=== PATIENT | female | born 1950 | race Caucasian/White ===

== ENCOUNTER 2019-11-23 15:03 | Emergency (ER) | payer MEDICARE, OTHER, SELFPAY ==
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
[2019-11-23 16:19] VITALS: BP 154/88; PULSE 92; RESP 20; TEMP 37.3; O2SAT 96
--- NOTE | 2019-11-23 16:27 | ECG_ITS ---
Measurements Intervals [place] Rate: 68 P: 51 [place]: 164 QRS: -8 QRSD: 80 T: 16 QT: 390 QTc: 416 Interpretive Statements SINUS RHYTHM VOLTAGE CRITERIA FOR LVH BORDERLINE R WAVE PROGRESSION, ANTERIOR LEADS BORDERLINE ECG Electronically Signed On 11-23-2019 17:56:42 WRINKLE CHASER by Chris Haque D.O.
[2019-11-23 16:58] LABS: Basophils Percent Auto 0.5 % (0.2-1.2); Eosinophils Absolute Auto 0.1 K/mm3 (0-0.3); Eosinophils Percent Auto 1.7 % (0-4.4); Hematocrit 37.9 % (37.0-47.0); Hemoglobin 11.9 g/dL (12.0-15.0); Immature Granulocyte Absolute 0.02 K/mm3 (0.00-0.031); Immature Granulocyte Percent A 0.3 % (0-0.5); Lymphocytes Absolute Auto 2.77 K/mm3 (0.9-3.2); Lymphocytes Percent Auto 35.5 % (18.3-44.2); Mean Corpuscular HGB Conc 31.4 g/dl (32-36); Mean Corpuscular Hemoglobin 26.6 pg (26-34); Mean Corpuscular Volume 84.6 fl (80-100); Mean Platelet Volume 10.7 fl (7.4-10.4); Monocytes Absolute Auto 0.6 K/mm3 (0.1-0.6); Monocytes Percent Auto 7.1 % (2.6-8.5); Neutrophils Absolute Auto 4.3 K/mm3 (1.3-6.7); Neutrophils Percent Auto 54.9 % (45.5-73.1); Platelet Count Result 331 k/mm3 (150-375); Red Blood Count 4.48 M/mm3 (4.2-5.4); Red Cell Distribution Width 15.1 % (11.5-14.5); White Blood Count 7.8 K/mm3 (4.5-10.0)
[2019-11-23 17:36] LABS: Blood Urea Nitrogen 16 mg/dL (8-26); Estimated Glomerular Filt Rate > 60
[2019-11-23 18:14] LABS: Add Urine Microscopic? YES; Appearance Urine Clear (Clear); Bacteria Urine Trace /hpf; Bilirubin Urine Negative (Negative); Blood Urine Negative (Negative); Color Urine Yellow (Yellow); Glucose Urine UA Negative (Negative); Ketones Urine Negative (Negative); Leukocyte Esterase Ur Negative LEU/UL (Negative); Mucus Urine Few /lpf; Nitrate Urine Negative (Negative); Protein Urine Negative (Negative); Squamous Epithelial Cell Urine Occasional /hpf (Few); Urobilinogen Urine Negative mg/dL (<2.0); WBC Urine 0-3 /hpf
[2019-11-23 18:17] LABS: Specific Grav Ur 1.036 (1.001-1.035)
[2019-11-23 18:22] LABS: Alanine Aminotransferase 20 U/L (4-35); Albumin Level 3.8 g/dL (3.5-5.1); Alkaline Phosphatase 87 U/L (38-126); Aspartate Amino Transferase 29 U/L (14-36); Bilirubin,Total 0.3 mg/dL (0.2-1.3); Blood Urea Nitrogen 13 mg/dL (7-17); Calcium 9.3 mg/dL (8.4-10.2); Carbon Dioxide 25 mmol/L (22-30); Chloride 102 mmol/L (98-107); Estimated Glomerular Filt Rate > 60; Glucose 84 mg/dL (65-105); Lipase 106 U/L (23-300); Potassium 3.6 mmol/L (3.4-5.0); Sodium 135 mmol/L (137-145)
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
--- NOTE | 2019-12-03 19:23 | PC.NURSE ---
LATE ENTRY This note is being entered to document information to the patient's record. The following information was omitted on 11/25/19, by [MATTI Hawthorne]. Pt recieved IV tylenol dose per EDP order and infusion completed 15minutes after initiation.
== END 2019-11-23 19:31 | disposition home or self-care (01) ==
PROVIDERS: Emergency Medicine Emergency Medical Services; Emergency Provider Emergency Medicine; PCP Emergency Medicine
DX: M54.5 Low back pain (principal); S20.219A Contusion of unspecified front wall of thorax, initial encounter; M19.90 Unspecified osteoarthritis, unspecified site; J44.9 Chronic obstructive pulmonary disease, unspecified; M79.7 Fibromyalgia; E78.00 Pure hypercholesterolemia, unspecified; M32.9 Systemic lupus erythematosus, unspecified; Z87.891 Personal history of nicotine dependence; V47.7XXA Person on outside of car injured in collision with fixed or stationary object in traffic accident, initial encounter
CPT/HCPCS: 36415; 71260; 74177; 80053; 81001; 83690; 85025; 93005; 96365; 99284; J0131; Q9967

== ENCOUNTER 2020-04-08 11:25 | Outpatient (CLI) | payer MEDICARE, OTHER, SELFPAY ==
[2020-04-08 13:06] LABS: Basophils Percent Auto 0.3 % (0.2-1.2); Eosinophils Absolute Auto 0.1 K/mm3 (0-0.3); Eosinophils Percent Auto 0.8 % (0-4.4); Hematocrit 40.1 % (37.0-47.0); Hemoglobin 12.5 g/dL (12.0-15.0); Immature Granulocyte Absolute 0.02 K/mm3 (0.00-0.031); Immature Granulocyte Percent A 0.2 % (0-0.5); Lymphocytes Absolute Auto 2.04 K/mm3 (0.9-3.2); Lymphocytes Percent Auto 23.3 % (18.3-44.2); Mean Corpuscular HGB Conc 31.2 g/dl (32-36); Mean Corpuscular Hemoglobin 27.4 pg (26-34); Mean Corpuscular Volume 87.7 fl (80-100); Mean Platelet Volume 10.3 fl (7.4-10.4); Monocytes Absolute Auto 0.6 K/mm3 (0.1-0.6); Monocytes Percent Auto 6.4 % (2.6-8.5); Platelet Count Result 299 k/mm3 (150-375); Red Blood Count 4.57 M/mm3 (4.2-5.4); Red Cell Distribution Width 14.9 % (11.5-14.5); White Blood Count 8.7 K/mm3 (4.5-10.0)
[2020-04-12 00:46] LABS: Immunoglobulin E 20 kU/L (<=114)
== END 2020-04-08 11:26 | disposition home or self-care (01) ==
PROVIDERS: Visit Provider Internal Medicine Critical Care Medicine
DX: J45.909 Unspecified asthma, uncomplicated (principal); R22.0 Localized swelling, mass and lump, head; T78.3XXA Angioneurotic edema, initial encounter
CPT/HCPCS: 36415; 82785; 83520; 85025; 86606

== ENCOUNTER 2020-04-18 08:27 | Outpatient (CLI) | payer MEDICARE, OTHER, SELFPAY ==
--- NOTE | 2020-04-21 11:13 | WPDPFTINT ---
PFT Interpretation PFT Interpretation: This PFT met all criteria for ATS standards and reproducibility FEV/FVC pre bronchodilator 69% of predicted but increased to 76% post bronchodilator FEV1 73% of predicted or 1.78 liters FVC 65% or 2.33 liters TLC 143% of predicted or 7.58 liters RV 232% RV/TLC 68% DLCO 79% when adjusted for alveolar volume but not adjusted for hemoglobin Flow volume loops showed expiratory coving but some flatting at the expiratory curve. Impression: Moderat air flow obstruction. Hyperinflation and severe air trapping are present. Mildly reduced diffusion capacity. Compared to 2015, FEV1 has fallen greater than expected. This may indicated worsening lung function or and exacerbation. Exhaled nitric oxide was 17 ppb which is considered normal. Clinical correlation is advised.
== END 2020-04-18 08:28 | disposition home or self-care (01) ==
LOC: ANHPFT 08:29
PROVIDERS: Visit Provider Internal Medicine Critical Care Medicine
DX: J45.909 Unspecified asthma, uncomplicated (principal); R94.2 Abnormal results of pulmonary function studies
CPT/HCPCS: 94060; 94726; 94729; 95012

== ENCOUNTER 2020-06-06 15:51 | Outpatient (RCR) | payer MEDICARE, OTHER, SELFPAY ==
[2020-06-11 22:45] LABS: Immunoglobulin G, Serum 670 mg/dL (600-1540); Immunoglobulin G1 475 mg/dL (382-929); Immunoglobulin G2 126 mg/dL (241-700); Immunoglobulin G3 23 mg/dL (22-178); Immunoglobulin G4 14.9 mg/dL (4.0-86.0)
== END 2020-09-04 23:59 | disposition home or self-care (01) ==
LOC: ANHLAB 15:51
PROVIDERS: PCP Family Medicine; Visit Provider Internal Medicine Critical Care Medicine
DX: B99.9 Unspecified infectious disease (principal)
CPT/HCPCS: 36415; 82784; 82787

== ENCOUNTER 2020-07-25 13:54 | Inpatient (IN) | payer MEDICARE, OTHER, SELFPAY ==
--- NOTE | ~2020-07-25 | CT_ITS ---
EXAMINATION: CT abdomen pelvis wo con DATE: 07/26/2020 14:27 INDICATION: Nausea and vomiting. Abdominal pain. TECHNIQUE: Computed tomography (CT) of the abdomen and pelvis was performed without intravenous contr ast. Automated exposure control and iterative reconstruction technique were employed. The dose-length product was 432.87 mGy-cm. COMPARISON: CT abdomen and pelvis 11/23/2019 FINDINGS: The visualized portions of the lung bases demonstrate mild atelectasis. There are trace ple ural effusions. The heart size is normal. There are coronary artery calcifications. There are calcifi cations of aortic valve. No pericardial effusion. There is a small sliding hiatal hernia. There is di ffuse hepatic steatosis. The gallbladder, spleen, pancreas, adrenal glands, and kidneys are normal. T here is no urolithiasis. There is diverticulosis of the colon without evidence of diverticulitis. The appendix is normal. There are calcified fibroids in the uterus. There are no pathologically enlarged lymph nodes. There is no free intraperitoneal fluid. There is severe lower lumbar spondylosis. IMPRESSION: 1. Small sliding hiatal hernia. 2. Diffuse hepatic steatosis. Reviewed, dictated and finalized at location A.
[2020-07-25 14:06] VITALS: BP 165/89; PULSE 85; RESP 16; TEMP 36.7; O2SAT 100
[2020-07-25 14:19] LABS: Basophils Percent Auto 0.5 % (0.2-1.2); Eosinophils Percent Auto 0.4 % (0-4.4); Hematocrit 42.5 % (37.0-47.0); Hemoglobin 13.6 g/dL (12.0-15.0); Immature Granulocyte Absolute 0.02 K/mm3 (0.00-0.031); Immature Granulocyte Percent A 0.3 % (0-0.5); Lymphocytes Absolute Auto 1.94 K/mm3 (0.9-3.2); Lymphocytes Percent Auto 26.6 % (18.3-44.2); Mean Corpuscular Hemoglobin 26.8 pg (26-34); Mean Corpuscular Volume 83.7 fl (80-100); Mean Platelet Volume 10.2 fl (7.4-10.4); Monocytes Absolute Auto 0.5 K/mm3 (0.1-0.6); Monocytes Percent Auto 7.3 % (2.6-8.5); Neutrophils Absolute Auto 4.7 K/mm3 (1.3-6.7); Neutrophils Percent Auto 64.9 % (45.5-73.1); Platelet Count Result 418 k/mm3 (150-375); Red Blood Count 5.08 M/mm3 (4.2-5.4); Red Cell Distribution Width 13.6 % (11.5-14.5); White Blood Count 7.3 K/mm3 (4.5-10.0)
[2020-07-25 14:30] LABS: Alanine Aminotransferase 36 U/L (4-35); Albumin Level 4.2 g/dL (3.5-5.1); Alkaline Phosphatase 92 U/L (38-126); Anion Gap 9 mmol/L (8-16); Aspartate Amino Transferase 45 U/L (14-36); Bilirubin,Total 0.7 mg/dL (0.2-1.3); Blood Urea Nitrogen 11 mg/dL (7-17); Calcium 9.5 mg/dL (8.4-10.2); Carbon Dioxide 29 mmol/L (22-30); Chloride 104 mmol/L (98-107); Estimated CRCL calculation 66 ml/min; Estimated Glomerular Filt Rate > 60; Glucose 99 mg/dL (65-105); Lipase 80 U/L (23-300); Potassium 3.4 mmol/L (3.4-5.0); Sodium 142 mmol/L (137-145)
[2020-07-25 16:42] LABS: Add Urine Microscopic? YES; Appearance Urine Cloudy (Clear); Bacteria Urine 4+ /hpf; Bilirubin Urine Negative (Negative); Blood Urine 1+ (Negative); Color Urine Amber (Yellow); Glucose Urine UA Negative (Negative); Ketones Urine 1+ mg/dL (Negative); Leukocyte Esterase Ur Trace LEU/UL (Negative); Mucus Urine Heavy /lpf; Nitrate Urine Positive (Negative); Protein Urine 1+ mg/dL (Negative); Specific Grav Ur 1.024 (1.001-1.035); Squamous Epithelial Cell Urine Few /hpf (Few); Urobilinogen Urine Negative mg/dL (<2.0)
--- NOTE | 2020-07-25 17:36 | ED.GENADULT ---
HPI - General Adult General Chief complaint: Nausea/Vomiting/Diarrhea Stated complaint: vomiting, body aches Time Seen by Provider: 07/25/20 16:29 Source: patient Mode of arrival: ambulatory Limitations: no limitations History of Present Illness HPI narrative: 69 years old white female presents with nausea, and vomiting everything she ate or drank started yesterday noon. Patient also complaining of chills and intermittent diaphoresis. Currently her main complaint is sickness on her stomach. Patient denies any abdominal pain, chest pain, shortness of breath, fever, coughing, back pain. Patient does not smoke or drink, history of hyperlipidemia. Patient denies COVID-19 exposure. sitting at the bedside. Related Data Home Medications Medication Instructions Recorded Confirmed cholecalciferol (vitamin D3) 25 1,000 unit PO DAILY 10/15/19 mcg (1,000 unit) tablet gabapentin 300 mg capsule 300 mg PO HS cap 10/15/19 multivitamin with minerals 1 tablet PO BID 10/15/19 sumatriptan succinate 25 mg tablet See Rx Instructions .ROUTE .COMPLEX 10/15/19 Bifidobacterium infantis [Align] 4 mg PO DAILY 10/23/19 erenumab-aooe [Aimovig 140 mg SUBCUT MONTHLY 10/23/19 Autoinjector] budesonide-formoterol HFA 160 2 puff INHALATION Q12H 05/31/20 mcg-4.5 mcg/actuation aerosol inhaler calcium carbonate 600 mg (1,500 cap PO BID cap 05/31/20 mg)-vitamin D3 500 unit capsule vitamin N-pufevxocolzf-yybaxjo 500 tablet PO 05/31/20 mg-multivitamin with minerals chewable tablet cetirizine [Zyrtec] mg 07/25/20 conj estrog-medroxyprogest philly tablet 07/25/20 [Prempro] erenumab-aooe [Aimovig mg SUBCUT 07/25/20 Autoinjector] ipratropium bromide 0.5 mg INHALATION Q6H 07/25/20 07/25/20 montelukast 10 mg PO DAILY 07/25/20 07/25/20 Allergies Allergy/AdvReac Type Severity Reaction Status Date / Time diphenhydramine Allergy Severe Anaphylaxis Verified 07/25/20 16:02 [From Benadryl] clarithromycin [From Biaxin] Allergy Intermediate Unknown Verified 07/25/20 16:02 erythromycin base Allergy Intermediate Unknown Verified 07/25/20 16:02 ropinirole [From Requip] Allergy Intermediate Unknown Verified 07/25/20 16:02 valdecoxib [From Bextra] Allergy Intermediate Unknown Verified 07/25/20 16:02 perfume AdvReac Intermediate Unknown Verified 07/25/20 16:02 Review of Systems Review of Systems: Narrative: CONSTITUTIONAL: Denies fever, chills, or sweats. EYES: Denies visual changes, redness, or discharge. ENT: Denies rhinorrhea, congestion, sore throat, or otalgia. CARDIOVASCULAR: Denies chest pain, palpitations, or edema. RESPIRATORY: Denies cough or dyspnea. GASTROINTESTINAL: Denies abdominal pain, nausea, vomiting, or diarrhea. GENITOURINARY: Denies dysuria or hematuria. SKIN: Denies rash or itching. MUSCULOSKELETAL: Denies back pain, joint pain, or myalgia. NEUROLOGIC: Denies headache, numbness, or weakness. PSYCHIATRIC: Denies anxiety or depression. [facility] Past Medical History Medical History Anxiety Arthritis Asthma-COPD overlap syndrome COPD (chronic obstructive pulmonary disease) Degenerative disk disease Depression Fibromyalgia History of tobacco abuse Hx of migraines Hypercholesterolemia Recurrent infections Rhinitis Seizures Sleepiness Systemic lupus Surgical History Surgical History H/O section H/O dilation and curettage History of tubal ligation Family History Family History Sibling Patient's sister is in good health Family history of respiratory disorder, Onset Age: 1 Family history of coronary artery disease Diabetes mellitus Patient's brother is Mother Family history of diabetes mellitus in first degree relative Patient's mother is , Onset Age: 78 Father Patient's father is dece
[2020-07-25] MEDS: ONDANSETRON INJ 4 MG/2 ML VIAL IV PUSH ×2 (17:50→21:48)
[2020-07-25] MEDS: SODIUM CHLORIDE 0.9% IV 1,000 ML 999 ML IV CONT (17:50)
[2020-07-25 18:23] VITALS: BP 132/79; PULSE 67; RESP 18; O2SAT 99
[2020-07-25 18:47] VITALS: BP 189/73; PULSE 64; O2SAT 99
--- NOTE | 2020-07-25 20:00 | ADMGEN ---
This patient, Coleen Grullon, was admitted to Medical Room 341-01. Patient/family oriented to hospital policies and general routines including ID bracelet, bed and alarms, visiting hours, pain management, procedures, bathroom and other care routines, personal items, smoking policy, room service/diet, and visiting hours. Valuables list has been completed. Information on how to activate the Rapid Response Team has been discussed. Patient/Family are encouraged to report perceived risks to care and to ask questions if they do not understand what they are told or what they should do.
[2020-07-25 20:15] VITALS: BP 157/86; PULSE 73; RESP 16; TEMP 36.1; O2SAT 99
[2020-07-25 20:17] VITALS: BP 163/83
[2020-07-25 20:20] VITALS: BMI 27.5
[2020-07-25 20:21] VITALS: BP 156/101
[2020-07-25] MEDS: SODIUM CHLORIDE 0.9% IV 1,000 ML 125 ML IV CONT (20:36)
[2020-07-26] VITALS (14 sets, daily range): BP systolic 145–176; BP diastolic 68–88; PULSE 65–87; RESP 16–20; TEMP 36.1–37; O2SAT 98–100
--- NOTE | 2020-07-26 01:28 | PM.IMHP ---
H&P: HPI History of Present Illness Date/Time: 07/26/20 01:28 Chief complaint: Urinary tract infection, vomiting Narrative: This is a 69 year old female with known SLE, Fibromyalgia, COPD, and RLS who presented to the hospital with a complaint of nausea and vomiting that started one day ago. She noticed that she couldn't keep down any food or fluid. Associated symptoms include diffuse pain of her whole body. She denies any fever, chills, cough, shortness of breath, chest discomfort, abdominal pain, diarrhea or rectal bleeding. The patient denies any dysuria although she has had urinary frequency. Routine labs were performed in the ER and were virtually unremarkable. ER provider started the patient on Ceftriaxone for a presumed UTI. CT chest/abd/pelvis was unremarkable. She has no other complaints at this time. Review of Systems Review of Systems: All systems reviewed & are unremarkable except as noted in HPI and below PMFSH Past Medical History Medical History Anxiety Arthritis Asthma-COPD overlap syndrome COPD (chronic obstructive pulmonary disease) Degenerative disk disease Depression Fibromyalgia History of tobacco abuse Hx of migraines Hypercholesterolemia Recurrent infections Rhinitis Seizures Sleepiness Systemic lupus Surgical History Surgical History H/O section H/O dilation and curettage History of tubal ligation Family History Family History Sibling Patient's sister is in good health Family history of respiratory disorder, Onset Age: 1 Family history of coronary artery disease Diabetes mellitus Patient's brother is Mother Family history of diabetes mellitus in first degree relative Patient's mother is , Onset Age: 78 Father Patient's father is , Onset Age: 78 Sibling Multiple sclerosis Social History Social History Smoking packs per day: 1 Smoking cigarettes per day: 20.0 Years smoked: 13 Smoking pack-years: 13.00 Smoking status: Former smoker Tobacco type: cigarettes Smoking end date: 10/28/84 Alcohol intake: never Substance use: never Gender identity (if verbalized by the patient): Female Spiritual care concerns: No Meds Home Medications and Allergies Home Medications Medication Instructions Recorded Confirmed Type cholecalciferol (vitamin D3) 25 1,000 unit PO DAILY 10/15/19 07/25/20 History mcg (1,000 unit) tablet gabapentin 300 mg capsule 300 mg PO HS cap 10/15/19 07/25/20 History multivitamin with minerals 1 tablet PO BID 10/15/19 07/25/20 History sumatriptan succinate 25 mg tablet See Rx Instructions .ROUTE 10/15/19 07/25/20 History .COMPLEX PRN Bifidobacterium infantis [Align] 4 mg PO DAILY 10/23/19 07/25/20 History erenumab-aooe [Aimovig 140 mg SUBCUT MONTHLY 10/23/19 07/25/20 History Autoinjector] guaifenesin 1,200 mg PO BID #8 tablet 10/23/19 07/25/20 Rx cyclobenzaprine 5 mg PO HS PRN #7 tablet 11/23/19 07/25/20 Rx conj estrogen-medroxyprogesterone 1 tablet PO DAILY #90 tablet 11/24/19 07/25/20 Rx 0.625 mg-2.5 mg tablet simvastatin 40 mg tablet 40 mg PO QPM #90 tablet 11/24/19 07/25/20 Rx budesonide-formoterol HFA 160 2 puff INHALATION Q12H 05/31/20 07/25/20 History mcg-4.5 mcg/actuation aerosol inhaler calcium carbonate 600 mg (1,500 600 cap PO BID cap 05/31/20 07/25/20 History mg)-vitamin D3 500 unit capsule vitamin T-kgphimggdcxp-dlzyucg 500 500 tablet PO BID 05/31/20 07/25/20 History mg-multivitamin with minerals chewable tablet umeclidinium 62.5 mcg/actuation 1 inhalation INHALATION Q24H 30 06/16/20 07/25/20 Rx blister powder for inhalation Days #30 each albuterol sulfate [ProAir HFA] 2 puff INHALATION Q4H PRN 07/25/20
[2020-07-26] MEDS: PRAMIPEXOLE 0.125 MG TABLET PO ×2 (02:44→20:31)
[2020-07-26] MEDS: ONDANSETRON INJ 4 MG/2 ML VIAL IV PUSH ×4 (02:44→20:31)
[2020-07-26] MEDS: GABAPENTIN 300 MG CAPSULE PO ×2 (02:44→20:31)
[2020-07-26] MEDS: SODIUM CHLORIDE 0.9% IV 1,000 ML 125 ML IV CONT (04:45)
[2020-07-26] MEDS: hydrALAZINE HCL 20 MG/ML VIAL 10 MG IV PUSH (05:18)
[2020-07-26 05:42] LABS: Basophils Absolute Auto 0.1 K/mm3 (0.0-0.1); Basophils Percent Auto 0.6 % (0.2-1.2); Eosinophils Absolute Auto 0.1 K/mm3 (0-0.3); Eosinophils Percent Auto 0.8 % (0-4.4); Hematocrit 41.4 % (37.0-47.0); Immature Granulocyte Absolute 0.02 K/mm3 (0.00-0.031); Immature Granulocyte Percent A 0.3 % (0-0.5); Lymphocytes Absolute Auto 1.96 K/mm3 (0.9-3.2); Lymphocytes Percent Auto 25.4 % (18.3-44.2); Mean Corpuscular HGB Conc 31.4 g/dl (32-36); Mean Corpuscular Hemoglobin 26.5 pg (26-34); Mean Corpuscular Volume 84.5 fl (80-100); Mean Platelet Volume 10.3 fl (7.4-10.4); Monocytes Absolute Auto 0.6 K/mm3 (0.1-0.6); Monocytes Percent Auto 7.5 % (2.6-8.5); Neutrophils Percent Auto 65.4 % (45.5-73.1); Platelet Count Result 371 k/mm3 (150-375); Red Cell Distribution Width 13.5 % (11.5-14.5); White Blood Count 7.7 K/mm3 (4.5-10.0)
[2020-07-26 05:54] LABS: Alanine Aminotransferase 35 U/L (4-35); Albumin Level 3.7 g/dL (3.5-5.1); Alkaline Phosphatase 80 U/L (38-126); Anion Gap 6 mmol/L (8-16); Aspartate Amino Transferase 53 U/L (14-36); Bilirubin,Total 0.6 mg/dL (0.2-1.3); Blood Urea Nitrogen 8 mg/dL (7-17); Calcium 8.5 mg/dL (8.4-10.2); Carbon Dioxide 29 mmol/L (22-30); Chloride 105 mmol/L (98-107); Estimated CRCL calculation 64 ml/min; Estimated Glomerular Filt Rate > 60; Glucose 107 mg/dL (65-105); Lactate Dehydrogenase 534 U/L (313-618); Potassium 3.6 mmol/L (3.4-5.0); Sodium 140 mmol/L (137-145)
[2020-07-26] MEDS: MONTELUKAST SODIUM 10 MG TABLET PO (08:11)
[2020-07-26] MEDS: SUMAtriptan SUCCINATE 25 MG TABLET PO ×2 (08:16→13:28)
[2020-07-26 09:11] LABS: Lactic Acid Reflex 1.4 mmol/L (0.7-2.1)
[2020-07-26] MEDS: IPRATROPIUM BR 0.02% INH SOLN 0.5 MG/2.5 ML VIAL INHALATION ×3 (09:20→21:13)
[2020-07-26] MEDS: PANTOPRAZOLE 40 MG TABLET PO (15:13)
--- NOTE | 2020-07-26 15:18 | PC.NURSE ---
Pt to bring in nonformulary medications.
--- NOTE | 2020-07-26 17:49 | PM.IMPN ---
Progress Note: A&P Assessment and Plan (1) Intractable migraine: Code(s): G43.919 - Migraine, unspecified, intractable, without status migrainosus Status: Acute Assessment and Plan: -----patient continues to a migraine and has a history of migraines although she thinks this is a little worse. She does feel like it is a little better today. She is sensitive to light, sound and smells. She has not had any vision changes, numbness or tingling, changes in speech, or any stroke-like symptoms. She has had a past history of this and has tried multiple treatments including Botox which does not seem to help. She does not remember her neurologist name but was in [place]. I have not given her any NSAIDs because she said she had a reaction to Bextra which including swelling of her face and she has not had tried any NSAIDs since. I do not see any neurological deficits or any signs of strokes. At this time I am going to consult Neurology to see what they recommend. May consider MRI but again no neurological deficits and this seems to be chronic. Will wait to see what they say. Differential also includes headache from infection (less likely) and high blood pressure. I see no signs of meningitis or other worrisome signs/symptoms (2) Nausea and vomiting: Qualifiers: Vomiting type: unspecified Vomiting Intractability: non-intractable Qualified Code(s): R11.2 - Nausea with vomiting, unspecified Code(s): R11.2 - Nausea with vomiting, unspecified Status: Acute Assessment and Plan: ------could be due to viral illness or migraine. UTI or bacteremia seems less likely. Will start full liquids and increase as tolerated. No one else in her family is sick. CT of the abdomen pelvis negative for acute abnormalities (3) Abnormal urinalysis: Code(s): R82.90 - Unspecified abnormal findings in urine Status: Acute Assessment and Plan: -----urine culture growing gram-negative bacilli although the patient has no symptoms dysuria. Will continue ceftriaxone at this time since she is not feeling well. Blood cultures have been drawn although her white blood cell count is normal and she has not had a temperature. Bacteremia seems less likely. (4) Asthma-COPD overlap syndrome: Code(s): J44.9 - Chronic obstructive pulmonary disease, unspecified Status: Chronic Assessment and Plan: ----Continue bronchodilators. (5) Lupus: Code(s): M32.9 - Systemic lupus erythematosus, unspecified Status: Chronic Assessment and Plan: ------the patient states that her doctor says she no longer has lupus but has had in the past. She should follow-up with them (6) Fibromyalgia: Code(s): M79.7 - Fibromyalgia Status: Chronic Assessment and Plan: ------Continue pain control as needed. (7) RLS (restless legs syndrome): Code(s): G25.81 - Restless legs syndrome Status: Chronic Assessment and Plan: -----continue gabapentin (8) Hypertension: Code(s): I10 - Essential (primary) hypertension Status: Acute Assessment and Plan: -----last blood pressure 156/79 but has been running high. IV fluids have been stopped and Norvasc has been started. Will start Norvasc Additional Plan Date of service was 07/26/2020 at 01:00 hrs. Time Spent With Patient Time with patient: 25 - 35 minutes Subjective Date/time seen: 07/26/20 17:49 Interval history: Pt is a 69 y/o female here for n/v/d. Pt was seen today and has not had diarrhea since saturday. She states her abdominal pain is all over. She has had significant nausea and vomited earlier today. She has not been able to eat anything. She has a splitting headache. She says she has a history migraines but she thinks this is a little worse than her baseline. She denies vision changes, numbness, tingling, weakness or confusion with this. at beds
[2020-07-27] MEDS: SUMAtriptan SUCCINATE 25 MG TABLET PO (01:19)
[2020-07-27 05:55] LABS: Hematocrit 40.3 % (37.0-47.0); Hemoglobin 12.7 g/dL (12.0-15.0); Mean Corpuscular HGB Conc 31.5 g/dl (32-36); Mean Corpuscular Hemoglobin 26.3 pg (26-34); Mean Corpuscular Volume 83.4 fl (80-100); Mean Platelet Volume 11.1 fl (7.4-10.4); Platelet Count Result 308 k/mm3 (150-375); Red Blood Count 4.83 M/mm3 (4.2-5.4); Red Cell Distribution Width 13.4 % (11.5-14.5); White Blood Count 6.7 K/mm3 (4.5-10.0)
[2020-07-27 06:08] LABS: Alanine Aminotransferase 34 U/L (4-35); Albumin Level 3.7 g/dL (3.5-5.1); Alkaline Phosphatase 78 U/L (38-126); Anion Gap 10 mmol/L (8-16); Aspartate Amino Transferase 52 U/L (14-36); Bilirubin,Total 0.5 mg/dL (0.2-1.3); Blood Urea Nitrogen 9 mg/dL (7-17); Carbon Dioxide 24 mmol/L (22-30); Chloride 105 mmol/L (98-107); Estimated CRCL calculation 64 ml/min; Estimated Glomerular Filt Rate > 60; Glucose 89 mg/dL (65-105); Potassium 3.2 mmol/L (3.4-5.0); Sodium 139 mmol/L (137-145)
[2020-07-27 06:45] VITALS: BP 152/56; PULSE 68; RESP 16; TEMP 36.6; O2SAT 98
[2020-07-27] MEDS: IPRATROPIUM BR 0.02% INH SOLN 0.5 MG/2.5 ML VIAL INHALATION (09:36)
[2020-07-27 09:39] VITALS: PULSE 80; RESP 18
[2020-07-27] MEDS: POTASSIUM CHLORIDE 20 MEQ TABLET 40 MEQ PO (09:45)
[2020-07-27] MEDS: MONTELUKAST SODIUM 10 MG TABLET PO (09:46)
[2020-07-27] MEDS: amLODIPine BESYLATE 5 MG TABLET PO (09:46)
[2020-07-27] MEDS: PANTOPRAZOLE 40 MG TABLET PO (09:46)
[2020-07-27 09:51] VITALS: RESP 18; O2SAT 98
[2020-07-27 10:00] VITALS: BP 137/58; PULSE 73; RESP 18; TEMP 36.4; O2SAT 100
--- NOTE | 2020-07-27 10:58 | WPDNEURCNPN ---
Assessment and Plan Assessment and plan (1) RLS (restless legs syndrome): Code(s): G25.81 - Restless legs syndrome Status: Chronic (2) Hx of migraines: Code(s): Z86.69 - Personal history of other diseases of the nervous system and sense organs Status: Acute (3) Intractable migraine: Code(s): G43.919 - Migraine, unspecified, intractable, without status migrainosus Status: Acute Additional Plan nonfocal neurological examination with history of seizures in the past as per the notes taking Krista packs all 0.125 mg at HS for the restless leg syndrome treatment of the continuous such Consult date: 07/27/20 Time Seen: 10:15 HPI: Coleen Grullon is a 69 year old female admitted to the hospital for the urinary tract infection along with vomiting In addition to history of 1. Systemic lupus erythematosus 2. Fibromyalgia 3. COPD 4. Restless leg syndrome initially attributed her symptomatology to the medication for the restless leg syndrome patient has been started on antibiotic by the ER for the UTI. evaluation up until now revealed her to be small sliding hiatal hernia with diffuse hepatic steatosis on CT of the abdomen and pelvis with contrast, negative chest x-ray, BMP with a low potassium, slightly elevated hepatic enzymes, and abnormal UA, cultures are pending Review of Systems Review of Systems: All systems reviewed & are unremarkable except as noted in HPI and below PMFSH Past Medical History Medical History Anxiety Arthritis Asthma-COPD overlap syndrome COPD (chronic obstructive pulmonary disease) Degenerative disk disease Depression Fibromyalgia History of tobacco abuse Hx of migraines Hypercholesterolemia Recurrent infections Rhinitis Seizures Sleepiness Systemic lupus Surgical History Surgical History H/O section H/O dilation and curettage History of tubal ligation Family History Family History Sibling Patient's sister is in good health Family history of respiratory disorder, Onset Age: 1 Family history of coronary artery disease Diabetes mellitus Patient's brother is Mother Family history of diabetes mellitus in first degree relative Patient's mother is , Onset Age: 78 Father Patient's father is , Onset Age: 78 Sibling Multiple sclerosis Social History Social History Smoking packs per day: 1 Smoking cigarettes per day: 20.0 Years smoked: 13 Smoking pack-years: 13.00 Smoking status: Former smoker Tobacco type: cigarettes Smoking end date: 10/28/84 Alcohol intake: never Substance use: never Gender identity (if verbalized by the patient): Female Spiritual care concerns: No Meds Home Medications and Allergies Home Medications Medication Instructions Recorded Confirmed Type cholecalciferol (vitamin D3) 25 1,000 unit PO DAILY 10/15/19 07/25/20 History mcg (1,000 unit) tablet gabapentin 300 mg capsule 300 mg PO HS cap 10/15/19 07/25/20 History multivitamin with minerals 1 tablet PO BID 10/15/19 07/25/20 History sumatriptan succinate 25 mg tablet 25 mg PO Q2H PRN 10/15/19 07/26/20 History Bifidobacterium infantis [Align] 4 mg PO DAILY 10/23/19 07/25/20 History erenumab-aooe [Aimovig 140 mg SUBCUT MONTHLY 10/23/19 07/25/20 History Autoinjector] guaifenesin 1,200 mg PO BID #8 tablet 10/23/19 07/25/20 Rx cyclobenzaprine 5 mg PO HS PRN #7 tablet 11/23/19 07/25/20 Rx conj estrogen-medroxyprogesterone 1 tablet PO DAILY #90 tablet 11/24/19 07/25/20 Rx 0.625 mg-2.5 mg tablet simvastatin 40 mg tablet 40 mg PO QPM #90 tablet 11/24/19 07/25/20 Rx budesonide-formoterol HFA 160 2 puff INHALATION Q12H 05/31/20 07/25/20 History mcg-4.5 mcg/actuation aerosol inha
--- NOTE | 2020-07-27 11:10 | PHAR ---
Ingredients Active-Ingredient: Umeclidinium - 62.5 MCG/Actuation Excipients: Lactose (Monohydrate) 12.5 MG/Actuation Magnesium Stearate 75 MG/Actuation Milk (Proteins) Availability: [place] Cipdjiona-Ktzdjtklw-Qbxxu: Strip of 7; Strip of 30 Contact: Dailysingle Product ID: [id number] - 03/10 [facility] Code: 001312 - Anticholinergic Drugs (Excluding Cough and Cold Preparations, and Plants) Registry Numbers: [id number] More Note: The inhaler is packaged in a moisture-protective foil tray with a desiccant and a peelable lid. NDC [id number] is supplied as a disposable light bowser and light green plastic inhaler containing a double-foil blister strip with 30 blisters. NDC [id number] is supplied as a disposable light bowser and light green plastic inhaler containing a double-foil blister strip with 7 blisters. Form: Inhalation Powder Color: White
--- NOTE | 2020-07-27 11:15 | PHAR ---
Ingredients Active-Ingredients: Conjugated Estrogens - 0.3 MG Medroxyprogesterone Acetate - 1.5 MG Excipients: Calcium Phosphate, Tribasic Cellulose, Microcrystalline Eudagrit NE 30D Ferric Oxide, Black Ferric Oxide, Yellow Hydroxypropyl Cellulose Hypromellose Lactose (Monohydrate) Magnesium Stearate Polyethylene Glycol Povidone Sucrose Titanium Dioxide Availability: [place] Pbfzatruj-Adgsjfjlz-Llihu: Strip of 28; Dispenser Pack of 84; Bottle of 90 Contact: Butlr Product ID: [id number] 05/03 [facility] Code: [id number] - Estrogens Registry Numbers: NDC [id number] More Form: Oral Tablet Color: Cream Shape: Oval Image:
--- NOTE | 2020-07-27 12:13 | PM.DS ---
DS: Admitting Diagnosis Admitting Diagnosis Admitting Diagnosis: Urinary tract infection, vomiting DS: Discharge Diagnosis Discharge Diagnosis (1) Intractable migraine: Code(s): G43.919 - Migraine, unspecified, intractable, without status migrainosus Status: Acute Assessment and Plan: -----improved. Neurology saw the patient and recommended following up with her neurologist in [place]. She had no focal neurological deficits and the migraine improved on its own. (2) Nausea and vomiting: Qualifiers: Vomiting type: unspecified Vomiting Intractability: non-intractable Qualified Code(s): R11.2 - Nausea with vomiting, unspecified Code(s): R11.2 - Nausea with vomiting, unspecified Status: Acute Assessment and Plan: ------resolved and the patient is tolerating a normal diet. Could be due to viral illness or migraine. UTI or bacteremia seems less likely. Will start full liquids and increase as tolerated. No one else in her family is sick. CT of the abdomen pelvis negative for acute abnormalities (3) Asthma-COPD overlap syndrome: Code(s): J44.9 - Chronic obstructive pulmonary disease, unspecified Status: Chronic Assessment and Plan: ----Continue bronchodilators. (4) Lupus: Code(s): M32.9 - Systemic lupus erythematosus, unspecified Status: Chronic Assessment and Plan: ------the patient states that her doctor says she no longer has lupus but has had in the past. She should follow-up with them (5) Fibromyalgia: Code(s): M79.7 - Fibromyalgia Status: Chronic Assessment and Plan: ------Continue pain control as needed. (6) RLS (restless legs syndrome): Code(s): G25.81 - Restless legs syndrome Status: Chronic Assessment and Plan: -----continue gabapentin (7) Hypertension: Code(s): I10 - Essential (primary) hypertension Status: Acute Assessment and Plan: -----last blood pressure 137/58 but has been running high. Continue Norvas, follow-up with PCP (8) UTI (urinary tract infection): Code(s): N39.0 - Urinary tract infection, site not specified Status: Acute Assessment and Plan: -----urine culture growing Klebsiella pnemoniae and the patient was discharged on cefdinir. Blood cultures negative to date, bacteremia not suspected. Will be monitored until finalized DS: Summary Hospital Course Reason for hospitalization: Intractable nausea vomiting Hospital Course: Patient is a 69-year-old female who presented emergency room for intractable nausea vomit starting several days prior. She had a couple episodes of soft stool but no actual diarrhea. Vitals in the ER were stable, blood pressure 165/89. White blood cell count normal. BMP normal. Admitted to the hospitalist service and continue to have significant nausea vomiting overnight. A CT of her abdomen pelvis was done which showed no acute abnormalities, but did also showed diffuse hepatic steatosis and a small sliding hiatal hernia. The patient also developed an acute migraine in which sumatriptan was not helping. Neurology was consulted and recommended her following up with her neurologist in [place]. The day of discharge, the patient's nausea vomiting had resolved as well as her migraine. She plans to follow-up with her neurologist and finish her antibiotics. She was educated about the worrisome signs and symptoms to come back to emergency room for and was discharged in stable condition Status at Discharge Functional status at discharge: independent ambulation Overall status at discharge: patient is back to baseline Time Spent with Patient Time attestation: Total time spent providing and/or coordinating discharge services:36 min Time spent: Greater than 30 minutes Exam Narrative: Exam Narrative: General: Well developed well nourished patient in NAD HEENT:
--- NOTE | 2020-07-31 11:09 | PC.NURSE ---
Pt calls today, notifying us that she had selected her mail-order pharmacy as her preferred pharmacy on discharge 08/26/2020. Pt reports she is feeling worse & her blood pressure is high, she would like the prescriptions to be sent to [facility] to be filled. PA approved this & prescriptions sent to [facility].
--- NOTE | 2020-08-02 15:27 | PC.NURSE ---
Blood cx showing no growth.
== END 2020-07-27 13:35 | disposition home or self-care (01) | DRG 103 ==
LOC: ANHED 18:40 → ANH3MED 18:59
PROVIDERS: Emergency Medicine; Nurse Practitioner; Physician Assistant; Admitting Provider Internal Medicine; Emergency Provider Emergency Medicine; PCP Family Medicine; Visit Provider Family Medicine
DX: G43.919 Migraine, unspecified, intractable, without status migrainosus (principal); N39.0 Urinary tract infection, site not specified; B96.1 Klebsiella pneumoniae [K. pneumoniae] as the cause of diseases classified elsewhere; R11.2 Nausea with vomiting, unspecified; Z23 Encounter for immunization; M79.7 Fibromyalgia; J44.9 Chronic obstructive pulmonary disease, unspecified; G40.909 Epilepsy, unspecified, not intractable, without status epilepticus; M32.9 Systemic lupus erythematosus, unspecified; I10 Essential (primary) hypertension; F41.8 Other specified anxiety disorders; M19.90 Unspecified osteoarthritis, unspecified site; G25.81 Restless legs syndrome; K76.0 Fatty (change of) liver, not elsewhere classified; Z87.891 Personal history of nicotine dependence; K44.9 Diaphragmatic hernia without obstruction or gangrene
CPT/HCPCS: 36415; 74176; 80048; 80053; 80076; 81001; 82728; 83605; 83615; 83690; 83735; 84443; 85025; 85027; 87040; 87077; 87086; 87088; 87186; 90471; 90686; 94640; 96361; 96365; 96375; 96376; 99285; A9270; G0008; G0378; J0131; J0360; J0696; J2405; J7030

== ENCOUNTER 2020-08-11 08:49 | Outpatient (CLI) | payer MEDICARE, OTHER, SELFPAY ==
[2020-08-15 23:06] LABS: Immunoglobulin G, Serum 795 mg/dL (600-1540); Immunoglobulin G1 526 mg/dL (382-929); Immunoglobulin G2 131 mg/dL (241-700); Immunoglobulin G3 24 mg/dL (22-178)
== END 2020-08-11 08:50 | disposition home or self-care (01) ==
LOC: ANHLAB 08:53
PROVIDERS: PCP Family Medicine; Visit Provider Nurse Practitioner Family
DX: B99.9 Unspecified infectious disease (principal)
CPT/HCPCS: 36415; 82784; 82787

== ENCOUNTER 2020-08-24 16:10 | Outpatient (CLI) | payer MEDICARE, OTHER, SELFPAY ==
[2020-08-24 18:09] LABS: Add Urine Microscopic? YES; Appearance Urine Cloudy (Clear); Bacteria Urine 1+ /hpf; Bilirubin Urine Negative (Negative); Blood Urine Negative (Negative); Calcium Oxalate Crystals Urine Many /hpf; Color Urine Yellow (Yellow); Glucose Urine UA Negative (Negative); Ketones Urine Negative (Negative); Leukocyte Esterase Ur Negative LEU/UL (Negative); Mucus Urine Moderate /lpf; Nitrate Urine Negative (Negative); Protein Urine 1+ mg/dL (Negative); Specific Grav Ur 1.028 (1.001-1.035); Squamous Epithelial Cell Urine Few /hpf (Few); Urobilinogen Urine Negative mg/dL (<2.0); WBC Urine 0-3 /hpf
== END 2020-08-24 16:11 | disposition home or self-care (01) ==
PROVIDERS: PCP Family Medicine; Visit Provider Family Medicine
DX: R30.0 Dysuria (principal)
CPT/HCPCS: 81001

== ENCOUNTER 2020-09-07 09:23 | Outpatient (CLI) | payer MEDICARE, OTHER, SELFPAY ==
--- NOTE | ~2020-09-07 | MM_ITS ---
EXAMINATION: MM screening [facility] BI w lois HISTORY: Screening mammogram TECHNIQUE: Craniocaudal and mediolateral oblique 3-D tomosynthesis images were obtained and synthetic 2-D images were generated. CAD analysis was submitted and interpreted. COMPARISON: 05/05/2019, 07/31/2017, 12/28/2014 BREAST PARENCHYMAL COMPOSITION: There are scattered areas of fibroglandular density. FINDINGS: RIGHT BREAST: There is no evidence of suspicious mass, calcification, or architectural distortion to suggest malignancy. There has been no significant interval change. LEFT BREAST: An asymmetry is present in the anterior/middle third of the outer breast 5 cm from the n ipple on the craniocaudal view. IMPRESSION: 1. Left breast asymmetry on the craniocaudal view. 2. Additional mammographic views and possible breast ultrasound are recommended. BI-RADS Category 0: Incomplete: Needs additional imaging evaluation. Reviewed, dictated and finalized at location A. ALL AND REPAIR TECHNICIAN IMPRESSION: 1. Left breast asymmetry on the craniocaudal view. 2. Additional mammographic views and possible breast ultrasound are recommended . BI-RADS Category 0: Incomplete: Needs additional imaging evaluation.
== END 2020-09-07 09:24 | disposition home or self-care (01) ==
LOC: ANHIMG 09:28
PROVIDERS: PCP Family Medicine; Visit Provider Family Medicine
DX: Z12.31 Encounter for screening mammogram for malignant neoplasm of breast (principal); R92.8 Other abnormal and inconclusive findings on diagnostic imaging of breast
CPT/HCPCS: 77063; 77067

== ENCOUNTER 2020-09-15 12:33 | Outpatient (CLI) | payer MEDICARE, OTHER, SELFPAY ==
[2020-09-15 13:08] LABS: Add Urine Microscopic? YES; Appearance Urine Clear (Clear); Bacteria Urine Trace /hpf; Bilirubin Urine Negative (Negative); Blood Urine Negative (Negative); Color Urine Yellow (Yellow); Glucose Urine UA Negative (Negative); Ketones Urine Negative (Negative); Leukocyte Esterase Ur Negative LEU/UL (Negative); Mucus Urine Rare /lpf; Nitrate Urine Negative (Negative); Protein Urine 1+ mg/dL (Negative); Squamous Epithelial Cell Urine Few /hpf (Few); Urobilinogen Urine Negative mg/dL (<2.0); WBC Urine 0-3 /hpf
== END 2020-09-15 12:34 | disposition home or self-care (01) ==
PROVIDERS: PCP Family Medicine; Visit Provider Family Medicine
DX: R30.0 Dysuria (principal)
CPT/HCPCS: 81001

== ENCOUNTER 2020-11-29 13:16 | Outpatient (CLI) | payer MEDICARE, OTHER, SELFPAY ==
--- NOTE | ~2020-11-29 | MMUS_ITS ---
EXAMINATION: MM diagnostic mammo unilat LT, US breast LT limited HISTORY: Left breast asymmetry on screening mammogram TECHNIQUE: Additional 3-D tomosynthesis images of the left breast were performed and synthetic 2-D im ages were generated. CAD analysis was submitted and interpreted. High resolution limited left breast ultrasound was performed. COMPARISON: 09/16/2019, 05/15/2019, 07/31/2017 BREAST PARENCHYMAL COMPOSITION: There are scattered areas of fibroglandular density. FINDINGS: MAMMOGRAPHIC FINDINGS: There is a return to baseline fibroglandular appearance in the area questioned on screening mammogram in the left breast with spot compression. No suspicious mass, calcification, or architectural distor tion are identified. ULTRASOUND: There is no evidence of focal abnormal solid or cystic lesion in the vicinity of the mammographic fin ding in question. IMPRESSION: 1. No mammographic or sonographic evidence of malignancy. 2. Recommend routine screening mammography in one year. BI-RADS Category 1: Negative Reviewed, dictated and finalized at location A. R TUNE UP SPECIALIST IMPRESSION: 1. No mammographic or sonographic evidence of malignancy. 2. Recommend routine screening mammography in one year. BI-RADS Category 1: Negative
[2020-11-29 15:53] LABS: Anion Gap 6 mmol/L (8-16); Blood Urea Nitrogen 19 mg/dL (7-17); Calcium 9.9 mg/dL (8.4-10.2); Carbon Dioxide 32 mmol/L (22-30); Chloride 103 mmol/L (98-107); Estimated Glomerular Filt Rate 55; Glucose 98 mg/dL (65-105); Magnesium 1.9 mg/dL (1.6-2.3); Potassium 4.1 mmol/L (3.4-5.0); Sodium 141 mmol/L (137-145)
== END 2020-11-29 13:17 | disposition home or self-care (01) ==
PROVIDERS: PCP Family Medicine; Referring Provider Internal Medicine Cardiovascular Disease; Visit Provider Family Medicine
DX: R92.8 Other abnormal and inconclusive findings on diagnostic imaging of breast (principal); I10 Essential (primary) hypertension
CPT/HCPCS: 36415; 76642; 77065; 80048; 83735

== ENCOUNTER 2021-06-13 16:06 | Outpatient (CLI) | payer MEDICARE, OTHER, SELFPAY ==
[2021-06-13 18:15] LABS: Add Urine Microscopic? YES; Appearance Urine Clear (Clear); Bacteria Urine Trace /hpf; Bilirubin Urine Negative (Negative); Blood Urine Negative (Negative); Color Urine Yellow (Yellow); Glucose Urine UA Negative (Negative); Ketones Urine Negative (Negative); Leukocyte Esterase Ur 1+ LEU/UL (Negative); Mucus Urine Rare /lpf; Nitrate Urine Negative (Negative); Protein Urine Negative (Negative); Specific Grav Ur 1.023 (1.001-1.035); Squamous Epithelial Cell Urine Few /hpf (Few); Urobilinogen Urine Negative mg/dL (<2.0)
== END 2021-06-13 16:07 | disposition home or self-care (01) ==
PROVIDERS: PCP Family Medicine; Visit Provider Family Medicine
DX: R30.0 Dysuria (principal)
CPT/HCPCS: 81001

== ENCOUNTER 2021-11-02 16:44 | Outpatient (CLI) | payer MEDICARE, OTHER, SELFPAY ==
--- NOTE | ~2021-11-02 | DEXA_ITS ---
Bone Density Report Name: EUGENIE AYALA Age: 71 Sex: Female Ethnicity: White Date of : 1950 Indication: postmenopausal; parental hip fracture; height loss; history of glucocorticoids; Referring Provider: Joy, Ignacio Traore Study: Bone densitometry was performed. Exam Date: November 02, 2021 Accession number: [id number] Bone Density: Region BMD T-score Z-score Classification AP Spine (L1-L4) 1.171 1.1 3.4 Normal Femoral Neck (Left) 0.745 -0.9 1.0 Normal Total Hip (Left) 0.928 -0.1 1.6 Normal Total Hip Bilateral Avg 0.929 -0.1 1.6 Normal Femoral Neck (Right) 0.816 -0.3 1.7 Normal Total Hip (Right) 0.930 -0.1 1.6 Normal World Health Organization criteria for BMD impression classify patients as: Normal (T-score at or above -1.0), Osteopenia (T-score between -1.0 and -2.5), or Osteoporosis (T-score at or below -2.5). 10-year Fracture Risk: FRAX not reported because: All T-scores for Spine Total, Hip Total, Femoral Neck at or above -1.0 Previous Exams: Region Exam Age BMD T-score BMD Change BMD Change Date g/cm2 vs Baseline vs Previous AP Spine(L1-L4) 11/02/2021 71 1.171 1.1 0.082(7.5%)# 0.044(3.9%)* 12/28/2014 64 1.127 0.7 0.038(3.5%)# 0.038(3.5%)# 12/01/2008 58 1.089 0.4 Total Hip(Left) 11/02/2021 71 0.928 -0.1 0.097(11.6%)# 0.020(2.2%) 12/28/2014 64 0.908 -0.3 0.076(9.2%)# 0.076(9.2%)# 12/01/2008 58 0.831 -0.9 Total Hip(Right) 11/02/2021 71 0.930 -0.1 0.070(8.2%)# 0.008(0.9%) 12/28/2014 64 0.922 -0.2 0.062(7.3%)# 0.062(7.3%)# 12/01/2008 58 0.859 -0.7 *Denotes significance at 95% confidence level, LSC for AP Spine = 0.022 g/cm2, LSC for Total Hip = 0.027 g/cm2 Clinical Information Provided by Patient: Parent has had a hip fracture Has taken Glucocorticoids Has used the following medications: HRT (i.e. estrogen/hormone therapy), Vitamin D, Calcium Patient maximum height was 67 Menopause Age: 36 Drinks caffeinated beverages Onset of menses at age 12 Number of children 2 Impression: The patient has normal bone mass. The patient has risk factors, including: parental hip fracture, history of glucocorticoid therapy. No significant bone loss was observed. Discussion: BONE DENSITY IS ABOVE THE MINIMUM DESIRABLE LEVEL AT ALL SKELETAL SITES TESTED. This patient?s bone mineral density is above the minimum desirable level (T-score -1.0 or better) at all sites measured. The
== END 2021-11-02 16:45 | disposition home or self-care (01) ==
LOC: ANHIMG 16:46
PROVIDERS: PCP Family Medicine; Visit Provider Family Medicine
DX: Z78.0 Asymptomatic menopausal state (principal)
CPT/HCPCS: 77080

== ENCOUNTER 2023-06-04 12:55 | Emergency (ER) | payer OTHER, MEDICARE, SELFPAY ==
--- NOTE | ~2023-06-04 | XR_ITS ---
EXAMINATION: XR hip LT min 3V w AP pelvis DATE: 06/04/2023 14:38 INDICATION: Left hip pain. TECHNIQUE: An anteroposterior view of the pelvis and 3 views of left hip were obtained. COMPARISON: None. FINDINGS: Bone alignment is normal. No fracture. There is severe lumbar spondylosis. There is mild os teoarthrosis of the hips. Osteitis pubis is noted. There is a calcified uterine fibroid. IMPRESSION: 1. Mild osteoarthritis of the hips. Reviewed, dictated and finalized at location A.
--- NOTE | ~2023-06-04 | XR_ITS ---
EXAMINATION: XR wrist RT min 3V DATE: 06/04/2023 14:38 INDICATION: Right wrist pain. TECHNIQUE: 4 views of right wrist were obtained. COMPARISON: Right wrist radiographs 11/20/18 FINDINGS: Bone alignment is normal. No fracture. There is mild osteoarthritis of first carpometacarpa l joint. IMPRESSION: 1. Mild osteoarthritis of first carpometacarpal joint. Reviewed, dictated and finalized at location A.
--- NOTE | ~2023-06-04 | XR_ITS ---
EXAMINATION: XR elbow RT min 3V DATE: 06/04/2023 14:38 INDICATION: Right elbow pain. Fall. TECHNIQUE: 4 views of right elbow were obtained. COMPARISON: None. FINDINGS: Bone alignment is normal. No fracture. Joint spaces are normal. No elbow joint effusion. IMPRESSION: 1. No fracture. Reviewed, dictated and finalized at location A. IMPRESSION: 1. No fracture.
[2023-06-04 12:56] VITALS: BP 162/87; PULSE 67; RESP 16; TEMP 36.8; O2SAT 99
--- NOTE | 2023-06-04 13:49 | ED.FALL ---
HPI - Fall General Chief Complaint: Fall Stated Complaint: fall Time Seen by Provider: 06/04/23 13:48 Source: patient Mode of arrival: ambulatory Limitations: no limitations History of Present Illness HPI Narrative: 72 years old white female drove herself to the emergency room because of pain at the right wrist right elbow and left hip after falling in the rain last night. Patient denies other injuries. Related Data Home Medications Medication Instructions Recorded Confirmed cholecalciferol (vitamin D3) 25 1,000 unit PO DAILY 10/15/19 01/22/23 mcg (1,000 unit) tablet gabapentin 300 mg capsule 300 mg PO HS 10/15/19 01/22/23 multivitamin with minerals 1 tablet PO BID 10/15/19 01/22/23 (Hair,Skin and Nails tablet) sumatriptan succinate 25 mg tablet 25 mg PO Q2H PRN Migraine Headache 10/15/19 01/22/23 Bifidobacterium infantis 4 mg 4 mg PO DAILY 10/23/19 01/22/23 capsule (Align) erenumab-aooe 140 mg/mL 140 mg subcut MONTHLY 10/23/19 01/22/23 subcutaneous auto-injector (Aimovig Autoinjector) budesonide-formoterol HFA 160 2 puff inhalation Q12H 05/31/20 01/22/23 mcg-4.5 mcg/actuation aerosol inhaler (Symbicort) calcium carbonate 600 mg-vitamin 600 cap PO BID 05/31/20 01/22/23 D3 12.5 mcg (500 unit) capsule (Calcium 600 with Vitamin D3) vitamin C 500 mg-multivitamin with 500 tablet PO BID 05/31/20 01/22/23 minerals chewable tablet (Emergen-C) albuterol sulfate 90 mcg/actuation 2 puff inhalation Q4H PRN 07/25/20 01/22/23 aerosol inhaler (ProAir HFA) Shortness Of Breath cetirizine 10 mg tablet (Zyrtec) 10 mg PO DAILY 07/25/20 01/22/23 conj estrogen-medroxyprogesterone 0.3 - 1.5 tablet PO HS 07/25/20 01/22/23 0.3 mg-1.5 mg tablet (Prempro) montelukast 10 mg tablet 10 mg PO DAILY 07/25/20 01/22/23 ascorbic acid (vitamin C) 1,000 mg 1,000 mg PO Q12H 09/15/20 01/22/23 tablet,extended release (Vitamin C With Fide Hips) hydrochlorothiazide 25 mg tablet 25 mg PO DAILY 09/15/20 01/22/23 losartan 100 mg tablet 100 mg PO DAILY 09/15/20 01/22/23 multivitamin,tx-minerals 1 cap PO DAILY 09/15/20 01/22/23 (Multi-Vitamin HP/Minerals capsule) omeprazole 20 mg capsule,delayed 20 mg PO DAILY 09/15/20 01/22/23 release epinephrine 0.3 mg/0.3 mL 0.3 mg IM Q4H PRN 01/22/23 01/22/23 injection, auto-injector famotidine 20 mg tablet (Pepcid AC) 20 mg PO BID 01/22/23 01/22/23 ipratropium bromide 42 mcg (0.06 2 spray intranasal TID 01/22/23 01/22/23 %) nasal spray Allergies Allergy/AdvReac Type Severity Reaction Status Date / Time diphenhydramine Allergy Severe Anaphylaxis Verified 06/04/23 13:17 [From Benadryl] clarithromycin [From Biaxin] Allergy Intermediate Unknown Verified 06/04/23 13:17 erythromycin base Allergy Intermediate Unknown Verified 06/04/23 13:17 ropinirole [From Requip] Allergy Intermediate Unknown Verified 06/04/23 13:17 valdecoxib [From Bextra] Allergy Intermediate Unknown Verified 06/04/23 13:17 cefdinir Allergy Mild Unknown Verified 06/04/23 13:17 perfume AdvReac Intermediate Unknown Verified 06/04/23 13:17 Review of Systems Review of Systems: All systems reviewed & are unremarkable except as noted in HPI and below PMFSH Past Medical History Medical History (Updated 06/04/23 @ 15:08 by Ramón Saba MD) Anxiety Arthritis Asthma-COPD overlap syndrome COPD (chronic obstructive pulmonary disease) Degenerative disk disease Depression Fibromyalgia History of tobacco abuse Hx of migraines Hypercholesterolemia Recurrent infections Rhinitis Seizures Sleepiness Systemic lupus Surgical History Surgical History H/O section H/O dilation and curettage History of tubal ligation Family History Family History Sibling Patient's sister is in good health Family history of respiratory disorder, Onset Age: 1 Family history of coronary artery disease Di
[2023-06-04 15:15] VITALS: BP 141/74; PULSE 74; RESP 18; O2SAT 100
== END 2023-06-04 15:16 | disposition home or self-care (01) ==
PROVIDERS: Emergency Provider Emergency Medicine; PCP Family Medicine
DX: S50.11XA Contusion of right forearm, initial encounter (principal); S70.02XA Contusion of left hip, initial encounter; J44.9 Chronic obstructive pulmonary disease, unspecified; M32.9 Systemic lupus erythematosus, unspecified; M79.7 Fibromyalgia; E78.00 Pure hypercholesterolemia, unspecified; M19.90 Unspecified osteoarthritis, unspecified site; Z87.891 Personal history of nicotine dependence; M16.0 Bilateral primary osteoarthritis of hip; M18.9 Osteoarthritis of first carpometacarpal joint, unspecified
CPT/HCPCS: 73080; 73110; 73502; 99284

== ENCOUNTER 2023-06-20 09:43 | Emergency (ER) | payer MEDICARE, OTHER, SELFPAY ==
[2023-06-20] VITALS (8 sets, daily range): BP systolic 122–138; BP diastolic 66–83; PULSE 65–84; RESP 18–27; TEMP 36.4; O2SAT 95–100
--- NOTE | ~2023-06-20 | XR_ITS ---
EXAMINATION: XR foot LT 2V INDICATION: Left foot pain TECHNIQUE: Two views of the left foot are obtained. COMPARISON: None available FINDINGS: Bone alignment is normal. No fracture is identified. There is mild osteoarthritis of multip le interphalangeal joints. The soft tissues are unremarkable. IMPRESSION: 1. No acute osseous abnormality identified on this limited two view examination. Reviewed, dictated and finalized at location A. IMPRESSION: 1. No acute osseous abnormality identified on this limited two view examination .
[2023-06-20 10:47] LABS: Basophils Percent Auto 0.3 % (0.2-1.2); Eosinophils Absolute Auto 0.1 K/mm3 (0-0.3); Eosinophils Percent Auto 0.7 % (0-4.4); Hematocrit 39.9 % (37.0-47.0); Hemoglobin 12.4 g/dL (12.0-15.0); Immature Granulocyte Percent A 0.8 % (0-0.5); Lymphocytes Absolute Auto 1.76 K/mm3 (0.9-3.2); Lymphocytes Percent Auto 13.6 % (18.3-44.2); Mean Corpuscular HGB Conc 31.1 g/dl (32-36); Mean Corpuscular Volume 86.7 fl (80-100); Mean Platelet Volume 9.6 fl (7.4-10.4); Monocytes Percent Auto 7.5 % (2.6-8.5); Neutrophils Percent Auto 77.1 % (45.5-73.1); Platelet Count Result 348 k/mm3 (150-375); Red Cell Distribution Width 15.4 % (11.5-14.5)
--- NOTE | 2023-06-20 10:55 | ED.GENADULT ---
HPI - General Adult General Chief complaint: GI Bleed Stated complaint: left foot swelling, rectal bleeding Time Seen by Provider: 06/20/23 10:35 Source: patient Mode of arrival: ambulatory Limitations: no limitations History of Present Illness HPI narrative: This is a 72-year-old female who presents to the ED with chief complaint of rectal bleeding for the past 5 days. Patient states that she notices bright red blood on the toilet paper when she wipes and has noticed occasional bright red blood in the toilet as well. States she has known external hemorrhoids that have been treated by GI doctors in the past but this was many years ago. Denies vaginal symptoms. Denies urinary symptoms. Denies fevers, chills, chest pain, shortness of breath, abdominal pain, nausea, vomiting, hematemesis, melena or tarry stools. She has additional complaints of 2 weeks of left foot pain. States it is worse in the morning and gets worse throughout the day. She reports it hurts on the plantar aspect of the foot. Specifically worse with walking. States she had a fall a few weeks ago and was evaluated for her complaints at that time but ever since then she has had a little bit more foot pain. Related Data Home Medications Medication Instructions Recorded Confirmed cholecalciferol (vitamin D3) 25 1,000 unit PO DAILY 10/15/19 01/22/23 mcg (1,000 unit) tablet gabapentin 300 mg capsule 300 mg PO HS 10/15/19 01/22/23 multivitamin with minerals 1 tablet PO BID 10/15/19 01/22/23 (Hair,Skin and Nails tablet) sumatriptan succinate 25 mg tablet 25 mg PO Q2H PRN Migraine Headache 10/15/19 01/22/23 Bifidobacterium infantis 4 mg 4 mg PO DAILY 10/23/19 01/22/23 capsule (Align) erenumab-aooe 140 mg/mL 140 mg subcut MONTHLY 10/23/19 01/22/23 subcutaneous auto-injector (Aimovig Autoinjector) budesonide-formoterol HFA 160 2 puff inhalation Q12H 05/31/20 01/22/23 mcg-4.5 mcg/actuation aerosol inhaler (Symbicort) calcium carbonate 600 mg-vitamin 600 cap PO BID 05/31/20 01/22/23 D3 12.5 mcg (500 unit) capsule (Calcium 600 with Vitamin D3) vitamin C 500 mg-multivitamin with 500 tablet PO BID 05/31/20 01/22/23 minerals chewable tablet (Emergen-C) albuterol sulfate 90 mcg/actuation 2 puff inhalation Q4H PRN 07/25/20 01/22/23 aerosol inhaler (ProAir HFA) Shortness Of Breath cetirizine 10 mg tablet (Zyrtec) 10 mg PO DAILY 07/25/20 01/22/23 conj estrogen-medroxyprogesterone 0.3 - 1.5 tablet PO HS 07/25/20 01/22/23 0.3 mg-1.5 mg tablet (Prempro) montelukast 10 mg tablet 10 mg PO DAILY 07/25/20 01/22/23 ascorbic acid (vitamin C) 1,000 mg 1,000 mg PO Q12H 09/15/20 01/22/23 tablet,extended release (Vitamin C With Fide Hips) hydrochlorothiazide 25 mg tablet 25 mg PO DAILY 09/15/20 01/22/23 losartan 100 mg tablet 100 mg PO DAILY 09/15/20 01/22/23 multivitamin,tx-minerals 1 cap PO DAILY 09/15/20 01/22/23 (Multi-Vitamin HP/Minerals capsule) omeprazole 20 mg capsule,delayed 20 mg PO DAILY 09/15/20 01/22/23 release epinephrine 0.3 mg/0.3 mL 0.3 mg IM Q4H PRN 01/22/23 01/22/23 injection, auto-injector famotidine 20 mg tablet (Pepcid AC) 20 mg PO BID 01/22/23 01/22/23 ipratropium bromide 42 mcg (0.06 2 spray intranasal TID 01/22/23 01/22/23 %) nasal spray Allergies Allergy/AdvReac Type Severity Reaction Status Date / Time diphenhydramine Allergy Severe Anaphylaxis Verified 06/04/23 13:17 [From Benadryl] clarithromycin [From Biaxin] Allergy Intermediate Unknown Verified 06/04/23 13:17 erythromycin base Allergy Intermediate Unknown Verified 06/04/23 13:17 ropinirole [From Requip] Allergy Intermediate Unknown Verified 06/04/23 13:17 valdecoxib [From Bextra] Allergy Intermediate Unknown Verified 06/04/23 13:17 cefdinir Allergy Mild Unknown Verified 06/04/23 13:17 perfume AdvReac Intermediate Unknown Verified 06/04/23 13:17 Review of Systems Review of Systems: All systems as dictated in [facility] Past Medical History Med
[2023-06-20 10:57] LABS: INR 0.8; Prothrombin Time 11.7 Seconds (11.1-14.7)
[2023-06-20 10:58] LABS: Partial Thromboplastin Time 25.5 SECONDS (22.3-36.8)
[2023-06-20 11:07] LABS: Alanine Aminotransferase 28 U/L (6-35); Albumin Level 3.6 g/dL (3.5-5.1); Alkaline Phosphatase 92 U/L (38-126); Anion Gap 2 mmol/L (8-16); Aspartate Amino Transferase 26 U/L (14-36); Bilirubin,Total 0.5 mg/dL (0.2-1.3); Blood Urea Nitrogen 23 mg/dL (7-17); Calcium 8.7 mg/dL (8.4-10.2); Carbon Dioxide 28 mmol/L (22-30); Chloride 104 mmol/L (98-107); Estimated CRCL calculation 48 ml/min; Estimated Glomerular Filt Rate > 60; Glucose 92 mg/dL (65-110); Potassium 4.2 mmol/L (3.4-5.0); Sodium 134 mmol/L (137-145)
== END 2023-06-20 12:15 | disposition home or self-care (01) ==
PROVIDERS: Student in an Organized Health Care Education/Training Program; Emergency Provider Physician Assistant; PCP Family Medicine
DX: K64.9 Unspecified hemorrhoids (principal); M79.672 Pain in left foot; J44.9 Chronic obstructive pulmonary disease, unspecified; E78.00 Pure hypercholesterolemia, unspecified; M32.9 Systemic lupus erythematosus, unspecified; M19.90 Unspecified osteoarthritis, unspecified site; M79.7 Fibromyalgia; Z87.891 Personal history of nicotine dependence
CPT/HCPCS: 36415; 73620; 80053; 85025; 85610; 85730; 86850; 86900; 86901; 99283

== ENCOUNTER 2023-08-12 12:31 | Outpatient (CLI) | payer MEDICARE, OTHER, SELFPAY ==
--- NOTE | 2023-08-12 16:41 | P.PCNPFT_ITS ---
PFT Procedure Performed PFT Procedure Performed Spirometry with Pre/Post Bronchodilator Plethysmography (Lung Vol) Diffusing Cap (DLCO) Flow Vol Loop PFT Interpretation This is a pulmonary function test with pre and post-bronchodilator spirometry, plethysmography and diffusing capacity. The test was performed and results interpreted in accordance with the 2019 and 2005 ATS/ERS Task Force guidelines respectively using the Global Lung Function Initiative-2012 reference equations. Patient demonstrated good effort and cooperation. Reproducibility criteria were met. The quality of the pre bronchodilator spirometry maneuver was Grade A and post bronchodilator spirometry maneuver was Grade A. Findings: Spirometry: The contour the expiratory flow tracing is normal. The contour the inspiratory flow tracing is truncated. The pre bronchodilator FVC is 2.41 L, 86% predicted. The pre bronchodilator FEV1 is 1.77 L, 82% predicted. The pre bronchodilator FEV1: FVC ratio 74%. The post bronchodilator FVC is 2.15 L, representing an 11% decrease. The post bronchodilator FEV1 is 1.70 L, representing a 4% decrease. The post bronchodilator FEV1: FVC ratio 79%. Plethysmography: The total lung capacity is 6.69 L, 129% predicted. The functional residual capacity is 5.05 L, 169% predicted. The residual volume is 4.28 L, 185% predicted. The residual volume: Total lung capacity ratio is 64% predicted. Diffusing capacity: The diffusing capacity unadjusted for hemoglobin and carboxyhemoglobin is 13.6, 66% predicted. The diffusing capacity adjusted for alveolar volume is 3.75, 90% predicted. Impression: The spirometry is normal without evidence of an obstructive abnormality. The increase in total lung capacity, functional residual capacity and residual volume are consistent with air trapping. The diffusing capacity unadjusted for hemoglobin and carboxyhemoglobin is mildly decreased and n ormalizes when adjusted for alveolar volume. There are no prior studies for comparison
== END 2023-08-12 12:32 | disposition home or self-care (01) ==
LOC: ANHPFT 12:31
PROVIDERS: PCP Family Medicine; Visit Provider Internal Medicine Critical Care Medicine
DX: J44.9 Chronic obstructive pulmonary disease, unspecified (principal)
CPT/HCPCS: 94060; 94726; 94729

== ENCOUNTER 2023-09-11 00:56 | Day surgery (SDC) | payer MEDICARE, OTHER, SELFPAY ==
[2023-08-28 13:18] VITALS: BMI 27.4
--- NOTE | 2023-09-09 09:25 | SUR.PREOP ---
Patient called regarding upcoming procedure. Reviewed preop instructions, appointment times, and procedure prep.
--- NOTE | 2023-09-10 16:47 | PM.HPGS ---
History of Present Illness History of Present Illness Consent: Risks, benefits, and alternatives have been discussed and questions answered. Patient agrees to proceed with procedure. Chief complaint: Hemorrhage of anus and rectum Narrative: Coleen Grullon is a 73 year old female who ?recently went to emergency room because of rectal bleeding.? The bleeding actually lasted 5 days she will go the bathroom and see blood in the toilet bowl but also she would see blood on the toilet paper.? She was not have any rectal pain or abdominal pain.? She has chronic irritable bowel syndrome.? Her bowels might be loose for few days and then she can to get constipated.? If she eats salad her something with raisins and that she will almost immediately have a bowel movement.? She takes loperamide which she has done for many years to control her irritable bowel syndrome.? Review of Systems Review of Systems: All systems reviewed & are unremarkable except as noted in HPI and below PMFSH Past Medical History Medical History Anxiety Arthritis Asthma-COPD overlap syndrome COPD (chronic obstructive pulmonary disease) Degenerative disk disease Depression Fibromyalgia History of tobacco abuse Hx of migraines Hypercholesterolemia Recurrent infections Rhinitis Seizures Sleepiness Systemic lupus Surgical History Surgical History H/O section H/O dilation and curettage History of tubal ligation Family History Family History Sibling Patient's sister is in good health Family history of respiratory disorder, Onset Age: 1 Family history of coronary artery disease Diabetes mellitus Patient's brother is Mother Family history of diabetes mellitus in first degree relative Patient's mother is , Onset Age: 78 Father Patient's father is , Onset Age: 78 Sibling Multiple sclerosis Social History Social History Smoking packs per day: 1 Smoking cigarettes per day: 20.0 Years smoked: 13 Smoking pack-years: 13.00 Smoking status: Former smoker Tobacco type: cigarettes Smoking end date: 10/28/84 Alcohol intake: never Substance use: never Substance use type: does not use Living arrangements: with friend(s) Gender identity (if verbalized by the patient): Female Spiritual care concerns: No Meds Home Medications and Allergies Home Medications Medication Instructions Recorded Confirmed Type gabapentin 300 mg capsule 300 mg PO HS 10/15/19 09/11/23 History multivitamin with minerals 1 tablet PO BID 10/15/19 09/11/23 History (Hair,Skin and Nails tablet) sumatriptan succinate 25 mg tablet 25 mg PO Q2H PRN Migraine Headache 10/15/19 08/28/23 History Bifidobacterium infantis 4 mg 4 mg PO DAILY 10/23/19 09/11/23 History capsule (Align) erenumab-aooe 140 mg/mL 140 mg subcut MONTHLY 10/23/19 08/28/23 History subcutaneous auto-injector (Aimovig Autoinjector) budesonide-formoterol HFA 160 2 puff inhalation Q12H 05/31/20 09/11/23 History mcg-4.5 mcg/actuation aerosol inhaler (Symbicort) calcium carbonate 600 mg-vitamin 600 cap PO BID 05/31/20 09/11/23 History D3 12.5 mcg (500 unit) capsule (Calcium 600 with Vitamin D3) umeclidinium 62.5 mcg/actuation 1 inhalation inhalation Q24H COPD 06/16/20 08/28/23 Rx blister powder for inhalation 1 month #30 ea (Incruse Ellipta) albuterol sulfate 90 mcg/actuation 2 puff inhalation Q4H PRN 07/25/20 08/28/23 History aerosol inhaler (ProAir HFA) Shortness Of Breath cetirizine 10 mg tablet (Zyrtec) 10 mg PO DAILY 07/25/20 08/28/23 History conj estrogen-medroxyprogesterone 0.3 - 1.5 tablet PO HS 07/25/20 08/28/23 History 0.3 mg-1.5 mg tablet (Prempro) montelukast 10 mg ta
[2023-09-11 09:29] VITALS: BP 132/75; PULSE 68; RESP 16; TEMP 36.3; O2SAT 100; BMI 26.1
[2023-09-11] MEDS: LACTATED RINGERS 1,000 ML 150 ML IV CONT (09:32)
--- NOTE | 2023-09-11 10:12 | WPDANESEPPF ---
Anes - Initial Pre Proc Eval Procedure: Operation Date: 09/11/23 10:30 Proposed Procedures p Colonoscopy - Issac Garner MD Date/Time: 09/11/23 10:12 Surgeon: Issac Garner MD Pre Op Diagnosis: Hemorrhage of anus and rectum Patient Data Age: 73 Gender: F Height: 1.68 m Weight: 73.5 kg Last Vital Signs Temp 97.4 F L 09/11/23 09:29 Pulse 68 09/11/23 09:29 Resp 16 09/11/23 09:29 BP 132/75 09/11/23 09:29 Pulse Ox 100 09/11/23 09:29 O2 Del Method Room Air 09/11/23 09:29 Allergies Allergy/AdvReac Type Severity Reaction Status Date / Time diphenhydramine Allergy Severe Anaphylaxis Verified 09/11/23 09:26 [From Benadryl] clarithromycin [From Biaxin] Allergy Intermediate Unknown Verified 09/11/23 09:26 erythromycin base Allergy Intermediate Unknown Verified 09/11/23 09:26 ropinirole [From Requip] Allergy Intermediate Unknown Verified 09/11/23 09:26 valdecoxib [From Bextra] Allergy Intermediate Unknown Verified 09/11/23 09:26 cefdinir Allergy Mild Unknown Verified 09/11/23 09:26 perfume AdvReac Intermediate Unknown Verified 09/11/23 09:26 Home Medications Medication Instructions Recorded Confirmed Type gabapentin 300 mg capsule 300 mg PO HS 10/15/19 09/11/23 History multivitamin with minerals 1 tablet PO BID 10/15/19 09/11/23 History (Hair,Skin and Nails tablet) sumatriptan succinate 25 mg tablet 25 mg PO Q2H PRN Migraine Headache 10/15/19 08/28/23 History Bifidobacterium infantis 4 mg 4 mg PO DAILY 10/23/19 09/11/23 History capsule (Align) erenumab-aooe 140 mg/mL 140 mg subcut MONTHLY 10/23/19 08/28/23 History subcutaneous auto-injector (Aimovig Autoinjector) budesonide-formoterol HFA 160 2 puff inhalation Q12H 05/31/20 09/11/23 History mcg-4.5 mcg/actuation aerosol inhaler (Symbicort) calcium carbonate 600 mg-vitamin 600 cap PO BID 05/31/20 09/11/23 History D3 12.5 mcg (500 unit) capsule (Calcium 600 with Vitamin D3) umeclidinium 62.5 mcg/actuation 1 inhalation inhalation Q24H COPD 06/16/20 08/28/23 Rx blister powder for inhalation 1 month #30 ea (Incruse Ellipta) albuterol sulfate 90 mcg/actuation 2 puff inhalation Q4H PRN 07/25/20 08/28/23 History aerosol inhaler (ProAir HFA) Shortness Of Breath cetirizine 10 mg tablet (Zyrtec) 10 mg PO DAILY 07/25/20 08/28/23 History conj estrogen-medroxyprogesterone 0.3 - 1.5 tablet PO HS 07/25/20 08/28/23 History 0.3 mg-1.5 mg tablet (Prempro) montelukast 10 mg tablet 10 mg PO DAILY 07/25/20 09/11/23 History atorvastatin 40 mg tablet 40 mg PO DAILY #30 tabs 07/27/20 09/11/23 Rx ascorbic acid (vitamin C) 1,000 mg 1,000 mg PO Q12H 09/15/20 09/11/23 History tablet,extended release (Vitamin C With Fide Hips) hydrochlorothiazide 25 mg tablet 25 mg PO DAILY 09/15/20 08/28/23 History losartan 100 mg tablet 100 mg PO DAILY 09/15/20 08/28/23 History omeprazole 20 mg capsule,delayed 20 mg PO DAILY 09/15/20 08/28/23 History release epinephrine 0.3 mg/0.3 mL 0.3 mg IM Q4H PRN Anaphylaxis 01/22/23 08/28/23 History injection, auto-injector famotidine 20 mg tablet (Pepcid AC) 20 mg PO DAILY 01/22/23 09/11/23 History ipratropium bromide 42 mcg (0.06 2 spray intranasal TID 01/22/23 09/11/23 History %) nasal spray Patient hx anesthesia problems: none Family hx anesthesia problems: none Results Review: All pre-operative results and documents have been reviewed as part of the pre-operative evaluation. [facility] Past Medical History Medical History Anxiety Arthritis Asthma-COPD overlap syndrome COPD (chronic obstructive pulmonary disease) Degenerative disk disease Depression Fibromyalgia History of tobacco abuse Hx of migraines Hypercholesterolemia Recurrent infections Rhinitis Seizures Sleepiness Systemic lupus Surgical History Surgical History H/O section H/O dilation a
[2023-09-11 10:45] VITALS: BP 122/60; PULSE 58; RESP 20; O2SAT 100
[2023-09-11 10:55] VITALS: BP 128/56; PULSE 57; RESP 24; O2SAT 98
[2023-09-11 11:05] VITALS: BP 141/60; PULSE 55; RESP 22; O2SAT 100
== END 2023-09-11 11:16 | disposition home or self-care (01) ==
PROVIDERS: PCP Family Medicine; Visit Provider Internal Medicine Gastroenterology
PROC: 0DJD8ZZ Inspection of Lower Intestinal Tract, Via Natural or Artificial Opening Endoscopic (ICD-10-PCS; CPT 45378; principal; 2023-09-11 10:30)
DX: K64.8 Other hemorrhoids (principal); K57.30 Diverticulosis of large intestine without perforation or abscess without bleeding; F41.9 Anxiety disorder, unspecified; J44.9 Chronic obstructive pulmonary disease, unspecified; F32.A Depression, unspecified; E78.00 Pure hypercholesterolemia, unspecified; Z79.51 Long term (current) use of inhaled steroids; Z87.891 Personal history of nicotine dependence; Z82.49 Family history of ischemic heart disease and other diseases of the circulatory system
CPT/HCPCS: 45378; J2704; J7120

== ENCOUNTER 2023-10-16 09:39 | Emergency (ER) | payer OTHER, MEDICARE, SELFPAY ==
[2023-10-16] VITALS (19 sets, daily range): BP systolic 138–160; BP diastolic 72–88; PULSE 64–92; RESP 11–30; TEMP 36.7; O2SAT 95–100
--- NOTE | ~2023-10-16 | CT_ITS ---
EXAMINATION: CT diagnostic chest w con DATE: 10/16/2023 11:12 INDICATION: Chest pain TECHNIQUE: Transaxial computed tomographic images of the chest were obtained after the administration of 75 cc of Omnipaque 350 intravenous contrast. The dose-length product (DLP) was 243.71 mGy-cm. Ite rative reconstruction was used. COMPARISON: 11/23/2019 FINDINGS: There is mild dependent atelectasis. A stable 2 mm nodule is noted in the right upper lobe. There is scarring of the lung apices. No pleural effusion or pneumothorax. No pathologically enlarge d thoracic lymph nodes are identified. The heart size is normal. Calcified coronary artery atheroscle rosis is noted. There is mild thoracic spondylosis. IMPRESSION: 1. No acute cardiopulmonary abnormality. Reviewed, dictated and finalized at location B. YTICAL CHEMIST
--- NOTE | ~2023-10-16 | CT_ITS ---
EXAMINATION: CT cervical spine wo con DATE: 10/16/2023 11:09 INDICATION: Neck pain TECHNIQUE: Computed tomography (CT) of the cervical spine was performed without intravenous contrast. The dose-length product (DLP) was 457.87 mGy-cm. Automated exposure control and iterative reconstruc tion technique were employed. COMPARISON: None FINDINGS: There are 2 mm of anterolisthesis of C3 on C4 and C4 on C5. There is severe loss of interve rtebral disc space height at C6-7. There is mild loss of intervertebral disc space height throughout the remainder of the cervical spine. There is moderate multilevel facet and uncovertebral joint osteo arthritis. There is no fracture. The odontoid process is intact. IMPRESSION: 1. Moderate to severe cervical spondylosis without acute findings. Reviewed, dictated and finalized at location B. OPEDICS NURSE
--- NOTE | ~2023-10-16 | CT_ITS ---
EXAMINATION: CT brain wo con INDICATION: Headache COMPARISON: None TECHNIQUE: Standard unenhanced head CT. The dose-length product (DLP) was 605.33 mGy-cm. The mA was a djusted according to patient size. Iterative reconstruction technique was employed. FINDINGS: No acute intraparenchymal hemorrhage. No evidence of mass lesion. No evidence of acute infa rction. There is mild periventricular and subcortical hypodensity probably related to small vessel is chemic disease. There is mild prominence of the sulci and ventricles related to cerebral atrophy. Int racranial calcified cerebral atherosclerosis is noted. No extra-axial collections. No mass effect or midline shift. The orbits and soft tissues are unremarkable. There is mild mucosal thickening of the paranasal sinuses. IMPRESSION: 1. No acute intracranial abnormality. 2. Age related findings. Reviewed, dictated and finalized at location B. STOP CHECKER
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
[2023-10-16 10:49] LABS: Basophils Percent Auto 0.1 % (0.2-1.2); Hematocrit 40.5 % (37.0-47.0); Hemoglobin 12.6 g/dL (12.0-15.0); Immature Granulocyte Absolute 0.12 K/mm3 (0.00-0.031); Immature Granulocyte Percent A 0.6 % (0-0.5); Lymphocytes Absolute Auto 0.84 K/mm3 (0.9-3.2); Lymphocytes Percent Auto 4.1 % (18.3-44.2); Mean Corpuscular HGB Conc 31.1 g/dl (32-36); Mean Corpuscular Hemoglobin 26.6 pg (26-34); Mean Corpuscular Volume 85.4 fl (80-100); Mean Platelet Volume 9.9 fl (7.4-10.4); Monocytes Absolute Auto 0.3 K/mm3 (0.1-0.6); Monocytes Percent Auto 1.5 % (2.6-8.5); Neutrophils Absolute Auto 19.2 K/mm3 (1.3-6.7); Neutrophils Percent Auto 93.7 % (45.5-73.1); Platelet Count Result 285 k/mm3 (150-375); Red Blood Count 4.74 M/mm3 (4.2-5.4); Red Cell Distribution Width 13.3 % (11.5-14.5); White Blood Count 20.5 K/mm3 (4.5-10.0)
[2023-10-16 10:54] LABS: Estimated CRCL calculation 50 ml/min; Estimated Glomerular Filt Rate > 60
[2023-10-16 11:04] LABS: Anion Gap 10 mmol/L (8-16); Blood Urea Nitrogen 16 mg/dL (7-17); Calcium 9.4 mg/dL (8.4-10.2); Carbon Dioxide 22 mmol/L (22-30); Chloride 106 mmol/L (98-107); Estimated CRCL calculation 56 ml/min; Estimated Glomerular Filt Rate > 60; Glucose 136 mg/dL (65-110); Potassium 3.8 mmol/L (3.4-5.0); Sodium 138 mmol/L (137-145)
[2023-10-16] MEDS: ACETAMINOPHEN 500 MG TABLET 1000 MG PO (11:13)
[2023-10-16] MEDS: CYCLOBENZAPRINE HCL 5 MG TABLET PO (11:13)
[2023-10-16] MEDS: LIDOCAINE 5% PATCH 1 PATCH TRANSDERM (11:15)
[2023-10-16 11:40] LABS: Appearance Urine Clear (Clear); Bilirubin Urine Negative (Negative); Blood Urine Negative (Negative); Color Urine Yellow (Yellow); Glucose Urine UA Negative (Negative); Ketones Urine Negative (Negative); Leukocyte Esterase Ur Negative LEU/UL (Negative); Nitrate Urine Negative (Negative); Protein Urine Negative (Negative); Urobilinogen Urine 0.2 mg/dL (<2.0); pH Urine 7.5 (5.0-9.0)
[2023-10-16 11:47] LABS: Add Urine Microscopic? NO; Specific Grav Ur 1.043 (1.001-1.035)
[2023-10-16 11:56] LABS: Influenza A QL RT-PCR Negative (Negative); Influenza B QL RT-PCR Negative (Negative); RSV RNA, RT-PCR Negative (Negative); SARS-CoV-2 RNA PCR Negative (Negative)
[2023-10-16] MEDS: SODIUM CHLORIDE 0.9% IV 1,000 ML 999 ML IV CONT (12:00)
[2023-10-16] MEDS: MORPHINE SULFATE (*CRX) 2 MG/ML INJ IV PUSH (12:32)
== END 2023-10-16 12:45 | disposition home or self-care (01) ==
PROVIDERS: Emergency Provider Physician Assistant; PCP Family Medicine
DX: S13.4XXA Sprain of ligaments of cervical spine, initial encounter (principal); S20.211A Contusion of right front wall of thorax, initial encounter; Z11.52 Encounter for screening for COVID-19; J44.9 Chronic obstructive pulmonary disease, unspecified; M19.90 Unspecified osteoarthritis, unspecified site; E78.00 Pure hypercholesterolemia, unspecified; M32.9 Systemic lupus erythematosus, unspecified; M79.7 Fibromyalgia; Z87.891 Personal history of nicotine dependence; M47.812 Spondylosis without myelopathy or radiculopathy, cervical region; V49.50XA Passenger injured in collision with unspecified motor vehicles in traffic accident, initial encounter
CPT/HCPCS: 36415; 70450; 71260; 72125; 80048; 81003; 85025; 87637; 96361; 96374; 99284; A9270; J2270; J7030; Q9967

== ENCOUNTER 2025-02-27 17:02 | Emergency (ER) | payer MEDICARE, OTHER, SELFPAY ==
--- NOTE | ~2025-02-27 | XR_ITS ---
EXAM: XR tibia fibula LT 2V DATE: 02/27/2025 17:55 HISTORY: PAIN . COMPARISON: None available. FINDINGS: Osteopenia. No fracture or dislocation. No lytic or blastic lesion. Mild degenerative arevalo ge at the knee. No erosion or periosteal change. Soft tissues within normal limits. IMPRESSION: No acute osseous finding in the left tibia/fibula. Reviewed, dictated and finalized at location K.
--- OUTSIDE RECORDS SUMMARY | 2025-02-27 17:04 | XMS_ITS ---
Author Organization [facility] ([address]) Address [address] [place] [address] Care Team Providers Care Project Structural Engineer Name Role Phone Ignacio Hamilton Primary Care Provider Andrzej Emmanuel [phone] Nicole Gardner Unavailable Unavailable REASON FOR VISIT ARC Follow Up/SCIT Encounters Encounter Location Date Provider Diagnosis [facility] [address] [place] [address] 02/08/2025 Andrzej Holliday Plan Of Treatment Next Appt Details Provider Name:Jerome Bazzi , 03/01/2025 07:30:00 AM, [email or web address], [place], [address], Provider Name:Jerome Bazzi , 03/29/2025 07:30:00 AM, [email or web address], [facility] [address], [place], [address], Provider Name:Jaclyn acosta, 05/03/2025 08:00:00 AM, [email or web address], [place], [address], Progress Notes * Coleen AYALA ADOB:[birth year] (74 yo F)Acc No.[id number]:02/08/2025 Progress Notes Patient: Coleen PATEL Provider: Slade Holliday PA-C :1950 A ge:74 Y S ex:Female Date:02/08/2025 Address:[address] [place], [place] [id number] Pcp:Ignacio Hamilton Subjective: * Chief Complaints: * 1 . ARC Follow Up/SCIT. * Medical History: Objective: * Vitals: Assessment: Plan: * Treatment: * Billing Information: * Visit Code: * Procedure Codes: * Electronic signature of Nehemias Holliday PA-C on 02/27/2025 at 05:04 PM CDT Sign off status: Pending * Provider: Slade Holliday PA-C Date: 0 02/08/2025 Generated for Romy garcia/Brady/eTeunice on: 0 02/27/2025 05:04 PM CDT
--- OUTSIDE RECORDS SUMMARY | 2025-02-27 17:04 | XMS_ITS | Clinical Summary ---
Author Organization [facility] Address [address] [place] [address] Care Team Providers Care Field Project Manager Name Role Phone Vijay Gomes MD Primary Care Provider [phone] Social History Tobacco Use Types Packs/Day Years Used Date Smoking Tobacco: Never Assessed Comments Unknown Sex and Gender Information Value Date Recorded Sex Assigned at Not on file Legal Sex Female 9:58 AM CDT Gender Identity Not on file Sexual Orientation Not on file Plan of Treatment Health Maintenance Due Date Last Done Comments Hepatitis C 1968 DTaP, Tdap and Td Vaccines ( 1 - Tdap) 1967 Pneumococcal Vaccine: 50+ Ye ars (1 of 1 - PCV) 1998 Zoster Vaccines (1 of 2) 1998 Annual Medicare Wellness Visit 2013 Dexa Scan (General) 2013 RSV Immunization or 60+ Years (1 - 1-dose 75+ series) 2023 COVID-19 Vaccine (2023-2 5 season) 2024 Meningococcal B Vaccine Aged Out No l onger eligible based on patient's age to complete this topic Meningococcal Vaccine Aged Out No jacquelyn tacho eligible based on patient's age to complete this topic RSV Immunizations Under 20 Months Aged Out No longer eligible based on patient's age to complete this topic Insurance [facility] Care Teams Field Project Manager Relationship Specialty Start Date End Date Vijay Gomes MD [address] [place] [address] PCP - General INTERNAL MEDICINE 07/14/19
--- OUTSIDE RECORDS SUMMARY | 2025-02-27 17:04 | XMS_ITS | Referral Summary ---
Author Organization [facility] Address [address] [place] [id number] Care Team Providers Care Tile Molder Hand Name Role Phone Vivi Hamilton MD Primary Care Provider [phone] Encounters Date Type Department Care Team Description 02/15/2025 Orders Only [facility] [phone] Vivi Hamilton MD 02/02/2025 8:00 AM CDT Office Visit [facility] Medicine [address] [place] [phone] Alta Hussein PA Subacromial impingement of left shoulder (Primary Dx); Arthritis of left acromioclavicular joint; Nontraumatic incomplete tear of left rotator cuff 12/08/2024 8:20 AM DIGGING MACHINE OPERATOR Ancillary Procedure [facility] Imaging at [address] [phone] 12/08/2024 8:00 AM DIGGING MACHINE OPERATOR Office Visit [facility] Orthopedic [facility] Sports Medicine [address] [place] [phone] Alta Hussein PA Subacromial impingement of left shoulder (Primary Dx); Arthritis of left acromioclavicular joint; Nontraumatic incomplete tear of left rotator cuff from Last 3 Months Allergies Active Allergy Reactions Criticality Noted Date Comments Antihistamines - Alkylamine Unknown 06/11/2024 Cefuroxime Hives,Itching,Shortn ess of breath,Swelling High 08/26/2020 Ciprofloxacin Anaphylaxis High 06/16/2021 Clarithromycin Swelling High Cyclobenzaprine Nausea & Vomiting Low 02/26/2023 Severe N/V Diphenhydramine Erythromycin Swelling High 12/22/2019 adverse reaction Gabapentin Itching Low 08/25/2024 Pramipexole Diarrhea,Stomach upset Low 08/02/2020 Ropinirole Ropinirole Hcl Unknown 06/11/2024 Valdecoxib Itching,Stomach upset,Headache Low Medications cetirizine (ZyrTEC) 10 mg capsule 10 mg. 0 0 013 Active loperamide (IMODIUM A-D) 2 mg tablet take 2 tablet by oral route after 1st loose stool and 1 tablet (2 mg) after each next bowel movement; do not exceed 16 mg in 24hrs 0 0 014 Active Bifidobacterium infantis (ALIGN) 4 mg capsule 0 0 014 Active albuterol sulfate (PROAIR RESPICLICK) 90 mcg/actuation aerosol powdr breath activated inhale 2 puff by inhalation route every 4 - 6 hours as needed 0 Inhaler 0 015 Active cholecalciferol (VITAMIN D-3) 1,000 unit tablet Take 1 tablet (1,000 Units total) by mouth daily Active ipratropium (ATROVENT) 42 mcg (0.06 %) nasal spray USE 2 SPRAY(S) IN EACH NOSTRIL 4 TIMES DAILY NEEDED FOR 30 DAYS 0 019 Active EPINEPHrine 0.3 mg/0.3 mL auto-injection syringe 020 Active fluticasone propionate (FLONASE) 50 mcg/actuation nasal spray 020 Active acetaminophen-asp irin-caffeine (EXCEDRIN MIGRAINE) 250-250-65 mg per tablet Take 1 tablet by mouth every 6 (six) hours as needed Active multivit-min/iron /folic/lutein (CENTRUM SILVER WOMEN ORAL) Take 1 tablet by mouth nightly Active lidocaine (LIDODERM) 5 % Place 1 patch on the skin daily Remove & discard patch within 12 hours or as directed by . 90 patch 3 Active hydroCHLOROthiazi de (HYDRODIURIL) 12.5 mg tablet Take 1 tablet (12.5 mg total) by mouth daily 90 tablet 3 Active losartan (COZAAR) 50 mg tablet Take 1 tablet (50 mg total) by mouth daily 90 tablet 3 Active montelukast (SINGULAIR) 10 mg tabletIndications :Asthma, unspecified asthma severity, unspecified whether complicated, unspecified whether persistent Take 1 tablet (10 mg total) by mouth nightly 90 tablet 3 Active omeprazole (PriLOSEC) 20 mg capsuleIndication s:Gastroesophagea l reflux disease without esophagitis Take 1 capsule (20 mg total) by mouth daily 90 capsule 3 Active fluticasone furoate-vilantero L (BREO ELLIPTA) 100-25 mcg/dose diskus inhaler Inhale 1 puff daily Rinse mouth with water after use. Do not swallow. Active famotidine (PEPCID) 20 mg tabletIndications :Laryngeal spasm Take 2 tablets (40 mg total) by mouth nightly 180 tablet 3 Active SUMAtriptan (IMITREX) 25 mg tabletIndications :Migraine Take 1 tablet (25 mg total) by mouth once as needed for migraine May repeat dose once in 2 hours if no relief. Do not exceed 2 doses in 24 hours. 27 tablet 3 Active erenumab-aooe (Aimovig Autoinjector) 140 mg/mL auto-injectorIndi cations:Intractab le chronic migraine without aura and without status migrainosus Inject 1 mL (140 mg total) under the skin every 30 (thirty) days 3 mL 3 2024 Active azelastine (ASTELIN) 137 mcg (0.1 %) nasal sprayIndications: Chronic rhinitis Administer 1 spray into each nostril 2 (two) times a day Use in each nostril as directed 90 mL 3 Active atorvastatin (LIPITOR) 40 mg tabletIndications :Mixed hyperlipidemia Take 1 tablet (40 mg total) by mouth daily 90 tablet 3 Active estrogens, conjugated,-medro xyPROGESTERone (PREMPRO) 0.3-1.5 mg per tablet Take 1 tablet by mouth daily 90 tablet 1 025 2025 Active gabapentin (NEURONTIN) 100 mg capsule Take 1 capsule (100 mg total) by mouth 3 (three) times a day 270 capsule 1 025 2025 Active naproxen (NAPROSYN) 500 mg tablet TAKE 1 TABLET BY MOUTH TWICE DAILY NEEDED WITH FOOD FOR PAIN 60 tablet Active umeclidinium (Incruse Ellipta) 62.5 mcg/actuation blister with device 1 inh 2024 Discontinued(T herapy completed) budesonide-formot Bryant (SYMBICORT) 80-4.5 mcg/actuation inhaler Inhale 2 puffs 2 (two) times a day Rinse mouth with water after use. Do not swallow. 3 each 3 024 2024 Discontinued(A lternate therapy) benzonatate (TESSALON) 200 mg capsuleIndication s:Lower respiratory infection (e.g., bronchitis, pneumonia, pneumonitis, pulmonitis) Take 1 capsule (200 mg total) by mouth 3 (three) times a day as needed for cough 30 capsule 024 2024 Discontinued(T herapy completed) NON FORMULARY, FOR INPATIENT USE, Be Spotted naturals - Restful legs 2024 Discontinued(T herapy completed) diphenoxylate-atr opine (LOMOTIL) 2.5-0.025 mg per tabletIndications :diarrhea Take 1 tablet by mouth 4 (four) times a day as needed for diarrhea 30 tablet 2024 Discontinued(T herapy completed) azelastine (ASTELIN) 137 mcg (0.1 %) nasal spray Administer 1 spray into each nostril 2 (two) times a day Use in each nostril as directed 30 mL 024 2024 Discontinued(T herapy completed) naproxen (NAPROSYN) 500 mg tablet TAKE 1 TABLET BY MOUTH TWICE DAILY NEEDED WITH FOOD FOR PAIN 60 tablet 025 2024 Discontinued naproxen (NAPROSYN) 500 mg tablet TAKE 1 TABLET BY MOUTH TWICE DAILY NEEDED WITH FOOD FOR PAIN 60 tablet 025 2024 Discontinued methylPREDNISolon e (MEDROL DOSEPACK) 4 mg Dosepack Take as directed on package. 21 tablet 025 2024 doxycycline (VIBRAMYCIN) 100 mg capsule Take 1 tablet/capsul e (100 mg total) by mouth 2 (two) times a day for 10 days 20 tablet/caps ule 025 2024 Active Problems Problem Noted Date Diagnosed Date SLE (systemic lupus erythematosus related syndro me) 08/25/2024 Assessment & Plan (08/25/2024 9:02 AM CDT): above. Diarrhea 08/25/2024 Assessment & Plan (08/25/2024 9:02 AM CDT): No evidence of an acute abdomen on exam. Nonbloody diarreha, no recent trips, antibiotics. Course of lomotil and reivewed warning s/s. Chronic sinusitis 08/25/2024 Assessment & Plan (08/25/2024 9:03 AM CDT): Continue f/u with ENT and will montior response. Mucopurulent chronic bronchitis 02/18/2024 Assessment & Plan (02/18/2024 8:36 AM CDT): Stable and will follow response. Stress incontinence 02/18/2024 Assessment & Plan (02/18/2024 8:37 AM CDT): Reviewd pelvic floor insufficiency and no pharmacologic agent for therapy and difference between SI nad UI. Referral to dermatolgoy to discuss treatment options. Laryngeal spasm 12/13/2022 Assessment & Plan (08/27/2024 2:18 PM CDT): Nasal saline spray (Simply saline, Little Remedies, [place], [place]) 2 second sprays or 2 squeezes into each nostril while looking down over the sink, do not need to sniff in. Flonase 1 sprays into each nostril while looking down over the sink, do not sniff in or blow nose after use for at least 30 minutes Astelin (azelastine) 1 sprays into each nostril while looking down over the sink, do not sniff in or blow nose after use for at least 30 minutes twice daily Continue Humidifier Continue Pepcid at bedtime Assessment & Plan (02/18/2024 8:36 AM CDT): No recurrence on h2 kelley. Assessment & Plan (12/13/2022 11:04 AM DIGGING MACHINE OPERATOR): Continue omeprazole 30-60 minutes before first meal of the day Start Pepcid 20 mg every night Continue Patanase, Astelin and Ipratropium Laryngopharyngeal reflux discussed and Handout provided Seasonal allergic rhinitis due to pollen 023 Assessment & Plan (08/27/2024 2:18 PM CDT): Nasal saline spray (Simply saline, Little Remedies, [place], [place]) 2 second sprays or 2 squeezes into each nostril while looking down over the sink, do not need to sniff in. Flonase 1 sprays into each nostril while looking down over the sink, do not sniff in or blow nose after use for at least 30 minutes Astelin (azelastine) 1 sprays into each nostril while looking down over the sink, do not sniff in or blow nose after use for at least 30 minutes twice daily Continue Humidifier Continue Pepcid at bedtime Assessment & Plan (12/13/2022 11:05 AM DIGGING MACHINE OPERATOR): Continue omeprazole 30-60 minutes before first meal of the day Start Pepcid 20 mg every night Continue Patanase, Astelin and Ipratropium BMI 26.0-26.9,adult 06/27/2021 Encounter for osteoporosis s creening in asymptomatic postmenopausal patient 06/27/2021 Assessment & Plan (06/27/2021 2:46 PM CDT): Discussed screening recommendations. Patient aware to call and schedule. [facility] Assessment & Plan (06/27/2021 2:44 PM CDT): Preventive exam; reviewed recommended preventive screenings and vaccinations. Encourage annual flu vaccine. Wear sunscreen/protective clothing when outdoors. Covid vaccine up to date. Gastroesophageal reflux disease without esophagi tis 06/27/2021 Assessment & Plan (02/18/2024 8:36 AM CDT): Stable on combination of PPI and H2 kelley. No dysphagia, no melena, no hematochezia. Assessment & Plan (06/27/2021 2:44 PM CDT): Doing well on PPI Vasomotor symptoms due to menopause 06/27/2021 Assessment & Plan (06/27/2021 5:52 PM CDT): Refilled medications today, will continue to monitor. Reviewed medication SE's. Medication side effects 06/20/2021 Labile hypertension 11/22/2020 Chronic fatigue 11/22/2020 Dizziness 11/22/2020 Symptomatic hypotension 11/22/2020 Premature atrial contractions 11/22/2020 Colon cancer screening declined 06/21/2020 Intractable chronic migraine without aura 2017 Assessment & Plan (06/27/2021 2:41 PM CDT): Follows with neurology. Radial styloid tenosynovitis 01/28/2017 Systemic lupus erythematosus 05/03/2016 Assessment & Plan (08/25/2024 9:01 AM CDT): WIll re-check inflammatory markers and re-engage with Rehumatology. Assessment & Plan (02/18/2024 8:35 AM CDT): No evidnece of active synovitis and will montior repsonse. Assessment & Plan (06/27/2021 2:29 PM CDT): No change at the present time. Restless legs 05/03/2016 Lumbago 05/03/2016 Bronchial asthma 05/03/2016 Chest pain 08/09/2015 Overview (02/02/2017): Other chest pain Family history of atherosclerosis 08/09/2015 Overview (02/02/2017): Family history of atherosclerosis History of tobacco use 08/09/2015 Overview (02/02/2017): History of tobacco abuse Fibrositis 10/16/2013 Overview (01/30/2017): Fibromyalgia Lichen sclerosus et atrophicus 10/16/2013 Overview (01/30/2017): Lichen sclerosus Mixed hyperlipidemia 10/16/2013 Overview (01/30/2017): Hyperlipidemia Assessment & Plan (08/25/2024 9:01 AM CDT): Stable on atorvastatin and will continue to o fllow response. Assessment & Plan (02/18/2024 8:34 AM CDT): Stable on atorvastatin. No new myalgias/arthralgias. Checking labwork. Assessment & Plan (06/27/2021 2:43 PM CDT): 11/22/20 tc 194 hdl 57 ldl 80 trg 280 Follows with cardiology, continues taking atorvastatin 40mg daily. Restless legs syndrome 10/16/2013 Overview (02/01/2017): Restless leg syndrome Assessment & Plan (08/25/2024 9:02 AM CDT): Allergic/intolerant to dopamine agnosits and gabapetnin. Using OTC supplement. Assessment & Plan (02/18/2024 8:35 AM CDT): Stable and sleep pattern is good. WIll continue to follow. Assessment & Plan (06/27/2021 2:54 PM CDT): Doing well on gabapentin. Has been taking 300mg daily. Asthma 10/16/2013 Overview (02/01/2017): Asthma Assessment & Plan (02/18/2024 8:35 AM CDT): COntinues on daily symbicort and prn albuterol. NO increased frequency of rescue medication Continuies on nightly montelukast. Assessment & Plan (06/27/2021 2:31 PM CDT): Asymptomatic, no changes in medications. Will continue to monitor. Resolved Problems Problem Noted Date Diagnosed Date Resolved Date Knee pain 05/03/2016 06/27/2021 Hypercholesterolemia 05/03/2016 021 Medication overuse headache 05/03/2016 06/27/2021 Overview (02/07/2018): Description: Imitrex Benign hypertension 10/18/2015 08/25/20 Overview (02/02/2017): HTN (hypertension), benign Assessment & Plan (02/18/2024 8:36 AM CDT): Stable on the current reimgen. WIll follow response. Stable on HCTZ and losartan. 12.5 and 50mg respectively. No chest pains/CELESTE. Assessment & Plan (06/27/2021 5:56 PM CDT): Doing well on current regimen. Will continue to monitor. Discussed need to work on diet and exercise and recommended patient monitor sodium intake <2000mg sodium daily. Dyslipidemia 08/09/2015 10/02/2021 Overview (02/02/2017): Dyslipidemia Immunizations Immunization Administration Dates Next Due Influenza, Quadrivalent, Hig h Dose, Preservative Free, Intrr 07/30/2018 Influenza, Quadrivalent, Rec ombinant, Egg Free, Preservative Free, Intramuscular 07/27/2020 Influenza, Quadrivalent, Spl it, Preservative Free, Intramuscular 07/27/2020 Influenza, Trivalent, Cell Culture-based MDCK, Preservative Free, Antibiotic Free, Intramuscular 11/29/2019 Influenza, Trivalent, High D ose, Split, Preservative Free, Intramuscular 07/30/2019,08/14/2018,08/10/2017,07/27 Influenza, Trivalent, IM (MDV) 08/23/2010 Influenza, Unspecified 09/02/2024,2023(Deferred: Patient Refused),10/28/2023(Deferred: Patient Refused),07/24/2023,10/28/2022(Deferre d: Patient Refused),07/03/2022(Deferred: Patient Refused),06/05/2022,10/28/2021(Deferre d: Patient Refused),10/28/2021(Deferred: Patient Refused),09/02/2021,07/27/2020 Moderna SARS-CoV-2 Monovalen t Vaccination (12+ YRS) 03/22/2022,01/10/2021,12/13/2020 Moderna Sars-cov-2 Bivalent Vaccine 50 Mcg/0.5 mL (12+ YRS)-Blue/Garcia 08/16/2022 Pneumococcal Conjugate PCV 13 09/11/2016 Pneumococcal Polysaccharide PPV23 08/14/2018,,08/23/2006 RSV Vaccine, Pref, Recombina nt, Subunit, Adjuvanted, PF, IM (Arexvy) 07/24/2023 Sars-cov-2 Covid-19 Mrna, Bi valent, Original/joel Ba.1, A 08/02/2023,03/22/2022,08/19/2021,01/10,12/13/2020 Tdap 05/23/2003 ZOSTER LIVE 02/05/2019,12/05/2018,05/23/2010 ZOSTER Recombinant 02/05/2019,12/05/2018 Social History Tobacco Use Types Packs/Day Years Used Date Smoking Tobacco: Former Cigarettes Q uit: 1981 Smokeless Tobacco: Never Tobacco Cessation:Counseling Given: Not Answered Comments:Smoking History Packs/day: 1 Packs Alcohol Use Standard Drinks/Week Comments Yes 0 (1 standard drink = 0.6 oz pur e alcohol) AUDIT-C Answer Date Recorded Q1: How often do you have a drink containing alc ohol? Monthly or less 11/19/2022 Q2: How many drinks containi ng alcohol do you have on a typical day when you are drinking? 1 or 2 11/19/2022 Q3: How often do you have si x or more drinks on one occasion? 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 Not on file Not on file Not on fi le Last Filed Vital Signs Vital Sign Reading Time Taken Comments Blood Pressure 135/74 02/02/2025 8:04 AM CDT Pulse 78 02/02/2025 8:04 AM CDT Temperature 36.8 C (98.2 F) 08/25/2024 3:10 PM CDT Respiratory Rate 20 08/03/2024 3:35 PM CDT Oxygen Saturation 96% 08/25/2024 3:10 PM CDT Inhaled Oxygen Concentration - - Weight 69.9 kg (154 lb) 02/02/2025 8:04 AM CDT Height 166.4 cm (5' 5.5 ) 02/02/2025 8:04 AM CDT Body Mass Index 25.24 02/02/2025 8:04 AM CDT Plan of Treatment Not on file Procedures Procedure Name Priority Date/Time Associated Diagnosis Comments XR SHOULDER LEFT 1 VIEW Schedule Routine, Read Routine (OP Routine) 12/08/2024 8:22 AM DIGGING MACHINE OPERATOR Arthritis of left acromioclavicular joint HEPATITIS C ANTIBODY Routine 02/18/2024 8:40 AM CDT Encounter for hepatitis C screening test for low risk patient SCREENING MAMMOGRAM BILATERAL W ALESSANDRO Schedule Routine, Read Routine (OP Routine) 09/23/2023 9:22 AM DIGGING MACHINE OPERATOR Encounter for screening mammogram for malignant neoplasm of breast DEXA AXIAL SKELETON BONE DENSITY 1 OR MORE SITES Schedule Routine, Read Routine (OP Routine) 09/23/2023 8:32 AM DIGGING MACHINE OPERATOR Asymptomatic menopausal state COLONOSCOPY IMAGES Routine 09/11/2023 10:45 AM DIGGING MACHINE OPERATOR from Last 3 Months or Most Recently Relevant to Health Maintenance Results * XR Shoulder Left 1 View (12/08/2024 8:22 AM DIGGING MACHINE OPERATOR) Anatomical Region Laterality Modality Upper Extremities, Shoulder Left Digi raul Radiography Narrative 12/08/2024 8:48 AM DIGGING MACHINE OPERATOR Axillary view of the left shoulder is reviewed and interpreted. No acute fractures, malalignment, or destructive osseous lesions. Mild degenerative changes are seen within the glenohumeral joint with joint space preserved. Alta VALDEZ IMG XR PROCEDURES Edite d Result - Final * Hepatitis C antibody Blood (02/18/2024 8:40 AM CDT) Hep C Ab Nonreactive Nonreactive Comment: Interpretive Data Nonreactive: Antibodies to HCV not detected. Does NOT exclude the possibility of recent exposure to HCV. Equivocal: Equivocal for HCV antibodies. Supplemental molecular testing will be automatically performed to determine infection status in accordance with current CDC screening recommendations. Reactive: Positive for HCV antibodies. This may represent current or past HCV infection. Supplemental molecular testing will be automatically performed to determine current infection status in accordance with current CDC screening recommendations. Interpretive data was last revised on 2020. Blood 02/18/2024 8:40 AM CDT 02/18/2024 2:00 PM CDT Vivi Hamilton MD LAB MICROBIOLOGY - GENERA L ORDERABLES Edited Result - Final QAISM [id number] [address] [place] [address] * SCREENING MAMMOGRAM BILATERAL W ALESSANDRO (09/23/2023 9:22 AM DIGGING MACHINE OPERATOR) Anatomical Region Laterality Modality Breast Bilateral Mammography 09/23/2023 10:3 8 AM DIGGING MACHINE OPERATOR Impressions 09/23/2023 10:38 AM DIGGING MACHINE OPERATOR There is no mammographic evidence of malignancy. A 1 year screening mammogram is recommended. BI-RADS: 1 - Negative. The patient has been or will be contacted. The patient will be entered into a reminder system with a target due date of 1 year for her next mammogram. Electronically signed by: Laura Bonds M.D. Narrative 09/23/2023 10:38 AM DIGGING MACHINE OPERATOR EXAMINATION: SCREENING MAMMOGRAM BILATERAL W ALESSANDRO ORDERING HEALTHCARE PROVIDER: VIVI HAMILTON HISTORY: Routine screening mammography. COMPARISON: 09/15/2022, 11/29/2020, 09/07/2020, 05/05/2019 TECHNIQUE: CC and MLO views of the bilateral breasts were obtained with digital technique using breast tomosynthesis with C view. Computer aided detection was utilized. FINDINGS: DENSITY: There are scattered fibroglandular elements in the bilateral breasts. BREASTS: There are no suspicious masses, suspicious calcifications, or other suspicious findings in either breast. There has been no suspicious interval change. us Vivi Hamilton MD IMG MAMMO PROCEDURES Mandi l Result * Dexa Axial Skeleton Bone Density 1 Or 2 Site (09/23/2023 8:32 AM DIGGING MACHINE OPERATOR) Anatomical Region Laterality Modality Body N/A Other 09/23/2023 9:02 AM DIGGING MACHINE OPERATOR Narrative 09/23/2023 9:03 AM DIGGING MACHINE OPERATOR EXAM DESCRIPTION: DEXA AXIAL SKELETON BONE DENSITY 1 OR MORE SITES REASON FOR STUDY: 73 y/o year old F with given history of: asymptomatic menopausal state Osteoporosis follow up Post menopausal Data Governance Consultant/Model: I[employer] SL (S/N [id number]) CLINICAL INFORMATION: Current height: 65.5 inches Maximum height: 67.5 inches Weight: 162 pounds Risk factors: Postmenopausal, asthma or emphysema COMPARISON: None available FINDINGS: AP LUMBAR SPINE L1-L4: Total BMD is 1.147 g/cm2 T-score is 0.9 LEFT HIP: Total BMD is 0.898 g/cm2 T-score is -0.4 Femoral neck BMD is 0.741 g/cm2 T-score is -1.0 FRAX: FRAX not reported due to T-scores of hip, femoral neck and/or spine being at or above -1.0 (Normal). IMPRESSION: Normal bone mass. REFERENCE: Bone mineral density: Normal (T-score above or = -1.0) Low bone mass (T-score between -1.0 and -2.5) replaces the previously used term osteopenia Osteoporosis (T-score = or below -2.5) Medical evaluation for secondary causes of low bone mineral density may be appropriate. FRAX is a World Health Organization validated fracture risk assessment tool that calculates a person's 10 year probability of a major osteoporosis related fracture and hip fracture. According to the National Osteoporosis Foundation guidelines, postmenopausal women and men age 50 or older with low bone mass and a 10 year probability of a major osteoporosis related fracture = or greater than 20% or a 10 year probability of a hip fracture = or greater than 3% should be considered for treatment. For further information, including treatment recommendations, please refer to the 2019 ISCD Official Positions (http://www.iscd.org) and the NOF's Clinician's Guide to Prevention and Treatment of Osteoporosis (http://www.nof.org/professionals/clinical-guidelines) THIS IS AN ELECTRONICALLY VERIFIED FINAL REPORT 09/23/2023 9:03 AM - Electronically signed by Vijay Black M.D. MF: [id number] Report ID: [id number] Reading Location: [address] Note Vijay Black MD - 09/23/2023 EXAM DESCRIPTION: DEXA AXIAL SKELETON BONE DENSITY 1 OR MORE SITES REASON FOR STUDY: 73 y/o year old F with given history of:asymptomatic menopausal state Osteoporosis follow up Post menopausal Data Governance Consultant/Model: [employer] SL (S/N [id number]) CLINICAL INFORMATION: Current height: 65.5 inches Maximum height: 67.5 inches Weight: 162 pounds Risk factors: Postmenopausal, asthma or emphysema COMPARISON: None available FINDINGS: AP LUMBAR SPINE L1-L4: Total BMD is 1.147 g/cm2 T-score is 0.9 LEFT HIP: Total BMD is 0.898 g/cm2 T-score is -0.4 Femoral neck BMD is 0.741 g/cm2 T-score is -1.0 FRAX: FRAX not reported due to T-scores of hip, femoral neck and/or spine beingat or above -1.0 (Normal). IMPRESSION: Normal bone mass. REFERENCE: Bone mineral density: Normal (T-score above or = -1.0) Low bone mass (T-score between -1.0 and -2.5) replaces thepreviously used term osteopenia Osteoporosis (T-score = or below -2.5) Medical evaluation for secondary causes of low bone mineral density may be appropriate. FRAX is a World Health Organization validated fracture risk assessmenttool that calculates a person's 10 year probability of a major osteoporosisrelated fracture and hip fracture. According to the National OsteoporosisFoundation guidelines, postmenopausal women and men age 50 or older with low bonemass and a 10 year probability of a major osteoporosis related fracture = or greater than 20% or a 10 year probability of a hip fracture = or greaterthan 3% should be considered for treatment. For further information, including treatment recommendations, please referto the 2019 ISCD Official Positions (http://www.iscd.org) and the NOF's Clinician's Guide to Prevention and Treatment of Osteoporosis (http://www.nof.org/professionals/clinical-guidelines) THIS IS AN ELECTRONICALLY VERIFIED FINAL REPORT 09/23/2023 9:03 AM - Electronically signed by Vijay Black M.D. MF: KATERINA Report ID: [id number] Reading Location: [place] [address] us Vivi Hamilton MD IMG DXA PROCEDURES Final Result * Colonoscopy Images -[facility] (09/11/2023 10:45 AM DIGGING MACHINE OPERATOR) Anatomical Region Laterality Modality Other us Issac Garner MD GI PROCEDURE ORDERABLES Final Result from Last 3 Months or Most Recently Relevant to Health Maintenance Insurance MEDICARE [facility] MEDICARE [facility] MEDICARE [facility] [place] [address] Care Teams Tile Molder Hand Relationship Specialty Start Date End Date Vivi Hamilton MD [address] [place] [address] PCP - General Family Medicine 12/22/19
--- OUTSIDE RECORDS SUMMARY | 2025-02-27 17:04 | XMS_ITS | Encounter Summary ---
Author Organization [facility] Address [address] [place] [address] Care Team Providers Care New Client Banking Services Clerk Name Role Phone Ignacio Hamilton MD Primary Care Provider [phone] Encounter Details Date Type Department Care Team (Late st Contact Info) Description 08/25/2024 Orders Only [facility] Primary Care at [address] [phone] Ignacio Hamilton MD [address] [place] [address] Social History Tobacco Use Types Packs/Day Years Used Date Smoking Tobacco: Former Cigarettes Q uit: 1981 Smokeless Tobacco: Never Comments:Smoking History Pac ks/day: 1 Packs Alcohol Use Standard Drinks/Week Comments [...] on file Legal Sex Female 1:13 AM TICKET PULLER Gender Identity Female 10/07/2020 7:28 AM TICKET PULLER Sexual Orientation Not on file 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
--- OUTSIDE RECORDS SUMMARY | 2025-02-27 17:04 | XMS_ITS | Clinical Summary ---
Author Organization [facility] Address [facility] [place] [address] Care Team Providers Care Blunger Machine Operator Name Role Phone Vivi Hamilton MD Primary Care Provider [phone] Allergies Active Allergy Reactions Criticality Noted Date [...] Active EPINEPHrine 0.3 mg/0.3 mL auto-injection syringe Active fluticasone propionate (FLONASE) 50 mcg/actuation nasal spray Active acetaminophen-asp irin-caffeine (EXCEDRIN MIGRAINE) 250-250-65 mg per tablet Take 1 tablet by mouth every 6 (six) hours as needed Active multivit-min/iron /folic/lutein (CENTRUM SILVER WOMEN ORAL) Take 1 tablet by mouth nightly Active lidocaine (LIDODERM) 5 % Place 1 patch on the skin daily Remove & discard patch within 12 hours or as directed by MD. 90 patch 3 023 Active hydroCHLOROthiazi de (HYDRODIURIL) 12.5 mg tablet Take 1 tablet (12.5 mg total) by mouth daily 90 tablet 3 024 Active losartan (COZAAR) 50 mg tablet Take 1 tablet (50 mg total) by mouth daily 90 tablet 3 024 Active montelukast (SINGULAIR) 10 mg tabletIndications :Asthma, unspecified asthma severity, unspecified whether complicated, unspecified whether persistent Take 1 tablet (10 mg total) by mouth nightly 90 tablet 3 024 Active omeprazole (PriLOSEC) 20 mg capsuleIndication s:Gastroesophagea l reflux disease without esophagitis Take 1 capsule (20 mg total) by mouth daily 90 capsule 3 024 Active fluticasone furoate-vilantero L (BREO ELLIPTA) 100-25 mcg/dose diskus inhaler Inhale 1 puff daily Rinse mouth with water after use. Do not swallow. Active famotidine (PEPCID) 20 mg tabletIndications :Laryngeal spasm Take 2 tablets (40 mg total) by mouth nightly 180 tablet 3 024 Active SUMAtriptan (IMITREX) 25 mg tabletIndications :Migraine [...] every 30 (thirty) days 3 mL 3 024 2024 Active azelastine (ASTELIN) 137 mcg (0.1 [...] day as needed for cough 30 capsule 2024 Discontinued(T herapy completed) NON FORMULARY, FOR INPATIENT USE, [employer] - Restful legs 2024 Discontinued(T herapy completed) diphenoxylate-atr opine (LOMOTIL) 2.5-0.025 mg per tabletIndications :diarrhea Take 1 tablet by mouth 4 (four) times a day as needed for diarrhea 30 tablet 2024 Discontinued(T herapy completed) azelastine (ASTELIN) 137 mcg (0.1 %) nasal spray Administer 1 spray into each nostril 2 (two) times a day Use in each nostril as directed 30 mL 2024 Discontinued(T herapy completed) naproxen (NAPROSYN) 500 mg tablet TAKE 1 TABLET BY MOUTH TWICE DAILY NEEDED WITH FOOD FOR PAIN 60 tablet 2024 Discontinued naproxen (NAPROSYN) 500 mg tablet TAKE 1 TABLET BY MOUTH TWICE DAILY NEEDED WITH FOOD FOR PAIN 60 tablet 2024 Discontinued methylPREDNISolon e (MEDROL DOSEPACK) 4 mg Dosepack Take as directed on package. 21 tablet 2024 doxycycline (VIBRAMYCIN) 100 mg capsule Take [...] Nasal saline spray (Simply saline, Little Remedies, [place], [place]) 2 second sprays or 2 squeezes into [...] kelley. Assessment & Plan (12/13/2022 11:04 AM CAMPAIGN ASSOCIATE): Continue omeprazole 30-60 minutes before first meal of the day Start Pepcid 20 mg every night Continue Patanase, Astelin and Ipratropium Laryngopharyngeal reflux discussed and Handout provided Seasonal allergic rhinitis due to pollen 023 Assessment & Plan (08/27/2024 2:18 PM CDT): Nasal saline spray (Simply saline, Little Remedies, [place], [place]) 2 second sprays or 2 squeezes into [...] bedtime Assessment & Plan (12/13/2022 11:05 AM CAMPAIGN ASSOCIATE): Continue omeprazole 30-60 minutes before first meal of the day Start Pepcid 20 mg every night Continue Patanase, Astelin and Ipratropium BMI 26.0-26.9,adult 06/27/2021 Encounter for osteoporosis s creening in asymptomatic postmenopausal patient 06/27/2021 Assessment & Plan (06/27/2021 2:46 PM CDT): Discussed screening recommendations. Patient aware to call and schedule. [facility]27[facility] Assessment & Plan (06/27/2021 2:44 PM [...] (02/07/2018): Description: Imitrex Benign hypertension 10/18/2015 08/25/20 24 Overview (02/02/2017): HTN (hypertension), benign Assessment & [...] daily. Dyslipidemia 08/09/2015 10/02/2021 Overview (02/02/2017): Dyslipidemia Encounters Date Type Department Care Team Description 02/15/2025 Orders Only [facility] [address] [place] [id number] Vivi Hamilton MD 02/02/2025 8:00 AM CDT Office Visit [facility] Orthopedic and Sports Medicine [address] [place] [phone] Alta Hussein PA Subacromial impingement of left shoulder (Primary Dx); Arthritis of left acromioclavicular joint; Nontraumatic incomplete tear of left rotator cuff 12/08/2024 8:20 AM CAMPAIGN ASSOCIATE Ancillary Procedure [facility] Imaging at [address] [phone] 12/08/2024 8:00 AM CAMPAIGN ASSOCIATE Office Visit [facility] Medicine [address] [place] [phone] Alta Hussein PA Subacromial impingement of left shoulder (Primary Dx); Arthritis of left acromioclavicular joint; Nontraumatic incomplete tear of left rotator cuff from Last 3 Months Immunizations Immunization Administration Dates Next Due Influenza, [...] 05/23/2003 [facility] LIVE 02/05/2019,12/05/2018,05/23/2010 [facility] Recombinant 02/05/2019,12/05/2018 Surgical History Surgery Date Site/Laterality Comments OTHER SURGICAL HISTORY 10/28/1971 - 10/27/1972 : 2 hr labor OTHER SURGICAL HISTORY 10/28/1975 - 10/27/1976 : 6 hr labor OTHER SURGICAL HISTORY D&C KNEE SURGERY Right knee surgery HAND SURGERY hand surgery OTHER SURGICAL HISTORY cystectomy, thumb WY ARTHROPLASTY PATELLA W/O PROSTHESIS Patellar Arthroplasty - (Added by TW Conv) WY FASCIOTOMY PALMAR PERCUTANEOUS Palmar Fasciotomy For Dupuytren's Contracture - (Added by TW Conv) WY DILATION & CURETTAGE DX&/THER NONOBSTETRIC Dilation And Curettage - (Added by TW Conv) HAND SURGERY TUBAL LIGATION SECTION KNEE ARTHROSCOPY W/ LATERAL RELEASE Medical History Medical History Date Comments Hx Other Medical 1971 ; Outc ome: 42 week 6 lb(s) Female Hx Other Medical 1975 ; Outc ome: 36 week 8 lb(s) 9 oz Male Hyperlipidemia Hypertension Asthma Restless leg syndrome Lupus Fibromyalgia Migraines Back pain Wears dentures Acid indigestion Allergic rhinitis Arthritis GERD (gastroesophageal reflux disease) Autoimmune disease Family History Medical History Relation Name Comments Cancer Brother 1 Kishor Coyle Jr Rheumatic fever Brother 1 Kishor Coyle Jr Rheu matic fever; Other Brother 2 Tounge cancer w ith mets; Cancer Brother 3 Boyd Strajennie Diabetes Brother 3 Boyd Strasen Heart disease Brother 3 Boyd Jacksen Heart disea se; Hypertension Brother 3 Boyd Strajennie Restless legs syndrome Brother 4 Famil y history of restless leg syndrome - (Added by TW Conv) Hypertension Brother 5 Family history of hypertension - (Added by TW Conv) Heart disease Brother 6 No e Family history of cardiac disorder - (Added by TW Conv) Skin cancer Brother 7 Family history of skin cancer - (Added by TW Conv) Diabetes Brother 8 Family history of diabetes mellitus - (Added by TW Conv) Migraines Daughter Family history of migraine headaches - (Added by TW Conv) Stroke Father Heart attack Maternal Grandfather Luke Family history of myocardial infarction - (Added by TW Conv) Heart failure Mother Congestive hea rt failure; Cause of : Congestive heart failure/Family history of congestive heart failure - (Added by TW Conv) Migraines Mother Family history of migraine headaches - (Added by TW Conv) Osteoporosis Mother Osteoporosis; Hyperlipidemia Other 1 Family histor y of Hyperlipidemia; Hypertension Other 2 Family history of Hypertension; Diabetes Sister 1 Diabetes mellit us; Depression Sister 2 Leny Jose Diabetes Sister 2 Leny Jose Heart disease Sister 2 Leny Jose Mental illness Sister 2 Leny Jose Osteoporosis Sister 2 Leny Jose Osteoporosis; Heart disease Sister 3 Heart disease; Migraines Sister 4 Family history of migraine headaches - (Added by TW Conv) Diabetes Sister 5 arin Ruelas Restless legs syndrome Sister 5 arin Ruelas Famil y history of restless leg syndrome - (Added by TW Conv) Hypertension Sister 6 Family history of hypertension - (Added by TW Conv) Diabetes Sister 7 Alta Ruelas Heart disease Sister 7 Alta Ruelas Family history of cardiac disorder - (Added by TW Conv) Hypertension Sister 7 Alta Ruelas Skin cancer Sister 8 Family history of skin cancer - (Added by TW Conv) Diabetes Sister 9 Family history of diabetes mellitus - (Added by TW Conv) Allergy (severe) Son 1 Gage L Doersam Asthma Son 1 Gage L Doersam Asthma; Migraines Son 2 Family history of migraine headaches - (Added by TW Conv) Relation Name Status Comments Brother 1 Kishor Coyle Jr Brother 2 Brother 3 Boyd Tanner Brother 4 Brother 5 Brother 6 No e Brother 7 Brother 8 Daughter Father (Age 78) Maternal Grandfather Luke Mother (Age 78) Other 1 Other 2 Sister 1 Sister 2 Leny Garcia Sister 3 Sister 4 Sister 5 arin Ruelas Sister 6 Sister 7 Alta Ruelas Sister 8 Sister 9 Son 1 Gage L Doersam Son 2 Social History Tobacco Use Types Packs/Day Years [...] on file Legal Sex Female 1:13 AM CAMPAIGN ASSOCIATE Gender Identity Female 10/07/2020 7:28 AM CAMPAIGN ASSOCIATE Sexual Orientation Not on file 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 Job 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 Date 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 Not on file Not on file Not on fi le Obstetrics History Para Term AB IAB SAB Ectopic Multiple Livin g Live Births 2 2 2 Date Outcome GA Total Labor Labor/2nd/3rd Weight Sex Type Anes PTL Renetta A1 A5 Name Clin Term Term Last Filed Vital Signs Vital Sign Reading [...] 02/02/2025 8:04 AM CDT Plan of Treatment Health Maintenance Due Date Last Done Comments Hepatitis B Screening 1968 DTaP/Tdap/Td Vaccine (2 - Td or Tdap) 05/23/2013 05/23/2003 Well Visit 65+ 07/03/2023 07/03/2022, 06/27/2021 Covid-19 Vaccine () 06/28/2024 08/02/2023, 08/16/2022, 03/22/2022, Additional history exists Depression Screening 08/25/2025 08/25/2024, 02/18/2024, 10/22/2023, Additional history exists Fall Risk Assessment 08/25/2025 08/25/2024, 02/18/2024, 10/22/2023, Additional history exists Osteoporosis Screening-Bone Density Scan 09/23/2025 09/23/2023 Colon Cancer Screening-DNA Stool 09/11/2026 09/11/20, 01/02/2021 Pneumococcal vaccine 65+ Completed 018, 09/11/2016, 08/23/2011, Additional history exists Zoster Vaccine Completed 02/05/2019, 01/26, 12/05/2018, Additional history exists Colon Cancer Screening-CT Colonography Discontinued 09/11/2023 Colon Cancer Screening-Colonoscopy Discontinued 09/11/2023 Colon Cancer Screening-FIT Discontinued 09/11/2023, Colon Cancer Screening-Sigmoidoscopy Discontinued 09/11/2023 Breast Cancer Screening-Mammogram Discontinued 09/23/2023, 09/15/2022, 09/07/2020, Additional history exists Hepatitis C Screening Completed 02/18/2024 Influenza Vaccine Completed 09/02/2024, , 06/05/2022, Additional history exists Procedures Procedure Name Priority Date/Time Associated Diagnosis Comments XR SHOULDER LEFT 1 VIEW Schedule Routine, Read Routine (OP Routine) 12/08/2024 8:22 AM CAMPAIGN ASSOCIATE Arthritis of left acromioclavicular joint HEPATITIS C ANTIBODY Routine 02/18/2024 8:40 AM CDT Encounter for hepatitis C screening test for low risk patient SCREENING MAMMOGRAM BILATERAL W ALESSANDRO Schedule Routine, Read Routine (OP Routine) 09/23/2023 9:22 AM CAMPAIGN ASSOCIATE Encounter for screening mammogram for malignant neoplasm of breast DEXA AXIAL SKELETON BONE DENSITY 1 OR MORE SITES Schedule Routine, Read Routine (OP Routine) 09/23/2023 8:32 AM CAMPAIGN ASSOCIATE Asymptomatic menopausal state COLONOSCOPY IMAGES Routine 09/11/2023 10:45 AM CAMPAIGN ASSOCIATE from Last 3 Months or Most Recently Relevant to Health Maintenance Results * XR Shoulder Left 1 View (12/08/2024 8:22 AM CAMPAIGN ASSOCIATE) Anatomical Region Laterality Modality Upper Extremities, Shoulder Left Digi raul Radiography Narrative 12/08/2024 8:48 AM CAMPAIGN ASSOCIATE Axillary view of the left shoulder is [...] 8:40 AM CDT 02/18/2024 2:00 PM CDT us Vivi Hamilton MD LAB MICROBIOLOGY - GENERA L ORDERABLES Edited Result - Final [facility] [id number] [place] [address] * SCREENING MAMMOGRAM BILATERAL W ALESSANDRO (09/23/2023 9:22 AM CAMPAIGN ASSOCIATE) Anatomical Region Laterality Modality Breast Bilateral Mammography 09/23/2023 10:3 8 AM CAMPAIGN ASSOCIATE Impressions 09/23/2023 10:38 AM CAMPAIGN ASSOCIATE There is no mammographic evidence of malignancy. A 1 year screening mammogram is recommended. BI-RADS: 1 - Negative. The patient has been or will be contacted. The patient will be entered into a reminder system with a target due date of 1 year for her next mammogram. Electronically signed by: Laura Bonds M.D. 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 MF: KATERINA Report ID: [id number] Reading Location: [place] [address] us Vivi Hamilton MD IMG DXA PROCEDURES Final Result * Colonoscopy Images -[facility] (09/11/2023 10:45 AM CAMPAIGN ASSOCIATE) Anatomical Region Laterality Modality Other us Issac Garner MD GI PROCEDURE ORDERABLES Final Result from Last 3 Months or Most Recently Relevant to Health Maintenance Insurance MEDICARE [facility] [place] [address] [place] [address] [place] [address] Care Teams Blunger Machine Operator Relationship Specialty Start Date End Date Vivi Hamilton MD [address] [place] [address] PCP - General Family Medicine 12/22/19
--- OUTSIDE RECORDS SUMMARY | 2025-02-27 17:04 | XMS_ITS ---
Author Organization [facility] [place] ([address]) Address [address] [place] [address] Care Team Providers Care Instructor Extension Work Name Role Phone Ignacio Hamilton Primary Care Provider UnavailAndrzej Blum Unavailable [phone] Nicole Gardner Unavailable Unavailable Allergies Allergen (clinical drug ingredient) Drug/Non Drug Allergy documented on EMR Reaction Allergy Type Onset Date Status BEXTRA (uncoded) shortness of breath Allergy Active BIAXIN (uncoded) shortness of breath, pruritus Allergy Active REQUIP (uncoded) vomiting Allergy Act oralia Benadryl Allergy shortness of breath, blisters Drug Allergy Active erythromycin Erythromycin pruritus, shortness of breath Drug Allergy Active REASON FOR VISIT Asthma follow-up - sees Credit Manager Dr. Gardner. Was Symbicort, Incruse, and Singulair. Prior PFT was normal. 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 PI work-up was normal, ARC follow-up - Rhinitis symptoms x 40+ years, takes Flonase, and Zyrtec. Skin tested with 3 positives, Continues on SCIT. Still with PND. On Famotidine with ENT with no difference. Using Ipratropium once daily along with Azelastine with improvement. Noted increased drainage in the past week,Frequent loss of voice, dyspnea and subjective throat swelling after smelling strong odors, responsive to prednisone, s/p [employer] evaluation - continues to report irritant reactions that trigger rhinitis and asthma symptoms. Seen at [facility], undergoing with speech therapy with some benefit, Lump in throat and inability to breathe in the AM, self-resolving after < 1 minute. No interval symptoms, tryptase is normal per outside records; carrying AIE Medications Medication SIG (Take, Route, Frequency, Duration) Notes Start Date End Date Status Montelukast Sodium 10 MG 1 tablet Orally Once a day for 90 days 5 Active Albuterol Sulfate HFA 108 (90 Base) MCG/ACT 2 puffs as needed Inhalation every 4 hrs for 30 days 5 Active Cetirizine HCl 10 MG 1 tablet Orally Once a day for 90 days 5 Active Azelastine HCl 137 MCG/SPRAY 2 sprays in each nostril Nasally Twice a day for 90 days Active Trelegy Ellipta 200-62.5-25 MCG/ACT 1 puff Inhalation Once a day for 90 days Active AEROCHAMBER MDI SPACER N/A user with MDI inhalers by mouth q4-6 hours PRN for 30 day(s) Active NASAL WASHES N/A as directed intranasally as needed for 30 Active Patanase 665 MCG/INH 2 SPRAY(S) INTRANASALLY 2 TIMES A DAY for 90 DAYS *Please review and pick correct strength-formul ation from P-Commerce options. If intended option is not shown, discontinue and re-order from Quick Search* Not-Taking Ipratropium [place] 0.06 % 2 sprays in each nostril Nasally Four times a day for 90 days Active SIT (TRADITIONAL) variable per schedule SC per schedule for to be determined Active predniSONE 20 MG 2 tab(s) orally once a day for 3 day(s) 2 Not-Taking AZELASTINE NASAL 137 mcg/inh 2 spray(s) intranasally 2 times a day for 30 day(s) 1 Not-Taking predniSONE 20 MG 3 tab(s) orally once a day 1 Not-Taking SIT (TRADITIONAL) VARIABLE PER SCHEDULE SC PER SCHEDULE for TO BE DETERMINED *Please review for potential replacement for e-prescription and drug interaction check* Not-Taking PATANASE 665 mcg/inh 2 spray(s) intranasally 2 times a day for 90 days Not-Taking PREDNISONE 20 mg 3 tab(s) orally once a day 1 Not-Taking PREDNISONE 20 mg 2 tab(s) orally once a day for 3 day(s) 2 Not-Taking Breo Ellipta 100-25 MCG/ACT 1 puff Inhalation Once a day for 30 days 4 Not-Taking Ipratropium Ball [place] 0.06 % 2 spray(s) intranasally 4 times a day as needed for 90 days Not-Taking Symbicort 160-4.5 MCG/ACT 2 puff(s) inhaled 2 times a day for 90 days Not-Taking SUMATRIPTAN 25 mg 1 tab(s) orally once Not-Taking BREO ELLIPTA 100 mcg-25 mcg/inh 1 puff(s) inhaled once a day for 30 days 4 Not-Taking PEPCID 20 mg 1 tab(s) orally 30 mins prior to SCIT Not-Taking IPRATROPIUM NASAL 42 mcg/inh 2 spray(s) intranasally 4 times a day for 90 days Not-Taking IPRATROPIUM NASAL 42 mcg/inh 2 spray(s) intranasally 4 times a day as needed for 90 days Not-Taking AIMOVIG Not-Taking LOSARTAN 50 mg 1 tab(s) orally once a day Not-Taking EXCEDRIN MIGRAINE 250 mg-250 mg-65 mg 2 tab(s) orally every 6 hours Not-Taking GABAPENTIN 300 mg 1 cap(s) orally Qday Not-Taking PREMPRO 0.3 mg-1.5 mg 1 tab(s) orally once a day Not-Taking ALIGN 4 mg 1 cap(s) orally once a day Not-Taking ATORVASTATIN 40 mg 1 tab(s) orally once a day Not-Taking CALCIUM 600+D 600 mg-200 units 1 tab(s) orally 3 times a day Not-Taking VITAMIN D3 1000 intl units as directed orally once a day Not-Taking MULTIVITAMIN Multiple Vitamins 1 tab(s) orally once a day Not-Taking INCRUSE ELLIPTA 62.5 mcg (0.0625 mg)/inh 1 inh inhaled every 24 hours for 90 days Not-Taking Breo Ellipta 100-25 MCG/ACT 1 puff Inhalation Once a day for 90 days Not-Taking OMEPRAZOLE 20 mg 1 cap(s) orally once a day Not-Taking SYMBICORT 160 mcg-4.5 mcg/inh 2 puff(s) inhaled 2 times a day for 90 days Not-Taking Breo Ellipta 100 MCG-25 MCG/INH 1 PUFF(S) INHALED ONCE A DAY for 30 DAYS *Please review and pick correct strength-formul ation from P-Commerce options. If intended option is not shown, discontinue and re-order from Quick Search* 4 Not-Taking Nfbjrjcoywq-Zbfbehiwy-Op lant 100-62.5-25 MCG/ACT 1 puff Inhalation Once a day for 90 days 4 Not-Taking Albuterol Sulfate HFA 108 (90 Base) MCG/ACT 2 puff(s) inhaled every 4 hours for 90 days Not-Taking Azelastine HCl 137 MCG/SPRAY 2 spray(s) intranasally 2 times a day for 90 days 1 Not-Taking Incruse Ellipta 62.5 MCG (0.0625 MG)/INH 1 INH INHALED EVERY 24 HOURS for 90 DAYS *Please review and pick correct strength-formul ation from P-Commerce options. If intended option is not shown, discontinue and re-order from Quick Search* Not-Taking Medrol 4 MG as directed Orally as directed for 6 days 5 Not-Taking FLUTICASONE NASAL 50 mcg/inh 2 spray(s) intranasally once a day for 90 days Not-Taking ZYRTEC 10 mg 1 tab(s) orally once a day for 90 days Not-Taking EPINEPHRINE 0.3 mg as directed intramuscularly once for 30 days Not-Taking SINGULAIR 10 mg 1 tab(s) orally once a day for 90 days Not-Taking ALBUTEROL 90 mcg/inh 2 puff(s) inhaled every 4 hours for 90 days Not-Taking HYDROCHLOROTHIAZIDE 12.5 mg 1 cap(s) orally once a day Not-Taking Pepcid 20 MG 1 tab(s) orally 30 mins prior to SCIT Active Losartan Potassium 50 MG 1 tab(s) orally once a day Active Gabapentin 300 MG 1 cap(s) orally Qday Active Ipratropium [place] 0.06 % 2 spray(s) intranasally 4 times a day for 90 days Active Calcium 600 + D 600 MG-200 UNITS 1 TAB(S) ORALLY 3 TIMES A DAY *Please review and pick correct strength-formul ation from P-Commerce options. If intended option is not shown, discontinue and re-order from Quick Search* Active Vitamin D3 1000 UNIT as directed orally once a day Active Prempro 0.3-1.5 MG 1 tab(s) orally once a day Active Atorvastatin Calcium 40 MG 1 tab(s) orally once a day Active Align 4 MG 1 cap(s) orally once a day Active ZyrTEC Allergy 10 MG 1 tab(s) orally once a day for 90 days Active Singulair 10 MG 1 tab(s) orally once a day for 90 days Active Omeprazole 20 MG 1 cap(s) orally once a day Active Fluticasone Propionate 50 MCG/ACT 2 spray(s) intranasally once a day for 90 days Active Multivitamin - 1 tab(s) orally once a day Active EPINEPHrine 0.3 MG DIRECTED INTRAMUSCULARLY ONCE for 30 DAYS *Please review and pick correct strength-formul ation from P-Commerce options. If intended option is not shown, discontinue and re-order from Quick Search* Active hydroCHLOROthiazide 12.5 MG 1 cap(s) orally once a day Active oxyBUTYnin Chloride ER 10 MG 1 tablet Orally Once a day Active Trelegy Ellipta 100-62.5-25 MCG/ACT 1 puff Inhalation Once a day for 30 days 4 Active SUMAtriptan Succinate 25 MG 1 tab(s) orally once Active Simply Saline 0.9 % as directed Nasally Active Naproxen 250 MG 1 tablet with food or milk as needed Orally every 12 hrs Active Albuterol Sulfate HFA 108 (90 Base) MCG/ACT 1 puff as needed Inhalation every 4 hrs Active Excedrin Migraine 250-250-65 MG 2 tab(s) orally every 6 hours Active Aimovig *Please review and pick correct strength-formul ation from P-Commerce options. If intended option is not shown, discontinue and re-order from Quick Search* Active Anti-Diarrheal 2 MG 1 tablet as needed Orally Four times a day Active Collagen 500-50-0.8 MG as directed Orally Active EPINEPHrine 0.3 MG/0.3ML as directed Injection as needed for 30 days 5 Active Fluticasone Propionate 50 MCG/ACT 1 spray in each nostril Nasally Twice a day for 90 days 5 Active Social History Tobacco Use: Social History Observation Description Date Details (start date - stop date) Former Smoker NA - NA Tobacco Control (Standard) Question Answer Notes Tobacco use: Former smoker How long has it been since you last smoked? Isabella ter than 10 years Vital Signs Blood pressure systolic 140 mm Hg 02/02/20 25 Blood pressure diastolic 69 mm Hg 025 Height 65.5 in 02/01/2025 Weight 153.6 lbs 02/01/2025 BMI 25.17 kg/m2 02/01/2025 Oximetry 99 % 02/01/2025 Encounters Encounter Location Date Provider Diagnosis [facility] [address] [facility] [address] [place] [address] 02/01/2025 Andrzej Holliday Allergic rhinitis du e to pollen J30.1 ; Moderate persistent asthma, uncomplicated J45.40 ; Other allergic rhinitis J30.89 ; Other chronic allergic conjunctivitis H10.45 ; Localized swelling, mass and lump, head R22.0 ; Angioneurotic edema, subsequent encounter T78.3XXD ; Other diseases of vocal cords J38.3 ; 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 Accordingly, she will continue our aggressive medication regimen, discussed nasal washes and allergy-specific avoidance measures. Although testing positive to only 3 aeroallergens, she does report worsening symptoms when mowing the lawn. Based on history, she was formulated to trees, grasses, weeds, and molds. Now on SCIT without recent local or systemic reaction. Procedure tolerated today without issue. Recently again with increased PND and drainage. Given normal immune work-up, I do suspect this is mostly a presentation of ALYSSIA though is worse with the onset of Spring.. Continue ipratropium and azalstine. Increase ipratropium use PRN. Return per shedule for SCIT and in 4 months for E&M. 02/01/2025 Moderate persistent asthma, uncomplicated (ICD-10 - J45.40) Initial spirometry met ATS criteria for asthma. Worsens with irritants such as perfume. Spirometry at prior visit with normal FEV1, FEV1%, and FVC though FVL showed variable technique due to cough. Was increased to Trelegy with improvement in the interval with subjective improvement. Lungs were clear on exam today. Historically requires frequent visits to urgent care x for increased PND and productive cough requiring oral steroids. I do suspect her cough is primarily due to PND. Recently with increased drainage. No current concerns for infection. 02/01/2025 Other allergic rhinitis (ICD-10 - J30.89) Follow allergen avoidance, meds and continue SCIT as an adjunctive treatment to current regimen 02/01/2025 Other chronic allergic conjunctivitis (ICD-10 - H10.45) Given ocular signs and symptoms I encouraged allergy avoidance measures and meds as above. If symptoms persist, consider adding additional medications including intraocular antihistamine/mas t cell stabilizer, PRN and continue SCIT as an adjunctive measure 02/01/2025 Localized swelling, mass and lump, head (ICD-10 - R22.0) Prior sensation of globus in the AM morning which woke her from sleep leaving her unable to breathe or swallow x <1 minute. Exam was normal today. No interval symptoms. Largyngoscopy was normal. No hives, wheezing, or visible angioedema. It is unclear to me what may have caused this, though it could be anxiety or VCD as below. Typtase normal. No interval episodes 02/01/2025 Angioneurotic edema, subsequent encounter (ICD-10 - T78.3XXD) See above. AIE on hand and anaphylaxis education provided. No interval symptoms. Likley related to VCD as below. Call the office if symptoms reoccur. Consider completement levels if this becomes an ongoing problem 02/01/2025 Other diseases of vocal cords (ICD-10 - J38.3) Previously with inspiratory flattening on flow volume loop, c/w vocal cord dysfunction. S/p evaluation by [employer]CH[employer] Belen Concepcion, now with breathing exercises to use for symptoms. Recent laryngoscopy for subjective throat swelling was normal. Still with cough secondary to PND. Continue SCIT as above. Seen by [facility] with normal scope though agree history is indicative of VCD. 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 There is no need for further work-up given lack of recurrent infections. Currently overcoming additional sinus infection with lower airway involvement. PI work-up was all WNL 02/01/2025 Adverse effect of macrolides, subsequent encounter (ICD-10 - T36.3X5D) Danitza reports a history of angioedema of the lips after taking Biaxin 40 years ago, and continues strict avoidance. She also reports more recent dyspnea and blood boiling after taking erythromycin. There is no way to test for macrolide allergy. Avoid macrolides and consider in-office challenges in the future. AIE on hand 02/01/2025 Adverse effect of other drugs, medicaments and biological substances, subsequent encounter (ICD-10 - T50.995D) Danitza reports dyspnea and blood boiling with Benadryl and Katey-D. Dyspnea may be due to vocal cord dysfunction, given her flow volume loop results. Continue avoidance of the above medications. Tolerant of Zyrtec 02/01/2025 Other Plan Of Treatment Medication Medication Name Sig Start Date Stop Date Notes Montelukast Sodium 10 MG 1 tablet Orally Once a day for 90 days 02/01/2025 Albuterol Sulfate HFA 108 (9 0 Base) MCG/ACT 2 puffs as needed Inhalation every 4 hrs for 30 days 02/01/2025 Cetirizine HCl 10 MG 1 tablet Orally Onc e a day for 90 days 02/01/2025 Azelastine HCl 137 MCG/SPRAY 2 sprays in each nostril Nasally Twice a day for 90 days Trelegy Ellipta 200-62.5-25 MCG/ACT 1 puff Inhalation Once a day for 90 days AEROCHAMBER MDI SPACER N/A user with MDI inhalers by mouth q4-6 hours PRN for 30 day(s) NASAL WASHES N/A as directed intranas ally as needed for 30 Ipratropium Ball Ground 0.06 % 2 sprays in e ach nostril Nasally Four times a day for 90 days SIT (TRADITIONAL) variable per schedule SC per schedule for to be determined EPINEPHrine 0.3 MG/0.3ML as directed Inj ection as needed for 30 days 02/01/2025 Fluticasone Propionate 50 MCG/ACT 1 spray in each nostril Nasally Twice a day for 90 days 02/01/2025 Treatment Notes Assessment Notes Allergic rhinitis due to pollen Danitza lindsay byrd suffers from atopic disease based upon our skin testing and history. Accordingly, she will continue our aggressive medication regimen, discussed nasal washes and allergy-specific avoidance measures. Although testing positive to only 3 aeroallergens, she does report worsening symptoms when mowing the lawn. Based on history, she was formulated to trees, grasses, weeds, and molds. Now on SCIT without recent local or systemic reaction. Procedure tolerated today without issue. Recently again with increased PND and drainage. Given normal immune work-up, I do suspect this is mostly a presentation of ALYSSIA though is worse with the onset of Spring.. Continue ipratropium and azalstine. Increase ipratropium use PRN. Return per shedule for SCIT and in 4 months for E&M. Moderate persistent asthma, uncomplicate d Initial spirometry met ATS criteria for asthma. Worsens with irritants such as perfume. Spirometry at prior visit with normal FEV1, FEV1%, and FVC though FVL showed variable technique due to cough. Was increased to Trelegy with improvement in the interval with subjective improvement. Lungs were clear on exam today. Historically requires frequent visits to urgent care x for increased PND and productive cough requiring oral steroids. I do suspect her cough is primarily due to PND. Recently with increased drainage. No current concerns for infection. Other allergic rhinitis Follow allergen avoidance, meds and continue SCIT as an adjunctive treatment to current regimen Other chronic allergic conjunctivitis Gi ramandeep ocular signs and symptoms I encouraged allergy avoidance measures and meds as above. If symptoms persist, consider adding additional medications including intraocular antihistamine/mast cell stabilizer, PRN and continue SCIT as an adjunctive measure Localized swelling, mass and lump, head Prior sensation of globus in the AM morning which woke her from sleep leaving her unable to breathe or swallow x <1 minute. Exam was normal today. No interval symptoms. Largyngoscopy was normal. No hives, wheezing, or visible angioedema. It is unclear to me what may have caused this, though it could be anxiety or VCD as below. Typtase normal. No interval episodes Angioneurotic edema, subsequent encounte r See above. AIE on hand and anaphylaxis education provided. No interval symptoms. Likley related to VCD as below. Call the office if symptoms reoccur. Consider completement levels if this becomes an ongoing problem Other diseases of vocal cords Previously with inspiratory flattening on flow volume loop, c/w vocal cord dysfunction. S/p evaluation by [employer] MECH[employer]IC Belen Concepcion, now with breathing exercises to use for symptoms. Recent laryngoscopy for subjective throat swelling was normal. Still with cough secondary to PND. Continue SCIT as above. Seen by [facility] with normal scope though agree history is indicative of VCD. Following with [employer]CH[employer] and using VCD exercises Selective deficiency of immu noglobulin G [IgG] subclasses Historical IgG subclass 2 deficiency wit h no recurrent upper or lower airway infections in the past few years. There is no need for further work-up given lack of recurrent infections. Currently overcoming additional sinus infection with lower airway involvement. PI work-up was all WNL Adverse effect of macrolides , subsequent encounter Danitza reports a history of angioedema of th e lips after taking Biaxin 40 years ago, and continues strict avoidance. She also reports more recent dyspnea and blood boiling after taking erythromycin. There is no way to test for macrolide allergy. Avoid macrolides and consider in-office challenges in the future. AIE on hand Adverse effect of other drug s, medicaments and biological substances, subsequent encounter Danitza reports dyspnea and blood boiling with Benadryl and Katey-D. Dyspnea may be due to vocal cord dysfunction, given her flow volume loop results. Continue avoidance of the above medications. Tolerant of Zyrtec Next Appt Details Follow Up: 4 Weeks, 3 Months , Reason: Evaluation and Management,SCIT Provider Name:Jerome Bazzi , 03/01/2025 07:30:00 AM, [address], [place], [address], Provider Name:Jerome Bazzi , 03/29/2025 07:30:00 AM, [address], [place], [address], Provider Name:Jaclyn acosta, 05/03/2025 08:00:00 AM, [address], [place], [address], Procedure Notes * Category Sub-Category Detail Notes SCIT Traditional Aeroallergen Schedul e Administration:: Full dosing administered per SOP and AAIC's titration schedule and/or specific instructions as outlined on the patient's shot record; see attached for specifics re: content, concentration, volume and location of injection(s). Progress Notes * Coleen AYALA ADOB:[birth year] (74 yo F)Acc No.[id number]:02/01/2025 Progress Notes Patient: Coleen PATEL Provider: Slade Holliday PA-C :1950 A ge:74 Y S ex:Female Date:02/01/2025 Address:[address] [place] [address], [id number] Pcp:Ignacio Hamilton Subjective: * Chief Complaints: * A [facility] follow-up - sees Credit Manager Dr. Gardner. Was Symbicort, Incruse, and Singulair. Prior PFT was normal. She was switched from Breo to Trelegy in the interval and feels this is beneficialHistorical IgG subclass 2 deficiency without recurrent upper or lower airway infections. PI work-up was normalARC follow-up - Rhinitis symptoms x 40+ years, takes Flonase, and Zyrtec. Skin tested with 3 positives, Continues on SCIT. Still with PND. On Famotidine with ENT with no difference. Using Ipratropium once daily along with Azelastine with improvement. Noted increased drainage in the past weekFrequent loss of voice, dyspnea and subjective throat swelling after smelling strong odors, responsive to prednisone, s/p [employer]CH[employer] evaluation - continues to report irritant reactions that trigger rhinitis and asthma symptoms. Seen at [facility], undergoing with speech therapy with some benefitLump in throat and inability to breathe in the AM, self-resolving after < 1 minute. No interval symptoms, tryptase is normal per outside records; carrying AIE * HPI: A [facility] follow-up: [facility] M oderate Persistent * Introduction: I had the pleasure of seeing Herman tommycrystal Ayala, a 74 year-old female former smoker with fibromyalgia, lupus, hyperlipidemia, nonallergic rhinitis, historically low IgG2, ARC, and moderate persistent asthma, who returns for interval evaluation and management and SCIT. Danitza is alone for today's visit.Danitza was increased to Trelegy in the interval with benefit though still taking I ncruse along with and Singular. Recently seen by Dr. Gardner who said f/u was no longer needed. P rior PFT was normal. She does describe frequent irritant (smells/fragrances) reactions that induce rhinitis and throat closing and wheezing.Historically with recurrent episodes of coiugh that h ave been triggered by irritant exposure when out and about. She has since been evaluated by [facility] s/p normal scope. That said they agree symptoms sound indicative of VCD and is established with speech therapy of which she continues to use exercises. Has yet to f/u with Dr. Gardner. S he does have a prior dx of IgG type 2 subclass deficiency but no prior extensive work-up. We elected to under PI work-up with all labs returning WNL. Voice remains extremely raspy. She has been treated at urgent care mutliple times in the past year with steroids and abx Aeroallergen testing previously performed showing positive to Maple, Dock, Red/Sheep, and Brandi Albicans. Since then she continues on daily Zyrtec. She did recheck with ENT who increased nasal washes with daily ipratropium and azelastine which she feels has been helpful. Currently on SCIT without recent issue. Still with continued PND despite multiple nasal sprays. Seen by ENT who started famotidine without difference. Noted increased drainage for the past week with the onset of Spring. She reports historical reactions to multiple medications and continues avoidance. Today, she reports no fevers, chills, night sweats or other constitutional symptoms. The patient is here for scheduled specific allergen immunotherapy. Please see the attached specialty form regarding the specifics of the administration of these vaccines. As per our protocol, they must undergo a screening health questionnaire (medication changes, reaction(s) to last immunotherapy dose(s), current health status, ACT (if appropriate), self-injectable epinephrine on patient(?) and peak flow (if appropriate)). Also, the patient must wait in our office for 30 minutes after receiving immunotherapy. Furthermore, every patient must have an epinephrine pen (self-injectable) with them at the time of administration--and carry if for the following 1.5 hours after they leave our office. The patient must also have taken their antihistamine the day of the injection, preferably 2 hours prior. The consent form for SCIT (subcutaneous immunotherapy) is on file. * ROS: A LLERGY: Positive p er the HPI and history, otherwise unremarkable.?runny nose Y es. s cratchy throat Y es. i tchy eyes Y es. s inus congestion Y es. S PECIAL SENSES: Positve for n one. c ataracts N o. g laucoma?No. l oss of hearing N o. i tching in ears N o. r inging in ears N o.?loss of balance N o. l oss of smell N o. d ry eyes Y es. e xcessive tearing N o. i tching eyes Y es. l oss of taste N o. c onjunctivitis N o. e ar infections N o. C ONSTITUTIONAL: weight gain Y es. n ight sweats Y es. P ositive for n one. E NT: cold N o. c ough N o. e pistaxis N o. h earing loss N o. c hange in voice Y es. s ore throat Y es. r inging in ears?No. s inus pain Y es. P ositive p er the HPI and history, otherwise unremarkable. R ESPIRATORY: shortness of breath N o. c hest pain N o. c hest congestion N o. c ough N o. P ositive p er the HPI and history, otherwise unremakable. O PHTHALMOLOGY: diminished vision N o. e ye irritation N o. d rainage from eyes N o. b lurring of vision N o. s easonal eye sx N o. P ositive for p er the HPI and history, otherwise unremarkable. i tching Y es. s ensitivity to light Y es. d ischarge N o. w atering Y es. s welling of the eyelids?No. r edness N o. E NDOCRINOLOGY: fatigue Y es. p olydipsia N o. p olyuria Y es. w eight loss N o. s leep disturbance Y es. c old intolerance Y es. h eat intolerance Y es. d iabetes N o. P ositive for n one. C ARDIOLOGY: chest pain Y es. l eg edema Y es. s hortness of breath Y es. P ositive for n one. G ASTROENTEROLOGY: dysphagia N o. a bdominal pain N o. n ausea?No. v omiting N o. c onstipation N o. d iarrhea Y es. b lood in stool?No. i ndigestion Y es. h emorrhoids Y es. P ositive for n one. ? U ROLOGY: difficulty urinating N o. b lood in urine N o. f requent urination Y es. u rinary incontinence Y es. r ecurrent UTI N o. P ositive for n one. D ERMATOLOGY: rash N o. m ole Y es. l umps Y es. d ry or sensitive skin Y es. h huma (urticaria) N o. a cne N o. s kin cancer?No. P ositive for p er the HPI and history, otherwise unremakable. N EUROLOGY: headache Y es. t ingling numbness N o. s eizures N o. i nsomnia Y es. m traci loss N o. d izziness Y es. g ait abnormality N o. P ositive for n one. H EMATOLOGY/LYMPH: Positive for n one. M USCULOSKELETAL: joint swelling Y es. j oint pain Y es. l eg cramps Y es. j oint stiffness Y es. s ciatica Y es. o steoporosis Y es.?fracture N o. c arpal tunnel N o. g out N o. P ositive for n one. P SYCHOLOGY: high stress level N o. d epression N o. s leep disturbances Y es. s uicidal ideation N o. e ating disorder N o. m ental or physical abuse N o. a nxiety N o. P ositive for n one. F EMALE REPRODUCTIVE: heavy periods N o. h ot flashes Y es. a bnormal vaginal discharge N o. s exually active Y es. i nfertility N o. f requent yeat infections N o. p elvic pain N o. b reast pain N o. n ipple discharge No. A re you ? N o. A re you planning on a future pregancy? N o. ? A ll other review of systems per the HPI and history, otherwise unremarkable. * Medical History: * Surgical History: S tem inserted in tubes for menstrual 10/28/1967C section 07/30/1976Tubal litigation 03/28/1978Many many D&C over years Right knee release 03/28/2009Left knee surgeries for damaged meniscus 2 times in 80 03/28/1982Tendon release right wrist 01/27/2019Right dyptron 03/28/2011Left dyptron 03/28/2017Cataract surgery Right eye ataract Surgery Left eye 06/2024 * Hospitalization/Major Diagno stic Procedure: M igraines 03/28/1969 * Family History: F ather: , No. M other: , Yes. P aternal Grand Father: No. P aternal Grand Mother: No. M aternal Grand Father: No. M aternal Grand Mother: No. S iblings: Yes. C hildren: Yes. 5 brother(s) , 6 sister(s) . 1 son(s) , 1 daughter(s) . . There is no other family history of cancer, CF, diabetes, emphysema or heart disease.. pt has lupus. * Social History: M arital Status What is your marital status? w idowed A lcohol Screening Do you ever drink alcoholic beverages? N o S moking Have you ever smoked tobacco: f ormer smoker Additional Findings: Tobacco Non-User C urrent non-smoker How old were you when you started smoking? 1 9 How old were you when you quit smoking? 3 7 How many cigarettes a day did you smoke? 6 to 10 Are you a : f ormer smoker R ecreational drug use Have you ever used recreational drugs? N o D etails on consumption of certain products? Do you regularly consume products with aspartame; Equal or NutraSweet? N o Do you regularly consume products with artificial coloring??No E xercise What kind(s) of exercise do you perform regularly? o ther How often do you perform this exercise? w eekly A re any of the following personal care products containing fragrance, dye or preservatives used regularly? Shampoo: N o Conditioner: N o Soap: N o Laundry Detergent: N o Fabric Softener: N o Deodorant: N o Perfume, cologne, after shave: N o Air freshners or other scented products: N o Hair coloring dyes or rinses: Y es Other: N o O ccupation Are you currenly employed? N o Have you had any job with high exposure to fumes, chemicals, dust or other noxious substances? N o Are you currently a student? N o E nvironmental History Living environment: p rivate home Where is the home located? r ural Age of home: 1 3 How many people live in the home? 2 H ome description Basement: Y es Any water damage in basement? N o Smokers in the home? N o Smokers outside the home? N o Air Conditioning? Y es Central Air? Y es Forced air heating? Y es Gas or electric? g as Fireplace? Y es Wood burning stove? N o Do you vacuum the home? Y es Air purification systems? Y es Is it a HEPA (high-efficiency particulate air filter)? Y es Pillow and mattress dust-proof encasings? N o Do you use a humidifier? Y es Whole house or room? w hole house humidifier Does it have a humidistat? N o Is the humidifier cleaned regularly? Y es Do you own any pets? N o Fabric softeners used? Y es Plants in the home? Y es How many? 1 Where are they kept? o ther room in home Is there carpeting in your bedroom? Y es Age of carpet? 1 3 Do you have [id number]-[id number] carpeting? N o What is the age of your mattress (years)? 3 What material(s) are used to manufacture your bedding and pillow? s ynthetic What is the age of your pillow (years)? 1 0 What material are your bedding items made of? s ynthetic Do you sleep with quilts or blankets or a duvet? Y es What material? s ynthetic T obacco Control (Standard) Tobacco use: F ormer smoker How long has it been since you last smoked? G reater than 10 years * Medications: T akingAnti-Diarrheal 2 MG Tablet 1 tablet as needed Orally Four times a day Collagen 500-50-0.8 MG Capsule as directed Orally Simply Saline 0.9 % Aerosol Solution as directed Nasally Albuterol Sulfate HFA 108 (90 Base) MCG/ACT Aerosol Solution 1 puff as needed Inhalation every 4 hrs Naproxen 250 MG Tablet 1 tablet with food or milk as needed Orally every 12 hrs Aimovig , Notes to Pharmacist: *Please review and pick correct strength-formulation from [employer] options. If intended option is not shown, discontinue and re-order from Quick Search*Excedrin Migraine 250-250-65 MG Tablet 2 tab(s) orally every 6 hours SUMAtriptan Succinate 25 MG Tablet 1 tab(s) orally once Trelegy Ellipta 100-62.5-25 MCG/ACT Aerosol Powder Breath Activated 1 puff Inhalation Once a day oxyBUTYnin Chloride ER 10 MG Tablet Extended Release 24 Hour 1 tablet Orally Once a day hydroCHLOROthiazide 12.5 MG Capsule 1 cap(s) orally once a day EPINEPHrine 0.3 MG KIT DIRECTED INTRAMUSCULARLY ONCE , Notes to Pharmacist: *Please review and pick correct strength-formulation from [employer] options. If intended option is not shown, discontinue and re-order from Quick Search*Singulair 10 MG Tablet 1 tab(s) orally once a day ZyrTEC Allergy 10 MG Tablet 1 tab(s) orally once a day Fluticasone Propionate 50 MCG/ACT Suspension 2 spray(s) intranasally once a day Omeprazole 20 MG Capsule Delayed Release 1 cap(s) orally once a day Multivitamin - Tablet 1 tab(s) orally once a day Align 4 MG Capsule 1 cap(s) orally once a day Vitamin D3 1000 UNIT Capsule as directed orally once a day Calcium 600 + D 600 MG-200 UNITS TABLET 1 TAB(S) ORALLY 3 TIMES A DAY , Notes to Pharmacist: *Please review and pick correct strength-formulation from [employer] options. If intended option is not shown, discontinue and re-order from Quick Search*Atorvastatin Calcium 40 MG Tablet 1 tab(s) orally once a day Prempro 0.3-1.5 MG Tablet 1 tab(s) orally once a day Losartan Potassium 50 MG Tablet 1 tab(s) orally once a day Pepcid 20 MG Tablet 1 tab(s) orally 30 mins prior to SCIT Ipratropium [place] 0.06 % Solution 2 spray(s) intranasally 4 times a day Gabapentin 300 MG Capsule 1 cap(s) orally Qday Trelegy Ellipta 200-62.5-25 MCG/ACT Aerosol Powder Breath Activated 1 puff Inhalation Once a day Azelastine HCl 137 MCG/SPRAY Solution 2 sprays in each nostril Nasally Twice a day Taking Anti-Diarrheal 2 MG Tablet 1 tablet as needed Orally Four times a day Taking Collagen 500-50-0.8 MG Capsule as directed Orally Taking Simply Saline 0.9 % Aerosol Solution as directed Nasally Taking Albuterol Sulfate HFA 108 (90 Base) MCG/ACT Aerosol Solution 1 puff as needed Inhalation every 4 hrs Taking Naproxen 250 MG Tablet 1 tablet with food or milk as needed Orally every 12 hrs Taking Aimovig , Notes to Pharmacist: *Please review and pick correct strength-formulation from [employer] options. If intended option is not shown, discontinue and re-order from Quick Search*Taking Excedrin Migraine 250-250-65 MG Tablet 2 tab(s) orally every 6 hours Taking SUMAtriptan Succinate 25 MG Tablet 1 tab(s) orally once Taking Trelegy Ellipta 100-62.5-25 MCG/ACT Aerosol Powder Breath Activated 1 puff Inhalation Once a day Taking oxyBUTYnin Chloride ER 10 MG Tablet Extended Release 24 Hour 1 tablet Orally Once a day Taking hydroCHLOROthiazide 12.5 MG Capsule 1 cap(s) orally once a day Taking EPINEPHrine 0.3 MG KIT DIRECTED INTRAMUSCULARLY ONCE , Notes to Pharmacist: *Please review and pick correct strength-formulation from [employer] options. If intended option is not shown, discontinue and re-order from Quick Search*Taking Singulair 10 MG Tablet 1 tab(s) orally once a day Taking ZyrTEC Allergy 10 MG Tablet 1 tab(s) orally once a day Taking Fluticasone Propionate 50 MCG/ACT Suspension 2 spray(s) intranasally once a day Taking Omeprazole 20 MG Capsule Delayed Release 1 cap(s) orally once a day Taking Multivitamin - Tablet 1 tab(s) orally once a day Taking Align 4 MG Capsule 1 cap(s) orally once a day Taking Vitamin D3 1000 UNIT Capsule as directed orally once a day Taking Calcium 600 + D 600 MG-200 UNITS TABLET 1 TAB(S) ORALLY 3 TIMES A DAY , Notes to Pharmacist: *Please review and pick correct strength-formulation from [employer] options. If intended option is not shown, discontinue and re-order from Quick Search*Taking Atorvastatin Calcium 40 MG Tablet 1 tab(s) orally once a day Taking Prempro 0.3-1.5 MG Tablet 1 tab(s) orally once a day Taking Losartan Potassium 50 MG Tablet 1 tab(s) orally once a day Taking Pepcid 20 MG Tablet 1 tab(s) orally 30 mins prior to SCIT Taking Ipratropium Ball [place] 0.06 % Solution 2 spray(s) intranasally 4 times a day Taking Gabapentin 300 MG Capsule 1 cap(s) orally Qday Taking Trelegy Ellipta 200-62.5-25 MCG/ACT Aerosol Powder Breath Activated 1 puff Inhalation Once a day Taking Azelastine HCl 137 MCG/SPRAY Solution 2 sprays in each nostril Nasally Twice a day Not-Taking/PRNHYDROCHLOROTHIAZIDE 12.5 mg capsule 1 cap(s) orally once a day EPINEPHRINE 0.3 mg kit as directed intramuscularly once AEROCHAMBER MDI SPACER N/A N/A user with MDI inhalers by mouth q4-6 hours PRN ALBUTEROL 90 mcg/inh aerosol 2 puff(s) inhaled every 4 hours SINGULAIR 10 mg tablet 1 tab(s) orally once a day ZYRTEC 10 mg tablet 1 tab(s) orally once a day FLUTICASONE NASAL 50 mcg/inh spray 2 spray(s) intranasally once a day NASAL WASHES N/A 1 quart of sterilized tap water or distilled water, 1 tsp NaCl, 1 pinch of baking soda as directed intranasally as needed SIT (TRADITIONAL) variable see record per schedule SC per schedule Nlvugdyejdq-Lskoqzxwe-Cyyevs 100-62.5-25 MCG/ACT Aerosol Powder Breath Activated 1 puff Inhalation Once a day Ipratropium Ball Ground 0.06 % Solution 2 sprays in each nostril Nasally Four times a day Medrol 4 MG Tablet Therapy Pack as directed Orally as directed Azelastine HCl 137 MCG/SPRAY Solution 2 spray(s) intranasally 2 times a day Albuterol Sulfate HFA 108 (90 Base) MCG/ACT Aerosol Solution 2 puff(s) inhaled every 4 hours Incruse Ellipta 62.5 MCG (0.0625 MG)/INH POWDER 1 INH INHALED EVERY 24 HOURS , Notes to Pharmacist: *Please review and pick correct strength-formulation from [employer] options. If intended option is not shown, discontinue and re-order from Quick Search*Breo Ellipta 100 MCG-25 MCG/INH POWDER 1 PUFF(S) INHALED ONCE A DAY , Notes to Pharmacist: *Please review and pick correct strength-formulation from [employer] options. If intended option is not shown, discontinue and re-order from Quick Search*Breo Ellipta 100-25 MCG/ACT Aerosol Powder Breath Activated 1 puff Inhalation Once a day INCRUSE ELLIPTA 62.5 mcg (0.0625 mg)/inh powder 1 inh inhaled every 24 hours SYMBICORT 160 mcg-4.5 mcg/inh aerosol 2 puff(s) inhaled 2 times a day OMEPRAZOLE 20 mg delayed release capsule 1 cap(s) orally once a day ALIGN 4 mg capsule 1 cap(s) orally once a day MULTIVITAMIN Multiple Vitamins tablet 1 tab(s) orally once a day VITAMIN D3 1000 intl units capsule as directed orally once a day CALCIUM 600+D 600 mg-200 units tablet 1 tab(s) orally 3 times a day ATORVASTATIN 40 mg tablet 1 tab(s) orally once a day PREMPRO 0.3 mg- 1.5 mg tablet 1 tab(s) orally once a day GABAPENTIN 300 mg capsule 1 cap(s) orally Qday LOSARTAN 50 mg tablet 1 tab(s) orally once a day AIMOVIG EXCEDRIN MIGRAINE 250 mg-250 mg-65 mg tablet 2 tab(s) orally every 6 hours SUMATRIPTAN 25 mg tablet 1 tab(s) orally once PEPCID 20 mg tablet 1 tab(s) orally 30 mins prior to SCIT IPRATROPIUM NASAL 42 mcg/inh spray 2 spray(s) intranasally 4 times a day as needed IPRATROPIUM NASAL 42 mcg/inh spray 2 spray(s) intranasally 4 times a day BREO ELLIPTA 100 mcg-25 mcg/inh powder 1 puff(s) inhaled once a day Breo Ellipta 100-25 MCG/ACT Aerosol Powder Breath Activated 1 puff Inhalation Once a day Symbicort 160-4.5 MCG/ACT Aerosol 2 puff(s) inhaled 2 times a day Ipratropium Ball [place] 0.06 % Solution 2 spray(s) intranasally 4 times a day as needed PREDNISONE 20 mg tablet 2 tab(s) orally once a day PREDNISONE 20 mg tablet 3 tab(s) orally once a day predniSONE 20 MG Tablet 2 tab(s) orally once a day predniSONE 20 MG Tablet 3 tab(s) orally once a day AZELASTINE NASAL 137 mcg/inh spray 2 spray(s) intranasally 2 times a day PATANASE 665 mcg/inh spray 2 spray(s) intranasally 2 times a day SIT (TRADITIONAL) VARIABLE SEE RECORD PER SCHEDULE SC PER SCHEDULE , Notes to Pharmacist: *Please review for potential replacement for e-prescription and drug interaction check*Patanase 665 MCG/INH SPRAY 2 SPRAY(S) INTRANASALLY 2 TIMES A DAY , Notes to Pharmacist: *Please review and pick correct strength-formulation from [employer] options. If intended option is not shown, discontinue and re-order from Quick Search*Medication List reviewed and reconciled with the patientNot-Taking/PRN HYDROCHLOROTHIAZIDE 12.5 mg capsule 1 cap(s) orally once a day Not-Taking/PRN EPINEPHRINE 0.3 mg kit as directed intramuscularly once Not-Taking/PRN AEROCHAMBER MDI SPACER N/A N/A user with MDI inhalers by mouth q4-6 hours PRN Not-Taking/PRN ALBUTEROL 90 mcg/inh aerosol 2 puff(s) inhaled every 4 hours Not-Taking/PRN SINGULAIR 10 mg tablet 1 tab(s) orally once a day Not-Taking/PRN ZYRTEC 10 mg tablet 1 tab(s) orally once a day Not-Taking/PRN FLUTICASONE NASAL 50 mcg/inh spray 2 spray(s) intranasally once a day Not-Taking/PRN NASAL WASHES N/A 1 quart of sterilized tap water or distilled water, 1 tsp NaCl, 1 pinch of baking soda as directed intranasally as needed Not- Taking/PRN SIT (TRADITIONAL) variable see record per schedule SC per schedule Not- Taking/PRN Onaxgymvitt-Llsojcndg-Wqvozc 100-62.5-25 MCG/ACT Aerosol Powder Breath Activated 1 puff Inhalation Once a day Not-Taking/PRN Ipratropium Ball Ground 0.06 % Solution 2 sprays in each nostril Nasally Four times a day Not-Taking/PRN Medrol 4 MG Tablet Therapy Pack as directed Orally as directed Not-Taking/PRN Azelastine HCl 137 MCG/SPRAY Solution 2 spray(s) intranasally 2 times a day Not-Taking/PRN Albuterol Sulfate HFA 108 (90 Base) MCG/ACT Aerosol Solution 2 puff(s) inhaled every 4 hours Not-Taking/PRN Incruse Ellipta 62.5 MCG (0.0625 MG)/INH POWDER 1 INH INHALED EVERY 24 HOURS , Notes to Pharmacist: *Please review and pick correct strength- formulation from [employer] options. If intended option is not shown, discontinue and re-order from Quick Search*Not-Taking/PRN Breo Ellipta 100 MCG-25 MCG/INH POWDER 1 PUFF(S) INHALED ONCE A DAY , Notes to Pharmacist: *Please review and pick correct strength-formulation from [employer] options. If intended option is not shown, discontinue and re-order from Quick Search*Not-Taking/PRN Breo Ellipta 100-25 MCG/ACT Aerosol Powder Breath Activated 1 puff Inhalation Once a day Not-Taking/PRN INCRUSE ELLIPTA 62.5 mcg (0.0625 mg)/inh powder 1 inh inhaled every 24 hours Not- Taking/PRN SYMBICORT 160 mcg-4.5 mcg/inh aerosol 2 puff(s) inhaled 2 times a day Not- Taking/PRN OMEPRAZOLE 20 mg delayed release capsule 1 cap(s) orally once a day Not- Taking/PRN ALIGN 4 mg capsule 1 cap(s) orally once a day Not-Taking/PRN MULTIVITAMIN Multiple Vitamins tablet 1 tab(s) orally once a day Not-Taking/PRN VITAMIN D3 1000 intl units capsule as directed orally once a day Not-Taking/PRN CALCIUM 600+D 600 mg-200 units tablet 1 tab(s) orally 3 times a day Not-Taking/PRN ATORVASTATIN 40 mg tablet 1 tab(s) orally once a day Not-Taking/PRN PREMPRO 0.3 mg-1.5 mg tablet 1 tab(s) orally once a day Not-Taking/PRN GABAPENTIN 300 mg capsule 1 cap(s) orally Qday Not-Taking/PRN LOSARTAN 50 mg tablet 1 tab(s) orally once a day Not-Taking/PRN AIMOVIG Not-Taking/PRN EXCEDRIN MIGRAINE 250 mg-250 mg-65 mg tablet 2 tab(s) orally every 6 hours Not-Taking/PRN SUMATRIPTAN 25 mg tablet 1 tab(s) orally once Not-Taking/PRN PEPCID 20 mg tablet 1 tab(s) orally 30 mins prior to SCIT Not-Taking/PRN IPRATROPIUM NASAL 42 mcg/inh spray 2 spray(s) intranasally 4 times a day as needed Not-Taking/PRN IPRATROPIUM NASAL 42 mcg/inh spray 2 spray(s) intranasally 4 times a day Not-Taking/PRN BREO ELLIPTA 100 mcg-25 mcg/inh powder 1 puff(s) inhaled once a day Not-Taking/PRN Breo Ellipta 100-25 MCG/ACT Aerosol Powder Breath Activated 1 puff Inhalation Once a day Not-Taking/PRN Symbicort 160-4.5 MCG/ACT Aerosol 2 puff(s) inhaled 2 times a day Not-Taking/PRN Ipratropium Ball [place] 0.06 % Solution 2 spray(s) intranasally 4 times a day as needed Not-Taking/PRN PREDNISONE 20 mg tablet 2 tab(s) orally once a day Not-Taking/PRN PREDNISONE 20 mg tablet 3 tab(s) orally once a day Not-Taking/PRN predniSONE 20 MG Tablet 2 tab(s) orally once a day Not-Taking/PRN predniSONE 20 MG Tablet 3 tab(s) orally once a day Not-Taking/PRN AZELASTINE NASAL 137 mcg/inh spray 2 spray(s) intranasally 2 times a day Not-Taking/PRN PATANASE 665 mcg/inh spray 2 spray(s) intranasally 2 times a day Not-Taking/PRN SIT (TRADITIONAL) VARIABLE SEE RECORD PER SCHEDULE SC PER SCHEDULE , Notes to Pharmacist: *Please review for potential replacement for e-prescription and drug interaction check*Not-Taking/PRN Patanase 665 MCG/INH SPRAY 2 SPRAY(S) INTRANASALLY 2 TIMES A DAY , Notes to Pharmacist: *Please review and pick correct strength-formulation from [employer] options. If intended option is not shown, discontinue and re-order from Quick Search*Medication List reviewed and reconciled with the patient * Allergies: B enadryl Allergy: shortness of breath, blisters - Side EffectsBIAXIN: shortness of breath, pruritus - Side EffectsREQUIP: vomiting - Side EffectsErythromycin: pruritus, shortness of breath - Side EffectsBEXTRA: shortness of breath - Side Effectsno[Allergies Verified] Objective: * Vitals: B P:140/69mm Hg, HR:83/min, Pulse Oximetry:99%, ACT:22, Ht: 65.5 in, Wt: 153.6 lbs, BMI:25.17Index. * Examination: G eneral examination: General appearance: pleasant, well-developed, well-nourished, female, in no apparent distress. HEENT: p upils equal, round, and reactive to light and accommodation, conjunctiva are normal bilaterally, no tenderness to palpation of the sinuses, TMs without evidence of acute infection, wax in ear canals, turbinates 2+ swollen and pale inferiorly bilaterally, clear rhinorrhea is present, no polyps noted, no septal perforation, posterior oropharynx is erythematous without exudates, tonsils are present, no tongue swelling, and uvula is midline. Oral cavity: normal, no lesions, thrush, no tongue swelling. Neck, thyroid : supple, non-tender, no anterior cervical lymphadenopathy. Breasts : not performed. Heart: normal, RRR, S1-S2, no murmurs, no rubs, no gallops, regular rate. Lungs: normal, clear to auscultation and percussion in all lung claros, no wheezes, no crackles, no rhonchi. Abdomen: normal, soft, NT/ND, normal active bowel sounds, no guarding or rigidity, no masses felt, no hepatosplenomegaly. Neurologic exam: unremarkable. Skin: normal, no rash, dermatographism, urticaria, angioedema. Peripheral pulses: normal (2+) bilaterally. Back: normal. Extremities: normal ROM, no clubbing. Genitalia: not performed. Assessment: * Assessment: 1. M oderate persistent asthma, uncomplicated - J45.40 (Primary) 2 . A llergic rhinitis due to pollen - J30.1 3 . O ther allergic rhinitis - J30.89 ? 4 . O ther chronic allergic conjunctivitis - H10.45 5 . L ocalized swelling, mass and lump, head - R22.0 6 . A ngioneurotic edema, subsequent encounter - T78.3XXD 7 . 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 A dverse effect of macrolides, subsequent encounter - T36.3X5D 1 0. A dverse effect of other drugs, medicaments and biological substances, subsequent encounter - T50.995D ? Plan: * Treatment: 2. A llergic rhinitis due to pollen Continue NASAL WASHES 1 quart of sterilized tap water or distilled water, 1 tsp NaCl, 1 pinch of baking soda, N/A, as directed, intranasally, as needed, 30, QS, Refills PRN; I ncrease SIT (TRADITIONAL) see record, variable, per schedule, SC, per schedule, to be determined; R efill Ipratropium Ball Ground Solution, 0.06 %, 2 sprays in each nostril, Nasally, Four times a day, 90 days, 3, Refills 1; R efill Azelastine HCl Solution, 137 MCG/SPRAY, 2 sprays in each nostril, Nasally, Twice a day, 90 days, 3, Refills 0; R efill Cetirizine HCl Tablet, 10 MG, 1 tablet, Orally, Once a day, 90 days, 90 Tablet, Refills 1; R efill Fluticasone Propionate Suspension, 50 MCG/ACT, 1 spray in each nostril, Nasally, Twice a day, 90 days, 3, Refills 0. Notes: Danitza clearly suffers from atopic disease based upon our skin testing and history. Accordingly, she will continue our aggressive medication regimen, discussed nasal washes and allergy-specific avoidance measures. Although testing positive to only 3 aeroallergens, she does report worsening symptoms when mowing the lawn. Based on history, she was formulated to trees, grasses, weeds, and molds. Now on SCIT without recent local or systemic reaction. Procedure tolerated today without issue. Recently again with increased PND and drainage. Given normal immune work-up, I do suspect this is mostly a presentation of ALYSSIA though is worse with the onset of Spring.. Continue ipratropium and azalstine. Increase ipratropium use PRN. Return per shedule for SCIT and in 4 months for E&M. 3. O ther allergic rhinitis Notes: Follow allergen avoidance, meds and continue SCIT as an adjunctive treatment to current regimen 4. O ther chronic allergic conjunctivitis Notes: Given ocular signs and symptoms I encouraged allergy avoidance measures and meds as above. If symptoms persist, consider adding additional medications including intraocular antihistamine/mast cell stabilizer, PRN and continue SCIT as an adjunctive measure 5. L ocalized swelling, mass and lump, head Notes: Prior sensation of globus in the AM morning which woke her from sleep leaving her unable to breathe or swallow x <1 minute. Exam was normal today. No interval symptoms. Largyngoscopy was normal. No hives, wheezing, or visible angioedema. It is unclear to me what may have caused this, though it could be anxiety or VCD as below. Typtase normal. No interval episodes 6. A ngioneurotic edema, subsequent encounter Refill EPINEPHrine Solution Auto-injector, 0.3 MG/0.3ML, as directed, Injection, as needed, 30 days, 1, Refills 0. Notes: See above. AIE on hand and anaphylaxis education provided. No interval symptoms. Likley related to VCD as below. Call the office if symptoms reoccur. Consider completement levels if this becomes an ongoing problem 7. O ther diseases of vocal cords Notes: Previously with inspiratory flattening on flow volume loop, c/w vocal cord dysfunction. S/p evaluation by [employer] [employer] Belen Concepcion, now with breathing exercises to use for symptoms. Recent laryngoscopy for subjective throat swelling was normal. Still with cough secondary to PND. Continue SCIT as above. Seen by [facility] with normal scope though agree history is indicative of VCD. Following with [facility] [employer] and using VCD exercises 8. 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 There is no need for further work-up given lack of recurrent infections. Currently overcoming additional sinus infection with lower airway involvement. PI work-up was all WNL ? 9. A dverse effect of macrolides, subsequent encounter Notes: Danitza reports a history of angioedema of the lips after taking Biaxin 40 years ago, and continues strict avoidance. She also reports more recent dyspnea and blood boiling after taking erythromycin. There is no way to test for macrolide allergy. Avoid macrolides and consider in-office challenges in the future. AIE on hand 10. A dverse effect of other drugs, medicaments and biological substances, subsequent encounter Notes: Danitza reports dyspnea and blood boiling with Benadryl and Katey-D. Dyspnea may be due to vocal cord dysfunction, given her flow volume loop results. Continue avoidance of the above medications. Tolerant of Zyrtec * Procedures: S CIT: Traditional Aeroallergen Schedule A dministration: F ull dosing administered per SOP and [facility]'s titration schedule and/or specific instructions as outlined on the patient's shot record; see attached for specifics re: content, concentration, volume and location of injection(s). * Procedure Codes: 9 6160 PT-FOCUSED HLTH RISK [id number] DOC MEDS VERIFIED W/PT OR [id number] IMMUNOTHERAPY [id number] TOT # ED VSTS & IP HOSP<2 PAST 12 M * Preventive Medicine: Counseling: D iet a s tolerated. E xercise C ontinue activity as usual, Consider RAVIN use PRN, prior to exercise as per the asthma action plan, Avoid heavy lifting on days of allergy immunotherapy. M edication instruction: W atch for side effects of prescribed medications, Nasal steroid/antihistamine instruction: avoid septum,, Use prescribed inhaler(s) with spacer. If taking a inhaled corticorsteroid rinse out mouth after use and brush teeth. Oral hygiene reviewed at length. , Thayer teeth or rinse out mouth after the use of oral, inhaled steroids to prevent oral thrush, Use 2 puffs of RAVIN with spacer prior to exercise and environmental exposures known to cause wheezing, See feather mixer for glaucoma check while on intranasal steroids every 12 months, Reviewed boxed warning on prescribed medication, Singulair (montelukast: serious neuropsychiatric events have been reported in patients; monitor for neuropsychiatric symtoms. E ducation: G ENERAL EDUCATION:, Our staff spent an additional 30 minutes in direct contact with the patient educating them on their current diagnoses and proper treatment and prevention of symptoms and the proper use of medications, , MEDICATION EDUCATION:, Reviewed boxed warning on prescribed medication, Singulair (montelukast: serious neuropsychiatric events have been reported in patients; monitor for neuropsychiatric symtoms, ASTHMA EDUCATION:, Our staff discussed pulmonary function testing and results with the patient/family, Our staff reviewed the patient's asthma action plan. E ducation 2: A RC EDUCATION:, Our staff discussed the appropriate allergen avoidance measures and medication utilization including upper airway hygiene with nasal washes given the patient's clinical status and diagnoses, SCIT EDUCATION:, Discussed allergy immunotherapy including the relative risks, benefits and alternatives to this treatment as an adjunctive measure to current therapy, Allergy Immunotherapy: Risks: bleeding, infection, allergic reaction, anaphylaxis = severe allergic reaction that can cause ; Benefits: reduced need for medications, improved symptoms, disease modification. Alternatives: watch/wait, change medication regimen, improve allergy avoidance measures, Our staff discussed the warning signs of anaphylaxis and the indications to use self-injectable epinephrine and seek urgent or emergent care. P atient education material sent to portal? Y es C are goal follow up plan BMI management provided Y es Above Normal BMI Follow-up D ietary management education, guidance, and counseling B P Management: BP Reassessment Plan: F ollow-up 1 month REFERRAL TO ALTERNATIVE / PRIMARY CARE PROVIDER: Fran moore to general practitioner * Follow Up: 4 Weeks, 3 Months (Reason: Evaluation and Management,SCIT) * Billing Information: * Visit Code: 96502 Office Visit, Est Pt., Level 4. Modifiers: 25 * Procedure Codes: 62298 PT-FOCUSED HLTH RISK ASSMT. G8427 DOC MEDS VERIFIED W/[place]. [address] IMMUNOTHERAPY INJECTIONS. G9521 TOT # ED VSTS & IP HOSP<2 PAST 12 M. * Sign off status: Completed true * Provider: Slade Holliday PA-C Date: 0 02/01/2025 Generated for Romy ng/Faiselag/eTransmitting on: 0 02/27/2025 05:04 PM CDT History and Physical Notes * HPI (History of Present Illness) Category Sub-Category Detail Notes Category Notes *Introduction I had the pleasure of seeing Coleen Ayala, a 74 year-old female former smoker with fibromyalgia, lupus, hyperlipidemia, nonallergic rhinitis, historically low IgG2, ARC, and moderate persistent asthma, who returns for interval evaluation and management and SCIT. Danitza is alone for today's visit. Danitza was increased to Trelegy in the interval with benefit though still taking Incruse along with and Singular. Recently seen by Dr. Gardnre who said f/u was no longer needed. Prior PFT was normal. She does describe frequent irritant (smells/fragrances) reactions that induce rhinitis and throat closing and wheezing.Historically with recurrent episodes of coiugh that have been triggered by irritant exposure when out and about. She has since been evaluated by [facility] s/p normal scope. That said they agree symptoms sound indicative of VCD and is established with speech therapy of which she continues to use exercises. Has yet to f/u with Dr. Gardner. She does have a prior dx of IgG type 2 subclass deficiency but no prior extensive work-up. We elected to under PI work-up with all labs returning WNL. Voice remains extremely raspy. She has been treated at urgent care mutliple times in the past year with steroids and abx Aeroallergen testing previously performed showing positive to Maple, Dock, Red/Sheep, and Brandi Albicans. Since then she continues on daily Zyrtec. She did recheck with ENT who increased nasal washes with daily ipratropium and azelastine which she feels has been helpful. Currently on SCIT without recent issue. Still with continued PND despite multiple nasal sprays. Seen by ENT who started famotidine without difference. Noted increased drainage for the past week with the onset of Spring. She reports historical reactions to multiple medications and continues avoidance. Today, she reports no fevers, chills, night sweats or other constitutional symptoms The patient is here for scheduled specific allergen immunotherapy. Please see the attached specialty form regarding the specifics of the administration of these vaccines. As per our protocol, they must undergo a screening health questionnaire (medication changes, reaction(s) to last immunotherapy dose(s), current health status, ACT (if appropriate), self-injectable epinephrine on patient(?) and peak flow (if appropriate)). Also, the patient must wait in our office for 30 minutes after receiving immunotherapy. Furthermore, every patient must have an epinephrine pen (self-injectable) with them at the time of administration--a nd carry if for the following 1.5 hours after they leave our office. The patient must also have taken their antihistamine the day of the injection, preferably 2 hours prior. The consent form for SCIT (subcutaneous immunotherapy) is on file. Asthma follow-up Asthma Survey - Classification Asthma severity classification: Moderate Persistent *Allergic Rhinoconjunctivitis *Asthma *Infections *Other Rash and Contact Dermatitis *Atopic dermatitis *Urticaria *Medication allergy *Stinging Insects *Prior Evaluations and Treatments *Food allergy *Eosinophilic GI *Angioedema Examination Category Sub-Category Detail Notes Category Not es General examination HEENT: pupils equal , round, and reactive to light and accommodation, conjunctiva are normal bilaterally, no tenderness to palpation of the sinuses, TMs without evidence of acute infection, wax in ear canals, turbinates 2+ swollen and pale inferiorly bilaterally, clear rhinorrhea is present, no polyps noted, no septal perforation, posterior oropharynx is erythematous without exudates, tonsils are present, no tongue swelling, and uvula is midline Neck, thyroid : supple, non-tender, no anterior cervical lymphadenopathy Heart: normal, RRR, S1-S2, no murmurs, no rubs, no gallops, regular rate Lungs: normal, clear to aus cultation and percussion in all lung claros, no wheezes, no crackles, no rhonchi Abdomen: normal, soft, NT/ND, normal active bowel sounds, no guarding or rigidity, no masses felt, no hepatosplenomegaly Extremities: normal ROM, no clubb ing General appearance: pleasant, well-devel oped, well-nourished, female, in no apparent distress Skin: normal, no rash, yuliya matographism, urticaria, angioedema Neurologic exam: unremarkable Oral cavity: normal, no lesions, thrush, no tongue swelling Breasts : not performed Peripheral pulses: normal (2+) bilatera lly Back: normal Genitalia: not performed
--- OUTSIDE RECORDS SUMMARY | 2025-02-27 17:05 | XMS_ITS | Clinical Summary ---
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 Name Role Phone Unavailable Primary Care Provider Unavailabl e Immunizations Immunization Administration Dates Next Due Covid-19, Mrna, Lnp-s, PF, 1 00 mcg/0.5 mL Dose (Moderna) 01/10/2021,12/13/2020 Social History Tobacco Use Types Packs/Day Years Used Date Smoking Tobacco: Never Assessed Comments Unknown Sex and Gender Information Value Date Recorded Sex Assigned at Not on file Legal Sex Female 11:38 AM CDT Gender Identity Not on file Sexual Orientation Not on file Plan of Treatment Health Maintenance Due Date Last Done Comments DEXA Bone Density 1950 Hepatitis C Virus (HCV) Screening 1950 TdaP Immunization 1950 Respiratory Syncytial Virus (RSV) Immunization (Adult) (1 - 1-dose 75+ series) 2023 Influenza Immunization (#1) 06/28/202406/30, 07/30/2019, 08/14/2018, Additional history exists SARS-COV-2 Immunization ( season) 2024 03/22/2022, 08/19/2021, 01/10/2021, Additional history exists Pneumococcal Immunization (50+ years) Completed 08/14/2018, 09/11/2016 Zoster Immunization Completed 02/05/2019, 9 Hepatitis B Immunization Aged Out No longer eligible based on patient's age to complete this topic Meningococcal Immunization (ACWY) Aged Out No longer eligible based on patient's age to complete this topic Rotavirus Immunization Aged Out No lo nger eligible based on patient's age to complete this topic
--- OUTSIDE RECORDS SUMMARY | 2025-02-27 17:05 | XMS_ITS ---
Author Organization [facility] [place] ([address]) Address [address] [place] [address] Care Team Providers Care Proof Technician Helper Name Role Phone Ignacio Hamilton Primary Care Provider UnavailAndrzej Blum Unavailable [phone] Nicole Gardner Unavailable Unavailable Jerome Bazzi Unavailable [phone] REASON FOR VISIT SCIT - Traditional Schedule Allergy immunotherapy Medications Medication SIG (Take, Route, Frequency, Duration) Notes Start Date End Date Status Azelastine HCl 137 MCG/SPRAY 2 spray(s) intranasally 2 times a day for 90 days 1 Active Medrol 4 MG as directed Orally as directed for 6 days 5 Active Azelastine HCl 137 MCG/SPRAY 2 sprays in each nostril Nasally Twice a day for 90 days 5 Active Trelegy Ellipta 200-62.5-25 MCG/ACT 1 puff Inhalation Once a day for 90 days 5 Active Ipratropium Danevang 0.06 % 2 sprays in each nostril Nasally Four times a day for 90 days Active Patanase 665 MCG/INH 2 SPRAY(S) INTRANASALLY 2 TIMES A DAY for 90 DAYS *Please review and pick correct strength-formul ation from [employer] options. If intended option is not shown, discontinue and re-order from Quick Search* Not-Taking SIT (TRADITIONAL) VARIABLE PER SCHEDULE SC PER SCHEDULE for TO BE DETERMINED *Please review for potential replacement for e-prescription and drug interaction check* Not-Taking PATANASE 665 mcg/inh 2 spray(s) intranasally 2 times a day for 90 days Not-Taking AZELASTINE NASAL 137 mcg/inh 2 spray(s) intranasally 2 times a day for 30 day(s) 1 Not-Taking predniSONE 20 MG 3 tab(s) orally once a day 1 Not-Taking predniSONE 20 MG 2 tab(s) orally once a day for 3 day(s) 2 Not-Taking PREDNISONE 20 mg 3 tab(s) orally once a day 1 Not-Taking PREDNISONE 20 mg 2 tab(s) orally once a day for 3 day(s) 2 Not-Taking Ipratropium Danevang 0.06 % 2 spray(s) intranasally 4 times a day as needed for 90 days Not-Taking Gabapentin 300 MG 1 cap(s) orally Qday Active Breo Ellipta 100-25 MCG/ACT 1 puff Inhalation Once a day for 30 days 4 Not-Taking BREO ELLIPTA 100 mcg-25 mcg/inh 1 puff(s) inhaled once a day for 30 days 4 Not-Taking IPRATROPIUM NASAL 42 mcg/inh 2 spray(s) intranasally 4 times a day for 90 days Not-Taking IPRATROPIUM NASAL 42 mcg/inh 2 spray(s) intranasally 4 times a day as needed for 90 days Not-Taking Symbicort 160-4.5 MCG/ACT 2 puff(s) inhaled 2 times a day for 90 days Not-Taking PEPCID 20 mg 1 tab(s) orally 30 mins prior to SCIT Not-Taking SUMATRIPTAN 25 mg 1 tab(s) orally once Not-Taking EXCEDRIN MIGRAINE 250 mg-250 mg-65 mg 2 tab(s) orally every 6 hours Not-Taking AIMOVIG Not-Taking LOSARTAN 50 mg 1 tab(s) orally once a day Not-Taking ATORVASTATIN 40 mg 1 tab(s) orally once a day Not-Taking CALCIUM 600+D 600 mg-200 units 1 tab(s) orally 3 times a day Not-Taking VITAMIN D3 1000 intl units as directed orally once a day Not-Taking GABAPENTIN 300 mg 1 cap(s) orally Qday Not-Taking PREMPRO 0.3 mg-1.5 mg 1 tab(s) orally once a day Not-Taking MULTIVITAMIN Multiple Vitamins 1 tab(s) orally once a day Not-Taking ALIGN 4 mg 1 cap(s) orally once a day Not-Taking OMEPRAZOLE 20 mg 1 cap(s) orally once a day Not-Taking SYMBICORT 160 mcg-4.5 mcg/inh 2 puff(s) inhaled 2 times a day for 90 days Not-Taking INCRUSE ELLIPTA 62.5 mcg (0.0625 mg)/inh 1 inh inhaled every 24 hours for 90 days Not-Taking Pepcid 20 MG 1 tab(s) orally 30 mins prior to SCIT Active Losartan Potassium 50 MG 1 tab(s) orally once a day Active Breo Ellipta 100-25 MCG/ACT 1 puff Inhalation Once a day for 90 days Not-Taking Breo Ellipta 100 MCG-25 MCG/INH 1 PUFF(S) INHALED ONCE A DAY for 30 DAYS *Please review and pick correct strength-formul ation from [employer] options. If intended option is not shown, discontinue and re-order from Quick Search* 4 Not-Taking Ipratropium Danevang 0.06 % 2 spray(s) intranasally 4 times a day for 90 days Active Prempro 0.3-1.5 MG 1 tab(s) orally once a day Active Atorvastatin Calcium 40 MG 1 tab(s) orally once a day Active Calcium 600 + D 600 MG-200 UNITS 1 TAB(S) ORALLY 3 TIMES A DAY *Please review and pick correct strength-formul ation from [employer] options. If intended option is not shown, discontinue and re-order from Quick Search* Active Vitamin D3 1000 UNIT as directed orally once a day Active Align 4 MG 1 cap(s) orally once a day Active Incruse Ellipta 62.5 MCG (0.0625 MG)/INH 1 INH INHALED EVERY 24 HOURS for 90 DAYS *Please review and pick correct strength-formul ation from [employer] options. If intended option is not shown, discontinue and re-order from Quick Search* Not-Taking Multivitamin - 1 tab(s) orally once a day Active Omeprazole 20 MG 1 cap(s) orally once a day Active Fluticasone Propionate 50 MCG/ACT 2 spray(s) intranasally once a day for 90 days Active ZyrTEC Allergy 10 MG 1 tab(s) orally once a day for 90 days Active Singulair 10 MG 1 tab(s) orally once a day for 90 days Active EPINEPHrine 0.3 MG DIRECTED INTRAMUSCULARLY ONCE for 30 DAYS *Please review and pick correct strength-formul ation from [employer] options. If intended option is not shown, discontinue and re-order from [employer] Search* Active hydroCHLOROthiazide 12.5 MG 1 cap(s) orally once a day Active Albuterol Sulfate HFA 108 (90 Base) MCG/ACT 2 puff(s) inhaled every 4 hours for 90 days Not-Taking oxyBUTYnin Chloride ER 10 MG 1 tablet Orally Once a day Active Trelegy Ellipta 100-62.5-25 MCG/ACT 1 puff Inhalation Once a day for 30 days 4 Active Okkallxsfuv-Cubtmloru-Ln lant 100-62.5-25 MCG/ACT 1 puff Inhalation Once a day for 90 days 4 Active SUMAtriptan Succinate 25 MG 1 tab(s) orally once Active Excedrin Migraine 250-250-65 MG 2 tab(s) orally every 6 hours Active Aimovig *Please review and pick correct strength-formul ation from [employer] options. If intended option is not shown, discontinue and re-order from [employer] Search* Active Naproxen 250 MG 1 tablet with food or milk as needed Orally every 12 hrs Active Albuterol Sulfate HFA 108 (90 Base) MCG/ACT 1 puff as needed Inhalation every 4 hrs Active Simply Saline 0.9 % as directed Nasally Active Collagen 500-50-0.8 MG as directed Orally Active Anti-Diarrheal 2 MG 1 tablet as needed Orally Four times a day Active SIT (TRADITIONAL) variable per schedule SC per schedule for to be determined Active NASAL WASHES N/A as directed intranasally as needed for 30 Active FLUTICASONE NASAL 50 mcg/inh 2 spray(s) intranasally once a day for 90 days Active ZYRTEC 10 mg 1 tab(s) orally once a day for 90 days Active SINGULAIR 10 mg 1 tab(s) orally once a day for 90 days Active ALBUTEROL 90 mcg/inh 2 puff(s) inhaled every 4 hours for 90 days Active AEROCHAMBER MDI SPACER N/A user with MDI inhalers by mouth q4-6 hours PRN for 30 day(s) Active EPINEPHRINE 0.3 mg as directed intramuscularly once for 30 days Active HYDROCHLOROTHIAZIDE 12.5 mg 1 cap(s) orally once a day Active Encounters Encounter Location Date Provider Diagnosis [facility] [address] [facility] [address] [address] 01/18/2025 Jerome Bazzi Allergic rhinitis du e to pollen J30.1 ; Allergic rhinitis due to animal (cat) (dog) hair and dander J30.81 ; Other allergic rhinitis J30.89 and Other chronic allergic conjunctivitis H10.45 Assessments Encounter Date Diagnosis (ICD Code) Assessment Notes Treatment Notes Treatment Clinical Notes Section Notes 01/18/2025 Allergic rhinitis due to pollen (ICD-10 - J30.1) 01/18/2025 Allergic rhinitis due to animal (cat) (dog) hair and dander (ICD-10 - J30.81) 01/18/2025 Other allergic rhinitis (ICD-10 - J30.89) 01/18/2025 Other chronic allergic conjunctivitis (ICD-10 - H10.45) Plan Of Treatment Next Appt Details Follow Up: 1 Week, Reason: Provider Name:Jerome Bazzi , 03/01/2025 07:30:00 AM, [facility], [address], [address], Provider Name:Jerome Bazzi , 03/29/2025 07:30:00 AM, [facility], [address], [address], Provider Name:Jaclyn acosta, 05/03/2025 08:00:00 AM, [facility], [address], [address], Progress Notes * Coleen AYALA ADOB:[birth year] (74 yo F)Acc No.[id number]:01/18/2025 SCIT-Aeroallergen Patient: Coleen PATEL Provider: Madhavi Bazzi MD :[id number] A ge:74 Y S ex:Female Date:01/18/2025 Address:[address] [place], [place] [address], [id number] Pcp:Ignacio Hamilton Subjective: * Chief Complaints: * S CIT - Traditional Schedule Allergy immunotherapy * HPI: * Introduction: The patient is here for scheduled immunotherapy. Please see the attached specialty form regarding the specifics of the administration of these vaccines. As per our protocol, they must undergo a screening health questionnaire (medication changes, reaction(s) to last immunotherapy dose(s), current health status, ACT (if appropriate), self-injectable epinephrine on patient(?) and peak flow (if appropriate)). Also, the patient must wait in our office for 30 minutes after receiving the vaccine(s). Furthermore, every patient must have an epinephrine pen (self-injectable) with them at the time of administration--and carry if for the following 1.5 hours after they leave our office. The patient must also have taken their antihistamine the day of the injection, preferably 2 hours prior. The consent form for SCIT (subcutaneous immunotherapy) is on file. * Medical History: * Surgical History: * Hospitalization/Major Diagno stic Procedure: * Medications: T akingHYDROCHLOROTHIAZIDE 12.5 mg capsule 1 cap(s) orally once [...] see record per schedule SC per schedule Anti-Diarrheal 2 MG Tablet 1 tablet as [...] *Please review and pick correct strength-formulation from [employer] options. If intended option is not shown, discontinue and re-order from Quick Search*Excedrin Migraine 250-250-65 MG Tablet 2 tab(s) orally every 6 hours SUMAtriptan Succinate 25 MG Tablet 1 tab(s) orally once Slnruabxeis-Ghyxkhnew-Wvkbvv 100-62.5-25 MCG/ACT Aerosol Powder Breath Activated 1 puff Inhalation Once a day Trelegy Ellipta 100-62.5-25 MCG/ACT Aerosol Powder Breath Activated 1 puff Inhalation Once a day oxyBUTYnin Chloride ER 10 MG Tablet Extended Release 24 Hour 1 tablet Orally Once a day hydroCHLOROthiazide 12.5 MG Capsule 1 cap(s) orally once a day EPINEPHrine 0.3 MG KIT DIRECTED INTRAMUSCULARLY ONCE , Notes to Pharmacist: *Please review and pick correct strength-formulation from [employer] options. If intended option is not shown, [...] *Please review and pick correct strength-formulation from [employer] options. If intended option is not shown, discontinue and re-order from Quick Search*Atorvastatin Calcium 40 MG Tablet 1 tab(s) orally once a day Prempro 0.3-1.5 MG Tablet 1 tab(s) orally once a day Losartan Potassium 50 MG Tablet 1 tab(s) orally once a day Pepcid 20 MG Tablet 1 tab(s) orally 30 mins prior to SCIT Ipratropium Danevang 0.06 % Solution 2 spray(s) intranasally 4 times a day Gabapentin 300 MG Capsule 1 cap(s) orally Qday Ipratropium Danevang 0.06 % Solution 2 sprays in each nostril Nasally Four times a day Trelegy Ellipta 200-62.5-25 MCG/ACT Aerosol Powder Breath Activated 1 puff Inhalation Once a day Azelastine HCl 137 MCG/SPRAY Solution 2 sprays in each nostril Nasally Twice a day Medrol 4 MG Tablet Therapy Pack as directed Orally as directed Azelastine HCl 137 MCG/SPRAY Solution 2 spray(s) intranasally 2 times a day Taking HYDROCHLOROTHIAZIDE 12.5 mg capsule 1 cap(s) orally once a day Taking EPINEPHRINE 0.3 mg kit as directed intramuscularly once Taking AEROCHAMBER MDI SPACER N/A N/A user with MDI inhalers by mouth q4-6 hours PRN Taking ALBUTEROL 90 mcg/inh aerosol 2 puff(s) inhaled every 4 hours Taking SINGULAIR 10 mg tablet 1 tab(s) orally once a day Taking ZYRTEC 10 mg tablet 1 tab(s) orally once a day Taking FLUTICASONE NASAL 50 mcg/inh spray 2 spray(s) intranasally once a day Taking NASAL WASHES N/A 1 quart of sterilized tap water or distilled water, 1 tsp NaCl, 1 pinch of baking soda as directed intranasally as needed Taking SIT (TRADITIONAL) variable see record per schedule SC per schedule Taking Anti-Diarrheal 2 MG Tablet 1 tablet [...] *Please review and pick correct strength-formulation from [employer] options. If intended option is not shown, discontinue and re-order from Quick Search*Taking Excedrin Migraine 250-250-65 MG Tablet 2 tab(s) orally every 6 hours Taking SUMAtriptan Succinate 25 MG Tablet 1 tab(s) orally once Taking Opcnojoudjk-Pbyepcvxt-Mkdoke 100-62.5-25 MCG/ACT Aerosol Powder Breath Activated 1 puff Inhalation Once a day Taking Trelegy Ellipta 100-62.5-25 MCG/ACT Aerosol Powder Breath Activated 1 puff Inhalation Once a day Taking oxyBUTYnin Chloride ER 10 MG Tablet Extended Release 24 Hour 1 tablet Orally Once a day Taking hydroCHLOROthiazide 12.5 MG Capsule 1 cap(s) orally once a day Taking EPINEPHrine 0.3 MG KIT DIRECTED INTRAMUSCULARLY ONCE , Notes to Pharmacist: *Please review and pick correct strength-formulation from [employer] options. If intended option is not shown, [...] *Please review and pick correct strength-formulation from [employer] options. If intended option is not shown, discontinue and re-order from Quick Search*Taking Atorvastatin Calcium 40 MG Tablet 1 tab(s) orally once a day Taking Prempro 0.3-1.5 MG Tablet 1 tab(s) orally once a day Taking Losartan Potassium 50 MG Tablet 1 tab(s) orally once a day Taking Pepcid 20 MG Tablet 1 tab(s) orally 30 mins prior to SCIT Taking Ipratropium Danevang 0.06 % Solution 2 spray(s) intranasally 4 times a day Taking Gabapentin 300 MG Capsule 1 cap(s) orally Qday Taking Ipratropium Danevang 0.06 % Solution 2 sprays in each nostril Nasally Four times a day Taking Trelegy Ellipta 200-62.5-25 MCG/ACT Aerosol Powder Breath Activated 1 puff Inhalation Once a day Taking Azelastine HCl 137 MCG/SPRAY Solution 2 sprays in each nostril Nasally Twice a day Taking Medrol 4 MG Tablet Therapy Pack as directed Orally as directed Taking Azelastine HCl 137 MCG/SPRAY Solution 2 spray(s) intranasally 2 times a day Not-Taking/PRNAlbuterol Sulfate HFA 108 (90 Base) MCG/ACT Aerosol Solution 2 puff(s) inhaled every 4 hours Incruse Ellipta 62.5 MCG (0.0625 MG)/INH POWDER 1 INH INHALED EVERY 24 HOURS , Notes to Pharmacist: *Please review and pick correct strength-formulation from [employer] options. If intended option is not shown, discontinue and re-order from Quick Search*Breo Ellipta 100 MCG-25 MCG/INH POWDER 1 PUFF(S) INHALED ONCE A DAY , Notes to Pharmacist: *Please review and pick correct strength-formulation from [employer] options. If intended option is not shown, [...] puff(s) inhaled 2 times a day Ipratropium Danevang 0.06 % Solution 2 spray(s) intranasally 4 [...] *Please review and pick correct strength-formulation from [employer] options. If intended option is not shown, discontinue and re-order from Quick Search*Not-Taking/PRN Albuterol Sulfate HFA 108 (90 Base) MCG/ACT Aerosol Solution 2 puff(s) inhaled every 4 hours Not-Taking/PRN Incruse Ellipta 62.5 MCG (0.0625 MG)/INH POWDER 1 INH INHALED EVERY 24 HOURS , Notes to Pharmacist: *Please review and pick correct strength-formulation from [employer] options. If intended option is not shown, discontinue and re-order from Quick Search*Not-Taking/PRN Breo Ellipta 100 MCG- 25 MCG/INH POWDER 1 PUFF(S) INHALED ONCE A DAY , Notes to Pharmacist: *Please review and pick correct strength-formulation from [employer] options. If intended option is not shown, discontinue and re-order from Quick Search*Not-Taking/PRN Breo Ellipta 100-25 MCG/ACT Aerosol Powder Breath Activated 1 puff Inhalation Once a day Not- Taking/PRN INCRUSE ELLIPTA 62.5 mcg (0.0625 mg)/inh powder 1 inh inhaled every 24 hours Not-Taking/PRN SYMBICORT 160 mcg-4.5 mcg/inh aerosol 2 puff(s) inhaled 2 times a day Not-Taking/PRN OMEPRAZOLE 20 mg delayed release capsule 1 cap(s) orally once a day Not-Taking/PRN ALIGN 4 mg capsule 1 cap(s) orally once a day Not-Taking/PRN MULTIVITAMIN Multiple Vitamins tablet 1 tab(s) orally once a day Not-Taking/PRN VITAMIN D3 1000 intl units capsule as directed orally once a day Not-Taking/PRN CALCIUM 600+D 600 mg-200 units tablet 1 tab(s) orally 3 times a day Not- Taking/PRN ATORVASTATIN 40 mg tablet 1 tab(s) orally [...] inhaled 2 times a day Not-Taking/PRN Ipratropium Danevang 0.06 % Solution 2 spray(s) intranasally 4 [...] *Please review and pick correct strength-formulation from [employer] options. If intended option is not shown, discontinue and re-order from Quick Search* Objective: * Vitals: Assessment: * Assessment: 1. A llergic rhinitis due to pollen - J30.1 (Primary) 2 . A llergic rhinitis due to animal (cat) (dog) hair and dander - J30.81 3 . O ther allergic rhinitis - J30.89 4 . O ther chronic allergic conjunctivitis - H10.45 Plan: * Treatment: * Procedure Codes: 9 5117 IMMUNOTHERAPY INJECTIONS * Follow Up: 1 Week * Billing Information: * Visit Code: * Procedure Codes: 16114 IMMUNOTHERAPY INJECTIONS. * Sign off status: Completed true * Provider: Madhavi Bazzi MD Date: 01/18/2025 Generated for Romy garcia/Brady/Branitting on: 02/27/2025 05:05 PM CDT History and Physical Notes * HPI (History of Present Illness) Category Sub-Category Detail Notes Category Not es *Introduction The patient is here for scheduled immunotherapy. Please see the attached specialty form regarding the specifics of the administration of these vaccines. As per our protocol, they must undergo a screening health questionnaire (medication changes, reaction(s) to last immunotherapy dose(s), current health status, ACT (if appropriate), self-injectable epinephrine on patient(?) and peak flow (if appropriate)). Also, the patient must wait in our office for 30 minutes after receiving the vaccine(s). Furthermore, every patient must have an epinephrine pen (self-injectable) with them at the time of administration--and carry if for the following 1.5 hours after they leave our office. The patient must also have taken their antihistamine the day of the injection, preferably 2 hours prior. The consent form for SCIT (subcutaneous immunotherapy) is on file.
--- OUTSIDE RECORDS SUMMARY | 2025-02-27 17:05 | XMS_ITS | Continuity of Care Document ---
Author Organization [facility] Address [address] [address] [place] [address] Phone Care Team Providers Care Pharmacy Technician Assistant Name Role Phone Ed Rust MD Unavailable Unavailabl e Allergies, Adverse Reactions, Alerts Substance Reaction Status Criticality erythromycin base Active No Informa tion DIPHENHYDRAMINE HCL Active No Infor mation valdecoxib Active No Information CEFUROXIME AXETIL Active No Informa tion clarithromycin Active No Informatio n ROPINIROLE HCL Active No Informatio n Antihistamines - Alkylamine Active No Information clarithromycin Hives Active No Informatio n Medications Medication Instructions Dosage Effective Dates (start - stop) Status Comments OXYBUTYNIN CHLORIDE (unknown strength) take 2 tablet by oral route 2 times every day Not Available - Active Medardo Back and Body 500 mg-32.5 mg tablet - Active ALIGN (unknown strength) Not Available - Active Vitamin D3 25 mcg (1,000 unit) capsule take 2 tablet by oral route every day 2 tablet - Active Centrum Silver Women 8 mg iron-400 mcg-300 mcg tablet - Active Calcium 500 + D 500 mg-10 mcg (400 unit) tablet - Active Incruse Ellipta 62.5 mcg/actuation powder for inhalation inhale 1 puff by inhalation route every day at the same time each day 62.5 MCG - Active montelukast 10 mg tablet take 1 tablet by oral route every day in the evening 10 MG - Active olopatadine 0.6 % nasal spray spray 2 spray by intranasal route 2 times every day in each nostril 2.00 spray - Active Symbicort 160 mcg-4.5 mcg/actuation HFA aerosol inhaler inhale 2 puff by inhalation route 2 times every day in the morning and evening 2.00 puff - Active omeprazole 20 mg capsule,delayed release take 1 capsule by oral route every day 30 minutes to 1 hour before a meal 20 MG - Active famotidine 20 mg tablet take 1 tablet by oral route 2 times every day 20 MG - Active atorvastatin 40 mg tablet take 1 tablet by oral route every day 40 MG - Active Aimovig Autoinjector 140 mg/mL subcutaneous auto-injector inject (140MG) by subcutaneous route every month in the abdomen, thigh, or outer area of upper arm 140 MG - Active ipratropium bromide 0.03 % nasal spray spray 2 spray by intranasal route 2- 3 times every day in each nostril 2.00 spray - Active ProAir RespiClick 90 mcg/actuation breath activated inhale 2 puff by inhalation route every 4 hours as needed - Active Flovent HFA 220 mcg/actuation aerosol inhaler inhale 2 puff by inhalation route 2 times every day 440 MCG - Active Zyrtec 10 mg capsule - Active gabapentin 300 mg capsule take 1 capsule by oral route at bedtime - Active sumatriptan 25 mg tablet take 1 tablet by oral route once with fluids as early as possible after the onset of a migraine attack;may repeat after 2 hours if headache returns, not to exceed 200mgin 24hrs 25 MG - Active Procedures Procedure Date OFFICE/OUTPATIENT VISIT EST MRI JT Lower w/o Contrast Triamcinolone acet inj NOS OFFICE/OUTPATIENT VISIT EST Triamcinolone acet inj NOS Drugs unclassified injection DRAIN/INJECT JOINT/BURSA OFFICE/OUTPATIENT VISIT NEW RADEX KNE COMPL 4/MORE VIEWS Triamcinolone acet inj NOS OFFICE/OUTPATIENT VISIT EST Triamcinolone acet inj NOS OFFICE/OUTPATIENT VISIT EST Triamcinolone acet inj NOS OFFICE/OUTPATIENT VISIT EST Triamcinolone acet inj NOS OFFICE/OUTPATIENT VISIT EST Triamcinolone acet inj NOS OFFICE/OUTPATIENT VISIT EST Triamcinolone acet inj NOS OFFICE/OUTPATIENT VISIT NEW Triamcinolone acet inj NOS OFFICE/OUTPATIENT VISIT EST Triamcinolone acet inj NOS OFFICE/OUTPATIENT VISIT EST Triamcinolone acet inj NOS OFFICE/OUTPATIENT VISIT EST RADEX SPI LUMBOSAC 2/3 VIEWS OFFICE/OUTPATIENT VISIT NEW RADEX KNE COMPL 4/MORE VIEWS RADEX KNE COMPL 4/MORE VIEWS OFFICE/OUTPATIENT VISIT EST RADEX KNE COMPL 4/MORE VIEWS RADEX KNE COMPL 4/MORE VIEWS OFFICE/OUTPATIENT VISIT EST RADEX ELBW COMPL MINIMUM 3 VIEWS 2015 OFFICE/OUTPATIENT VISIT EST OFFICE/OUTPATIENT VISIT EST OFFICE/OUTPATIENT VISIT EST OFFICE/OUTPATIENT VISIT EST OFFICE/OUTPATIENT VISIT EST OFFICE/OUTPATIENT VISIT EST MU Reporting OFFICE/OUTPATIENT VISIT EST OFFICE/OUTPATIENT VISIT EST MU Reporting OFFICE CONSULTATION OFFICE/OUTPATIENT VISIT EST MU Reporting OFFICE/OUTPATIENT VISIT EST MU Reporting OFFICE/OUTPATIENT VISIT EST MU Reporting OFFICE/OUTPATIENT VISIT EST MU Reporting OFFICE/OUTPATIENT VISIT EST MU Reporting OFFICE/OUTPATIENT VISIT EST MU Reporting Advance Directives Directive Yes / No Effective Date File Name No Information Encounters Encounter Description Practice Location Reason(s) For Visit Diagnoses Date Provider Providers Copied on Encounter [facility] [address] [facility] [address] [address], [place], [address], [place] tel:[phone] [facility] Pre-op testingTear of medial meniscus of right knee, unspecified tear type, unspecified whether old or current tear, initial encounterEffu ailyn, right knee Apr-2 5 L'Hommedieu Bingham. [address] , [place], [place], [address]. tel:[phone] OFFICE/OUTPAT IENT VISIT EST [facility], [address], [place], [address], [place] tel:[phone] [facility] Degenerative tear of posterior horn of medial meniscus of right knee Apr-2 - 5 L'Hommedieu Bingham. [address] , [place], [place], [address]. tel:[phone] Referring Provider: [address], [place], [address]. tel:[phone] [facility], [address] [address], [place], [address], [place] tel:[phone] [facility] Unspecified internal derangement of right knee Apr-0 - 5 No Information Referring Provider: [place], [address] [facility] [address], [place], [address] . tel:[phone] [facility], [address] [facility], [place], [address], [place] tel:[phone] [facility] Internal derangement of right knee Mar-3 5 L'Hommedieu Bingham. [address] , [place], [place], [address]. tel:[phone] OFFICE/OUTPAT IENT VISIT EST [facility], [address] [facility] [address], [place], [address], [place] tel:[phone] [facility] Bilateral lumbar radiculopathy Lumbar foraminal stenosisBody mass index [BMI] 25.0-25.9, adult Mar-2 - 5 Marino Bentley. [address] [address] [facility], [place], [place], [address]. tel:[phone] Referring Provider: [address], [place], [address]. tel:[phone] [facility], [address] [facility], [place], [address], [place] tel:[phone] [facility] Bilateral lumbar radiculopathy 5 Marino Bentley. [address] [facility], [place], [place], [address]. tel:[phone] OFFICE/OUTPAT IENT VISIT NEW [facility], [address] [facility] [address], [place], [address], [place] tel:[phone] [facility] Pain in right kneePrimary osteoarthriti s of right kneeInternal derangement of right knee 5 Marta Glover. [address] [address], [place], [address]. tel:[phone] Referring Provider: [address], [place], [address]. 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 [address] [facility], [place], [place], [address]. tel:[phone] Referring Provider: [address], [place], [address]. tel:[phone] OFFICE/OUTPAT IENT VISIT EST [facility], [address] [facility] [address], [place], [address], [place] tel:[phone] [facility] Bilateral lumbar radiculopathy Body mass index [BMI] 25.0-25.9, adultDJD (degenerative joint disease), lumbosacralLu mbar foraminal stenosis 4 Marino Bentley. [address] [address] [facility], [place], [place], [address]. tel:[phone] Referring Provider: [address], [place], [address]. tel:[phone] OFFICE/OUTPAT IENT VISIT EST [facility], [address], [address], [place] tel:[phone] [facility] Lumbar foraminal stenosisRight lumbar radiculopathy DJD (degenerative joint disease), lumbosacralSp ondylolisthes is at L5-S1 level 4 Marino Bentley. [address] [facility] [address] , [place], [place], [address]. tel:[phone] Referring Provider: [address], [place], [address]. tel:[phone] [facility], [address], [address], [place] tel:[phone] [facility] Right lumbar radiculopathy 4 Marino Bentley. [address] [facility] [place], [place], [address]. tel:[phone] OFFICE/OUTPAT IENT VISIT EST [facility], [address], [address], [place] tel:[phone] [facility] Right lumbar radiculopathy Lumbar foraminal stenosis 3 Marino Bentley. [address] , [place], [place], [address]. tel:[phone] Referring Provider: [address], [place], [address]. tel:[phone] OFFICE/OUTPAT IENT VISIT EST [facility], [address], [address], [place] tel:[phone] [facility] Lumbar foraminal stenosisRight lumbar radiculopathy DJD (degenerative joint disease), lumbosacral 3 Pichardo Mc. [address] [facility], [place], [place], [address]. tel:[phone] Referring Provider: [address], [place], [address]. tel:[phone] OFFICE/OUTPAT IENT VISIT NEW [facility], [address] [address], [place], [address], [place] tel:[phone] [facility] Low back pain, unspecifiedBo dy mass index [BMI] 27.0-27.9, adultDJD (degenerative joint disease), lumbosacralRi ght lumbar radiculopathy Spondylolisth esis at L5-S1 levelLumbar foraminal stenosis 3 Marino Silverok. [address] [facility], [place], [place], [address]. tel:[phone] Referring Provider: [address], [place], [address]. tel:[phone] OFFICE/OUTPAT IENT VISIT EST [facility], [address] [address], [place], [address], [place] tel:[phone] [facility] LBP and right leg pain (chief complaint) Lumbar radiculopathy DJD (degenerative joint disease), lumbosacralSp ondylolisthes is at L5-S1 levelLumbar foraminal stenosis 0 Marino Silverok. [address] [facility], [place], [place], [address]. tel:[phone] OFFICE/OUTPAT IENT VISIT EST [facility], [address] [address], [place], [address], [place] tel:[phone] [facility] LBP and right leg pain (chief complaint) I am 50% better (chief complaint) Lumbar radiculopathy DJD (degenerative joint disease), lumbosacral Mar- 0 Marino Silverok. [address] [facility], [place], [place], [address]. tel:[phone] OFFICE/OUTPAT IENT VISIT EST [facility], [address], [address], [place] tel:[phone] [facility] LBP and right buttock/le g pain (chief complaint) Body mass index (BMI) 27.0-27.9, adultLumbar radiculopathy DJD (degenerative joint disease), lumbosacral Mar-0 9-202 0 Pichardo Mc. [address] [place], [place], [address]. tel:[phone] [facility], [address], [address], [place] tel:[phone] [facility] Lumbar radiculopathy Mar-0 4-202 0 Pichardo Mc. [address] [place], [place], [address]. tel:[phone] OFFICE/OUTPAT IENT VISIT NEW [facility], [address], [address], [place] tel:[phone] [facility] LBP and right leg pain (chief complaint) Body mass index (BMI) 27.0-27.9, adultStrain of lumbar region, initial encounterLumb ar radiculopathy DJD (degenerative joint disease), lumbosacral Feb-2 0-202 0 Pichardo Mc. [address] [place], [place], [address]. tel:[phone] Referring Provider: [address], [place], [address]. tel:[phone] OFFICE/OUTPAT IENT VISIT EST [facility], [address], [address], [place] tel:[phone] [facility] Body mass index (BMI) 27.0-27.9, adultPrimary osteoarthriti s of left kneePrimary osteoarthriti s of right knee Mar-2 0-201 8 L'Hommedieu Bingham. [address] [place], [place], [address]. tel:[phone] OFFICE/OUTPAT IENT VISIT EST [facility], [address] [address] [facility] [address], [place], [address], [place] tel:[phone] [facility] Pain in right kneePain in left kneePrimary osteoarthriti s of right knee 6 L'Hommedieu Bingham. [address] [facility], [place], [place], [address]. tel:[phone] OFFICE/OUTPAT IENT VISIT EST [facility], [address] [facility] [address], [place], [address], [place] tel:[phone] [facility] Elbow pain, leftOlecranon bursitis of left elbow 6 Abdirizak Tyler. [address] [facility] [address], [place], [place], [address]. tel:[phone] Referring Provider: Chago Oconnell, [address], [place], [address]. tel:[phone] OFFICE/OUTPAT IENT VISIT EST [facility], [address] [facility] [address], [place], [address], [place] tel:[phone] [facility] RT KNEE (chief complaint) Osteoarthrosi s, unspecified whether generalized or localized, involving lower legTear of medial cartilage or meniscus of knee, current 4 L'Hommedieu Bingham. [address] [facility], [place], [place], [address]. tel:[phone] Referring Provider: Chago Oconnell, [address], [place], [address]. tel:[phone] OFFICE/OUTPAT IENT VISIT EST [facility], [address] [facility] [address], [place], [address], [place] tel:[phone] [facility] LBP (chief complaint) Lumbar radiculopathy Spinal stenosis of lumbar regionAcquire d spondylolisth esis 4 Marino Bentley. [address] [facility], [place], [place], [address]. tel:[phone] Referring Provider: Chago Oconnell, [address], [place], [address]. tel:[phone] OFFICE/OUTPAT IENT VISIT EST [facility], [address] [address], [place], [address], [place] tel:[phone] [facility] LBP and bilateral sciatica (chief complaint) Lumbar radiculopathy Spinal stenosis of lumbar region 4 Pichardo Mc. [address] [facility] [place], [place], [address]. tel:[phone] Referring Provider: Chago Oconnell, [address], [place], [address]. tel:[phone] [facility], [address], [address], [place] tel:[phone] [facility] Lumbar radiculopathy 4 Marino Silverok. [address] [facility], [place], [place], [address]. tel:[phone] OFFICE/OUTPAT IENT VISIT EST [facility], [address] [address], [place], [address], [place] tel:[phone] [facility] LBP and sciatica (chief complaint) Lumbar radiculopathy DJD (degenerative joint disease), lumbar Dec-1 3 Pichardo Mc. [address] [facility], [place], [place], [address]. tel:[phone] Referring Provider: Chago Oconnell, [address], [place], [address]. tel:[phone] OFFICE/OUTPAT IENT VISIT EST [facility], [address], [address], [place] tel:[phone] [facility] LBP and left sciatica (chief complaint) Lumbar radiculopathy DJD (degenerative joint disease), lumbar Dec-0 4 3 Pichardo Mc. [address] [place], [place], [address]. tel:[phone] Referring Provider: Chago Oconnell, [address], [place], [address]. tel:[phone] OFFICE/OUTPAT IENT VISIT EST [facility], [address] [address] [facility] [address], [place], [address], [place] tel:[phone] [facility] LBP and left sciatica (chief complaint) DJD (degenerative joint disease), lumbarLumbar radiculopathy 201 3 Marino Bentley. [address] [facility], [place], [place], [address]. tel:[phone] Referring Provider: Chago Oconnell, [address], [place], [address]. tel:[phone] [facility], [address] [address], [place], [address], [place] tel:[phone] [facility] Lumbar radiculopathy 5 3 Marino Bentley. [address] [facility], [place], [place], [address]. tel:[phone] OFFICE CONSULTATION [facility], [address] [address], [place], [address], [place] tel:[phone] [facility] DJD (degenerative joint disease), lumbarLeft hip painLumbar radiculopathy 4201 3 Pichardo Mc. [address] [facility], [place], [place], [address]. tel:[phone] Referring Provider: Chago Oconnell, [address], [place], [address]. tel:[phone] OFFICE/OUTPAT IENT VISIT EST [facility], [address] [address], [place], [address], [place] tel:[phone] [facility] Olecranon bursitis 8 3 Abdirizak Scott. [address] [facility] [address], [place], [place], [address]. tel:[phone] Referring Provider: Chago Oconnell, [address], [place], [address]. tel:[phone] OFFICE/OUTPAT IENT VISIT EST [facility], [address] [address], [place], [address], [place] tel:[phone] [facility] Olecranon bursitis Nov- 2 Abdirizak Scott. [address] [facility] [address], [place], [place], [address]. tel:[phone] Referring Provider: Chago Oconnell, [address], [place], [address]. tel:[phone] OFFICE/OUTPAT IENT VISIT EST [facility], [address] [address], [place], [address], [place] tel:[phone] [facility] Olecranon bursitis 2 Abdirizak Scott. [address] [address], [place], [place], [address]. tel:[phone] Referring Provider: Chago Oconnell, [address], [place], [address]. tel:[phone] OFFICE/OUTPAT IENT VISIT EST [facility], [address] [address], [place], [address], [place] tel:[phone] [facility] Lesion of ulnar nerve Sep-2 2 Abdirizak Scott. [address] [facility] [address], [place], [place], [address]. tel:[phone] Referring Provider: Chago Oconnell, [address], [place], [address]. tel:[phone] [facility], [address] [address], [place], [address], [place] tel:[phone] [facility] Osteoarthrosi s, unspecified whether generalized or localized, involving lower leg Sep-2 5-201 2 Kya Tomashan. [address] [facility] [address], [place], [place], [address]. tel:[phone] [facility], [address] [address] [facility], [place], [address], [place] tel:[phone] [facility] Osteoarthrosi s, unspecified whether generalized or localized, involving lower leg Sep-1 8-201 2 Sinon Torie. [address], [place], [place], [address]. tel:[phone] [facility], [address] [address] [facility], [place], [address], [place] tel:[phone] [facility] Osteoarthrosi s, unspecified whether generalized or localized, involving lower leg Sep-1 1-201 2 Sinon Torie. [address], [place], [place], [address]. tel:[phone] [facility], [address] [facility], [place], [address], [place] tel:[phone] [facility] Osteoarthrosi s, unspecified whether generalized or localized, involving lower leg Sep-0 4-201 2 Sinon Torie. [address], [place], [place], [address]. tel:[phone] [facility], [address] [address], [place], [address], [place] tel:[phone] [facility] Right knee pain (chief complaint) Osteoarthrosi s, unspecified whether generalized or localized, involving lower leg Aug-2 8-201 2 Luther Carrasquillo. [address] [facility], [place], [place], [address]. tel:[phone] [facility], [address] [facility], [place], [address], [place] tel:[phone] [facility] Osteoarthrosi s, unspecified whether generalized or localized, involving lower leg Aug-2 2-201 2 Luther Carrasquillo. [address] [facility], [place], [place], [address]. tel:[phone] OFFICE/OUTPAT IENT VISIT EST [facility], [address], [address], tel:[phone] [facility] Osteoarthrosi s, unspecified whether generalized or localized, involving lower leg 2 Luther Carrasquillo. [address] , [place], [place], [address]. tel:[phone] Referring Provider: Chago Oconnell, [address], [place], [address]. tel:[phone] [facility], [address] [address], [place], [address], tel:[phone] [facility] No Information 2 Luther Carrasquillo. [address] , [place], [place], [address]. tel:[phone] Referring Provider: Chago Oconnell, [address], [place], [address]. tel:[phone] Family History Family Member Type Diagnosis Age At Onset Sister Problem (finding) Heart disease Brother Problem (finding) Cancer, unknown Father Problem (finding) stroke Brother Problem (finding) Maternal history of ciara betes mellitus Mother Problem (finding) stroke Brother Problem (finding) raised blood lipids Sister Problem (finding) Maternal history of ciara betes mellitus Mother Problem (finding) Heart disease Sister Problem (finding) hypertension Brother Problem (finding) hypertension Sister Problem (finding) raised blood lipids Payers Payer name Insurance type Covered constitution party ID Authormaria teresaa tiarmida(s) Medicare E2 OT [id number] [facility] [place] [id number] Social History Type Description Quantity Date Captured Comments Alcohol Use Details Unknown Caffeine Use Details Unknown Tobacco Use Status No Information Smoking Status No Information Sex Female Chief Complaint And Reason For Visit No Information Reason For Referral Reason For Referral No Information Plan Of Treatment Date Type Action Status Goal Lifestyle education regardin g diet completed Goal Lifestyle education regardin g diet completed Goal Lifestyle education regardin g diet completed Goal Dietary manageme nt education, guidance, and counseling completed Goal Dietary manageme nt education, guidance, and counseling completed Referral Ordered: ELECTROCARDIOGRAM COMPLETE ordered Referral Ordered: MRI JT Lower w/o Contrast RT knee Appointment date/timeframe: 02/01/2025 ordered Referral Ordered: RADEX SPI LUMBOSAC 2/3 VIEWS ordered Referral Ordered: INJ FORAMEN EPIDURAL L/S Appointment date/timeframe: 05/14/2023 ordered Referral Ordered: MRI SPI CANAL&CNTS LMBR C-MATRL ordered Referral Ordered: RADEX KNE COMPL 4/MORE VIEWS LT knee ordered Referral Ordered: RADEX KNE COMPL 4/MORE VIEWS RT knee ordered Referral Ordered: RADEX KNE COMPL 4/MORE VIEWS LT ordered Referral Ordered: RADEX KNE COMPL 4/MORE VIEWS RT ordered Referral Ordered: MRI SPI CANAL&CNTS LMBR C-MATRL spine, lumbar Appointment date/timeframe: 11/25/2013 ordered Referral Ordered: INJ FORAMEN EPIDURAL L/S spine, lumbar Appointment date/timeframe: 09/14/2013 ordered Referral Ordered: RADEX HIP UNI COMPL MINIMUM 2 VIEWS LT hip ordered Referral Ordered: RADEX SPI LUMBOSAC 2/3 VIEWS spine, lumbar ordered Referral Ordered: MUSC TEST DONE W/N TEST COMP RT elbow ordered Referral Ordered: RADEX ELBW COMPL MINIMUM 3 VIEWS RT ordered Referral Ordered: INJECTION LT knee ordered Appointment Coleen Grullon Scheduled Appointment Coleen Grullon Scheduled Appointment Coleen Grullon Scheduled Patient Education Meniscus Tear: Exercise s completed History Of Present Illness Encounter Date Complaint History Of Prese nt Illness LBP and right leg pain LBP and right leg pain I am 50% better LBP and right buttock/leg pain LBP and right leg pain Functional Status Date Functional Assessmen t No Information Instructions Date Instruction Additional Infor mation Lifestyle education regarding di et Related to Body mass index [BMI] 25.0-25.9, adult Lifestyle education regarding di et Related to Body mass index [BMI] 25.0-25.9, adult Lifestyle education regarding di et Related to Body mass index [BMI] 27.0-27.9, adult Dietary management e ducation, guidance, and counseling Related to Body mass index (BMI) 27.0-27.9, adult Rest and Ice. Related to Lumba r radiculopathy Dietary management e ducation, guidance, and counseling Related to Body mass index (BMI) 27.0-27.9, adult Apply ice 20 min per hour Relate d to Primary osteoarthritis of right knee Giving encouragement to exercise Related to Body mass index (BMI) 27.0-27.9, adult Take medication/NSAID as directe d. Related to Primary osteoarthritis of right knee Weight bearing status as directe d. Related to Olecranon bursitis of left elbow Rest, ice and elevate. Related t o Olecranon bursitis of left elbow Discussed treatment options Rela spencer to Olecranon bursitis of left elbow Activity as tolerated Physical activity counseling Rel ated to Dietary Surveillance Counseling Continue medication as prescribe d Ice as instructed Continue medication as prescribe d See plan for specifi c education/instructions OTC anti-inflammatories (NSAIDs) Activity as tolerated Continue medication as prescribe d Activity as tolerated Ice as instructed Wear brace as instructed See plan for specifi c education/instructions Continue medication as prescribe d Activity as tolerated Ice as instructed Activity as tolerated vitamin B6 See plan for specifi c education/instructions Assessments Type Assessment Date assessment Pre-op testing assessment Tear of medial menis cus of right knee, unspecified tear type, unspecified whether old or current tear, initial encounter assessment Effusion, right knee Patient Care Teams Name Effective Dates (start - stop) Status Members No Information
--- OUTSIDE RECORDS SUMMARY | 2025-02-27 17:05 | XMS_ITS | Patient Health Record ---
Author Organization [facility] [place] ([address]) Address [address] [place] [address] Care Team Providers Care Tailings Man Name Role Phone Joy Ignacio Primary Care Provider UnavailAndrzej Blum Unavailable [phone] Nicole Gardner Unavailable Unavailable Jerome Bazzi Unavailable [phone] [facility], Provider Unavailable Unavailab le Allergies Allergen (clinical drug ingredient) Drug/Non Drug Allergy documented on EMR Reaction Allergy Type Onset Date Status BEXTRA (uncoded) shortness of breath Allergy Active BIAXIN (uncoded) shortness of breath, pruritus Allergy Active REQUIP (uncoded) vomiting Allergy Act oralia Benadryl Allergy shortness of breath, blisters Drug Allergy Active erythromycin Erythromycin pruritus, shortness of breath Drug Allergy Active Results Component Value Reference Range Notes Spirometry Reviewed date:07/28/2024 09:27:58 AM Interpretation:Abnormal Performing Lab: Notes/Report: Abnormal SpiroPreBronchodilator_FVC 0 SpiroPostBronchodilator_FEF25_75 0 SpiroPreBronchodilator_FEF25_75 0 SpiroPreBronchodilator_FEV1 0 SpiroPrecentPredictionPost_FEF25_75 0 SpiroPrecentPredictionPost_FEV1 0 SpiroPrecentPredictionPost_FEV1_OVER_FVC 0 SpiroPrecentPredictionPost_FVC 0 SpiroPrecentPredictionPre_FEF25_75 0 SpiroPrecentPredictionPre_FEV1 0 SpiroPrecentPredictionPre_FEV1_OVER_FVC 0 SpiroPrecentPredictionPre_FVC 0 SpiroPredicted_FEF25_75 1.8 SpiroPreBronchodilator_FEV1_OVER_FVC 0 SpiroPreBronchodilator_PEF 0 SpiroPostBronchodilator_FVC 0 SpiroPostBronchodilator_FEV1 0 SpiroPostBronchodilator_FEV1_OVER_FVC 0 SpiroPostBronchodilator_PEF 0 SpiroPredicted_FVC 2.96 SpiroPredicted_FEV1 2.2 SpiroPredicted_FEV1_OVER_FVC 74.07 SpiroPredicted_PEF 5.54 Reason For Referral No Information Medications Medication SIG (Take, Route, Frequency, Duration) Notes Start Date End Date Status HYDROCHLOROTHIAZIDE 12.5 mg 1 cap(s) orally once a day Not-Taking Pepcid 20 MG 1 tab(s) orally 30 mins prior to SCIT Active PREDNISONE 20 mg 3 tab(s) orally once a day 1 Not-Taking Losartan Potassium 50 MG 1 tab(s) orally once a day Active PREDNISONE 20 mg 2 tab(s) orally once a day for 3 day(s) 2 Not-Taking Gabapentin 300 MG 1 cap(s) orally Qday Active Ipratropium [place] 0.06 % 2 spray(s) intranasally 4 times a day for 90 days Active predniSONE 20 MG 2 tab(s) orally once a day for 3 day(s) 2 Not-Taking EPINEPHRINE 0.3 mg as directed intramuscularly once for 30 days Not-Taking Patanase 665 MCG/INH 2 SPRAY(S) INTRANASALLY 2 TIMES A DAY for 90 DAYS *Please review and pick correct strength-formul ation from [employer] options. If intended option is not shown, discontinue and re-order from Quick Search* Not-Taking SINGULAIR 10 mg 1 tab(s) orally once a day for 90 days Not-Taking ALBUTEROL 90 mcg/inh 2 puff(s) inhaled every 4 hours for 90 days Not-Taking AZELASTINE NASAL 137 [...] times a day for 90 days Not-Taking AIMOVIG Not-Taking LOSARTAN 50 mg 1 tab(s) orally once a day Not-Taking SUMATRIPTAN 25 mg 1 tab(s) orally once Not-Taking EXCEDRIN MIGRAINE 250 mg-250 mg-65 mg 2 tab(s) orally every 6 hours Not-Taking Calcium 600 + D 600 MG-200 UNITS 1 TAB(S) ORALLY 3 TIMES A DAY *Please review and pick correct strength-formul ation from [employer] options. If intended option is not shown, discontinue and re-order from Quick Search* Active Breo Ellipta 100-25 MCG/ACT 1 puff Inhalation Once a day for 30 days 4 Not-Taking BREO ELLIPTA 100 mcg-25 mcg/inh 1 puff(s) inhaled once a day for 30 days 4 Not-Taking EPINEPHrine 0.3 MG/0.3ML as directed Injection as needed for 30 days 5 Active Prempro 0.3-1.5 MG 1 tab(s) orally once a day Active Ipratropium [place] 0.06 % 2 spray(s) intranasally 4 times a day as needed for 90 days Not-Taking Fluticasone Propionate 50 MCG/ACT 1 spray in each nostril Nasally Twice a day for 90 days 5 Active Atorvastatin Calcium 40 MG 1 tab(s) orally once a day Active Symbicort 160-4.5 MCG/ACT 2 puff(s) inhaled 2 times a day for 90 days Not-Taking PEPCID 20 mg 1 tab(s) orally 30 mins prior to SCIT Not-Taking IPRATROPIUM NASAL 42 mcg/inh 2 spray(s) intranasally 4 times a day for 90 days Not-Taking IPRATROPIUM NASAL 42 mcg/inh 2 spray(s) intranasally 4 times a day as needed for 90 days Not-Taking Montelukast Sodium 10 MG 1 tablet Orally Once a day for 90 days 5 Active Albuterol Sulfate HFA 108 (90 Base) MCG/ACT 2 puffs as needed Inhalation every 4 hrs for 30 days 5 Active ALIGN 4 mg 1 cap(s) orally once a day Not-Taking Cetirizine HCl 10 MG 1 tablet Orally Once a day for 90 days 5 Active INCRUSE ELLIPTA 62.5 mcg (0.0625 mg)/inh 1 inh inhaled every 24 hours for 90 days Not-Taking Breo Ellipta 100-25 MCG/ACT 1 puff Inhalation Once a day for 90 days Not-Taking OMEPRAZOLE 20 mg 1 cap(s) orally once a day Not-Taking SYMBICORT 160 mcg-4.5 mcg/inh 2 puff(s) inhaled 2 times a day for 90 days Not-Taking EPINEPHrine 0.3 MG DIRECTED INTRAMUSCULARLY ONCE for 30 DAYS *Please review and pick correct strength-formul ation from [employer] options. If intended option is not shown, discontinue and re-order from Quick Search* Active hydroCHLOROthiazide 12.5 MG 1 cap(s) orally once a day Active ZyrTEC Allergy 10 MG 1 tab(s) orally once a day for 90 days Active Singulair 10 MG 1 tab(s) orally once a day for 90 days Active oxyBUTYnin Chloride ER 10 MG 1 tablet Orally Once a day Active ATORVASTATIN 40 mg 1 tab(s) orally once a day Not-Taking Vitamin D3 1000 UNIT as directed orally once a day Active CALCIUM 600+D 600 mg-200 units 1 tab(s) orally 3 times a day Not-Taking GABAPENTIN 300 mg 1 cap(s) orally Qday Not-Taking PREMPRO 0.3 mg-1.5 mg 1 tab(s) orally once a day Not-Taking Omeprazole 20 MG 1 cap(s) orally once a day Active Fluticasone Propionate 50 MCG/ACT 2 spray(s) intranasally once a day for 90 days Active Align 4 MG 1 cap(s) orally once a day Active VITAMIN D3 1000 intl units as directed orally once a day Not-Taking Multivitamin - 1 tab(s) orally once a day Active MULTIVITAMIN Multiple Vitamins 1 tab(s) orally once a day Not-Taking Vovtjcmyxao-Sdlopyufd-Bm lant 100-62.5-25 MCG/ACT 1 puff Inhalation Once a day for 90 days 4 Not-Taking AEROCHAMBER MDI SPACER N/A user with MDI inhalers by mouth q4-6 hours PRN for 30 day(s) Active FLUTICASONE NASAL 50 mcg/inh 2 spray(s) intranasally once a day for 90 days Not-Taking ZYRTEC 10 mg 1 tab(s) orally once a day for 90 days Not-Taking Anti-Diarrheal 2 MG 1 tablet as needed Orally Four times a day Active Simply Saline 0.9 % as directed Nasally Active Collagen 500-50-0.8 MG as directed Orally Active NASAL WASHES N/A as directed intranasally as needed for 30 Active Trelegy Ellipta 100-62.5-25 MCG/ACT 1 puff Inhalation Once a day for 30 days 4 Active Albuterol Sulfate HFA 108 (90 Base) MCG/ACT 2 puff(s) inhaled every 4 hours for 90 days Not-Taking SUMAtriptan Succinate 25 MG 1 tab(s) orally once Active Azelastine HCl 137 MCG/SPRAY 2 spray(s) intranasally 2 times a day for 90 days 1 Not-Taking Breo Ellipta 100 MCG-25 MCG/INH 1 PUFF(S) INHALED ONCE A DAY for 30 DAYS *Please review and pick correct strength-formul ation from [employer] options. If intended option is not shown, discontinue and re-order from Quick Search* 4 Not-Taking Incruse Ellipta 62.5 MCG (0.0625 MG)/INH 1 INH INHALED EVERY 24 HOURS for 90 DAYS *Please review and pick correct strength-formul ation from [employer] options. If intended option is not shown, discontinue and re-order from Quick Search* Not-Taking Azelastine HCl 137 MCG/SPRAY 2 sprays in each nostril Nasally Twice a day for 90 days Active Naproxen 250 MG 1 tablet with food or milk as needed Orally every 12 hrs Active Trelegy Ellipta 200-62.5-25 MCG/ACT 1 puff Inhalation Once a day for 90 days Active Albuterol Sulfate HFA 108 (90 Base) MCG/ACT 1 puff as needed Inhalation every 4 hrs Active Ipratropium [place] 0.06 % 2 sprays in each nostril Nasally Four times a day for 90 days Active Excedrin Migraine 250-250-65 MG 2 tab(s) orally every 6 hours Active Medrol 4 MG as directed Orally as directed for 6 days 5 Not-Taking SIT (TRADITIONAL) variable per schedule SC per schedule for to be determined Active Aimovig *Please review and pick correct strength-formul ation from [employer] options. If intended option is not shown, discontinue and re-order from Quick Search* Active Immunizations Vaccine Route Administration Date Status Comme nts COVID-19 (Moderna) Unknown 12/13/2020 Administered COVID-19 (Moderna) Unknown 01/10/2021 Administered Flucelvax Unknown 11/29/2019 Administered Fluzone, quadrivalent, preservative free Unknown 07/27/2020 Administered Influenza Unknown 07/30/2018 Administered [facility] Social History Tobacco Use: Social History Observation Description Date Details (start date - stop date) Former Smoker NA - NA Tobacco Control (Standard) Question Answer Notes Tobacco use: Former smoker How long has it been since you last smoked? 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 Problem Chronic allergic conjunctivitis (80987402) Other chronic allergic conjunctivitis (H10.45) Active confirmed Problem Allergic rhinitis caused by pollen (disorder) (39958432) Allergic rhinitis due to pollen (J30.1) Active confirmed Problem Allergic rhinitis caused by animal hair and dander (568155942053897) Allergic rhinitis due to animal (cat) (dog) hair and dander (J30.81) Active confirmed Problem Allergic rhinitis (59371095) Other allergic rhinitis (J30.89) Active confirmed Problem Chronic rhinitis (89317978) Chronic rhinitis (J31.0) Active confirmed Problem Uncomplicated moderate persistent asthma (902073841) Moderate persistent asthma, uncomplicated (J45.40) Active confirmed Problem Systemic lupus erythematosus (52252855) Systemic lupus erythematosus, unspecified (M32.9) Active confirmed Problem Fibromyalgia (145931897) Fibromyalgia (M79.7) Active confirmed Problem Cough (74280310) Cough (R05) Active confirmed Problem Swelling of head (886473944) Localized swelling, mass and lump, head (R22.0) Active confirmed Problem 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, 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 confirmed Problem Allergic rhinitis caused by pollen (disorder) (94828435) Allergic rhinitis due to pollen (J30.1) Active confirmed Problem Allergic rhinitis caused by animal hair and dander (519832054036716) Allergic rhinitis due to animal (cat) (dog) hair and dander (J30.81) Active confirmed Problem Allergic rhinitis (17808754) Other allergic rhinitis (J30.89) Active confirmed Problem Chronic allergic conjunctivitis (02614156) Other chronic allergic conjunctivitis (H10.45) Active confirmed Problem Chronic rhinitis (98276126) Chronic rhinitis (J31.0) Active confirmed Problem Acute sinusitis (61361841) Acute sinusitis, unspecified (J01.90) Active confirmed Problem Essential hypertension (03450023) Essential (primary) hypertension (I10) Active confirmed Problem 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 Vital Signs Oximetry 99 % 02/01/2025 Blood pressure diastolic 69 mm Hg 02/01/2025 Height 65.5 in 02/01/2025 Blood pressure systolic 140 mm Hg 02/01/2025 Weight 153.6 lbs 02/01/2025 BMI 25.17 kg/m2 02/01/2025 Encounters Encounter Location Date Provider Diagnosis [address] [address] 04/11/2024 Provider [facility] Allergic rhinitis due to pollen J30.1 ; Moderate persistent asthma, uncomplicated J45.40 ; Angioneurotic edema, subsequent encounter T78.3XXD and Essential (primary) hypertension I10 [facility] [address] [place] [phone] 03/03/2024 Jerome Bazzi Allergic rhinitis du e to pollen J30.1 ; Allergic rhinitis due to animal (cat) (dog) hair and dander J30.81 ; Other allergic rhinitis J30.89 and Other chronic allergic conjunctivitis H10.[address] [address] 03/30/2024 Andrzej Holliday Allergic rhinitis du e to [...] Adverse effect of macrolides, subsequent encounter T36.3X5D ; Adverse effect of other drugs, medicaments and biological substances, subsequent encounter T50.995D and Essential (primary) hypertension I10 [facility] [address] [place] [address] [facility] [address] [address] 05/06/2024 Jerome Bazzi Allergic rhinitis du e to pollen J30.1 ; Allergic rhinitis due to animal (cat) (dog) hair and dander J30.81 ; Other allergic rhinitis J30.89 and Other chronic allergic conjunctivitis H10.[address] [facility] [address] [address] 05/28/2024 Jerome Bazzi Allergic rhinitis du e to pollen J30.1 ; Allergic rhinitis due to animal (cat) (dog) hair and dander J30.81 ; Other allergic rhinitis J30.89 and Other chronic allergic conjunctivitis H10.45 [facility] [address] [place] [address] [facility] [address] [address] 06/30/2024 Jerome Bazzi Allergic rhinitis du e to pollen J30.1 ; Allergic rhinitis due to animal (cat) (dog) hair and dander J30.81 ; Other allergic rhinitis J30.89 and Other chronic allergic conjunctivitis H10.[address] [facility] [address] [address] 07/27/2024 Andrzej Holliday Allergic rhinitis du e to [...] Adverse effect of macrolides, subsequent encounter T36.3X5D ; Adverse effect of other drugs, medicaments and biological substances, subsequent encounter T50.995D and Essential (primary) hypertension I10 [facility] [address] [place] [address] [facility] [address] [address] 08/25/2024 Jerome Bazzi Allergic rhinitis du e to pollen J30.1 ; Allergic rhinitis due to animal (cat) (dog) hair and dander J30.81 ; Other allergic rhinitis J30.89 and Other chronic allergic conjunctivitis H10.45 [facility] [address] [place] [address] [facility] [address] [address] 09/10/2024 Jerome Bazzi Allergic rhinitis du e to pollen J30.1 ; Allergic rhinitis due to animal (cat) (dog) hair and dander J30.81 ; Other allergic rhinitis J30.89 and Other chronic allergic conjunctivitis H10.45 [facility] [address] [place] [phone] 10/13/2024 Jerome Bazzi Allergic rhinitis du e to pollen J30.1 ; Allergic rhinitis due to animal (cat) (dog) hair and dander J30.81 ; Other allergic rhinitis J30.89 and Other chronic allergic conjunctivitis H10.45 [facility] [address] [place] [phone] 10/19/2024 Jerome Bazzi Allergic rhinitis du e to pollen J30.1 ; Allergic rhinitis due to animal (cat) (dog) hair and dander J30.81 ; Other allergic rhinitis J30.89 and Other chronic allergic conjunctivitis H10.45 [facility] [address] [place] [address] 10/26/2024 Jerome Bazzi Allergic rhinitis du e to pollen J30.1 ; Allergic rhinitis due to animal (cat) (dog) hair and dander J30.81 ; Other allergic rhinitis J30.89 and Other chronic allergic conjunctivitis H10.45 [facility] [address] [place] [phone] 11/10/2024 Andrzej Holliday Allergic rhinitis du e to [...] Adverse effect of macrolides, subsequent encounter T36.3X5D ; Adverse effect of other drugs, medicaments and biological substances, subsequent encounter T50.995D and Essential (primary) hypertension I10 [facility] [address] [place] [phone] 12/14/2024 Jerome Bazzi Allergic rhinitis du e to pollen J30.1 ; Allergic rhinitis due to animal (cat) (dog) hair and dander J30.81 ; Other allergic rhinitis J30.89 and Other chronic allergic conjunctivitis H10.[address] [address] 01/18/2025 Jerome Bazzi Allergic rhinitis du e to pollen J30.1 ; Allergic rhinitis due to animal (cat) (dog) hair and dander J30.81 ; Other allergic rhinitis J30.89 and Other chronic allergic conjunctivitis H10.[address] [address] 02/01/2025 Andrzej Mg Allergic rhinitis du e to pollen J30.1 [...] medicaments and biological substances, subsequent encounter T50.995D [facility] [address] [place] [address] 04/06/2024 Andrzej Holliday Allergic rhinitis du e to pollen J30.1 and Moderate persistent asthma, uncomplicated J45.[address] [address] 05/06/2024 Andrzej Holliday Moderate persistent asthma, uncomplicated J45.40 [facility] [address] [place] [address] 06/30/2024 Andrzej Holliday Moderate persistent asthma, uncomplicated J45.[address] [address] 08/25/2024 Andrzej Holliday Allergic rhinitis du e to pollen J30.[address] [address] 10/13/2024 Andrzej Holliday Moderate persistent asthma, uncomplicated J45.40 and Allergic rhinitis due to pollen J30.[address] [address] 11/08/2024 Andrzej Holliday [address] [address] 11/10/2024 Andrzej Holliday Allergic rhinitis du e to pollen J30.1 and Moderate persistent asthma, uncomplicated J45.[address] [address] 11/17/2024 Andrzej Holliday [address] [address] 12/19/2024 Andrzej Holliday Allergic rhinitis du e to pollen J30.1 Assessments Encounter Date Diagnosis (ICD Code) Assessment Notes Treatment Notes Treatment Clinical Notes Section Notes 04/06/2024 Allergic rhinitis due to pollen (ICD-10 - J30.1) 05/06/2024 Allergic rhinitis due to pollen (ICD-10 - J30.1) 05/06/2024 Allergic rhinitis due to animal (cat) (dog) hair and dander (ICD-10 - J30.81) 05/28/2024 Allergic rhinitis due to pollen (ICD-10 - J30.1) 05/28/2024 Allergic rhinitis due to animal (cat) (dog) hair and dander (ICD-10 - J30.81) 04/11/2024 Allergic rhinitis due to pollen (ICD-10 - J30.1) 06/30/2024 Allergic rhinitis due to pollen (ICD-10 - J30.1) 06/30/2024 Allergic rhinitis due to animal (cat) (dog) hair and dander (ICD-10 - J30.81) 07/27/2024 Moderate persistent asthma, uncomplicated (ICD-10 - J45.40) Initial spirometry met ATS criteria for asthma. Worsens with irritants such as perfume. Spirometery at prior visit with normal FEV1, FEV1%, and FVC though FVL showed variable technique due to cough. Currently on Breo, Incruse, and Singulair. Lungs were clear on exam today. Recently seen at urgent care x 2 for icnreased productive cough with normal CXR. Treated with oral steroids and doxy. Cough is slowly improving. I do suspect her cough is primarily due to PND and VCD. Refills proveided today. Continue to follow-AAP. Keep follow-up with Pulmonology - Dr. Gardner 06/30/2024 Moderate persistent asthma, uncomplicated (ICD-10 - J45.40) 07/27/2024 Allergic rhinitis due to pollen (ICD-10 - [...] suspect this is mostly a presentation of ALYSSIA. Continue ipratropium up to 4 times a day. Return per shedule for SCIT and in 4 months for E&M. Consider additional ENT evaluation 08/25/2024 Allergic rhinitis due to pollen (ICD-10 - J30.1) 08/25/2024 Allergic rhinitis due to animal (cat) (dog) hair and dander (ICD-10 - J30.81) 09/10/2024 Allergic rhinitis due to pollen (ICD-10 - J30.1) 09/10/2024 Allergic rhinitis due to animal (cat) (dog) hair and dander (ICD-10 - J30.81) 10/13/2024 Allergic rhinitis due to pollen (ICD-10 - J30.1) 10/13/2024 Allergic rhinitis due to animal (cat) (dog) hair and dander (ICD-10 - J30.81) 08/25/2024 Allergic rhinitis due to pollen (ICD-10 - J30.1) 10/13/2024 Moderate persistent asthma, uncomplicated (ICD-10 - J45.40) 11/10/2024 Moderate persistent asthma, uncomplicated (ICD-10 - J45.40) Initial spirometry met ATS criteria for asthma. Worsens with irritants such as perfume. Spirometry at prior visit with normal FEV1, FEV1%, and FVC though FVL showed variable technique due to cough. Was increased to Trelegy with improvement in the interval with subjective improvement though continues Incruse and Singulair. Discussed stopping Incruse. Lungs were clear on exam today.Historicall y requires frequent visits to urgent care x for increased PND and productive cough requiring oral steroids. [place] helping a relative and may require a dose ofsteroids in the interval. I do suspect her cough is primarily due to PND She feels vist to ENT was fruiting increasing her nasal washes. Refills provided today. Continue to follow-AAP. No long needing to follow with Dr. Gardner per pt 11/10/2024 Allergic rhinitis due to pollen (ICD-10 - [...] suspect this is mostly a presentation of ALYSSIA. Continue ipratropium and azalstine. Increase ipratropium use PRN. Return per shedule for SCIT and in 4 months for E&M. 11/10/2024 Allergic rhinitis due to pollen (ICD-10 - J30.1) 12/19/2024 Allergic rhinitis due to pollen (ICD-10 - J30.1) 02/01/2025 Moderate persistent asthma, uncomplicated (ICD-10 - [...] drainage. No current concerns for infection. 02/01/2025 Allergic rhinitis due to pollen (ICD-10 [...] SCIT and in 4 months for E&M. 01/18/2025 Allergic rhinitis due to pollen (ICD-10 - J30.1) 01/18/2025 Allergic rhinitis due to animal (cat) (dog) hair and dander (ICD-10 - J30.81) 12/14/2024 Allergic rhinitis due to pollen (ICD-10 - J30.1) 12/14/2024 Allergic rhinitis due to animal (cat) (dog) hair and dander (ICD-10 - J30.81) 03/30/2024 Moderate persistent asthma, uncomplicated (ICD-10 - J45.40) Initial spirometry met ATS criteria for asthma. Worsens with irritants such as perfume. Spirometery at prior visit with normal FEV1, FEV1%, and FVC though FVL showed variable technique due to cough. Currently on Symbicort, Incruse, and Singulair. Lungs were clear on exam today. She reports current recall on Symbicort and is in need of new inhaler. Will trial Breo. Still with recurrent cough likely from PND. Continue to follow-AAP. Keep follow-up with Pulmonology - Dr. Gardner 03/30/2024 Allergic rhinitis due to pollen (ICD-10 - [...] immune work-up, I do suspect this is most a presentation of ALYSSIA. We discussed increasing ipratropium up to 4 times a day. Return per shedule for SCIT and in 4 months for E&M 03/03/2024 Allergic rhinitis due to pollen (ICD-10 - J30.1) 03/03/2024 Allergic rhinitis due to animal (cat) (dog) hair and dander (ICD-10 - J30.81) 10/26/2024 Allergic rhinitis due to pollen (ICD-10 - J30.1) 10/26/2024 Allergic rhinitis due to animal (cat) (dog) hair and dander (ICD-10 - J30.81) 10/19/2024 Allergic rhinitis due to pollen (ICD-10 - J30.1) 10/19/2024 Allergic rhinitis due to animal (cat) (dog) hair and dander (ICD-10 - J30.81) 05/06/2024 Moderate persistent asthma, uncomplicated (ICD-10 - J45.40) 10/19/2024 Other allergic rhinitis (ICD-10 - J30.89) 10/26/2024 Other allergic rhinitis (ICD-10 - J30.89) 03/03/2024 Other allergic rhinitis (ICD-10 - J30.89) 03/30/2024 Other allergic rhinitis (ICD-10 - J30.89) Follow allergen avoidance, meds and continue SCIT as an adjunctive treatment to current regimen 12/14/2024 Other allergic rhinitis (ICD-10 - J30.89) 01/18/2025 Other allergic rhinitis (ICD-10 - J30.89) 11/10/2024 Moderate persistent asthma, uncomplicated (ICD-10 - J45.40) 02/01/2025 Other allergic rhinitis (ICD-10 - J30.89) Follow allergen avoidance, meds and continue SCIT as an adjunctive treatment to current regimen 11/10/2024 Other allergic rhinitis (ICD-10 - J30.89) Follow allergen avoidance, meds and continue SCIT as an adjunctive treatment to current regimen 10/13/2024 Other allergic rhinitis (ICD-10 - J30.89) 10/13/2024 Allergic rhinitis due to pollen (ICD-10 - J30.1) 09/10/2024 Other allergic rhinitis (ICD-10 - J30.89) 08/25/2024 Other allergic rhinitis (ICD-10 - J30.89) 07/27/2024 Other allergic rhinitis (ICD-10 - J30.89) Follow allergen avoidance, meds and continue SCIT as an adjunctive treatment to current regimen 06/30/2024 Other allergic rhinitis (ICD-10 - J30.89) 05/28/2024 Other allergic rhinitis (ICD-10 - J30.89) 05/06/2024 Other allergic rhinitis (ICD-10 - J30.89) 04/11/2024 Moderate persistent asthma, uncomplicated (ICD-10 - J45.40) 04/06/2024 Moderate persistent asthma, uncomplicated (ICD-10 - J45.40) 05/28/2024 Other chronic allergic conjunctivitis (ICD-10 - H10.45) 06/30/2024 Other chronic allergic conjunctivitis (ICD-10 - H10.45) 07/27/2024 Other chronic allergic conjunctivitis (ICD-10 - H10.45) Given ocular signs and symptoms I encouraged allergy avoidance measures and meds as above. If symptoms persist, consider adding additional medications including intraocular antihistamine/mas t cell stabilizer, PRN and continue SCIT as an adjunctive measure 05/06/2024 Other chronic allergic conjunctivitis (ICD-10 - H10.45) 09/10/2024 Other chronic allergic conjunctivitis (ICD-10 - H10.45) 10/13/2024 Other chronic allergic conjunctivitis (ICD-10 - H10.45) 08/25/2024 Other chronic allergic conjunctivitis (ICD-10 - H10.45) 11/10/2024 Other chronic allergic conjunctivitis (ICD-10 - H10.45) Given ocular signs and symptoms I encouraged allergy avoidance measures and meds as above. If symptoms persist, consider adding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
--- OUTSIDE RECORDS SUMMARY | 2025-02-27 17:05 | XMS_ITS | CONTINUITY OF CARE DOCUMENT ---
Author Name estrellita haro Address Unknown Organization [facility] Address [address] [place] [address] Phone [phone] Care Team Providers Care Sas Programmer Remote Name Role Phone Darci CRUZ, Mundo Unavailable LEONIDAS CRUZ, SABRINA Unavailable INSURANCE PROVIDERS Payer name Policy type / Coverage type [employer] red libertarian ID [id number]
--- OUTSIDE RECORDS SUMMARY | 2025-02-27 17:05 | XMS_ITS | Continuity of Care Document ---
Author Organization [facility] Address [address] [place] [address] [facility] [address] [place] [address] Phone Care Team Providers Care Operations Research Group Manager Name Role Phone Tyra Marquez Unavailable Unavailable Advance Directives Directive Yes / No Effective Date File Name No Information Encounters Encounter Description Practice Location Reason(s) For Visit Diagnoses Date Provider Providers Copied on Encounter [facility], [address], [place], [place], [id number], [place] tel:[phone] [facility] No Information [address] , [address], [place], [address], [place]. tel:[phone] Family History Family Member Type Diagnosis Age At Onset No Information Payers Payer name Insurance type Covered alliance party ID Authoriza tion(s) [employer] CI [id number] Social History Type Description Quantity Date Captured [...]
[2025-02-27 17:06] VITALS: BP 148/84; PULSE 69; RESP 16; TEMP 36.1; O2SAT 100
[2025-02-27 17:50] VITALS: PULSE 68; RESP 18; O2SAT 97
--- NOTE | 2025-02-27 17:50 | ED.LOWEXIN ---
HPI - Extremity Injury (Lower) General Chief Complaint: Extremity Injury, Lower Stated Complaint: left leg pain from fall Time Seen by Provider: 02/27/25 17:50 Source: patient and family Mode of arrival: ambulatory Limitations: no limitations History of Present Illness HPI Narrative: 74 YEARS OLD WHITE FEMALE WAS CARRYING SOME CLOTHES, WALKING, ACCIDENTALLY HIT SOMETHING BY THE FRONT OF THE LEFT LOWER LEG 4 DAYS AGO, DENIES FALLING, COMPLAINING OF SEVERE PAIN LEFT LEG ANTERIORLY. NO OTHER INJURIES. Related Data Home Medications ?Medication ?Instructions ?Recorded ?Confirmed ?Last Taken ?Type gabapentin 300 mg capsule 300 mg PO HS 10/15/19 09/11/23 09/10/23 History multivitamin with minerals 1 tablet PO BID 10/15/19 09/11/23 09/10/23 History (Hair,Skin and Nails tablet) sumatriptan succinate 25 mg tablet 25 mg PO Q2H PRN Migraine Headache 10/15/19 08/28/23 Unknown History Bifidobacterium infantis 4 mg 4 mg PO DAILY 10/23/19 09/11/23 09/10/23 History capsule (Align (B.infantis)) erenumab-aooe 140 mg/mL 140 mg subcut MONTHLY 10/23/19 08/28/23 07/11/20 History subcutaneous auto-injector (Aimovig Autoinjector) budesonide-formoterol HFA 160 2 puff inhalation Q12H 05/31/20 09/11/23 09/10/23 History mcg-4.5 mcg/actuation aerosol inhaler (Symbicort) calcium 600 mg (as 600 cap PO BID 05/31/20 09/11/23 09/10/23 History carbonate)-vitamin D3 12.5 mcg (500 unit) capsule (Calcium with Vit D3) albuterol sulfate 90 mcg/actuation 2 puff inhalation Q4H PRN 07/25/20 08/28/23 Unknown History aerosol inhaler (ProAir HFA) Shortness Of Breath cetirizine 10 mg tablet (Zyrtec) 10 mg PO DAILY 07/25/20 08/28/23 09/11/23 History conj estrogen-medroxyprogesterone 0.3 - 1.5 tablet PO HS 07/25/20 08/28/23 09/11/23 History 0.3 mg-1.5 mg tablet (Prempro) montelukast 10 mg tablet 10 mg PO DAILY 07/25/20 09/11/23 09/10/23 History ascorbic acid (vitamin C) 1,000 mg 1,000 mg PO Q12H 09/15/20 09/11/23 09/10/23 History tablet,extended release (Vitamin C With Fide Hips) hydrochlorothiazide 25 mg tablet 25 mg PO DAILY 09/15/20 08/28/23 Unknown History losartan 100 mg tablet 100 mg PO DAILY 09/15/20 08/28/23 09/11/23 History omeprazole 20 mg capsule,delayed 20 mg PO DAILY 09/15/20 08/28/23 09/11/23 History release epinephrine 0.3 mg/0.3 mL 0.3 mg IM Q4H PRN Anaphylaxis 01/22/23 08/28/23 Unknown History injection, auto-injector famotidine 20 mg tablet (Pepcid AC) 20 mg PO DAILY 01/22/23 09/11/23 09/10/23 History ipratropium bromide 42 mcg (0.06 2 spray intranasal TID 01/22/23 09/11/23 09/10/23 History %) nasal spray Allergies Allergy/AdvReac Type Severity Reaction Status Date / Time diphenhydramine (From Allergy Severe Anaphylaxis Verified 02/27/25 17:03 Benadryl) clarithromycin (From Biaxin) Allergy Intermediate Unknown Verified 02/27/25 17:03 erythromycin base Allergy Intermediate Unknown Verified 02/27/25 17:03 ropinirole (From Requip) Allergy Intermediate Unknown Verified 02/27/25 17:03 valdecoxib (From Bextra) Allergy Intermediate Unknown Verified 02/27/25 17:03 cefdinir Allergy Mild Unknown Verified 02/27/25 17:03 perfume AdvReac Intermediate Unknown Verified 02/27/25 17:03 Review of Systems Review of Systems: All systems reviewed & are unremarkable except as noted in HPI and below PMFSH Past Medical History Medical History (Updated 02/27/25 @ 18:43 by Ramón Saba MD) Hx of migraines Asthma-COPD overlap syndrome History of tobacco abuse Sleepiness Recurrent infections Rhinitis Anxiety Depression Systemic lupus Degenerative disk disease Arthritis COPD (chronic obstructive pulmonary disease) Hypercholesterolemia Seizures Fibromyalgia Surgical History Surgical History H/O section H/O dilation and curettage History of tubal ligation Family History Family History Sibling Patient's sister is in good health Family history of respiratory disorder, Onset Age: 1 Family history of coronary artery disease Diabetes mellitus Patient's brother is Mother Family history of diabetes mellitus in first degree relative Patient's mother is , Onset Age: 78 Father Patient's father is , Onset Age: 78 Sibling Multiple sclerosis Social History Social History Smoking packs per day: 1 Smoking cigarettes per day: 20.0 Years smoked: 13 Smoking pack-years: 13.00 Smoking status: Former smoker Tobacco type: cigarettes Smoking end date: 10/28/84 Alcohol intake: never Substance use: never Substance use type: does not use Living arrangements: with friend(s) Gender identity (if verbalized by the patient): Female Spiritual care concerns: No Exam Narrative: GENERAL APPEARANCE: WELL-DEVELOPED, WELL-NOURISHED SKIN: NORMAL COLOR HEAD: NORMOCEPHALIC, NONTRAUMATIC EYES: CLEAR CONJUNCTIVA ENT: OROPHARYNX NORMAL, EARS NORMAL, NOSE NORMAL NECK: SUPPLE, NONTENDER CHEST AND RESPIRATORY: AIRWAY PATENT, NO RESPIRATORY DISTRESS, NO ACCESSORY MUSCLE USE HEART: REGULAR RATE/RHYTHM VASCULAR: NORMAL PERIPHERAL PULSES, NORMAL CAPILLARY REFILL. MUSCULOSKELETAL: LEFT LOWER LEG SHOWED DIFFUSE TENDERNESS ANTERIORLY, NO BRUISES, NO SWELLING, NO RASH NEUROLOGIC: ALERT AND ORIENTED ?3, RETAIL BEAUTY SPECIALIST IS NORMAL TESTED, NO GROSS MOTOR DEFICIT Course Vital Signs Vital signs: Vital Signs Temperature 36.1 C L 02/27/25 17:06 Pulse Rate 69 02/27/25 17:06 Respiratory Rate 16 02/27/25 17:06 Blood Pressure 148/84 H 02/27/25 17:06 Pulse Oximetry 100 02/27/25 17:06 Oxygen Delivery Room Air 02/27/25 17:06 Temperature 36.1 C L 02/27/25 17:06 Pulse Rate 68 02/27/25 17:50 Respiratory Rate 18 02/27/25 17:50 Blood Pressure 148/84 H 02/27/25 17:06 Pulse Oximetry 97 02/27/25 17:50 Oxygen Delivery Room Air 02/27/25 17:06 MDM - Extremity Injury (Lower) MDM Narrative Medical decision making narrative: DIFFERENTIAL DIAGNOSIS INCLUDE CONTUSION VERSUS FRACTURE X-RAY OF THE LEFT LOWER EXTREMITY SHOWED NO ACUTE OSSEOUS ABNORMALITY. DIAGNOSIS CONTUSION DISCHARGED ON TYLENOL, IBUPROFEN NEEDED Differential Diagnosis Differential diagnosis: Likely other ( ABOVE) Imaging Data My impression: X-RAY OF THE LEFT TIBIA AND FIBULA SHOWED NO ACUTE OSSEOUS ABNORMALITY Critical Care Time Critical Care Time Critical Care Time: No Discharge Plan Discharge Clinical Impression: Contusion of left leg Patient Disposition: Home Condition: Stable Instructions: Leg Pain (ED) Additional Instructions: RETURN IF SYMPTOMS ARE WORSENING , CALL YOUR FAMILY PHYSICIAN FOR APPOINTMENT, TAKE TYLENOL, IBUPROFEN NEEDED FOR ACHES AND PAIN, CONTINUE HOME MEDICATIONS. KEEP LEG ELEVATED, USE A WALKER, A CANE NEEDED Patient Language: S[place] Prescriptions: No Action budesonide-formoterol [Symbicort] 160-4.5 mcg/actuation HFA aerosol inhaler 2 puff INHALATION Q12H calcium carbonate-vitamin D3 [Calcium 600 with Vitamin D3] 600 mg(1,500mg) -500 unit capsule 600 cap PO BID losartan 100 mg tablet 100 mg PO DAILY hydrochlorothiazide 25 mg tablet 25 mg PO DAILY Vitamin C With Fide Hips 1,000 mg tablet extended release 1,000 mg PO Q12H omeprazole 20 mg capsule,delayed release(DR/EC) 20 mg PO DAILY famotidine [Pepcid AC] 20 mg tablet 20 mg PO DAILY epinephrine 0.3 mg/0.3 mL auto-injector 0.3 mg IM Q4H PRN (Reason: Anaphylaxis) ipratropium bromide 42 mcg (0.06 %) spray,non-aerosol 2 spray intranasal TID Rx Instructions: administer into each nostril multivitamin with minerals [Hair,Skin and Nails] Tablet 1 tablet PO BID sumatriptan succinate 25 mg tablet 25 mg PO Q2H PRN (Reason: Migraine Headache) Rx Instructions: 25 mg orally as needed ;Take 1 tablet by oral route with fluids at the onset of migraine. May repeat after 2 hours if migraine still persists. Not to exceed 200mg in 24hrs. gabapentin 300 mg capsule 300 mg PO HS Align (B.infantis) 4 mg Capsule 4 mg PO DAILY Aimovig Autoinjector 140 mg/mL auto-injector 140 mg SUBCUT MONTHLY montelukast 10 mg Tablet 10 mg PO DAILY Prempro 0.3-1.5 mg Tablet 0.3 - 1.5 tablet PO HS albuterol sulfate [ProAir HFA] 90 mcg/actuation HFA aerosol inhaler 2 puff INHALATION Q4H PRN (Reason: Shortness Of Breath) cetirizine [Zyrtec] 10 mg tablet 10 mg PO DAILY atorvastatin 40 mg tablet 40 mg PO DAILY Qty: 30 0RF cyclobenzaprine 5 mg tablet 5 mg PO TID PRN (Reason: muscle spasm) Qty: 14 0RF lidocaine 5 % adhesive patch,medicated 1 patch topical DAILY Qty: 15 0RF Rx Instructions: leave on most painful area for up to 12 hrs. do not use more than 1 patch in a 24-hour period. Incruse Ellipta 62.5 mcg/actuation blister with device 1 inhalation INHALATION Q24H 30 Days Qty: 30 11RF Follow-up/Referrals: Harms,Ignacio Traore M.D. [Primary Care Provider] -
--- OUTSIDE RECORDS SUMMARY | 2025-02-27 18:24 | XMS_ITS | Encounter Summary ---
Author Organization [facility] Healthcare Address [address] [place] [address] Care Team Providers Care Disc Jockey Name Role Phone Ignacio Hamilton MD Primary Care Provider [phone] Encounter Details Date Type Department Care Team (Late st Contact Info) Description 08/25/2024 Orders Only [facility] Primary Care at [address] [address] Ignacio Hamilton MD [address] [place] [address] Social History Tobacco Use Types [...] on file Legal Sex Female 1:13 AM QUALITY INTERN Gender Identity Female 10/07/2020 7:28 AM QUALITY INTERN Sexual Orientation Not on file 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
--- OUTSIDE RECORDS SUMMARY | 2025-02-27 18:24 | XMS_ITS | Clinical Summary ---
Author Organization [facility] Address [facility] [place] [address] Care Team Providers Care Carpenter/Labor Name Role Phone Vivi Hamilton MD Primary Care Provider [phone] Allergies Active Allergy Reactions Criticality Noted Date [...] Nasal saline spray (Simply saline, Little Remedies, [place], [place]) 2 second sprays or 2 squeezes into [...] kelley. Assessment & Plan (12/13/2022 11:04 AM FAMILY SERVICE COUNSELOR): Continue omeprazole 30-60 minutes before first meal of the day Start Pepcid 20 mg every night Continue Patanase, Astelin and Ipratropium Laryngopharyngeal reflux discussed and Handout provided Seasonal allergic rhinitis due to pollen 023 Assessment & Plan (08/27/2024 2:18 PM CDT): Nasal saline spray (Simply saline, Little Remedies, [place], [place]) 2 second sprays or 2 squeezes into [...] bedtime Assessment & Plan (12/13/2022 11:05 AM FAMILY SERVICE COUNSELOR): Continue omeprazole 30-60 minutes before first meal of the day Start Pepcid 20 mg every night Continue Patanase, Astelin and Ipratropium BMI 26.0-26.9,adult 06/27/2021 Encounter for osteoporosis s creening in asymptomatic postmenopausal patient 06/27/2021 Assessment & Plan (06/27/2021 2:46 PM CDT): Discussed screening recommendations. Patient aware to call and schedule. [facility]27[facility] Assessment & Plan (06/27/2021 2:44 [...] Description 02/15/2025 Orders Only [facility] [address] [place] [phone] Vivi Hamilton MD 02/02/2025 8:00 AM CDT Office Visit [facility] Orthopedic and Sports Medicine [address] [place] [phone] Alta Hussein PA Subacromial impingement of left shoulder (Primary Dx); Arthritis of left acromioclavicular joint; Nontraumatic incomplete tear of left rotator cuff 12/08/2024 8:20 AM FAMILY SERVICE COUNSELOR Ancillary Procedure [facility] Imaging at [address] [phone] 12/08/2024 8:00 AM FAMILY SERVICE COUNSELOR Office Visit [facility] Orthopedic and Sports Medicine [address] [place] [phone] Alta Husesin PA Subacromial impingement of left shoulder (Primary [...] hand surgery OTHER SURGICAL HISTORY cystectomy, thumb FL ARTHROPLASTY PATELLA W/O PROSTHESIS Patellar Arthroplasty - (Added by TW Conv) FL FASCIOTOMY PALMAR PERCUTANEOUS Palmar Fasciotomy For Dupuytren's Contracture - (Added by TW Conv) FL DILATION & CURETTAGE DX&/THER NONOBSTETRIC Dilation And [...] on file Legal Sex Female 1:13 AM FAMILY SERVICE COUNSELOR Gender Identity Female 10/07/2020 7:28 AM FAMILY SERVICE COUNSELOR Sexual Orientation Not on file 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 Not on file Not on file [...] Read Routine (OP Routine) 12/08/2024 8:22 AM FAMILY SERVICE COUNSELOR Arthritis of left acromioclavicular joint HEPATITIS C ANTIBODY Routine 02/18/2024 8:40 AM CDT Encounter for hepatitis C screening test for low risk patient SCREENING MAMMOGRAM BILATERAL W ALESSANDRO Schedule Routine, Read Routine (OP Routine) 09/23/2023 9:22 AM FAMILY SERVICE COUNSELOR Encounter for screening mammogram for malignant neoplasm of breast DEXA AXIAL SKELETON BONE DENSITY 1 OR MORE SITES Schedule Routine, Read Routine (OP Routine) 09/23/2023 8:32 AM FAMILY SERVICE COUNSELOR Asymptomatic menopausal state COLONOSCOPY IMAGES Routine 09/11/2023 10:45 AM FAMILY SERVICE COUNSELOR from Last 3 Months or Most Recently Relevant to Health Maintenance Results * XR Shoulder Left 1 View (12/08/2024 8:22 AM FAMILY SERVICE COUNSELOR) Anatomical Region Laterality Modality Upper Extremities, Shoulder Left Digi raul Radiography Narrative 12/08/2024 8:48 AM FAMILY SERVICE COUNSELOR Axillary view of the left shoulder is [...] CDT 02/18/2024 2:00 PM CDT us Vivi Haimlton MD LAB MICROBIOLOGY - GENERA L ORDERABLES Edited Result - Final QASIM FELIX [address] Department [place] [address] * SCREENING MAMMOGRAM BILATERAL W ALESSANDRO (09/23/2023 9:22 AM FAMILY SERVICE COUNSELOR) Anatomical Region Laterality Modality Breast Bilateral Mammography 09/23/2023 10:3 8 AM FAMILY SERVICE COUNSELOR Impressions 09/23/2023 10:38 AM FAMILY SERVICE COUNSELOR There is no mammographic evidence of malignancy. A 1 year screening mammogram is recommended. BI-RADS: 1 - Negative. The patient has been or will be contacted. The patient will be entered into a reminder system with a target due date of 1 year for her next mammogram. Electronically signed by: Laura Bonds M.D. 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 MF: KATERINA Report ID: [id number] Reading Location: [place] [address] us Vivi Hamilton MD IMG DXA PROCEDURES Final Result * Colonoscopy Images -[facility] (09/11/2023 10:45 AM FAMILY SERVICE COUNSELOR) Anatomical Region Laterality Modality Other us Issac Garner MD GI PROCEDURE ORDERABLES Final Result from Last 3 Months or Most Recently Relevant to Health Maintenance Insurance [place] [address] [place] [address] [place] [address] Care Teams Carpenter/Labor Relationship Specialty Start Date End Date Vivi Hamilton MD [address] [place] [address] PCP - General Family Medicine 12/22/19
--- OUTSIDE RECORDS SUMMARY | 2025-02-27 18:24 | XMS_ITS | Referral Summary ---
Author Organization [facility] Address [address] [place] [phone] Care Team Providers Care Display Director Name Role Phone Vivi Hamilton MD Primary Care Provider [phone] Encounters Date Type Department Care Team Description 02/15/2025 Orders Only [facility] [address] [place] [phone] Vivi Hamilton MD 02/02/2025 8:00 AM CDT Office Visit [facility] Orthopedic and Sports Medicine [address] [place] [phone] Alta Hussein PA Subacromial impingement of left shoulder (Primary Dx); Arthritis of left acromioclavicular joint; Nontraumatic incomplete tear of left rotator cuff 12/08/2024 8:20 AM MOTO MIX OPERATOR Ancillary Procedure [facility] Imaging at [address] [phone] 12/08/2024 8:00 AM MOTO MIX OPERATOR Office Visit [facility] Orthopedic and Sports Medicine [address] [place] [phone] Alta Hussein PA Subacromial impingement of left [...] herapy completed) NON FORMULARY, FOR INPATIENT USE, Libers[employer] naturals - Restful legs 2024 Discontinued(T herapy [...] Nasal saline spray (Simply saline, Little Remedies, [place], [place]) 2 second sprays or 2 squeezes into [...] kelley. Assessment & Plan (12/13/2022 11:04 AM MOTO MIX OPERATOR): Continue omeprazole 30-60 minutes before first meal of the day Start Pepcid 20 mg every night Continue Patanase, Astelin and Ipratropium Laryngopharyngeal reflux discussed and Handout provided Seasonal allergic rhinitis due to pollen 023 Assessment & Plan (08/27/2024 2:18 PM CDT): Nasal saline spray (Simply saline, Little Remedies, [place], [place]) 2 second sprays or 2 squeezes into [...] bedtime Assessment & Plan (12/13/2022 11:05 AM MOTO MIX OPERATOR): Continue omeprazole 30-60 minutes before first meal of the day Start Pepcid 20 mg every night Continue Patanase, Astelin and Ipratropium BMI 26.0-26.9,adult 06/27/2021 Encounter for osteoporosis s creening in asymptomatic postmenopausal patient 06/27/2021 Assessment & Plan (06/27/2021 2:46 PM CDT): Discussed screening recommendations. Patient aware to call and schedule. 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 Not on file Not on [...] Read Routine (OP Routine) 12/08/2024 8:22 AM MOTO MIX OPERATOR Arthritis of left acromioclavicular joint HEPATITIS C ANTIBODY Routine 02/18/2024 8:40 AM CDT Encounter for hepatitis C screening test for low risk patient SCREENING MAMMOGRAM BILATERAL W ALESSANDRO Schedule Routine, Read Routine (OP Routine) 09/23/2023 9:22 AM MOTO MIX OPERATOR Encounter for screening mammogram for malignant neoplasm of breast DEXA AXIAL SKELETON BONE DENSITY 1 OR MORE SITES Schedule Routine, Read Routine (OP Routine) 09/23/2023 8:32 AM MOTO MIX OPERATOR Asymptomatic menopausal state COLONOSCOPY IMAGES Routine 09/11/2023 10:45 AM MOTO MIX OPERATOR from Last 3 Months or Most Recently Relevant to Health Maintenance Results * XR Shoulder Left 1 View (12/08/2024 8:22 AM MOTO MIX OPERATOR) Anatomical Region Laterality Modality Upper Extremities, Shoulder Left Digi raul Radiography Narrative 12/08/2024 8:48 AM MOTO MIX OPERATOR Axillary view of the left shoulder [...] L ORDERABLES Edited Result - Final QASIM [address] Department [place] [address] * SCREENING MAMMOGRAM BILATERAL W ALESSANDRO (09/23/2023 9:22 AM MOTO MIX OPERATOR) Anatomical Region Laterality Modality Breast Bilateral Mammography 09/23/2023 10:3 8 AM MOTO MIX OPERATOR Impressions 09/23/2023 10:38 AM MOTO MIX OPERATOR There is no mammographic evidence of malignancy. A 1 year screening mammogram is recommended. BI-RADS: 1 - Negative. The patient has been or will be contacted. The patient will be entered into a reminder system with a target due date of 1 year for her next mammogram. Electronically signed by: Laura Bonds M.D. 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 MF: KATERINA Report ID: [id number] Reading Location: [place] [address] us Vivi Hamilton MD IMG DXA PROCEDURES Final Result * Colonoscopy Images -[facility] (09/11/2023 10:45 AM MOTO MIX OPERATOR) Anatomical Region Laterality Modality Other us Issac Garner MD GI PROCEDURE ORDERABLES Final Result from Last 3 Months or Most Recently Relevant to Health Maintenance Insurance MEDICARE [place] [address] MEDIC[place] [address] MEDIC[place] [address] Care Teams Display Director Relationship Specialty Start Date End Date Vivi Hamilton MD [address] [place] [address] PCP - General Family Medicine 12/22/19
--- OUTSIDE RECORDS SUMMARY | 2025-02-27 18:24 | XMS_ITS | Clinical Summary ---
Author Organization [facility] Address [address] [place] [address] Care Team Providers Care Wood Stainer Name Role Phone Vijay Gomes MD Primary Care Provider [phone] Social History Tobacco Use Types Packs/Day Years [...] patient's age to complete this topic Insurance [facility] [place] [address] Care Teams Wood Stainer Relationship Specialty Start Date End Date Vijay Gomes MD [address] [place] [address] PCP - General INTERNAL MEDICINE 07/14/19
--- OUTSIDE RECORDS SUMMARY | 2025-02-27 18:24 | XMS_ITS | Clinical Summary ---
Author Organization [facility] Care Team Providers Care Head Housekeeper Name Role Phone Unavailable Primary Care Provider [...]
--- OUTSIDE RECORDS SUMMARY | 2025-02-27 18:24 | XMS_ITS | Continuity of Care Document ---
Author Organization [facility] Address [address] [address] [place] [address] Phone Care Team Providers Care Apartment Coordinator Name Role Phone Ed Rust MD Unavailable [...] times every day Not Available - Active atorvastatin 40 mg tablet take 1 tablet by oral route every day 40 MG - Active famotidine 20 mg tablet take 1 tablet by oral route 2 times every day 20 MG - Active omeprazole 20 mg capsule,delayed release take 1 capsule by oral route every day 30 minutes to 1 hour before a meal 20 MG - Active Symbicort 160 mcg-4.5 mcg/actuation HFA aerosol inhaler inhale 2 puff by inhalation route 2 times every day in the morning and evening 2.00 puff - Active olopatadine 0.6 % nasal spray spray 2 spray by intranasal route 2 times every day in each nostril 2.00 spray - Active montelukast 10 mg tablet take 1 tablet by oral route every day in the evening 10 MG - Active Incruse Ellipta 62.5 mcg/actuation powder for inhalation inhale 1 puff by inhalation route every day at the same time each day 62.5 MCG - Active Calcium 500 + D 500 mg-10 mcg (400 unit) tablet - Active Centrum Silver Women 8 mg iron-400 mcg-300 mcg tablet - Active Vitamin D3 25 mcg (1,000 unit) capsule take 2 tablet by oral route every day 2 tablet - Active ALIGN (unknown strength) Not Available - Active Medardo Back and Body 500 mg-32.5 mg tablet - Active ipratropium bromide 0.03 % nasal spray spray 2 spray by intranasal route 2- 3 times every day in each nostril 2.00 spray - Active Aimovig Autoinjector 140 mg/mL subcutaneous auto-injector inject (140MG) by subcutaneous route every month in the abdomen, thigh, or outer area of upper arm 140 MG - Active sumatriptan 25 mg tablet take 1 tablet by oral route once with fluids as early as possible after the onset of a migraine attack;may repeat after 2 hours if headache returns, not to exceed 200mgin 24hrs 25 MG - Active gabapentin 300 mg capsule take 1 capsule by oral route at bedtime - Active Zyrtec 10 mg capsule - Active Flovent HFA 220 mcg/actuation aerosol inhaler inhale 2 puff by inhalation route 2 times every day 440 MCG - Active ProAir RespiClick 90 mcg/actuation breath activated inhale 2 puff by inhalation route every 4 hours as needed - Active Procedures Procedure Date OFFICE/OUTPATIENT VISIT [...] Providers Copied on Encounter [facility]ad [address] [facility] [address] [address], [place], [address], [place] tel:[phone] [facility] Pre-op testingTear of medial meniscus of right knee, unspecified tear type, unspecified whether old or current tear, initial encounterEffu ailyn, right knee Apr-2 5 L'Hommedieu Corson. [address] , [place], [place], [address]. tel:[phone] OFFICE/OUTPAT IENT VISIT EST [facility], [address], [place], [address], [place] tel:[phone] [facility] Degenerative tear of posterior horn of medial meniscus of right knee Apr-2 - 5 L'Hommedieu Corson. [address] , [place], [place], [address]. tel:[phone] Referring Provider: [address], [place], [address]. tel:[phone] [facility], [address] [address], [place], [address], [place] tel:[phone] [facility] Unspecified internal derangement of right knee Apr-0 - 5 No Information Referring Provider: Ed Romero u, [address] [facility] [address], [place], [address] . tel:[phone] [facility], [address] [facility], [place], [address], [place] tel:[phone] [facility] Internal derangement of right knee Mar-3 5 L'Hommedieu Corson. [address] , [place], [place], [address]. tel:[phone] OFFICE/OUTPAT IENT VISIT EST [facility], [address] [facility] [address], [place], [address], [place] tel:[phone] [facility] Bilateral lumbar radiculopathy Lumbar foraminal stenosisBody mass index [BMI] 25.0-25.9, adult Mar-2 - 5 Marino Bentley. [address] [address] [facility], [place], [place], [address]. tel:[phone] Referring Provider: [address], [place], [address]. tel:[phone] [facility], [address] [facility] [address], [place], [address], [place] tel:[phone] [facility] Bilateral lumbar radiculopathy 5 Marino Bentley. [address] [address] [facility], [place], [place], [address]. tel:[phone] OFFICE/OUTPAT IENT VISIT NEW [facility], [address] [facility] [address], [place], [address], [place] tel:[phone] [facility] Pain in right kneePrimary osteoarthriti s of right kneeInternal derangement of right knee 5 Marta Glover. [address] [facility] [facility] [address], [place], [address]. tel:[phone] Referring Provider: [address], [place], [address]. 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 [address] [facility], [place], [place], [address]. tel:[phone] Referring Provider: [address], [place], [address]. tel:[phone] OFFICE/OUTPAT IENT VISIT EST [facility], [address] [facility] [address], [place], [address], [place] tel:[phone] [facility] Bilateral lumbar radiculopathy Body mass index [BMI] 25.0-25.9, adultDJD (degenerative joint disease), lumbosacralLu mbar foraminal stenosis 4 Marino Bentley. [address] [address] [facility], [place], [place], [address]. tel:[phone] Referring Provider: [address], [place], [address]. tel:[phone] OFFICE/OUTPAT IENT VISIT EST [facility], [address], [address], [place] tel:[phone] [facility] Lumbar foraminal stenosisRight lumbar radiculopathy DJD (degenerative joint disease), lumbosacralSp ondylolisthes is at L5-S1 level 4 Marino Bentley. [address] [facility] [address] , [place], [place], [address]. tel:[phone] Referring Provider: [address], [place], [address]. tel:[phone] [facility], [address], [address], [place] tel:[phone] [facility] Right lumbar radiculopathy 4 Marino Bentley. [address] [facility], [place], [place], [address]. tel:[phone] OFFICE/OUTPAT IENT VISIT EST [facility], [address], [address], [place] tel:[phone] [facility] Right lumbar radiculopathy Lumbar foraminal stenosis 3 Marino Bentley. [address] , [place], [place], [address]. tel:[phone] Referring Provider: [address], [place], [address]. tel:[phone] OFFICE/OUTPAT IENT VISIT EST [facility], [address], [address], [place] tel:[phone] [facility] Lumbar foraminal stenosisRight lumbar radiculopathy DJD (degenerative joint disease), lumbosacral 3 Pichardo Mc. [address] [address] [facility], [place], [place], [address]. tel:[phone] Referring Provider: [address], [place], [address]. tel:[phone] OFFICE/OUTPAT IENT VISIT NEW [facility], [address] [address], [place], [address], [place] tel:[phone] [facility] Low back pain, unspecifiedBo dy mass index [BMI] 27.0-27.9, adultDJD (degenerative joint disease), lumbosacralRi ght lumbar radiculopathy Spondylolisth esis at L5-S1 levelLumbar foraminal stenosis 3 Marino Silverok. [address] [facility], [place], [place], [address]. tel:[phone] Referring Provider: [address], [place], [address]. tel:[phone] OFFICE/OUTPAT IENT VISIT EST [facility], [address] [address], [place], [address], [place] tel:[phone] [facility] LBP and right leg pain (chief complaint) Lumbar radiculopathy DJD (degenerative joint disease), lumbosacralSp ondylolisthes is at L5-S1 levelLumbar foraminal stenosis 0 Marino Silverok. [address] [facility], [place], [place], [address]. tel:[phone] OFFICE/OUTPAT IENT VISIT EST [facility], [address] [address], [place], [address], [place] tel:[phone] [facility] LBP and right leg pain (chief complaint) I am 50% better (chief complaint) Lumbar radiculopathy DJD (degenerative joint disease), lumbosacral Mar- 0 Marino Silverok. [address] [facility], [place], [place], [address]. tel:[phone] OFFICE/OUTPAT IENT VISIT EST [facility], [address], [address], [place] tel:[phone] [facility] LBP and right buttock/le g pain (chief complaint) Body mass index (BMI) 27.0-27.9, adultLumbar radiculopathy DJD (degenerative joint disease), lumbosacral Mar-0 9-202 0 Pichardo Mc. [address] [place], [place], [address]. tel:[phone] [facility], [address], [address], [place] tel:[phone] [facility] Lumbar radiculopathy Mar-0 4-202 0 Pichardo Mc. [address] [place], [place], [address]. tel:[phone] OFFICE/OUTPAT IENT VISIT NEW [facility], [address], [address], [place] tel:[phone] [facility] LBP and right leg pain (chief complaint) Body mass index (BMI) 27.0-27.9, adultStrain of lumbar region, initial encounterLumb ar radiculopathy DJD (degenerative joint disease), lumbosacral Feb-2 0-202 0 Pichardo Mc. [address] [place], [place], [address]. tel:[phone] Referring Provider: [address], [place], [address]. tel:[phone] OFFICE/OUTPAT IENT VISIT EST [facility], [address], [address], [place] tel:[phone] [facility] Body mass index (BMI) 27.0-27.9, adultPrimary osteoarthriti s of left kneePrimary osteoarthriti s of right knee Mar-2 0-201 8 L'Hommedieu Corson. [address] [place], [place], [address]. tel:[phone] OFFICE/OUTPAT IENT VISIT EST [facility], [address] [facility] [address], [place], [address], [place] tel:[phone] [facility] Pain in right kneePain in left kneePrimary osteoarthriti s of right knee 6 L'Hommedieu Corson. [address] [facility], [place], [place], [address]. tel:[phone] OFFICE/OUTPAT IENT VISIT EST [facility], [address] [address] [facility] [address], [place], [address], [place] tel:[phone] [facility] Elbow pain, leftOlecranon bursitis of left elbow 6 Abdirizak Tyler. [address] [address] [facility] [address], [place], [place], [address]. tel:[phone] Referring Provider: Chago Oconnell, [address], [place], [address]. tel:[phone] OFFICE/OUTPAT IENT VISIT EST [facility], [address] [facility] [address], [place], [address], [place] tel:[phone] [facility] RT KNEE (chief complaint) Osteoarthrosi s, unspecified whether generalized or localized, involving lower legTear of medial cartilage or meniscus of knee, current 4 L'Hommedieu Corson. [address] [facility], [place], [place], [address]. tel:[phone] Referring Provider: Chago Oconnell, [address], [place], [address]. tel:[phone] OFFICE/OUTPAT IENT VISIT EST [facility], [address] [facility] [address], [place], [address], [place] tel:[phone] [facility] LBP (chief complaint) Lumbar radiculopathy Spinal stenosis of lumbar regionAcquire d spondylolisth esis 4 Marino Bentley. [address] [facility], [place], [place], [address]. tel:[phone] Referring Provider: Chago Oconnell, [address], [place], [address]. tel:[phone] OFFICE/OUTPAT IENT VISIT EST [facility], [address] [address], [place], [address], [place] tel:[phone] [facility] LBP and bilateral sciatica (chief complaint) Lumbar radiculopathy Spinal stenosis of lumbar region 4 Pichardo Mc. [address] [address] [facility], [place], [place], [address]. tel:[phone] Referring Provider: Chago Oconnell, [address], [place], [address]. tel:[phone] [facility], [address], [address], [place] tel:[phone] [facility] Lumbar radiculopathy 4 Marino Silverok. [address] [facility], [place], [place], [address]. tel:[phone] OFFICE/OUTPAT IENT VISIT EST [facility], [address] [address], [place], [address], [place] tel:[phone] [facility] LBP and sciatica (chief complaint) Lumbar radiculopathy DJD (degenerative joint disease), lumbar Dec-1 3 Pichardo Mc. [address] [facility], [place], [place], [address]. tel:[phone] Referring Provider: Chago Oconnell, [address], [place], [address]. tel:[phone] OFFICE/OUTPAT IENT VISIT EST [facility], [address], [address], [place] tel:[phone] [facility] LBP and left sciatica (chief complaint) Lumbar radiculopathy DJD (degenerative joint disease), lumbar Dec-0 4 3 Pichardo Mc. [address] [place], [place], [address]. tel:[phone] Referring Provider: Chago Oconnell, [address], [place], [address]. tel:[phone] OFFICE/OUTPAT IENT VISIT EST [facility], [address] [address] [facility] [address], [place], [address], [place] tel:[phone] [facility] LBP and left sciatica (chief complaint) DJD (degenerative joint disease), lumbarLumbar radiculopathy 201 3 Marino Bentley. [address] [facility], [place], [place], [address]. tel:[phone] Referring Provider: Chago Oconnell, [address], [place], [address]. tel:[phone] [facility], [address] [address], [place], [address], [place] tel:[phone] [facility] Lumbar radiculopathy 5 3 Marino Bentley. [address] [facility], [place], [place], [address]. tel:[phone] OFFICE CONSULTATION [facility], [address] [address], [place], [address], [place] tel:[phone] [facility] DJD (degenerative joint disease), lumbarLeft hip painLumbar radiculopathy 4201 3 Pichardo Mc. [address] [facility], [place], [place], [address]. tel:[phone] Referring Provider: Chago Oconnell, [address], [place], [address]. tel:[phone] OFFICE/OUTPAT IENT VISIT EST [facility], [address] [address], [place], [address], [place] tel:[phone] [facility] Olecranon bursitis 8 3 Abdirizak Scott. [address] [address] [facility] [address], [place], [place], [address]. tel:[phone] Referring Provider: Chago Oconnell, [address], [place], [address]. tel:[phone] OFFICE/OUTPAT IENT VISIT EST [facility], [address] [address], [place], [address], [place] tel:[phone] [facility] Olecranon bursitis Nov- 2 Abdirizak Scott. [address] [facility] [address], [place], [place], [address]. tel:[phone] Referring Provider: Chago Oconnell, [address], [place], [address]. tel:[phone] OFFICE/OUTPAT IENT VISIT EST [facility], [address] [address], [place], [address], [place] tel:[phone] [facility] Olecranon bursitis 2 Abdirizak Scott. [address] [facility] [address], [place], [place], [address]. tel:[phone] Referring Provider: Chago Oconnell, [address], [place], [address]. tel:[phone] OFFICE/OUTPAT IENT VISIT EST [facility], [address] [address], [place], [address], [place] tel:[phone] [facility] Lesion of ulnar nerve Sep-2 2 Abdirizak Scott. [address] [facility] [address], [place], [place], [address]. tel:[phone] Referring Provider: Chago Oconnell, [address], [place], [address]. tel:[phone] [facility], [address] [address], [place], [address], [place] tel:[phone] [facility] Osteoarthrosi s, unspecified whether generalized or localized, involving lower leg Sep-2 5-201 2 Kya Tomashan. [address] [facility] [address], [place], [place], [address]. tel:[phone] [facility], [address] [facility], [place], [address], [place] tel:[phone] [facility] Osteoarthrosi s, unspecified whether generalized or localized, involving lower leg Sep-1 8-201 2 Sinon Torie. [address], [place], [place], [address]. tel:[phone] [facility], [address] [facility], [place], [address], [place] tel:[phone] [facility] Osteoarthrosi s, unspecified whether generalized or localized, involving lower leg Sep-1 1-201 2 Sinon Torie. [address], [place], [place], [address]. tel:[phone] [facility], [address] [address] [facility], [place], [address], [place] tel:[phone] [facility] Osteoarthrosi s, unspecified whether generalized or localized, involving lower leg Sep-0 4-201 2 Sinon Torie. [address], [place], [place], [address]. tel:[phone] [facility], [address] [address], [place], [address], [place] tel:[phone] [facility] Right knee pain (chief complaint) Osteoarthrosi s, unspecified whether generalized or localized, involving lower leg Aug-2 8-201 2 Luther Carrasquillo. [address] [facility], [place], [place], [address]. tel:[phone] [facility], [address] [address] [facility], [place], [address], [place] tel:[phone] [facility] Osteoarthrosi s, unspecified whether generalized or localized, involving lower leg Aug-2 2-201 2 Luther Carrasquillo. [address] [facility], [place], [place], [address]. tel:[phone] OFFICE/OUTPAT IENT VISIT EST [facility], [address], [address], tel:[phone] [facility] Osteoarthrosi s, unspecified whether generalized or localized, involving lower leg 2 Luther Carrasquillo. [address] , [place], [place], [address]. tel:[phone] Referring Provider: Chago Oconnell, [address], [place], [address]. tel:[phone] [facility], [address] [address], [place], [address], tel:[phone] [facility] No Information 2 Luther Carrasquillo. [address] , [place], [place], [address]. tel:[phone] Referring Provider: Chago Oconnell, [address], [place], [address]. tel:[phone] Family History Family Member Type Diagnosis Age [...] lipids Payers Payer name Insurance type Covered green party ID Authormaria teresaa tiarmida(s) Medicare E2 OT [id number] [facility] [id number] Social History Type Description Quantity Date Captured [...] to Body mass index (BMI) 27.0-27.9, adult Giving encouragement to exercise Related to Body mass index (BMI) 27.0-27.9, adult Apply ice 20 min per hour Relate d to Primary osteoarthritis of right knee Take medication/NSAID as directe d. Related to Primary osteoarthritis of right knee Rest, ice and elevate. Related t o Olecranon bursitis of left elbow Weight bearing status as directe d. Related to Olecranon bursitis of left elbow Discussed treatment options Rela spencer to Olecranon bursitis of left elbow Physical activity counseling Rel ated to Dietary Surveillance Counseling Activity as tolerated Continue medication as prescribe d Ice as instructed Continue medication as prescribe d See plan for specifi c education/instructions OTC anti-inflammatories (NSAIDs) Activity as tolerated Wear brace as instructed See plan for specifi c education/instructions Continue medication as prescribe d Activity as tolerated Ice as instructed Continue medication as prescribe d Activity as [...]
--- OUTSIDE RECORDS SUMMARY | 2025-02-27 18:24 | XMS_ITS | CONTINUITY OF CARE DOCUMENT ---
Author Name estrellita haro Address Unknown Organization [facility] Address [address] [facility] [place] [address] Phone [phone] Care Team Providers Care Casting House Laborer Name Role Phone Darci CRUZ, Mundo Unavailable LEONIDAS CRUZ, SABRINA Unavailable INSURANCE PROVIDERS Payer name Policy type / Coverage type [place] red republican ID KONG TRIANA [id number]
--- OUTSIDE RECORDS SUMMARY | 2025-02-27 18:24 | XMS_ITS | Continuity of Care Document ---
Author Organization [facility] Address [address] [place] [address] [facility] [address] [place] [address] Phone Care Team Providers Care Flue Cleaner Name Role Phone Tyra Marquez Unavailable Unavailable Advance Directives Directive Yes / No Effective Date File Name No Information Encounters Encounter Description Practice Location Reason(s) For Visit Diagnoses Date Provider Providers Copied on Encounter [facility], [address], [place], [place], [address], [place] tel:[phone] [facility] No Information [address] Alma Mary. [address], [place], [address], [place]. tel:[phone] Family History Family Member Type Diagnosis Age At Onset No Information Payers Payer name Insurance type Covered democrat ID Authoriza tion(s) [employer] SOI CI [id number] Social History Type Description Quantity Date Captured [...]
== END 2025-02-27 19:09 | disposition home or self-care (01) ==
PROVIDERS: Emergency Provider Emergency Medicine; PCP Family Medicine
DX: S80.12XA Contusion of left lower leg, initial encounter (principal); W22.8XXA Striking against or struck by other objects, initial encounter; J44.89 Other specified chronic obstructive pulmonary disease; F41.8 Other specified anxiety disorders; E78.00 Pure hypercholesterolemia, unspecified; M32.9 Systemic lupus erythematosus, unspecified; Z87.891 Personal history of nicotine dependence
CPT/HCPCS: 73590; 99284

== ENCOUNTER 2025-07-25 13:48 | Emergency (ER) | payer MEDICARE, OTHER, SELFPAY ==
--- OUTSIDE RECORDS SUMMARY | 2001-05-17 06:45 | XMS_ITS | Continuity of Care Document ---
Author Organization [facility] Address [address] [place] [address] Exec utive [facility] [address] [place] [address] Phone Care Team Providers Care Weld Engineer Name Role Phone Tyra Marquez Unavailable Unavailable Advance Directives Directive Yes / No Effective Date File Name No Information Encounters Encounter Description Practice Location Reason(s) For Visit Diagnoses Date Provider Providers Copied on Encounter [facility], [address], [place], [place], [id number], [place] tel:[phone] [facility] No Information [address] , [address], [place], [address], [place]. tel:[phone] Family History Family Member Type Diagnosis Age At Onset No Information Payers Payer name Insurance type Covered constitution party ID Authoriza tion(s) [employer] CI [id number] Social History Type Description Quantity Date Captured Comments Sex Female Smoking Status No Information Chief Complaint And Reason For Visit No Information Reason For Referral Reason For Referral No Information History Of Present Illness Encounter Date Complaint History Of Prese nt Illness No Information Functional Status Date Functional Assessmen t No Information Instructions Date Instruction Additional Infor mation No Information Assessments Type Assessment Date No Information Patient Care Teams Name Effective Dates (start - stop) Status Members No Information
--- OUTSIDE RECORDS SUMMARY | 2025-04-26 12:30 | XMS_ITS ---
Author Organization [facility] [employer] [facility] [place] ([address]) Address [address] [place] [address] Care Team Providers Care Conference Translator Name Role Phone Joy Ignacio Primary Care Provider UnavailAndrzej Blum Unavailable [phone] Nicole Gardner Unavailable Unavailable Jerome Bazzi Unavailable [phone] REASON FOR VISIT SCIT - Traditional Schedule Allergy immunotherapy Social History Sex Assigned At : Social History Observation Description Sex Assigned At Female Encounters Encounter Location Date Provider Diagnosis [facility] [place] [address] [place] [address] 04/26/2025 Jerome Bazzi Allergic rhinitis du e to pollen J30.1 ; Allergic rhinitis due to animal (cat) (dog) hair and dander J30.81 ; Other allergic rhinitis J30.89 and Other chronic allergic conjunctivitis H10.45 Assessments Encounter Date Diagnosis (ICD Code) Assessment Notes Treatment Notes Treatment Clinical Notes Section Notes 04/26/2025 Allergic rhinitis due to pollen (ICD-10 - J30.1) 04/26/2025 Allergic rhinitis due to animal (cat) (dog) hair and dander (ICD-10 - J30.81) 04/26/2025 Other allergic rhinitis (ICD-10 - J30.89) 04/26/2025 Other chronic allergic conjunctivitis (ICD-10 - H10.45) Plan Of Treatment Next Appt Details Follow Up: 1 Week, Reason: Provider Name:Jerome Bazzi , 07/26/2025 07:30:00 AM, [address], [address], [address], Provider Name:Jerome Dozier Jluis , 08/09/2025 07:30:00 AM, 2022 [facility], [address] [address], [place], [address], Provider Name:Jerome Dozier Jluis , 08/16/2025 07:30:00 AM, 2022 [facility], [address], [address], Provider Name:Jerome Dozier Jluis , 08/23/2025 07:30:00 AM, 2022 [facility], [address], [address], Provider Name:Jaclyn acosta, 09/20/2025 07:30:00 AM, 2022 [facility], [address], [address], Provider Name:Jaclyn acosta, 10/19/2025 07:30:00 AM, 2022 [facility], [address], [address], Progress Notes * Coleen AYALA ADOB:[birth year] (74 yo F)Acc No.[id number]:04/26/2025 SCIT-Aeroallergen Patient: Coleen PATEL A Provider: Madhavi Bazzi MD :1950 A ge:74 Y S ex:Female Date:04/26/2025 Address:[address] [place] [address] [id number] Pcp:Ignacio Hamilton Subjective: * Chief Complaints: * 1 . SCIT - Traditional Schedule Allergy immunotherapy. * HPI: * Introduction: The patient is [...] immunotherapy) is on file. * Medical History: Objective: * Vitals: Assessment: * Assessment: 1. A llergic rhinitis due to pollen - J30.1 (Primary) 2 . A llergic rhinitis due to animal (cat) (dog) hair and dander - J30.81 3 . O ther allergic rhinitis - J30.89 4 . O ther chronic allergic conjunctivitis - H10.45 Plan: * Treatment: * Follow Up: 1 Week * Billing Information: * Visit Code: * Procedure Codes: 18325 IMMUNOTHERAPY INJECTIONS. * Electronic signature of Fitz Bazzi MD, FAAAAI on 07/25/2025 at 01:50 PM CDT Sign off status: Pending * Provider: Madhavi Bazzi MD Date: 04/26/2025 Generated for Romy garcia/Brady/Rk on: 07/25/2025 01:50 PM CDT History and Physical Notes * [...]
--- OUTSIDE RECORDS SUMMARY | 2025-04-27 05:00 | XMS_ITS | Continuity of Care Document ---
Author Organization [facility] Address [id number] [address] [place] [address] Phone Care Team Providers Care Drive Tester Name Role Phone Mc Pichardo MD Unavailable Unavailable Allergies, Adverse Reactions, Alerts Substance Reaction Status [...] as needed - Active Procedures Procedure Date Triamcinolone acet inj NOS OFFICE/OUTPATIENT VISIT EST POSTOP FOLLOW-UP VISIT KNEE ARTHROSCOPY/SURGERY OFFICE/OUTPATIENT VISIT EST MRI JT Lower w/o [...] Yes / No Effective Date File Name Resuscitation Not Answered N/A N/A Life Support Not Answered N/A N/A Intubation Not Answered N/A N/A Antibiotics Not Answered N/A N/A IV Fluid Support Not Answered N/A N/A Tube Feed Not Answered N/A N/A Other Directive N/A N/A WARNING:The information contained in this section is historical and is provided for information only and does not constitute a legal document or any assurance that the information is still accurate. Please verify the information with the bermeo of the legal document before using it for clinical purposes. Encounters Encounter Description Practice Location Reason(s) For Visit Diagnoses Date Provider Providers Copied on Encounter OFFICE/OUTPAT IENT VISIT EST [facility], [address], [place], [address], [place] tel:[phone] [facility] Bilateral lumbar radiculopathy Lumbar foraminal stenosis 5 Marino Bentley. [address] , [place], [place], [address]. tel:[phone] Referring Provider: [address], [place], [address]. tel:[phone] [facility], [address] [facility] [address], [place], [address], [place] tel:[phone] [facility] S/P right knee arthroscopy 5 Nick Rendon. [address], [place], [place], [address], [place]. tel:[phone] [facility], [address], [place], [address], [place] tel:[phone] [facility] Other tear of medial meniscus, current injury, right knee, initial encounter 5 L'Hommedieu Mclean. [address] , [place], [place], [address]. tel:[phone] [facility], [address] [facility] [address], [place], [address], [place] tel:[phone] [facility] Pre-op testingTear of medial meniscus of right knee, unspecified tear type, unspecified whether old or current tear, initial encounterEffu ailyn, right knee Apr-2 9-202 5 L'Hommedieu Mclean. [address] , [place], [place], [address]. tel:[phone] OFFICE/OUTPAT IENT VISIT EST [facility], [address] [place] [facility] [address] [address], [place], [address], [place] tel:[phone] [facility] Degenerative tear of posterior horn of medial meniscus of right knee Apr-2 2- 5 L'Hommedieu Mclean. [address] [place] [facility] [address] , [place], [place], [address]. tel:[phone] Referring Provider: [address], [place], [address]. tel:[phone] [facility], [address] [address], [place], [address], [place] tel:[phone] [facility] Unspecified internal derangement of right knee Apr-0 7- 5 No Information Referring Provider: Ed Romero u, [address] [facility] [address], [place], [address] . tel:[phone] [facility], [address] [address], [place], [address], [place] tel:[phone] [facility] Internal derangement of right knee Mar-3 - 5 L'Hommedieu Mclean. [address] [place] [facility] [address] , [place], [place], [address]. tel:[phone] OFFICE/OUTPAT IENT VISIT EST [facility], [address] [address], [place], [address], [place] tel:[phone] [facility] Bilateral lumbar radiculopathy Lumbar foraminal stenosisBody mass index [BMI] 25.0-25.9, adult Mar-2 5- 5 Marino Bentley. [address] [place] [facility] [address] , [place], [place], [address]. tel:[phone] Referring Provider: [address], [place], [address]. tel:[phone] [facility], [address] [facility] [address], [place], [address], [place] tel:[phone] [facility] Bilateral lumbar radiculopathy 5 Pichardo Mc. [address] [facility], [place], [place], [address]. tel:[phone] OFFICE/OUTPAT IENT VISIT NEW [facility], [address], [place], [address], [place] tel:[phone] [facility] Pain in right kneePrimary osteoarthriti s of right kneeInternal derangement of right knee Dec-0 3- 5 Marta Glover. [address] [facility] [address], [place], [address]. tel:[phone] Referring Provider: [address], [place], [address]. 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 [address] [facility], [place], [place], [address]. tel:[phone] Referring Provider: [address], [place], [address]. tel:[phone] OFFICE/OUTPAT IENT VISIT EST [facility], [address], [address], [place] tel:[phone] [facility] Bilateral lumbar radiculopathy Body mass index [BMI] 25.0-25.9, adultDJD (degenerative joint disease), lumbosacralLu mbar foraminal stenosis 4 Marino Bentley. [address] [facility], [place], [place], [address]. tel:[phone] Referring Provider: [address], [place], [address]. tel:[phone] OFFICE/OUTPAT IENT VISIT EST [facility], [address] [facility] [address] [address], [place], [address], [place] tel:[phone] [facility] Lumbar foraminal stenosisRight lumbar radiculopathy DJD (degenerative joint disease), lumbosacralSp ondylolisthes is at L5-S1 level 4 Marino Bentley. [address] [facility], [place], [place], [address]. tel:[phone] Referring Provider: [address], [place], [address]. tel:[phone] [facility], [address], [address], [place] tel:[phone] [facility] Right lumbar radiculopathy 4 Marino Silverok. [address] [facility], [place], [place], [address]. tel:[phone] OFFICE/OUTPAT IENT VISIT EST [facility], [address] [address], [place], [address], [place] tel:[phone] [facility] Right lumbar radiculopathy Lumbar foraminal stenosis 3 Marino Silverok. [address] , [place], [place], [address]. tel:[phone] Referring Provider: [address], [place], [address]. tel:[phone] OFFICE/OUTPAT IENT VISIT EST [facility], [address], [address], [place] tel:[phone] [facility] Lumbar foraminal stenosisRight lumbar radiculopathy DJD (degenerative joint disease), lumbosacral 3 Marino Silverok. [address] , [place], [place], [address]. tel:[phone] Referring Provider: [address], [place], [address]. tel:[phone] OFFICE/OUTPAT IENT VISIT NEW [facility], [address], [address], tel:[phone] [facility] Low back pain, unspecifiedBo dy mass index [BMI] 27.0-27.9, adultDJD (degenerative joint disease), lumbosacralRi ght lumbar radiculopathy Spondylolisth esis at L5-S1 levelLumbar foraminal stenosis 3 Pichardo Mc. [address] [place], [place], [address]. tel:[phone] Referring Provider: [address], [place], [address]. tel:[phone] OFFICE/OUTPAT IENT VISIT EST [facility], [address], [address], [place] tel:[phone] [facility] LBP and right leg pain (chief complaint) Lumbar radiculopathy DJD (degenerative joint disease), lumbosacralSp ondylolisthes is at L5-S1 levelLumbar foraminal stenosis 0 Pichardo Mc. [address] [place], [place], [address]. tel:[phone] OFFICE/OUTPAT IENT VISIT EST [facility], [address], [address], [place] tel:[phone] [facility] LBP and right leg pain (chief complaint) I am 50% better (chief complaint) Lumbar radiculopathy DJD (degenerative joint disease), lumbosacral Dec- 0 Pichardo Mc. [address] [place], [place], [address]. tel:[phone] OFFICE/OUTPAT IENT VISIT EST [facility], [address], [address], [place] tel:[phone] [facility] LBP and right buttock/le g pain (chief complaint) Body mass index (BMI) 27.0-27.9, adultLumbar radiculopathy DJD (degenerative joint disease), lumbosacral Mar-0 9-202 0 Pichardo Mc. [address] [place], [place], [address]. tel:[phone] [facility], [address], [address], [place] tel:[phone] [facility] Lumbar radiculopathy Mar-0 4-202 0 Pichardo Mc. [address] [place], [place], [address]. tel:[phone] OFFICE/OUTPAT IENT VISIT NEW [facility], [address], [address], [place] tel:[phone] [facility] LBP and right leg pain (chief complaint) Body mass index (BMI) 27.0-27.9, adultStrain of lumbar region, initial encounterLumb ar radiculopathy DJD (degenerative joint disease), lumbosacral Feb-2 0-202 0 Pichardo Mc. [address] [place], [place], [address]. tel:[phone] Referring Provider: [address], [place], [address]. tel:[phone] OFFICE/OUTPAT IENT VISIT EST [facility], [address], [address], [place] tel:[phone] [facility] Body mass index (BMI) 27.0-27.9, adultPrimary osteoarthriti s of left kneePrimary osteoarthriti s of right knee Mar-2 0-201 8 L'Hommedieu Mclean. [address] [place], [place], [address]. tel:[phone] OFFICE/OUTPAT IENT VISIT EST [facility], [address], [address], [place] tel:[phone] [facility] Pain in right kneePain in left kneePrimary osteoarthriti s of right knee 6 L'Hommedieu Mclean. [address] , [place], [place], [address]. tel:[phone] OFFICE/OUTPAT IENT VISIT EST [facility], [address] [facility] [address], [place], [address], [place] tel:[phone] [facility] Elbow pain, leftOlecranon bursitis of left elbow 6 Abdirizak Scott. [address] [facility] [address], [place], [place], [address]. tel:[phone] Referring Provider: Chago Oconnell, [address], [place], [address]. tel:[phone] OFFICE/OUTPAT IENT VISIT EST [facility], [address] [address], [place], [address], [place] tel:[phone] [facility] RT KNEE (chief complaint) Osteoarthrosi s, unspecified whether generalized or localized, involving lower legTear of medial cartilage or meniscus of knee, current 4 L'Hommedieu Mclean. [address] [facility], [place], [place], [address]. tel:[phone] Referring Provider: Chago Oconnell, [address], [place], [address]. tel:[phone] OFFICE/OUTPAT IENT VISIT EST [facility], [address] [facility] [address], [place], [address], [place] tel:[phone] [facility] LBP (chief complaint) Lumbar radiculopathy Spinal stenosis of lumbar regionAcquire d spondylolisth esis 4 Marino Bentley. [address] [facility], [place], [place], [address]. tel:[phone] Referring Provider: Chago Oconnell, [address], [place], [address]. tel:[phone] OFFICE/OUTPAT IENT VISIT EST [facility], [address] [address], [place], [address], [place] tel:[phone] [facility] LBP and bilateral sciatica (chief complaint) Lumbar radiculopathy Spinal stenosis of lumbar region 4 Pichardo Mc. [address] , [place], [place], [address]. tel:[phone] Referring Provider: Chago Oconnell, [address], [place], [address]. tel:[phone] [facility], [address] [address], [place], [address], [place] tel:[phone] [facility] Lumbar radiculopathy 4 Pichardo Mc. [address] [facility] , [place], [place], [address]. tel:[phone] OFFICE/OUTPAT IENT VISIT EST [facility], [address] [address], [place], [address], [place] tel:[phone] [facility] LBP and sciatica (chief complaint) Lumbar radiculopathy DJD (degenerative joint disease), lumbar Dec-1 3 Pichardo Mc. [address] , [place], [place], [address]. tel:[phone] Referring Provider: Chago Oconnell, [address], [place], [address]. tel:[phone] OFFICE/OUTPAT IENT VISIT EST [facility], [address] [address], [place], [address], [place] tel:[phone] [facility] LBP and left sciatica (chief complaint) Lumbar radiculopathy DJD (degenerative joint disease), lumbar Dec-0 4-201 3 Pichardo Mc. [address] , [place], [place], [address]. tel:[phone] Referring Provider: Chago Oconnell, [address], [place], [address]. tel:[phone] OFFICE/OUTPAT IENT VISIT EST [facility], [address], [place], [address], [place] tel:[phone] [facility] LBP and left sciatica (chief complaint) DJD (degenerative joint disease), lumbarLumbar radiculopathy 3 Marino Bentley. [address] [facility], [place], [place], [address]. tel:[phone] Referring Provider: Chago Oconnell, [address], [place], [address]. tel:[phone] [facility], [address] [address], [place], [address], [place] tel:[phone] [facility] Lumbar radiculopathy 3 Marino Bentley. [address] [facility], [place], [place], [address]. tel:[phone] OFFICE CONSULTATION [facility], [address], [place], [address], [place] tel:[phone] [facility] DJD (degenerative joint disease), lumbarLeft hip painLumbar radiculopathy 3 Marino Bentley. [address] [facility], [place], [place], [address]. tel:[phone] Referring Provider: Chago Oconnell, [address], [place], [address]. tel:[phone] OFFICE/OUTPAT IENT VISIT EST [facility], [address], [place], [address], [place] tel:[phone] [facility] Olecranon bursitis 3 Abdirizak Scott. [address] [address] [facility] [address], [place], [place], [address]. tel:[phone] Referring Provider: Chago Oconnell, [address], [place], [address]. tel:[phone] OFFICE/OUTPAT IENT VISIT EST [facility], [address] [facility] [address], [place], [address], [place] tel:[phone] [facility] Olecranon bursitis 2 Abdirizak Scott. [address], [place], [place], [address]. tel:[phone] Referring Provider: Chago Oconnell, [address], [place], [address]. tel:[phone] OFFICE/OUTPAT IENT VISIT EST [facility], [address] [facility] [address], [place], [address], [place] tel:[phone] [facility] Olecranon bursitis 2 Abdirizka Scott. [address] [facility] [address], [place], [place], [address]. tel:[phone] Referring Provider: Chago Oconnell, [address], [place], [address]. tel:[phone] OFFICE/OUTPAT IENT VISIT EST [facility], [address] [facility] [address], [place], [address], [place] tel:[phone] [facility] Lesion of ulnar nerve Sep-2 2 Abdirizak Scott. [address] [facility] [address], [place], [place], [address]. tel:[phone] Referring Provider: Chago Oconnell, [address], [place], [address]. tel:[phone] [facility], [address] [address] [facility] [address], [place], [address], [place] tel:[phone] [facility] Osteoarthrosi s, unspecified whether generalized or localized, involving lower leg Sep-2 2 Kya Vogt. [address] [facility] [address], [place], [place], [address]. tel:[phone] [facility], [address] [facility] [address], [place], [address], [place] tel:[phone] [facility] Osteoarthrosi s, unspecified whether generalized or localized, involving lower leg Sep-1 8-201 2 Sinon Torie. [address] [facility] [address], [place], [place], [address]. tel:[phone] [facility], [address] [facility] [address], [place], [address], [place] tel:[phone] [facility] Osteoarthrosi s, unspecified whether generalized or localized, involving lower leg Sep-1 1-201 2 Sinon Torie. [address], [place], [place], [address]. tel:[phone] [facility], [address] [address], [place], [address], [place] tel:[phone] [facility] Osteoarthrosi s, unspecified whether generalized or localized, involving lower leg Sep-0 4-201 2 Sinon Torie. [address] [facility] [address], [place], [place], [address]. tel:[phone] [facility], [address] [address], [place], [address], [place] tel:[phone] [facility] Right knee pain (chief complaint) Osteoarthrosi s, unspecified whether generalized or localized, involving lower leg Aug-2 2 Luther Carrasquillo. [address] [place], [place], [address]. tel:[phone] [facility], [address] [address], [place], [address], [place] tel:[phone] [facility] Osteoarthrosi s, unspecified whether generalized or localized, involving lower leg Aug-2 2 2 Luther Carrasquillo. [address] [facility], [place], [place], [address]. tel:[phone] OFFICE/OUTPAT IENT VISIT EST [facility], [address] [address], [place], [address], [place] tel:[phone] [facility] Osteoarthrosi s, unspecified whether generalized or localized, involving lower leg 2 Luther Patiños. [address], [place], [place], [address]. tel:[phone] Referring Provider: Chago Oconnell, [address], [place], [address]. tel:[phone] [facility], [address] [facility] [address], [place], [address], tel:[phone] [facility] No Information 2 Luther Carrasquillo. [address], [place], [place], [address]. tel:[phone] Referring Provider: Chago Oconnell, [address], [place], [address]. tel:[phone] Family History Family Member Type Diagnosis Age [...] lipids Payers Payer name Insurance type Covered libertarian ID Authoriza tion(s) Medicare E2 OT [id number] [facility] [id number] Social History Type Description Quantity Date Captured Comments Alcohol Use Details Unknown Caffeine Use Details Unknown Tobacco Use Status Ex-cigarette smoker 025 Smoking Status Former smoker Sex Female Chief Complaint And Reason For [...] Appointment date/timeframe: 09/14/2013 ordered Referral Ordered: [facility] SPI LUMBOSAC 2/3 VIEWS spine, lumbar ordered Referral Ordered: [facility] HIP UNI COMPL MINIMUM 2 VIEWS LT hip ordered Referral Ordered: MUSC TEST DONE W/N TEST COMP RT elbow ordered Referral Ordered: [facility] ELBW COMPL MINIMUM 3 VIEWS RT ordered Referral Ordered: INJECTION LT knee ordered Appointment Coleen Grullon Cancelled Appointment Coleen Grullon Scheduled Patient Education Knee: Exercises complet ed Patient Education Meniscus Tear: Exercise s completed [...] tolerated Ice as instructed Activity as tolerated See plan for specifi c education/instructions vitamin B6 Assessments Type Assessment Date assessment Bilateral lumbar radiculopathy J assessment Lumbar foraminal stenosis Patient Care Teams Name Effective Dates (start - stop) Status Members No Information
[2025-07-25 13:49] VITALS: BP 177/77; PULSE 99; RESP 16; TEMP 36.8; O2SAT 99
--- OUTSIDE RECORDS SUMMARY | 2025-07-25 13:51 | XMS_ITS | Clinical Summary ---
Author Organization [facility] Care Team Providers Care Manager Systems Name Role Phone Unavailable Primary Care Provider [...] Due Date Last Done Comments Hepatitis C Virus (HCV) Screening 1950 TdaP Immunization 1950 Respiratory Syncytial Virus (RSV) Immunization (Adult) (1 - 1-dose 75+ series) 2023 SARS-COV-2 Immunization (2023- season) 2024 03/22/2022, 08/19/2021, 01/10/2021, Additional history exists Influenza Immunization (#1) 06/28/202506/30, 07/30/2019, 08/14/2018, Additional history exists Pneumococcal Immunization (50+ years) Completed 08/14/2018, 09/11/2016 Zoster Immunization Completed 02/05/2019, 9 Hepatitis B Immunization Aged Out No longer eligible based on patient's age to complete this topic Human Papillomavirus (HPV) Immunization Aged Out No longer eligible based on patient's age to complete this topic Meningococcal Immunization (ACWY) Aged Out No longer eligible based on patient's age to complete this topic Rotavirus Immunization Aged Out No lo nger eligible based on patient's age to complete this topic
--- OUTSIDE RECORDS SUMMARY | 2025-07-25 13:51 | XMS_ITS | Clinical Summary ---
Author Organization [facility] Address [address] [place] [id number] Care Team Providers Care Distribution Operations Supervisor Name Role Phone Ignacio Hamilton MD Primary Care Provider [phone] Allergies Active Allergy Reactions Criticality Noted Date Comments Antihistamines - Alkylamine Unknown 06/11/2024 Cefuroxime Hives,Itching,Shortn ess of breath,Swelling High 08/26/2020 Ciprofloxacin Anaphylaxis High 06/16/2021 Clarithromycin Swelling High Cyclobenzaprine Nausea & Vomiting Low 02/26/2023 Severe N/V Diphenhydramine Erythromycin Swelling High 12/22/2019 adverse reaction Gabapentin Itching Low 08/25/2024 Perfume Unknown High 02/27/2025 Pramipexole Diarrhea,Stomach upset Low 08/02/2020 Pseudoephedrine Other (See comments) 11/18/2024 Skin blisters Ropinirole Ropinirole Hcl Unknown 06/11/2024 Valdecoxib Itching,Stomach upset,Headache Low Medications cetirizine (ZyrTEC) 10 mg capsule 10 mg. 0 0 10/16/20 13 Active loperamide (IMODIUM A-D) 2 mg tablet take 2 tablet by oral route after 1st loose stool and 1 tablet (2 mg) after each next bowel movement; do not exceed 16 mg in 24hrs 0 0 09/06/20 14 Active Bifidobacterium infantis (ALIGN) 4 mg capsule 0 0 09/06/20 14 Active albuterol sulfate (PROAIR RESPICLICK) 90 mcg/actuation aerosol powdr breath activated inhale 2 puff by inhalation route every 4 - 6 hours as needed 0 Inhaler 0 08/09/20 15 Active cholecalciferol (VITAMIN D-3) 1,000 unit tablet Take 1 tablet (1,000 Units total) by mouth daily Active ipratropium (ATROVENT) 42 mcg (0.06 %) nasal spray USE 2 SPRAY(S) IN EACH NOSTRIL 4 TIMES DAILY NEEDED FOR 30 DAYS 0 07/30/20 19 Active EPINEPHrine 0.3 mg/0.3 mL auto-injection syringe 05/14/20 20 Active fluticasone propionate (FLONASE) 50 mcg/actuation nasal spray 11/28/19 20 Active acetaminophen-aspi rin-caffeine (EXCEDRIN MIGRAINE) 250-250-65 mg per tablet Take 1 tablet by mouth every 6 (six) hours as needed Active multivit-min/iron/ folic/lutein (CENTRUM SILVER WOMEN ORAL) Take 1 tablet by mouth nightly Active lidocaine (LIDODERM) 5 % Place 1 patch on the skin daily Remove & discard patch within 12 hours or as directed by . 90 patch 3 05/14/20 23 Active fluticasone furoate-vilanteroL (BREO ELLIPTA) 100-25 mcg/dose diskus inhaler Inhale 1 puff daily Rinse mouth with water after use. Do not swallow. Active famotidine (PEPCID) 20 mg tabletIndications: Laryngeal spasm Take 2 tablets (40 mg total) by mouth nightly 180 tablet 3 08/25/20 24 Active SUMAtriptan (IMITREX) 25 mg tabletIndications: Migraine Take 1 tablet (25 mg total) by mouth once as needed for migraine May repeat dose once in 2 hours if no relief. Do not exceed 2 doses in 24 hours. 27 tablet 3 08/25/20 24 Active erenumab-aooe (Aimovig Autoinjector) 140 mg/mL auto-injectorIndic ations:Intractable chronic migraine without aura and without status migrainosus Inject 1 mL (140 mg total) under the skin every 30 (thirty) days 3 mL 3 08/25/20 24 025 Active azelastine (ASTELIN) 137 mcg (0.1 %) nasal sprayIndications:C hronic rhinitis Administer 1 spray into each nostril 2 (two) times a day Use in each nostril as directed 90 mL 3 08/27/20 Active atorvastatin (LIPITOR) 40 mg tabletIndications: Mixed hyperlipidemia Take 1 tablet (40 mg total) by mouth daily 90 tablet 3 10/13/20 24 Active fluticasone-umecli din-vilanter (Trelegy Ellipta) 100-62.5-25 mcg inhaler Inhale 1 puff daily Active ascorbic acid/collagen hydr (COLLAGEN PLUS VITAMIN C ORAL) Take by mouth Active calcium carbonate-vitamin D3 1,500 mg (600 mg elemental)-200 unit capsule Take by mouth Act oralia omeprazole (PriLOSEC) 20 mg capsuleIndications :Gastroesophageal reflux disease without esophagitis Take 1 capsule (20 mg total) by mouth daily 90 capsule 3 03/01/20 25 Active montelukast (SINGULAIR) 10 mg tabletIndications: Asthma, unspecified asthma severity, unspecified whether complicated, unspecified whether persistent Take 1 tablet (10 mg total) by mouth nightly 90 tablet 3 03/01/20 25 Active losartan (COZAAR) 50 mg tablet Take 1 tablet (50 mg total) by mouth daily 90 tablet 3 03/01/20 25 Active oxyBUTYnin XL (DITROPAN-XL) 10 mg 24 hr tablet Take 1 tablet (10 mg total) by mouth daily 90 tablet 3 03/01/20 25 Active hydroCHLOROthiazid e 12.5 mg tablet Take 1 tablet (12.5 mg total) by mouth daily 90 tablet 3 03/01/20 25 Active gabapentin (NEURONTIN) 100 mg capsule Take 1 capsule (100 mg total) by mouth 3 (three) times a day 270 capsule 1 03/01/20 25 026 Active naproxen (NAPROSYN) 500 mg tablet Take 1 tablet (500 mg total) by mouth 2 (two) times a day with meals 200 tablet 1 04/26/20 25 Active Additional Information Patient not taking.Reported on 07/08/2025 estrogens, conjugated,-medrox yPROGESTERone (PREMPRO) 0.3-1.5 mg per tablet Take 1 tablet by mouth daily 90 tablet 1 04/26/20 25 026 Active tiZANidine (ZANAFLEX) 2 mg tablet Take 1 tablet (2 mg total) by mouth every 6 (six) hours as needed for muscle spasms 30 tablet 06/29/20 25 Active Active Problems Problem Noted Date Diagnosed Date Encounter for Medicare annual wellness exam 11/2024 Assessment & Plan (06/29/2025 10:10 AM CDT): Visit preventive in nature. We reviewed medications, chronic conditions, risk factors, lifestyle recommendations. Reviewed immunization recommendations. Follow-up in 6 months for chronic conditions and 1 year for annual wellness. Injury of great toenail 06/29/2025 Assessment & Plan (06/29/2025 10:14 AM CDT): Keep area protected. Will refer to Podiatry for further management. Pre-operative clearance 03/11/2025 Assessment & Plan (03/11/2025 9:33 AM CDT): No change on EKG compared to 2019. No anginal s/s. Lipid screening 03/11/2025 Assessment & Plan (03/11/2025 9:33 AM CDT): Labowkr ordered and pending. Dysuria 03/11/2025 Assessment & Plan (03/11/2025 9:33 AM CDT): Repeat urinalyssi and will folwlro esponse. Ensure clearing. SLE (systemic lupus erythematosus related syndro me) 08/25/2024 Assessment & Plan (03/11/2025 9:33 AM CDT): No evidence of active synovitis. Assessment & Plan (08/25/2024 9:02 AM CDT): above. Diarrhea 08/25/2024 Assessment & Plan (08/25/2024 9:02 AM CDT): No evidence of an acute abdomen on exam. Nonbloody diarreha, no recent trips, antibiotics. Course of lomotil and reivewed warning s/s. Chronic sinusitis 08/25/2024 Assessment & Plan (08/25/2024 9:03 AM CDT): Continue f/u with ENT and will montior response. Mucopurulent chronic bronchitis 02/18/2024 Assessment & Plan (03/11/2025 9:33 AM CDT): WIll follow response. Continue aggressive opuomnoanry toilet. Assessment & Plan (02/18/2024 8:36 AM CDT): Stable and will follow response. Stress incontinence 02/18/2024 Assessment & Plan (02/18/2024 8:37 AM CDT): Reviewd pelvic floor insufficiency and no pharmacologic agent for therapy and difference between SI nad UI. Referral to dermatolgoy to discuss treatment options. Laryngeal spasm 12/13/2022 Assessment & Plan (08/27/2024 2:18 PM CDT): Nasal saline spray (Simply saline, Little Remedies, [place], [place]) 2 second sprays or 2 squeezes into [...] kelley. Assessment & Plan (12/13/2022 11:04 AM SECONDARY CONNECTOR ARMATURE): Continue omeprazole 30-60 minutes before first meal of the day Start Pepcid 20 mg every night Continue Patanase, Astelin and Ipratropium Laryngopharyngeal reflux discussed and Handout provided Seasonal allergic rhinitis due to pollen 023 Assessment & Plan (08/27/2024 2:18 PM CDT): Nasal saline spray (Simply saline, Little Remedies, [place], [place]) 2 second sprays or 2 squeezes into [...] bedtime Assessment & Plan (12/13/2022 11:05 AM SECONDARY CONNECTOR ARMATURE): Continue omeprazole 30-60 minutes before first meal of the day Start Pepcid 20 mg every night Continue Patanase, Astelin and Ipratropium BMI 26.0-26.9,adult 06/27/2021 Assessment & Plan (06/29/2025 10:10 AM CDT): Weight is stable. Assessment & Plan (05/05/2025 7:19 AM CDT): Weight appropriate for patient. Encounter for osteoporosis s creening in asymptomatic postmenopausal patient 06/27/2021 Assessment & Plan (06/27/2021 2:46 PM CDT): Discussed screening recommendations. Patient aware to call and schedule. Encounter for annual wellness exam in Medicare p atient 06/27/2021 Assessment & Plan (06/27/2021 2:44 PM CDT): Preventive exam; reviewed recommended preventive screenings and vaccinations. Encourage annual flu vaccine. Wear sunscreen/protective clothing when outdoors. Covid vaccine up to date. Gastroesophageal reflux disease without esophagi tis 06/27/2021 Assessment & Plan (03/11/2025 9:32 AM CDT): Stable on omepraozle. Assessment & Plan (02/18/2024 8:36 AM CDT): [...] Systemic lupus erythematosus 05/03/2016 Assessment & Plan (05/05/2025 7:24 AM CDT): Will refer to Rheumatology due to not having one. Orders: Ambulatory referral to Rheumatology; Future Assessment & Plan (08/25/2024 9:01 AM CDT): WIll re-check inflammatory markers and re-engage with Rehumatology. Assessment & Plan (02/18/2024 8:35 AM CDT): No evidnece of active synovitis and will montior repsonse. Assessment & Plan (06/27/2021 2:29 PM CDT): No change at the present time. Restless legs 05/03/2016 Lumbago 05/03/2016 Assessment & Plan (06/29/2025 10:10 AM CDT): Currently asymptomatic. Will send in tizanidine to take p.r.n.. Advised to monitor for any development of rash. If rash develops please let us know right away. Can be early indicator of shingles. She is agreeable and states understanding. Bronchial asthma 05/03/2016 Hypertension, essential 10/18/2015 Overview (02/02/2017): HTN (hypertension), benign Assessment & Plan (03/11/2025 9:33 AM CDT): Montior rsepnose. Assessment & Plan (02/18/2024 8:36 AM CDT): Stable on the current reimgen. WIll follow response. Stable on HCTZ and losartan. 12.5 and 50mg respectively. No chest pains/CELESTE. Assessment & Plan (06/27/2021 5:56 PM CDT): Doing well on current regimen. Will continue to monitor. Discussed need to work on diet and exercise and recommended patient monitor sodium intake <2000mg sodium daily. Chest pain 08/09/2015 Overview (02/02/2017): Other chest pain Family history of atherosclerosis 08/09/2015 Overview (02/02/2017): Family history of atherosclerosis History of tobacco use 08/09/2015 Overview (02/02/2017): History of tobacco abuse Fibrositis 10/16/2013 Overview (01/30/2017): Fibromyalgia Assessment & Plan (05/05/2025 7:24 AM CDT): See above Orders: Ambulatory referral to Rheumatology; Future Lichen sclerosus et atrophicus 10/16/2013 Overview (01/30/2017): [...] 10/16/2013 Overview (02/01/2017): Asthma Assessment & Plan (03/11/2025 9:32 AM CDT): Reviweed pulmonary toilet and continues on rescue and maintenance inhaler. Assessment & Plan (02/18/2024 8:35 AM CDT): [...] headache 05/03/2016 06/27/2021 Overview (02/07/2018): Description: Imitrex Dyslipidemia 08/09/2015 10/02/2021 Overview (02/02/2017): Dyslipidemia Encounters Date Type Department Care Team Description 07/13/2025 Telephone [facility] [address] [place] [address] Outpatient Health 4th Floor [address] [place] [address] Azael Marquez Symptom Based Call 07/08/2025 2:40 PM CDT [facility] [address] [place] [address] 4th Floor [address] [place] [address] Diana Robles MD Viral warts, unspecified type (Primary Dx) 06/29/2025 9:30 AM CDT [facility] Visit [facility] [address] [phone] Annmarie hTomas NP Encounter for Medicare annual wellness exam (Primary Dx); Acute low back pain without sciatica, unspecified back pain laterality; Injury of great toenail; BMI 26.0-26.9,adult; Need for tetanus, diphtheria, and acellular pertussis (Tdap) vaccine 06/24/2025 Nurse Triage [facility] [address] [address] Karlene Horan RN 05/12/2025 9:52 AM CDT - 05/12/2025 11:59 PM CDT Hospital Encounter [facility] [address] [place] [address] Screening mammogram, encounter for Discharge Disposition: Discharge to home or self care 05/11/2025 Telephone [facility] at [facility] [address] [facility] [address] [place] [address] Celine Edwards MD New Patient; Appointment Request 05/05/2025 7:00 AM CDT Office Visit [facility] [address] [address] Jenny Pierre, YARDMASTER Systemic lupus erythematosus, unspecified SLE type, unspecified organ involvement status (HCC) (Primary Dx); Fibrositis; Skin lesions; Allergic reaction, initial encounter; BMI 26.0-26.9,adult from Last 3 Months Immunizations Immunization Administration Dates Next Due Influenza, Quadrivalent, Hig h Dose, Preservative Free, Intrr 06/05/2022,09/02/2021,07/30/2018 Influenza, Quadrivalent, Rec ombinant, Egg Free, Preservative [...] Covid-19 Mrna, Bi valent, Original/joel Ba.1, A 08/02/2023,03/22/2022,03/22/2022,08/19,08/19/2021,01/10/2021,01/10/2021 ,12/13/2020,12/13/2020 Tdap 06/29/2025,05/23/2003 ZOSTER LIVE 02/05/2019,12/05/2018,05/23/2010 ZOSTER Recombinant 02/05/2019,12/05/2018 Surgical History Surgery Date Site/Laterality Comments OTHER SURGICAL HISTORY 10/28/1971 - 10/27/1972 : 2 hr labor OTHER SURGICAL HISTORY 10/28/1975 - 10/27/1976 : 6 hr labor OTHER SURGICAL HISTORY D&C KNEE SURGERY Right knee surgery HAND SURGERY hand surgery OTHER SURGICAL HISTORY cystectomy, thumb RI ARTHROPLASTY PATELLA W/O PROSTHESIS Patellar Arthroplasty - (Added by TW Conv) RI FASCIOTOMY PALMAR PERCUTANEOUS Palmar Fasciotomy For Dupuytren's Contracture - (Added by TW Conv) RI DILATION & CURETTAGE DX&/THER NONOBSTETRIC Dilation And [...] w ith mets; Cancer Brother 3 Boyd Strasen Diabetes Brother 3 Boyd Strasen Heart disease Brother 3 Boyd Strasen Heart disea se; Hypertension Brother 3 Boyd Strasen Restless legs syndrome Brother 4 Famil y [...] 2 Leny Jose Osteoporosis Sister 2 Leny Wigginsisle Osteoporosis; Heart disease Sister 3 Heart disease; [...] 7 Alta Ruelas Heart disease Sister 7 lAta Ruelas Family history of cardiac disorder - [...] Relation Name Status Comments Brother 1 Kishor Vinodshreyasarmida Coyle Brother 2 Brother 3 Boyd Tanner Brother 4 Brother 5 Brother 6 No e Brother 7 Brother 8 Daughter Father (Age 78) Maternal Grandfather Luke Mother (Age 78) Other 1 Other 2 Sister 1 Sister 2 Leny Wigginsisle Sister 3 Sister 4 Sister 5 arin Ruelas Sister 6 Sister 7 Alta Ruelas Sister 8 Sister 9 Son 1 Gage L Doersam Son 2 Social History Tobacco Use Types Packs/Day Years Used Date Smoking Tobacco: Former Cigarettes Q uit: 1981 Passive Smoke Exposure: Past Smokeless Tobacco: Never Tobacco Cessation:Counseling Given: Not Answered Comments:Smoking History Packs/day: 1 Packs Alcohol Use Standard Drinks/Week Comments Not Currently 0 (1 standard drink = 0.6 oz pur e alcohol) PHQ-2 Answer Date Recorded PHQ-2 Total Score (If total score is 3 or more points, staff should administer the PHQ-9) 0 06/29/2025 AUDIT-C Answer Date Recorded Q1: How often do you have a drink containing alcohol? Never 07/08/2025 Q2: How many drinks containi ng alcohol do you have on a typical day when you are drinking? Patient does not drink Q3: How often do you have si x or more drinks on one occasion? Never 07/08/2025 Hunger Vital Sign Answer Date Recorded Within the past 12 months, y ou worried that your food would run out before you got the money to buy more. Never true 07/08/20 25 Within the past 12 months, t he food you bought just didn't last and you didn't have money to get more. 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 Not on file Not on file Not on fi le Obstetrics History Para Term AB IAB SAB Ectopic Multiple Livin g Live Births 2 2 2 Date Outcome GA Total Labor Labor/2nd/3rd Weight Sex Type Anes PTL Renetta A1 A5 Name Clin Term Term Last Filed Vital Signs Vital Sign Reading Time Taken Comments Blood Pressure 112/64 06/29/2025 9:11 AM CDT Pulse 67 06/29/2025 9:11 AM CDT Temperature 36.6 C (97.9 F) 06/29/2025 9:11 AM CDT Respiratory Rate 20 06/29/2025 9:11 AM CDT Oxygen Saturation 99% 06/29/2025 9:11 AM CDT Inhaled Oxygen Concentration - - Weight 72.4 kg (159 lb 9.6 oz) 06/29/2025 9:11 A M CDT Height 165.1 cm (5' 5) 06/29/2025 9:11 AM CDT Body Mass Index 26.56 06/29/2025 9:11 AM CDT Plan of Treatment Health Maintenance Due Date Last Done Comments Hepatitis B Screening 1968 Covid-19 Vaccine (2024- season) 2025 08/02/2023, 08/16/2022, 03/22/2022, Additional history exists Influenza Vaccine (#1) 2025 , 07/24/2023, 06/05/2022, Additional history exists Osteoporosis Screening-Bone Density Scan 09/23/2025 09/23/2023 Depression Screening 06/29/2026 06/29/2025, 05/05/2025, 03/01/2025, Additional history exists Fall Risk Assessment 06/29/2026 06/29/2025, 05/05/2025, 03/01/2025, Additional history exists Well Visit 65+ 06/29/2026 06/29/2025, 03/2022, 06/27/2021 Colon Cancer Screening-DNA Stool 09/11/2026 09/11/20 23, 01/02/2021 DTaP/Tdap/Td Vaccine (3 - Td or Tdap) 06/29/2035 06/29/2025, 05/23/2003 Pneumococcal vaccine 65+ Completed 018, 09/11/2016, 08/23/2011, Additional history exists Zoster Vaccine Completed 02/05/2019, 01/26, 12/05/2018, Additional history exists Colon Cancer Screening-CT Colonography Discontinued 09/11/2023 Colon Cancer Screening-Colonoscopy Discontinued 09/11/2023 Colon Cancer Screening-FIT Discontinued 09/11/2023, Colon Cancer Screening-Sigmoidoscopy Discontinued 09/11/2023 Hepatitis C Screening Completed 02/18/2024 Breast Cancer Screening-Mammogram Discontinued 05/12/2025, 09/23/2023, 09/15/2022, Additional history exists Procedures Procedure Name Priority Date/Time Associated Diagnosis Comments POCT URINALYSIS DIPSTICK Routine 06/29/2025 9:25 AM CDT Acute low back pain without sciatica, unspecified back pain laterality SCREENING MAMMOGRAM BILATERAL W GEORGE Schedule Routine, Read Routine (OP Routine) 05/12/2025 10:09 AM CDT Screening mammogram, encounter for HEPATITIS C ANTIBODY Routine 02/18/2024 8:40 AM CDT Encounter for hepatitis C screening test for low risk patient DEXA AXIAL SKELETON BONE DENSITY 1 OR MORE SITES Schedule Routine, Read Routine (OP Routine) 09/23/2023 8:32 AM SECONDARY CONNECTOR ARMATURE Asymptomatic menopausal state COLONOSCOPY IMAGES Routine 09/11/2023 10 :45 AM SECONDARY CONNECTOR ARMATURE from Last 3 Months or Most Recently Relevant to Health Maintenance Results * (ABNORMAL) POCT urinalysis dipstick (06/29/2025 9:25 AM CDT) Color, Urine, POC Dark Yellow Clarity, ur, POC Cloudy(A) Clear Glucose, ur, POC Negative Negative Bilirubin, ur, POC Negative Negative Ketones, ur, POC Negative Negative Specific [place], POC 1.025 1.003 - 1.030 Blood, ur, POC Negative Negative pH, ur, POC 5.5 5.0 - 8.0 Protein, ur, POC Negative Negative Urobilinogen, urine, POC 0.2 0.2 - 1.0 mg/dL Nitrite, ur, POC Negative Negative Leukocytes, ur, POC Negative Negative Lot Number [id number] Urine 06/29/2025 9:25 AM CDT Annmarie Thomas NP POINT OF CARE TEST ORDERAB LES Final Result * Screening Mammogram Bilateral W George (05/12/2025 10:09 AM CDT) Anatomical Region Laterality Modality Breast Bilateral Mammography Impressions 05/12/2025 10:27 AM CDT Bilateral No evidence of malignancy in either breast. OVERALL BI-RADS FINAL ASSESSMENT: 1 - Negative RECOMMENDATION: Recommend bilateral annual screening mammography. Narrative 05/12/2025 10:27 AM CDT EXAMINATION: Screening Mammogram Bilateral W George: 05/12/2025 COMPARISON: Relevant prior studies available at the time of interpretation were reviewed, including the most recent mammogram on: 09/23/2023. TECHNIQUE: Mammography was performed with 2D and digital breast tomosynthesis (DBT) images. CAD was utilized. BREAST PARENCHYMAL COMPOSITION: There are scattered areas of fibroglandular density. FINDINGS: Bilateral There is no suspicious mass, calcification, or architectural distortion in either breast. us Self Screening Mammogram IMG MAMMO PROCEDURES Fi nal Result * Hepatitis C antibody Blood (02/18/2024 8:40 [...] 8:40 AM CDT 02/18/2024 2:00 PM CDT Ignacio Hamilton MD LAB MICROBIOLOGY - GENERA L ORDERABLES Edited Result - Final QASIM [id number] [address] Department [place] [address] * Dexa Axial Skeleton Bone Density 1 Or 2 Site (09/23/2023 8:32 AM SECONDARY CONNECTOR ARMATURE) Anatomical Region Laterality Modality Body N/A Other 09/23/2023 9:02 AM SECONDARY CONNECTOR ARMATURE Narrative 09/23/2023 9:03 AM SECONDARY CONNECTOR ARMATURE EXAM DESCRIPTION: DEXA AXIAL SKELETON BONE DENSITY 1 OR MORE SITES REASON FOR STUDY: 73 y/o year old F with given history of: asymptomatic menopausal state Osteoporosis follow up Post menopausal Hardness Tester/Model: Yo SL (S/N 33891) CLINICAL INFORMATION: Current height: 65.5 inches Maximum [...] Vijay Black M.D. MF: KATERINA Report ID: [id number] Reading Location: [id number] Procedure Note Vijay Black MD - 09/23/2023 EXAM DESCRIPTION: DEXA AXIAL SKELETON BONE DENSITY 1 OR MORE SITES REASON FOR STUDY: 73 y/o year old F with given history of:asymptomatic menopausal state Osteoporosis follow up Post menopausal Hardness Tester/Model: Yo SL (S/N [id number]) CLINICAL INFORMATION: Current height: 65.5 inches Maximum [...] Vijay Black M.D. MF: KATERINA Report ID: [id number] Reading Location: [place] [address] us Ignacio Hamilton MD IMG DXA PROCEDURES Final Result * Colonoscopy Images -[facility] (09/11/2023 10:45 AM SECONDARY CONNECTOR ARMATURE) Anatomical Region Laterality Modality Other us Issac Garner MD GI PROCEDURE ORDERABLES Final Result from Last 3 Months or Most Recently Relevant to Health Maintenance [place] [address] [place] [address] MEDICARE [facility] [place] [address] Care Teams Distribution Operations Supervisor Relationship Specialty Start Date [place] [address] PCP - General Family Medicine 12/22/19
--- OUTSIDE RECORDS SUMMARY | 2025-07-25 13:51 | XMS_ITS | Clinical Summary ---
Author Organization [facility] Address [address] [place] [id number] Care Team Providers Care Purchasing Specialist Name Role Phone Vijay Gomes MD Primary Care Provider [phone] Social History Tobacco Use Types Packs/Day Years [...] series) 2023 COVID-19 Vaccine (2023-2 5 season) 2025 Meningococcal B Vaccine Aged Out No l onger eligible based on patient's age to complete this topic Meningococcal Vaccine Aged Out No jacquelyn tacho eligible based on patient's age to complete this topic RSV Immunizations Under 20 Months Aged Out No longer eligible based on patient's age to complete this topic Insurance MEDICARE [facility] Care Teams Purchasing Specialist Relationship Specialty Start Date End Date Vijay Gomes MD [address] [place] [address] PCP - General INTERNAL MEDICINE 07/14/19
--- OUTSIDE RECORDS SUMMARY | 2025-07-25 13:51 | XMS_ITS | Patient Health Record ---
Author Organization [facility] [place] ([address]) Address [address] [place] [address] Care Team Providers Care Polymer Scientist Name Role Phone Joy Ignacio Primary Care Provider UnavailAndrzej Blum Unavailable [phone] Nicole Gardner Unavailable Unavailable Jerome Bazzi Unavailable [phone] Jaclyn Ernandez Unavailable [phone] Allergies Allergen (clinical drug ingredient) Drug/Non Drug Allergy documented on EMR Reaction Allergy Type Onset Date Status BEXTRA (uncoded) shortness of breath Allergy Active BIAXIN (uncoded) shortness of breath, pruritus Allergy Active REQUIP (uncoded) vomiting Allergy Act oralia diphenhydramine Benadryl Allergy shortness of breath, blisters Drug [...] 2.96 SpiroPredicted_FEV1 2.2 SpiroPredicted_FEV1_OVER_FVC 74.07 SpiroPredicted_PEF 5.54 Spirometry Reviewed date:07/19/2025 09:57:35 AM Interpretation:Abnormal Performing Lab: Notes/Report: Abnormal SpiroPreBronchodilator_FVC 2.04 SpiroPostBronchodilator_FEF25_75 0 SpiroPreBronchodilator_FEF25_75 1.7 SpiroPreBronchodilator_FEV1 1.64 SpiroPrecentPredictionPost_FEF25_75 0 SpiroPrecentPredictionPost_FEV1 0 SpiroPrecentPredictionPost_FEV1_OVER_FVC 0 SpiroPrecentPredictionPost_FVC 0 SpiroPrecentPredictionPre_FEF25_75 97.1 SpiroPrecentPredictionPre_FEV1 75.6 SpiroPrecentPredictionPre_FEV1_OVER_FVC 109 SpiroPrecentPredictionPre_FVC 69.4 SpiroPredicted_FEF25_75 1.75 SpiroPreBronchodilator_FEV1_OVER_FVC 80.5 SpiroPreBronchodilator_PEF 3.93 SpiroPostBronchodilator_FVC 0 SpiroPostBronchodilator_FEV1 0 SpiroPostBronchodilator_FEV1_OVER_FVC 0 SpiroPostBronchodilator_PEF 0 SpiroPredicted_FVC 2.94 SpiroPredicted_FEV1 2.17 SpiroPredicted_FEV1_OVER_FVC 73.82 SpiroPredicted_PEF 5.52 Reason For Referral No Information Medications Medication SIG (Take, Route, Frequency, Duration) Notes Start Date End Date Status Medrol 4 MG as directed Orally as directed; Duration: 6 days 5 Not-Taking SIT (TRADITIONAL) VARIABLE PER SCHEDULE SC PER SCHEDULE; Duration: TO BE DETERMINED *Please review for potential replacement for e-prescription and drug interaction check* Not-Taking Patanase 665 MCG/INH 2 SPRAY(S) INTRANASALLY 2 TIMES A DAY; Duration: 90 DAYS *Please review and pick correct strength-formul ation from [employer] options. If intended option is not shown, discontinue and re-order from Quick Search* Not-Taking FLUTICASONE NASAL 50 mcg/inh 2 spray(s) intranasally once a day; Duration: 90 days Not-Taking AZELASTINE NASAL 137 mcg/inh 2 spray(s) intranasally 2 times a day; Duration: 30 day(s) 1 Not-Taking Fxzdgdhwsqm-Wpjkabaug-Yx lant 100-62.5-25 MCG/ACT 1 puff Inhalation Once a day; Duration: 90 days 4 Not-Taking PATANASE 665 mcg/inh 2 spray(s) intranasally 2 times a day; Duration: 90 days Not-Taking SINGULAIR 10 mg 1 tab(s) orally once a day; Duration: 90 days Not-Taking ZYRTEC 10 mg 1 tab(s) orally once a day; Duration: 90 days Not-Taking Breo Ellipta 100-25 MCG/ACT 1 puff Inhalation Once a day; Duration: 90 days Not-Taking INCRUSE ELLIPTA 62.5 mcg (0.0625 mg)/inh 1 inh inhaled every 24 hours; Duration: 90 days Not-Taking Incruse Ellipta 62.5 MCG (0.0625 MG)/INH 1 INH INHALED EVERY 24 HOURS; Duration: 90 DAYS *Please review and pick correct strength-formul ation from [employer] options. If intended option is not shown, discontinue and re-order from Quick Search* Not-Taking Breo Ellipta 100 MCG-25 MCG/INH 1 PUFF(S) INHALED ONCE A DAY; Duration: 30 DAYS *Please review and pick correct strength-formul ation from [employer] options. If intended option is not shown, discontinue and re-order from Quick Search* 4 Not-Taking Azelastine HCl 137 MCG/SPRAY 2 spray(s) intranasally 2 times a day; Duration: 90 days 1 Not-Taking Albuterol Sulfate HFA 108 (90 Base) MCG/ACT 2 puff(s) inhaled every 4 hours; Duration: 90 days Not-Taking predniSONE 20 MG 3 tab(s) orally once a day 1 Not-Taking PREDNISONE 20 mg 3 tab(s) orally once a day 1 Not-Taking predniSONE 20 MG 2 tab(s) orally once a day; Duration: 3 day(s) 2 Not-Taking Ipratropium Newport 0.06 % 2 spray(s) intranasally 4 times a day as needed; Duration: 90 days Not-Taking PREDNISONE 20 mg 2 tab(s) orally once a day; Duration: 3 day(s) 2 Not-Taking Breo Ellipta 100-25 MCG/ACT 1 puff Inhalation Once a day; Duration: 30 days 4 Not-Taking Symbicort 160-4.5 MCG/ACT 2 puff(s) inhaled 2 times a day; Duration: 90 days Not-Taking Albuterol Sulfate HFA 108 (90 Base) MCG/ACT 2 puffs as needed Inhalation every 4 hrs; Duration: 30 days As needed Not-Taking IPRATROPIUM NASAL 42 mcg/inh 2 spray(s) intranasally 4 times a day; Duration: 90 days Not-Taking Singulair 10 MG 1 tab(s) orally once a day; Duration: 90 days Not-Taking BREO ELLIPTA 100 mcg-25 mcg/inh 1 puff(s) inhaled once a day; Duration: 30 days 4 Not-Taking Multivitamin - 1 tab(s) orally once a day Not-Taking IPRATROPIUM NASAL 42 mcg/inh 2 spray(s) intranasally 4 times a day as needed; Duration: 90 days Not-Taking Gabapentin 300 MG 1 cap(s) orally Qday Active Simply Saline 0.9 % as directed Nasally daily; Duration: 30 days Active EPINEPHRINE 0.3 mg as directed intramuscularly once; Duration: 30 days Not-Taking ALBUTEROL 90 mcg/inh 2 puff(s) inhaled every 4 hours; Duration: 90 days Not-Taking Fluticasone Propionate 50 MCG/ACT 1 spray in each nostril intranasally Twice a day; Duration: 90 days Not-Taking HYDROCHLOROTHIAZIDE 12.5 mg 1 cap(s) orally once a day Not-Taking ZyrTEC Allergy 10 MG 1 tab(s) orally once a day; Duration: 90 days Not-Taking NASAL WASHES N/A as directed intranasally as needed; Duration: 30 Active SIT (TRADITIONAL) variable per schedule SC per schedule; Duration: to be determined Active Ipratropium Newport 0.06 % 2 sprays in each nostril Nasally Four times a day; Duration: 90 days Active Trelegy Ellipta 200-62.5-25 MCG/ACT 1 puff Inhalation Once a day; Duration: 90 days Active Azelastine HCl 137 MCG/SPRAY 2 sprays in each nostril Nasally Twice a day; Duration: 90 days Active Albuterol Sulfate HFA 108 (90 Base) MCG/ACT 2 puffs as needed Inhalation every 4 hrs; Duration: 30 days Active Montelukast Sodium 10 MG 1 tablet Orally Once a day; Duration: 90 days Active Cetirizine HCl 10 MG 1 tablet Orally Once a day; Duration: 90 days Active Calcium 600 + D 600 MG-200 UNITS 1 TAB(S) ORALLY 3 TIMES A DAY *Please review and pick correct strength-formul ation from [email or web address] options. If intended option is not shown, discontinue and re-order from Quick Search* Active Fluticasone Propionate 50 MCG/ACT 1 spray in each nostril Nasally Twice a day; Duration: 90 days Active Align 4 MG 1 cap(s) orally once a day Active Vitamin D3 1000 UNIT as directed orally once a day Active EPINEPHrine 0.3 MG/0.3ML as directed Injection as needed; Duration: 30 days 5 Active EPINEPHrine 0.3 MG DIRECTED INTRAMUSCULARLY ONCE; Duration: 30 DAYS *Please review and pick correct strength-formul ation from [email or web address] options. If intended option is not shown, discontinue and re-order from Quick Search* Active PEPCID 20 mg 1 tab(s) orally 30 mins prior to SCIT Not-Taking Pepcid 20 MG 1 tab(s) orally 30 mins prior to SCIT; Duration: 30 days Active Omeprazole 20 MG 1 cap(s) orally once a day Active oxyBUTYnin Chloride ER 10 MG 1 tablet Orally Once a day Active EXCEDRIN MIGRAINE 250 mg-250 mg-65 mg 2 tab(s) orally every 6 hours Not-Taking hydroCHLOROthiazide 12.5 MG 1 cap(s) orally once a day Active SUMATRIPTAN 25 mg 1 tab(s) orally once Not-Taking Losartan Potassium 50 MG 1 tab(s) orally once a day Active Ipratropium Newport 0.06 % 2 spray(s) intranasally 4 times a day; Duration: 90 days Active Atorvastatin Calcium 40 MG 1 tab(s) orally once a day Active Prempro 0.3-1.5 MG 1 tab(s) orally once a day Active Naproxen 250 MG 1 tablet with food or milk as needed Orally every 12 hrs Active Aimovig *Please review and pick correct strength-formul ation from [email or web address] options. If intended option is not shown, discontinue and re-order from Quick Search* Active Anti-Diarrheal 2 MG 1 tablet as needed Orally Four times a day Active AEROCHAMBER MDI SPACER N/A user with MDI inhalers by mouth q4-6 hours PRN; Duration: 30 day(s) Active Collagen 500-50-0.8 MG as directed Orally Active ALIGN 4 mg 1 cap(s) orally once a day Not-Taking EPINEPHrine 0.3 MG/0.3ML as directed Injection as needed; Duration: 30 days Active MULTIVITAMIN Multiple Vitamins 1 tab(s) orally once a day Not-Taking SYMBICORT 160 mcg-4.5 mcg/inh 2 puff(s) inhaled 2 times a day; Duration: 90 days Not-Taking OMEPRAZOLE 20 mg 1 cap(s) orally once a day Not-Taking SUMAtriptan Succinate 25 MG 1 tab(s) orally once Active LOSARTAN 50 mg 1 tab(s) orally once a day Not-Taking Trelegy Ellipta 100-62.5-25 MCG/ACT 1 puff Inhalation Once a day; Duration: 30 days 4 Active AIMOVIG Not-Taking PREMPRO 0.3 mg-1.5 mg 1 tab(s) orally once a day Not-Taking Excedrin Migraine 250-250-65 MG 2 tab(s) orally every 6 hours Active GABAPENTIN 300 mg 1 cap(s) orally Qday Not-Taking CALCIUM 600+D 600 mg-200 units 1 tab(s) orally 3 times a day Not-Taking ATORVASTATIN 40 mg 1 tab(s) orally once a day Not-Taking VITAMIN D3 1000 intl units as directed orally once a day Not-Taking Immunizations Vaccine Route Administration Date Status Comme nts Influenza Unknown 07/30/2018 Administered Portal Infor mation Flucelvax Unknown 11/29/2019 Administered COVID-19 (Moderna) Unknown 12/13/2020 Administered COVID-19 (Moderna) Unknown 01/10/2021 Administered Fluzone, quadrivalent, preservative free Unknown 07/27/2020 Administered Social History Tobacco Use: Social History Observation Description Date Details (start date - stop date) Former Smoker NA - NA Sex Assigned At : Social History Observation Description Sex Assigned At Female Tobacco Control (Standard) Question Answer Notes Tobacco use: Former smoker How long has it been since you last smoked? Grea ter than 10 years AUDIT-C (Standard) Question Answer Notes Did you have a drink containing alcohol in the p ast year? 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 Problem Uncomplicated moderate persistent asthma (660892442) Moderate persistent asthma, uncomplicated (J45.40) Active confirmed Problem Systemic lupus erythematosus (53297986) Systemic lupus erythematosus, unspecified (M32.9) Active confirmed Problem Fibromyalgia (752403011) Fibromyalgia (M79.7) Active confirmed Problem Cough (59963310) Cough (R05) Active confirmed Problem Swelling of head (340942825) Localized swelling, mass and lump, head (R22.0) Active confirmed Problem 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, 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 confirmed Problem Allergic rhinitis caused by pollen (disorder) (47611047) Allergic rhinitis due to pollen (J30.1) Active confirmed Problem Allergic rhinitis caused by animal hair and dander (221127725907950) Allergic rhinitis due to animal (cat) (dog) hair and dander (J30.81) Active confirmed Problem Allergic rhinitis (09222515) Other allergic rhinitis (J30.89) Active confirmed Problem Chronic allergic conjunctivitis (73663881) Other chronic allergic conjunctivitis (H10.45) Active confirmed Problem Disorder of vocal cord (01509787) 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 Vital Signs Blood pressure diastolic 60 mm Hg 07/19/2025 Oximetry 99 % 07/19/2025 Height 65.5 in 07/19/2025 Blood pressure systolic 119 mm Hg 07/19/2025 Weight 157.0 lbs 07/19/2025 BMI 25.73 kg/m2 07/19/2025 Encounters Encounter Location Date Provider Diagnosis [address] [address] 07/27/2024 Andrzej Holliday Allergic rhinitis du e [...] encounter T50.995D and Essential (primary) hypertension I10 [address] [address] 08/25/2024 Jerome Bazzi Allergic rhinitis du e to pollen J30.1 ; Allergic rhinitis due to animal (cat) (dog) hair and dander J30.81 ; Other allergic rhinitis J30.89 and Other chronic allergic conjunctivitis H10.45 [facility] [address] [place] [phone] 09/10/2024 Jerome Bazzi Allergic rhinitis du e to pollen J30.1 ; Allergic rhinitis due to animal (cat) (dog) hair and dander J30.81 ; Other allergic rhinitis J30.89 and Other chronic allergic conjunctivitis H10.[address] [address] 10/13/2024 Jerome Bazzi Allergic rhinitis du e to pollen J30.1 ; Allergic rhinitis due to animal (cat) (dog) hair and dander J30.81 ; Other allergic rhinitis J30.89 and Other chronic allergic conjunctivitis H10.[address] [address] 10/19/2024 Jerome Bazzi Allergic rhinitis du e to pollen J30.1 ; Allergic rhinitis due to animal (cat) (dog) hair and dander J30.81 ; Other allergic rhinitis J30.89 and Other chronic allergic conjunctivitis H10.45 [facility] [address] [place] [phone] 10/26/2024 Jerome Jluis Allergic rhinitis du e to pollen J30.1 ; Allergic rhinitis due to animal (cat) (dog) hair and dander J30.81 ; Other allergic rhinitis J30.89 and Other chronic allergic conjunctivitis H10.[address] [address] 11/10/2024 Andrzej Mg Allergic rhinitis du e to [...] encounter T50.995D and Essential (primary) hypertension I10 [facility] [address] [place] [address] 12/14/2024 Jerome Jluis Allergic rhinitis du e to pollen J30.1 ; Allergic rhinitis due to animal (cat) (dog) hair and dander J30.81 ; Other allergic rhinitis J30.89 and Other chronic allergic conjunctivitis H10.45 [facility] [address] [place] [phone] 01/18/2025 Jerome Jluis Allergic rhinitis du e to pollen J30.1 ; Allergic rhinitis due to animal (cat) (dog) hair and dander J30.81 ; Other allergic rhinitis J30.89 and Other chronic allergic conjunctivitis H10.[address] [address] 02/01/2025 Andrzej Mg Allergic rhinitis du e [...] medicaments and biological substances, subsequent encounter T50.995D [facility] [address] [place] [phone] 03/01/2025 Jerome Bazzi Allergic rhinitis du e to pollen J30.1 ; Allergic rhinitis due to animal (cat) (dog) hair and dander J30.81 ; Other allergic rhinitis J30.89 and Other chronic allergic conjunctivitis H10.45 [facility] [address] [place] [phone] 03/29/2025 Jerome Bazzi Allergic rhinitis du e to pollen J30.1 ; Allergic rhinitis due to animal (cat) (dog) hair and dander J30.81 ; Other allergic rhinitis J30.89 and Other chronic allergic conjunctivitis H10.[address] [address] 05/03/2025 Jaclyn Ernandez Allergic rhinitis du e to pollen J30.1 [...] and biological substances, subsequent encounter T50.995D and Elevated blood-pressure reading, without diagnosis of hypertension R03.0 [facility] [address] [place] [phone] 05/17/2025 Jreome Bazzi Allergic rhinitis du e to pollen J30.1 ; Allergic rhinitis due to animal (cat) (dog) hair and dander J30.81 ; Other allergic rhinitis J30.89 and Other chronic allergic conjunctivitis H10.45 [facility] [address] [place] [address] [facility] [address] [address] 06/14/2025 Jerome Bazzi Allergic rhinitis du e to pollen J30.1 ; Allergic rhinitis due to animal (cat) (dog) hair and dander J30.81 ; Other allergic rhinitis J30.89 and Other chronic allergic conjunctivitis H10.[address] [facility] [address] [address] 07/19/2025 Jaclyn Ernandez Allergic rhinitis du e to pollen J30.1 [...] medicaments and biological substances, subsequent encounter T50.995D [facility] [address] [place] [address] 08/25/2024 Andrzej Holliday Allergic rhinitis du e to pollen J30.1 [facility] [address] [place] [address] 10/13/2024 Andrzej Holliday Moderate persistent asthma, uncomplicated J45.40 and Allergic rhinitis due to pollen J30.[address] [address] 11/08/2024 Andrzej Holliday [address] [facility] [address] [address] 11/10/2024 Andrzej Holliday Allergic rhinitis du e to pollen J30.1 and Moderate persistent asthma, uncomplicated J45.[address] [address] 11/17/2024 Andrzej Holliday [facility] [address] [place] [address] 04/26/2025 Jaclyn Ernandez Allergic rhinitis du e to pollen J30.1 and Moderate persistent asthma, uncomplicated J45.40 [facility] [address] [place] [address] 12/19/2024 Andrzej Holliday Allergic rhinitis du e to pollen J30.1 [facility] [address] [place] [address] 04/26/2025 Jaclyn Ernandez Allergic rhinitis du e to pollen J30.1 ; Moderate persistent asthma, uncomplicated J45.40 and Angioneurotic edema, subsequent encounter T78.3XXD Assessments Encounter Date Diagnosis (ICD Code) Assessment Notes Treatment Notes Treatment Clinical Notes Section Notes 07/27/2024 Moderate persistent asthma, uncomplicated (ICD-10 - [...] Keep follow-up with Pulmonology - Dr. Gardner 07/27/2024 Allergic rhinitis due to pollen (ICD-10 [...] persistent asthma, uncomplicated (ICD-10 - J45.40) 10/19/2024 Allergic rhinitis due to pollen (ICD-10 - J30.1) 10/19/2024 Allergic rhinitis due to animal (cat) (dog) hair and dander (ICD-10 - J30.81) 10/26/2024 Allergic rhinitis due to pollen (ICD-10 - J30.1) 10/26/2024 Allergic rhinitis due to animal (cat) (dog) hair and dander (ICD-10 - J30.81) 11/10/2024 Moderate persistent asthma, uncomplicated (ICD-10 - [...] - J30.1) 12/14/2024 Allergic rhinitis due to pollen (ICD-10 - J30.1) 12/14/2024 Allergic rhinitis due to animal (cat) (dog) hair and dander (ICD-10 - J30.81) 12/19/2024 Allergic rhinitis due to pollen (ICD-10 - J30.1) 01/18/2025 Allergic rhinitis due to pollen (ICD-10 - J30.1) 01/18/2025 Allergic rhinitis due to animal (cat) (dog) hair and dander (ICD-10 - J30.81) 02/01/2025 Moderate persistent asthma, uncomplicated (ICD-10 - [...] SCIT and in 4 months for E&M. 03/01/2025 Allergic rhinitis due to pollen (ICD-10 - J30.1) 03/01/2025 Allergic rhinitis due to animal (cat) (dog) hair and dander (ICD-10 - J30.81) 03/29/2025 Allergic rhinitis due to pollen (ICD-10 - J30.1) 03/29/2025 Allergic rhinitis due to animal (cat) (dog) hair and dander (ICD-10 - J30.81) 04/26/2025 Allergic rhinitis due to pollen (ICD-10 - J30.1) 04/26/2025 Allergic rhinitis due to pollen (ICD-10 - J30.1) 05/03/2025 Moderate persistent asthma, uncomplicated (ICD-10 - J45.40) Initial spirometry met ATS criteria for asthma. Worsens with irritants such as perfume. Spirometry at prior visit with normal FEV1, FEV1%, and FVC though FVL showed variable technique due to cough. - She continues Trelegy daily with benefit. Continue to rinse mouth after use. - Lungs were clear on exam today. Historically requires frequent visits to urgent care x for increased PND and productive cough requiring oral steroids. - Her cough is likely driven by drainage as well. - Previously followed by Dr. Gardner with normal PFT, told to follow-up PRN. - Continue RAVIN as-needed, no recent use. - Follow-up in 3-4 months for further evaluation and management 05/03/2025 Allergic rhinitis due to pollen (ICD-10 - J30.1) Danitza clearly suffers from atopic disease based upon our skin testing and history. Accordingly, she will continue our aggressive medication regimen, discussed nasal washes and allergy-specific avoidance measures. Although testing positive to only 3 aeroallergens, she does report worsening symptoms when mowing the lawn. - Based on history, she was formulated to trees, grasses, weeds, and molds. Now on SCIT without recent local or systemic reaction. Procedure tolerated today without issue. - Recently again with increased PND and drainage. Given normal immune work-up, I do suspect this is mostly a presentation of ALYSSIA though is worse with the onset of Spring. - Continue ipratropium and azalstine. Increase ipratropium use PRN. - Return per shedule for SCIT and in 4 months for E&M. 05/17/2025 Allergic rhinitis due to pollen (ICD-10 - J30.1) 05/17/2025 Allergic rhinitis due to animal (cat) (dog) hair and dander (ICD-10 - J30.81) 06/14/2025 Allergic rhinitis due to pollen (ICD-10 - J30.1) 06/14/2025 Allergic rhinitis due to animal (cat) (dog) hair and dander (ICD-10 - J30.81) 07/19/2025 Moderate persistent asthma, uncomplicated (ICD-10 - J45.40) Initial spirometry met ATS criteria for asthma. Worsens with irritants such as perfume. Spirometry at prior visit with normal FEV1, FEV1%, and FVC though FVL showed variable technique due to cough. Repeat results were very similar today, patient with low effort due to coughing. She also had a recent PFT with pulmonary. - She continues Trelegy daily with benefit. Continue to rinse mouth after use. - Lungs were clear on exam today. Historically requires frequent visits to urgent care x for increased PND and productive cough requiring oral steroids. - Her cough is likely driven by drainage as well. - Previously followed by Dr. Gardner with normal PFT, told to follow-up PRN. - Continue RAVIN as-needed, no recent use. - Follow-up in 3-4 months for further evaluation and management 07/19/2025 Allergic rhinitis due to pollen (ICD-10 - J30.1) Danitza clearly suffers from atopic disease based upon our skin testing and history. Accordingly, she will continue our aggressive medication regimen, discussed nasal washes and allergy-specific avoidance measures. Although testing positive to only 3 aeroallergens, she does report worsening symptoms when mowing the lawn. - Based on history, she was formulated to trees, grasses, weeds, and molds. Now on SCIT without recent local or systemic reaction. Procedure tolerated today without issue. - Recently again with increased PND and drainage. Given normal immune work-up, I do suspect this is mostly a presentation of ALYSSIA though is worse with the onset of Spring. - Continue ipratropium and azalstine. Increase ipratropium use PRN. - Return per shedule for SCIT and in 4 months for E&M. 07/19/2025 Other allergic rhinitis (ICD-10 - J30.89) Follow allergen avoidance, meds and continue SCIT as an adjunctive treatment to current regimen 06/14/2025 Other allergic rhinitis (ICD-10 - J30.89) 05/17/2025 Other allergic rhinitis (ICD-10 - J30.89) 05/03/2025 Other allergic rhinitis (ICD-10 - J30.89) Follow allergen avoidance, meds and continue SCIT as an adjunctive treatment to current regimen 04/26/2025 Moderate persistent asthma, uncomplicated (ICD-10 - J45.40) 11/10/2024 Moderate persistent asthma, uncomplicated (ICD-10 - J45.40) 03/29/2025 Other allergic rhinitis (ICD-10 - J30.89) 04/26/2025 Moderate persistent asthma, uncomplicated (ICD-10 - J45.40) 03/01/2025 Other allergic rhinitis (ICD-10 - J30.89) 02/01/2025 Other allergic rhinitis (ICD-10 - J30.89) Follow allergen avoidance, meds and continue SCIT as an adjunctive treatment to current regimen 01/18/2025 Other allergic rhinitis (ICD-10 - J30.89) 12/14/2024 Other allergic rhinitis (ICD-10 - J30.89) 11/10/2024 Other allergic rhinitis (ICD-10 - J30.89) Follow allergen avoidance, meds and continue SCIT as an adjunctive treatment to current regimen 10/26/2024 Other allergic rhinitis (ICD-10 - J30.89) 10/19/2024 Other allergic rhinitis (ICD-10 - J30.89) 10/13/2024 Other allergic rhinitis (ICD-10 - J30.89) 10/13/2024 Allergic rhinitis due to pollen (ICD-10 - J30.1) 09/10/2024 Other allergic rhinitis (ICD-10 - J30.89) 08/25/2024 Other allergic rhinitis (ICD-10 - J30.89) 07/27/2024 Other allergic rhinitis (ICD-10 - J30.89) Follow allergen avoidance, meds and continue SCIT as an adjunctive treatment to current regimen 07/27/2024 Other chronic allergic conjunctivitis (ICD-10 - H10.45) Given ocular signs and symptoms I encouraged allergy avoidance measures and meds as above. If symptoms persist, consider adding additional medications including intraocular antihistamine/mas t cell stabilizer, PRN and continue SCIT as an adjunctive measure 09/10/2024 Other chronic allergic conjunctivitis (ICD-10 - [...] Other chronic allergic conjunctivitis (ICD-10 - H10.45) 12/14/2024 Other chronic allergic conjunctivitis (ICD-10 - H10.45) 02/01/2025 Other chronic allergic conjunctivitis (ICD-10 - H10.45) Given ocular signs and symptoms I encouraged allergy avoidance measures and meds as above. If symptoms persist, consider adding additional medications including intraocular antihistamine/mas t cell stabilizer, PRN and continue SCIT as an adjunctive measure 03/29/2025 Other chronic allergic conjunctivitis (ICD-10 - H10.45) 04/26/2025 Angioneurotic edema, subsequent encounter (ICD-10 - T78.3XXD) 05/03/2025 Other chronic allergic conjunctivitis (ICD-10 - H10.45) Given ocular signs and symptoms I encouraged allergy avoidance measures and meds as above. If symptoms persist, consider adding additional medications including intraocular antihistamine/mas t cell stabilizer, PRN and continue SCIT as an adjunctive measure 03/01/2025 Other chronic allergic conjunctivitis (ICD-10 - H10.45) 06/14/2025 Other chronic allergic conjunctivitis (ICD-10 - H10.45) 07/19/2025 Other chronic allergic conjunctivitis (ICD-10 - H10.45) Given ocular signs and symptoms I encouraged allergy avoidance measures and meds as above. If symptoms persist, consider adding additional medications including intraocular antihistamine/mas t cell stabilizer, PRN and continue SCIT as an adjunctive measure 05/17/2025 Other chronic allergic conjunctivitis (ICD-10 - H10.45) 07/19/2025 Localized swelling, mass and lump, head (ICD-10 - R22.0) Prior sensation of globus in the AM morning which woke her from sleep leaving her unable to breathe or swallow x <1 minute. Largyngoscopy was normal. No hives, wheezing, or visible angioedema. It is unclear to me what may have caused this, though it could be anxiety or VCD as below. Typtase normal. - No interval episodes 05/03/2025 Localized swelling, mass and lump, head (ICD-10 - R22.0) Prior sensation of globus in the AM morning which woke her from sleep leaving her unable to breathe or swallow x <1 minute. Largyngoscopy was normal. No hives, wheezing, or visible angioedema. It is unclear to me what may have caused this, though it could be anxiety or VCD as below. Typtase normal. - No interval episodes 02/01/2025 Localized swelling, mass [...] below. Typtase normal. No interval episodes 07/27/2024 Angioneurotic edema, subsequent encounter (ICD-10 - [...] levels if this becomes an ongoing problem 05/03/2025 Angioneurotic edema, subsequent encounter (ICD-10 - T78.3XXD) See above. AIE on hand and anaphylaxis education provided. No interval symptoms. Likley related to VCD as below. Call the office if symptoms reoccur. - Consider completement levels if this becomes an ongoing problem, no recurrence however. 07/19/2025 Angioneurotic edema, subsequent encounter (ICD-10 - T78.3XXD) See above. AIE on hand and anaphylaxis education provided. No interval symptoms. Likley related to VCD as below. Call the office if symptoms reoccur. - Consider completement levels if this becomes an ongoing problem, no recurrence however. 07/19/2025 Other diseases of vocal cords (ICD-10 - [...] history is indicative of VCD. Following with [facility] [facility] and using VCD exercises 05/03/2025 Other diseases of vocal cords (ICD-10 - J38.3) Previously with inspiratory flattening on flow volume loop, c/w vocal cord dysfunction. S/p evaluation by [facility], now with breathing exercises to use for symptoms. Recent laryngoscopy for subjective throat swelling was normal. Still with cough secondary to PND. Continue SCIT as above. Seen by [facility] with normal scope though agree history is indicative of VCD. Following with [facility] [facility] and using VCD exercises 02/01/2025 Other diseases of [...] history is indicative of VCD. Following with [facility] [facility] and using VCD exercises 11/10/2024 Other diseases [...] history is indicative of VCD. Following with [facility] [facility] and using VCD exercises 07/27/2024 Other diseases of vocal cords (ICD-10 - J38.3) Previously with inspiratory flattening on flow volume loop, c/w vocal cord dysfunction. S/p evaluation by [facility] [facility] Belen Concepcion, now with breathing exercises to use for symptoms. Recent laryngoscopy for subjective throat swelling was normal. Still with cough secondary to PND. Continue SCIT as above. Seen by [facility] with normal scope though agree history is indicative of VCD. 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 There is no need for further work-up given lack of recurrent infections. Currently overcoming additional sinus infection with lower airway involvement. 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 There is no need for further work-up given lack of recurrent infections. Currently overcoming additional sinus infection with lower airway involvement. 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 There is no need for further work-up given lack of recurrent infections. Currently overcoming additional sinus infection with lower airway involvement. 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 There is no need for further work-up given lack of recurrent infections. Currently overcoming additional sinus infection with lower airway involvement. 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 There is no need for further work-up given lack of recurrent infections. Currently overcoming additional sinus infection with lower airway involvement. PI work-up was all [facility] 05/03/2025 Adverse effect of macrolides, subsequent encounter (ICD-10 - T36.3X5D) Danitza reports a history of angioedema of the lips after taking Biaxin 40 years ago, and continues strict avoidance. She also reports more recent dyspnea and blood boiling after taking erythromycin. There is no way to test for macrolide allergy. Avoid macrolides and consider in-office challenges in the future. AIE on hand 07/19/2025 Adverse effect of macrolides, subsequent encounter (ICD-10 [...] AIE on hand 07/27/2024 Adverse effect of other drugs, medicaments and biological substances, subsequent encounter (ICD-10 - T50.995D) Danitza reports dyspnea and blood boiling with Benadryl and Katey-D. Dyspnea may be due to vocal cord dysfunction, given her flow volume loop results. Continue avoidance of the above medications. Tolerant of Zyrtec 11/10/2024 Adverse effect of other drugs, medicaments [...] of the above medications. Tolerant of Zyrtec 07/19/2025 Adverse effect of other drugs, medicaments and biological substances, subsequent encounter (ICD-10 - T50.995D) Danitza reports dyspnea and blood boiling with Benadryl and Katey-D. Dyspnea may be due to vocal cord dysfunction, given her flow volume loop results. Continue avoidance of the above medications. Tolerant of Zyrtec 05/03/2025 Adverse effect of other drugs, medicaments and biological substances, subsequent encounter (ICD-10 - T50.995D) Danitza reports dyspnea and blood boiling with Benadryl and Katey-D. Dyspnea may be due to vocal cord dysfunction, given her flow volume loop results. Continue avoidance of the above medications. Tolerant of Zyrtec 05/03/2025 Elevated blood-pressure reading, without diagnosis of hypertension (ICD-10 - R03.0) BP elevated today without symptoms of urgency or emergency. Continue serial checks and follow-up with PCP 11/10/2024 Essential (primary) hypertension (ICD-10 - I10) Elevated BP without symptoms of urgency or emergency. Continue serial checks and follow-up with PCP 07/27/2024 Essential (primary) hypertension (ICD-10 - I10) Elevated BP without symptoms of urgency or emergency. Continue serial checks and follow-up with PCP 11/02/2024 Other 07/27/2024 Other 11/10/2024 Other 02/01/2025 Other 05/03/2025 Other 07/19/2025 Other Plan Of Treatment Pending Test Test Name Order Date Tryptase 04/07/2020 STREPTOCOCCUS PNEUMONIAE IGG AB (23 SERO TYPES) 05/06/2023 TETANUS ANTITOXOID ANTIBODY (EIA) 2022 DIPHTHERIA ANTITOXOID ANTIBODY CBC (INCLUDES DIFF/PLT) 05/06/2023 IMMUNOGLOBULINS G/A/M 05/06/2023 VITAMIN D, 25-OH, TOTAL, IA 05/06/2023 HAEMOPHILUS INFLUENZAE B ANTIBODY, IGG 0 05/06/2023 Next Appt Details Provider Name:Jerome Dozier Jluis , 07/26/2025 07:30:00 AM, 2022 [facility], [address], [address], Provider Name:Jerome Dozier Jluis , 08/09/2025 07:30:00 AM, [address]22 [facility], [address], [address], Provider Name:Jerome Dozier Jluis , 08/16/2025 07:30:00 AM, [address] [facility], [address], Provider Name:Jerome Dozier Jluis , 08/23/2025 07:30:00 AM, 2022 [facility], [address], [address], Provider Name:Jaclyn acosta, 09/20/2025 07:30:00 AM, 2022 [facility], [address], [address], Provider Name:Jaclyn acosta, 10/19/2025 07:30:00 AM, 2022 [facility], [address], [address], Insurance Providers Payer Name Payer Address Payer Phone Subscriber Number Group Number Insured Name Patient Relationship to Insured Coverage Start Date Coverage End Date [employer] (Medicare) Attention Claims [address] [place] [address] [phone] [id number] Coleen Grullon Self - patient is the insured 3 [address] [address] [place] [address] [phone] [id number] Coleen Grullon Self - patient is the [...] eye 05/2024 Cataract Surgery Left eye 06/2024 Knee Surgery 02/2025 wart removal Hospitalization History Reason Date(Month/Year) Migraines 03/28/1969
[2025-07-25 13:56] VITALS: BP 160/91; PULSE 88; RESP 18; O2SAT 98; O2SAT 99
[2025-07-25] MEDS: FAMOTIDINE 20 MG TABLET PO (14:46)
--- NOTE | 2025-07-25 15:03 | ED.ALLEREA ---
HPI - Allergic Reaction General Chief complaint: Allergic Reaction Stated complaint: allergic reaction Time Seen by Provider: 07/25/25 13:58 Source: patient Mode of arrival: ambulatory Limitations: no limitations History of Present Illness HPI narrative: Patient is a 74-year-old female who presents the ED with concern for an allergic reaction. Patient reports she has many allergies to medications and since. Sees an coffee weigher and receives monthly allergy injections. Reports over the past 2 nights, she has had diffuse itching throughout her body. Denies any rash or hives. Denies any difficulty breathing or swallowing. Denies any new medications, soaps, lotions, detergents, foods. Took Zyrtec this morning, has not taken anything further for symptoms. Has an allergy to Benadryl. Related Data Home Medications ?Medication ?Instructions ?Recorded ?Confirmed ?Last Taken ?Type gabapentin 300 mg capsule 300 mg PO HS 10/15/19 09/11/23 09/10/23 History multivitamin with minerals 1 tablet PO BID 10/15/19 09/11/23 09/10/23 History (Hair,Skin and Nails tablet) sumatriptan succinate 25 mg tablet 25 mg PO Q2H PRN Migraine Headache 10/15/19 08/28/23 Unknown History Bifidobacterium infantis 4 mg 4 mg PO DAILY 10/23/19 09/11/23 09/10/23 History capsule (Align (B.infantis)) erenumab-aooe 140 mg/mL 140 mg subcut MONTHLY 10/23/19 08/28/23 07/11/20 History subcutaneous auto-injector (Aimovig Autoinjector) budesonide-formoterol HFA 160 2 puff inhalation Q12H 05/31/20 09/11/23 09/10/23 History mcg-4.5 mcg/actuation aerosol inhaler (Symbicort) calcium 600 mg (as 600 cap PO BID 05/31/20 09/11/23 09/10/23 History carbonate)-vitamin D3 12.5 mcg (500 unit) capsule (Calcium with Vit D3) albuterol sulfate 90 mcg/actuation 2 puff inhalation Q4H PRN 07/25/20 08/28/23 Unknown History aerosol inhaler (ProAir HFA) Shortness Of Breath cetirizine 10 mg tablet (Zyrtec) 10 mg PO DAILY 07/25/20 08/28/23 09/11/23 History conj estrogen-medroxyprogesterone 0.3 - 1.5 tablet PO HS 07/25/20 08/28/23 09/11/23 History 0.3 mg-1.5 mg tablet (Prempro) montelukast 10 mg tablet 10 mg PO DAILY 07/25/20 09/11/23 09/10/23 History ascorbic acid (vitamin C) 1,000 mg 1,000 mg PO Q12H 09/15/20 09/11/23 09/10/23 History tablet,extended release (Vitamin C With Fide Hips) hydrochlorothiazide 25 mg tablet 25 mg PO DAILY 09/15/20 08/28/23 Unknown History losartan 100 mg tablet 100 mg PO DAILY 09/15/20 08/28/23 09/11/23 History omeprazole 20 mg capsule,delayed 20 mg PO DAILY 09/15/20 08/28/23 09/11/23 History release epinephrine 0.3 mg/0.3 mL 0.3 mg IM Q4H PRN Anaphylaxis 01/22/23 08/28/23 Unknown History injection, auto-injector famotidine 20 mg tablet (Pepcid AC) 20 mg PO DAILY 01/22/23 09/11/23 09/10/23 History ipratropium bromide 42 mcg (0.06 2 spray intranasal TID 01/22/23 09/11/23 09/10/23 History %) nasal spray Allergies Allergy/AdvReac Type Severity Reaction Status Date / Time diphenhydramine (From Allergy Severe Anaphylaxis Verified 02/27/25 17:03 Benadryl) clarithromycin (From Biaxin) Allergy Intermediate Unknown Verified 02/27/25 17:03 erythromycin base Allergy Intermediate Unknown Verified 02/27/25 17:03 ropinirole (From Requip) Allergy Intermediate Unknown Verified 02/27/25 17:03 valdecoxib (From Bextra) Allergy Intermediate Unknown Verified 02/27/25 17:03 cefdinir Allergy Mild Unknown Verified 02/27/25 17:03 perfume AdvReac Intermediate Unknown Verified 02/27/25 17:03 Review of Systems Review of Systems: All systems reviewed & are unremarkable except as noted in HPI. All systems reviewed & are unremarkable except as noted in HPI and below PMFSH Past Medical History Medical History (Updated 07/25/25 @ 15:11 by Cary Alexander PA-C) Hx of migraines Asthma-COPD overlap syndrome History of tobacco abuse Sleepiness Recurrent infections Rhinitis Anxiety Depression Systemic lupus Degenerative disk disease Arthritis COPD (chronic obstructive pulmonary disease) Hypercholesterolemia Seizures Fibromyalgia Surgical History Surgical History H/O section H/O dilation and curettage History of tubal ligation Family History Family History Sibling Patient's sister is in good health Family history of respiratory disorder, Onset Age: 1 Family history of coronary artery disease Diabetes mellitus Patient's brother is Mother Family history of diabetes mellitus in first degree relative Patient's mother is , Onset Age: 78 Father Patient's father is , Onset Age: 78 Sibling Multiple sclerosis Social History Social History Smoking packs per day: 1 Smoking cigarettes per day: 20.0 Years smoked: 13 Smoking pack-years: 13.00 Smoking status: Former smoker Tobacco type: cigarettes Smoking end date: 10/28/84 Alcohol intake: never Substance use: never Substance use type: does not use Living arrangements: with friend(s) Gender identity (if verbalized by the patient): Female Spiritual care concerns: No Exam Narrative: GENERAL: Well appearing, well-nourished, non-toxic, in no acute distress. HEAD: Normocephalic, atraumatic. RESPIRATORY: Airway patent, respirations nonlabored. Clear to auscultation bilaterally, no rales, rhonchi, wheezing. No stridor or distress. CARDIOVASCULAR: Regular rate and rhythm MUSCULOSKELETAL: Moves all extremities. No gross deformities. SKIN: Warm, dry, normal color. No rash or urticaria. NEURO: A&O X3. Speech clear. No ataxic movements. PSYCHIATRIC: Appropriate mood and affect. Normal interaction. Course Vital Signs Vital signs: Vital Signs Temperature 98.2 F 07/25/25 13:49 Pulse Rate 99 07/25/25 13:49 Respiratory Rate 16 07/25/25 13:49 Blood Pressure 177/77 H 07/25/25 13:49 Pulse Oximetry 99 07/25/25 13:49 Temperature 98.2 F 07/25/25 13:49 Pulse Rate 88 07/25/25 13:56 Respiratory Rate 18 07/25/25 13:56 Blood Pressure 160/91 H 07/25/25 13:56 Pulse Oximetry 98 07/25/25 13:56 Oxygen Delivery Room Air 07/25/25 13:56 MDM - Allergic Reaction MDM Narrative Medical decision making narrative: Patient presented to ED with diffuse pruritus, hx of multiple allergies. Denies rash/urticaria. No signs of airway compromise or respiratory distress. No signs of anaphylaxis. VSS. Patient given solu medrol, hydroxyzine, Pepcid in the ED. On re-evaluation she is feeling slightly improved. Continues to not have any evidence of airway compromise, anaphylaxis, urticaria. Unclear etiology to trigger today. Denies any new triggers. Continues to remain stable. Patient safe for d/c home. She has an appointment with her coffee weigher tomorrow. Will d/c on steroid pack and short course of hydroxyzine. Given return precautions. D/C in stable condition. Medical Records Attestation: I reviewed the patient's medical records. Discharge Plan Discharge Clinical Impression: Pruritus Patient Disposition: Home Condition: Stable Instructions: Antibiotic Form, Allergies (ED), Itchy Skin (ED) Additional Instructions: Take steroids as prescribed. Continue Zyrtec/pepcid at home. Utilize Hydroxyzine as needed for itching. Follow-up with your coffee weigher for further evaluation. Return to the ED if you experience difficulty breathing or swallowing, swelling of lips/throat, unable to keep down food or drink, or any other symptoms of concern. Patient Language: Somali Prescriptions: New methylprednisolone [Medrol (Cesar)] 4 mg tablets,dose pack See Rx Instructions PO .COMPLEX Qty: 21 0RF Rx Instructions: orally per package directions hydroxyzine HCl 25 mg tablet 25 mg PO QID PRN (Reason: itching) Qty: 15 0RF No Action budesonide-formoterol [Symbicort] 160-4.5 mcg/actuation HFA aerosol inhaler 2 puff INHALATION Q12H calcium carbonate-vitamin D3 [Calcium 600 with Vitamin D3] 600 mg(1,500mg) -500 unit capsule 600 cap PO BID losartan 100 mg tablet 100 mg PO DAILY hydrochlorothiazide 25 mg tablet 25 mg PO DAILY Vitamin C With Fide Hips 1,000 mg tablet extended release 1,000 mg PO Q12H omeprazole 20 mg capsule,delayed release(DR/EC) 20 mg PO DAILY famotidine [Pepcid AC] 20 mg tablet 20 mg PO DAILY epinephrine 0.3 mg/0.3 mL auto-injector 0.3 mg IM Q4H PRN (Reason: Anaphylaxis) ipratropium bromide 42 mcg (0.06 %) spray,non-aerosol 2 spray intranasal TID Rx Instructions: administer into each nostril multivitamin with minerals [Hair,Skin and Nails] Tablet 1 tablet PO BID sumatriptan succinate 25 mg tablet 25 mg PO Q2H PRN (Reason: Migraine Headache) Rx Instructions: 25 mg orally as needed ;Take 1 tablet by oral route with fluids at the onset of migraine. May repeat after 2 hours if migraine still persists. Not to exceed 200mg in 24hrs. gabapentin 300 mg capsule 300 mg PO HS Align (B.infantis) 4 mg Capsule 4 mg PO DAILY Aimovig Autoinjector 140 mg/mL auto-injector 140 mg SUBCUT MONTHLY montelukast 10 mg Tablet 10 mg PO DAILY Prempro 0.3-1.5 mg Tablet 0.3 - 1.5 tablet PO HS albuterol sulfate [ProAir HFA] 90 mcg/actuation HFA aerosol inhaler 2 puff INHALATION Q4H PRN (Reason: Shortness Of Breath) cetirizine [Zyrtec] 10 mg tablet 10 mg PO DAILY atorvastatin 40 mg tablet 40 mg PO DAILY Qty: 30 0RF cyclobenzaprine 5 mg tablet 5 mg PO TID PRN (Reason: muscle spasm) Qty: 14 0RF lidocaine 5 % adhesive patch,medicated 1 patch topical DAILY Qty: 15 0RF Rx Instructions: leave on most painful area for up to 12 hrs. do not use more than 1 patch in a 24-hour period. Incruse Ellipta 62.5 mcg/actuation blister with device 1 inhalation INHALATION Q24H 30 Days Qty: 30 11RF Follow-up/Referrals: Harms,Ignacio Traore M.D. [Primary Care Provider] Time of Disposition: 15:53
== END 2025-07-25 16:08 | disposition home or self-care (01) ==
PROVIDERS: Emergency Provider Physician Assistant; PCP Family Medicine
DX: L29.9 Pruritus, unspecified (principal); J44.9 Chronic obstructive pulmonary disease, unspecified; F41.9 Anxiety disorder, unspecified; F32.A Depression, unspecified; M32.9 Systemic lupus erythematosus, unspecified; M19.90 Unspecified osteoarthritis, unspecified site; E78.5 Hyperlipidemia, unspecified; M79.7 Fibromyalgia
CPT/HCPCS: 96372; 99283; A9270; J2919